=== PATIENT | female | born 1955 | race African-American/Black ===

== ENCOUNTER 2018-04-17 00:20 | Emergency (ER) | payer OTHER ==
--- NOTE | 2018-04-17 03:09 | ER ---
Nurse's Notes [facility] Name: Monique Franz Age: 62 yrs Sex: Female : 1955 Arrival Date: 04/17/2018 Time: 00:23 Bed 16 Private MD: Bahman Gil H Diagnosis: Acute pharyngitis Presentation: 04/17 00:47 Presenting complaint: Patient states: "feels something in the back of my throat" no ak1 resp distress noted. pt stated she also can "feel something" on the roof of her mouth. Transition of care: patient was not received from another setting of care. Onset of symptoms is unknown. Risk Assessment: Do you want to hurt yourself or someone else? Patient reports no desire to harm self or others. Initial Sepsis Screen: Does the patient meet any 2 criteria? No. Patient's initial sepsis screen is negative. Does the patient have a suspected source of infection? No. Patient's initial sepsis screen is negative. Care prior to arrival: doxycycline antibiotics left over for 2 days [employer]. 00:47 Method Of Arrival: Ambulatory ak1 00:47 Acuity: VIC 4 ak1 Triage Assessment: 00:53 General: Appears in no apparent distress. Behavior is calm, cooperative. Pain: Denies ak1 pain. EENT: Oral mucosa is moist. Throat with gag reflex present. Neuro: No deficits noted. Cardiovascular: No deficits noted. Respiratory: No deficits noted. GI: No signs and/or symptoms were reported involving the gastrointestinal system. : No signs and/or symptoms were reported regarding the genitourinary system. Derm: No signs and/or symptoms reported regarding the dermatologic system. Musculoskeletal: No signs and/or symptoms reported regarding the musculoskeletal system. Historical: - Allergies: 00:53 Zithromax; ak1 00:53 Azithromycin; ak1 - Home Meds: 00:53 Victoza 2-Jj subcutaneous subcutaneous [Active]; simvastatin 20 mg Oral tab 1 tab once ak1 daily [Active]; amiodarone 100 mg Oral tab 1 tab once daily [Active]; aspirin 81 mg Oral chew 1 tab once daily [Active]; glimepiride 2 mg Oral tab 1 tab 2 times daily [Active]; Xarelto 20 mg oral tab 1 tab once daily [Active]; losartan 100 mg oral tab 1 tab once daily [Active]; hydrochlorothiazide 12.5 mg Oral cap 1 cap once daily [Active]; carvedilol 25 mg oral tab 1 tab 2 times per day [Active]; Lialda 1.2 gram oral TbEC 2 tabs once daily [Active]; tramadol 50 mg Oral tab 1 tab every 6 hours [Active]; [place] 10-325 mg Oral tab 1 tab every 6 hours [Active]; 00:57 Nexium Oral [Active]; ak1 - PMHx: 00:53 Hypertension; Hyperlipidemia; Diabetes - NIDDM; ak1 - PSHx: 00:53 Hysterectomy; ; shoulder surg; ak1 - Immunization history:: Adult Immunizations unknown. - Social history:: Smoking status: Patient/guardian denies using tobacco. - Ebola Screening: : No symptoms or risks identified at this time. Screenin:55 Abuse screen: Denies threats or abuse. Denies injuries from another. Nutritional ak1 screening: On. Tuberculosis screening: No symptoms or risk factors identified. Fall Risk None identified. Assessment: 03:17 Reassessment: Pt verbalized understanding of discharge instructions, need for follow up tl2 and medication usage. Vital Signs: 00:46 BP 149 / 75; Pulse 72; Resp 18; Temp 98.6(O); Pulse Ox 97% on R/A; Weight 119.29 kg ak1 (R); Height 5 ft. 3 in. (160.02 cm) (R); Pain 0/10; 03:17 BP 139 / 66; Pulse 63; Resp 18; Pulse Ox 100% on R/A; tl2 00:46 Body Mass Index 46.59 (119.29 kg, 160.02 cm) ak1 ED Course: 00:23 Patient arrived in ED. es 00:23 Bhaman Gil DO is Private Physician. es 00:46 Ana Ratliff, YEISON is Primary Nurse. ak1 00:49 Triage completed. ak1 00:53 Arm band placed on Patient placed in an exam room, on a stretcher, on pulse oximetry, ak1 Patient notified of wait time. 00:55 Patient has correct armband on for positive identification. Bed in low position. Call ak1 light in reach. Side rails up X 1. Pulse ox on. NIBP on. 01:17 Aly Pina MD is Attending Physician. kdr 03:08 Bahman Gil DO is Referral Physician. kdr 03:17 No provider procedures requiring assistance completed. Patient did not have IV access tl2 during this emergency room visit. Administered Medications: No medications were administered Outcome: 03:09 Discharge ordered by . kdr 03:17 Discharged to home ambulatory. tl2 03:17 Condition: stable 03:17 Discharge instructions given to patient, Instructed on discharge instructions, follow up and referral plans. Demonstrated understanding of instructions, follow-up care. 03:19 Patient left the ED. tl2 Signatures: Aly Pina MD MD kdr Lucinda Nunez Amber RN RN ak1 Pia Hayes RN RN tl2
--- NOTE | 2018-04-17 03:09 | EDPHYS ---
Physician Documentation [facility] Name: Monique Franz Age: 62 yrs Sex: Female : 1955 Arrival Date: 04/17/2018 Time: 00:23 Bed 16 Private MD: Bahman Gil H ED Physician Aly Pina HPI: 04/17 03:54 This 62 yrs old Black Female presents to ER via Ambulatory with complaints of Problem kdr with throat. 03:54 The patient presents with sore throat, Posterior pharynx congestion. The patient kdr describes throat pain as constant, dry. Onset: The symptoms/episode began/occurred gradually, 3 day(s) ago. Severity of symptoms: At their worst the symptoms were mild, in the emergency department the symptoms are unchanged. Modifying factors: The symptoms are alleviated by nothing, the symptoms are aggravated by swallowing, Patient's oral intake status: good unaware of sick contact. Associated signs and symptoms: The patient has no apparent associated signs or symptoms. The patient has not experienced similar symptoms in the past. The patient has not recently seen a physician. She had taken as few doses of unknown abx without relief. Historical: - Allergies: 00:53 Zithromax; ak1 00:53 Azithromycin; ak1 - Home Meds: 00:53 Victoza 2-Jj subcutaneous subcutaneous [Active]; simvastatin 20 mg Oral tab 1 tab once ak1 daily [Active]; amiodarone 100 mg Oral tab 1 tab once daily [Active]; aspirin 81 mg Oral chew 1 tab once daily [Active]; glimepiride 2 mg Oral tab 1 tab 2 times daily [Active]; Xarelto 20 mg oral tab 1 tab once daily [Active]; losartan 100 mg oral tab 1 tab once daily [Active]; hydrochlorothiazide 12.5 mg Oral cap 1 cap once daily [Active]; carvedilol 25 mg oral tab 1 tab 2 times per day [Active]; Lialda 1.2 gram oral TbEC 2 tabs once daily [Active]; tramadol 50 mg Oral tab 1 tab every 6 hours [Active]; [place] 10-325 mg Oral tab 1 tab every 6 hours [Active]; 00:57 Nexium Oral [Active]; ak1 - PMHx: 00:53 Hypertension; Hyperlipidemia; Diabetes - NIDDM; ak1 - PSHx: 00:53 Hysterectomy; ; shoulder surg; ak1 - Immunization history:: Adult Immunizations unknown. - Social history:: Smoking status: Patient/guardian denies using tobacco. - Ebola Screening: : No symptoms or risks identified at this time. ROS: 03:54 Constitutional: Negative for fever, chills, and weight loss, Eyes: Negative for injury, kdr pain, redness, and discharge, Neck: Negative for injury, pain, and swelling, Cardiovascular: Negative for chest pain, palpitations, and edema, Respiratory: Negative for shortness of breath, cough, wheezing, and pleuritic chest pain, Abdomen/GI: Negative for abdominal pain, nausea, vomiting, diarrhea, and constipation, Back: Negative for injury and pain, : Negative for injury, bleeding, discharge, and swelling, MS/Extremity: Negative for injury and deformity, Skin: Negative for injury, rash, and discoloration, Neuro: Negative for headache, weakness, numbness, tingling, and seizure activity. 03:54 ENT: Positive for difficulty swallowing, sore throat, Negative for drainage from ear(s), foreign body sensation, Gum pain hearing loss, pulling at ears, Teeth pain tinnitus, nasal discharge, rhinorrhea, sinus congestion, sinus pain, dental pain, difficulty handling secretions, hoarseness, acute changes. Exam: 03:54 Constitutional: This is a well developed, well nourished patient who is awake, alert, kdr and in no acute distress. Head/Face: Normocephalic, atraumatic. Eyes: Pupils equal round and reactive to light, extra-ocular motions intact. Lids and lashes normal. Conjunctiva and sclera are non-icteric and not injected. Cornea within normal limits. Periorbital areas with no swelling, redness, or edema. Neck: Trachea midline, no thyromegaly or masses palpated, and no cervical lymphadenopathy. Supple, full range of motion without nuchal rigidity, or vertebral point tenderness. No Meningismus. Chest/axilla: Normal chest wall appearance and motion. Nontender with no deformity. No lesions are appreciated. Cardiovascular: Regular rate and rhythm with a normal S1 and S2. No gallops, murmurs, or rubs. Normal PMI, no JVD. No pulse deficits. Respiratory: Lungs have equal breath sounds bilaterally, clear to auscultation and percussion. No rales, rhonchi or wheezes noted. No increased work of breathing, no retractions or nasal flaring. Abdomen/GI: Soft, non-tender, with normal bowel sounds. No distension or tympany. No guarding or rebound. No evidence of tenderness throughout. Back: No spinal tenderness. No costovertebral tenderness. Full range of motion. 03:54 ENT: Posterior pharynx: Airway: normal, Tonsils: with erythema, Uvula: midline, non-edematous. Vital Signs: 00:46 BP 149 / 75; Pulse 72; Resp 18; Temp 98.6(O); Pulse Ox 97% on R/A; Weight 119.29 kg ak1 (R); Height 5 ft. 3 in. (160.02 cm) (R); Pain 0/10; 03:17 BP 139 / 66; Pulse 63; Resp 18; Pulse Ox 100% on R/A; tl2 00:46 Body Mass Index 46.59 (119.29 kg, 160.02 cm) ak1 MDM: 03:09 Patient medically screened. kdr 03:54 Data reviewed: vital signs, nurses notes, lab test result(s). Counseling: I had a kdr detailed discussion with the patient and/or guardian regarding: the historical points, exam findings, and any diagnostic results supporting the discharge/admit diagnosis, lab results, the need for outpatient follow up. 04/17 02:27 Order name: Strep; Complete Time: 03:07 ak1 04/17 03:01 Order name: Throat Culture EDMS Administered Medications: No medications were administered Disposition: 04/17/18 03:09 Discharged to Home. Impression: Acute pharyngitis. - Condition is Stable. - Discharge Instructions: Pharyngitis, Viral Respiratory Infection. - Medication Reconciliation Form, Thank You Letter form. - Follow up: Bahman Gil DO; When: 2 - 3 days; Reason: If symptoms return, Further diagnostic work-up, Recheck today's complaints, Continuance of care, Re-evaluation by your physician. - Problem is new. - Symptoms are unchanged. Signatures: Dispatcher [employer] EDMS Aly Pina MD MD kdr Krenek, Amber, RN RN ak1 Hayes, Pia, RN RN tl2 Corrections: (The following items were deleted from the chart) 03:19 03:09 04/17/2018 03:09 Discharged to Home. Impression: Acute pharyngitis. Condition is tl2 Stable. Forms are Medication Reconciliation Form, Thank You Letter, Antibiotic Education, Prescription Opioid Use. Follow up: Bahman Gil; When: 2 - 3 days; Reason: If symptoms return, Further diagnostic work-up, Recheck today's complaints, Continuance of care, Re-evaluation by your physician. Problem is new. Symptoms are unchanged. kdr
[2018-04-17 03:32] VITALS: TEMP 98.6
[2018-04-17 03:34] VITALS: BP 139/66; O2SAT 100
== END 2018-04-17 03:19 | disposition home or self-care (01) ==
LOC: ER 00:20
DX: J02.9 Acute pharyngitis, unspecified (principal); I10 Essential (primary) hypertension; E78.5 Hyperlipidemia, unspecified; E11.9 Type 2 diabetes mellitus without complications; Z79.4 Long term (current) use of insulin; Z79.01 Long term (current) use of anticoagulants; Z79.82 Long term (current) use of aspirin; Z88.1 Allergy status to other antibiotic agents; Z88.3 Allergy status to other anti-infective agents
CPT/HCPCS: 87070; 87081; 99283

== ENCOUNTER 2018-10-22 18:42 | Emergency (ER) | payer OTHER ==
[2018-10-22] MEDS ORDERED: METHYLPREDNISOLONE 125 MG INJ ONE (22:35)
[2018-10-22] MEDS ORDERED: NA CHLORIDE 0.9% 1,000 ML ONE (22:35)
[2018-10-22] MEDS ORDERED: ALBUTEROL 2.5 MG/3 ML NEB SOL ONE (22:35)
[2018-10-22 23:07] LABS: Absolute Lymphocytes (CBC) 2.4 K/uL (0.7-4.9); Absolute Monocytes 0.8 K/uL (0.1-1.3); Absolute Neutrophil 2.1 K/uL (1.8-8.0); Basophils % 0.5 % (0-1.3); Hematocrit 38.5 % (36.0-45.0); Lymphocytes % 44.5 % (15.3-44.8); MPV 10.8 fL (7.6-11.3); Monocytes % 14.4 % (3.3-12.3); RBC Red Blood Cell Count 5.46 M/uL (3.86-4.86)
--- NOTE | 2018-10-23 00:06 | ER ---
Nurse's Notes [facility] Name: Monique Franz Age: 63 yrs Sex: Female : 1955 Arrival Date: 10/22/2018 Time: 18:45 Bed 27 Private MD: Diagnosis: Influenza due to identified novel influenza A virus Presentation: 10/22 19:35 Presenting complaint: Patient states: "I don't know what I have, but my hole body is jd3 hurting really bad. I also haven't had an apatite.". Transition of care: patient was not received from another setting of care. Onset of symptoms was October 20, 2018. Risk Assessment: Do you want to hurt yourself or someone else? Patient reports no desire to harm self or others. Initial Sepsis Screen: Does the patient meet any 2 criteria? No. Patient's initial sepsis screen is negative. Does the patient have a suspected source of infection? No. Patient's initial sepsis screen is negative. Care prior to arrival: None. 19:35 Method Of Arrival: Ambulatory jd3 19:35 Acuity: VIC 4 jd3 Historical: - Allergies: 19:41 Azithromycin; jd3 19:41 Zithromax; jd3 - PMHx: 19:41 Hyperlipidemia; Hypertension; Diabetes - NIDDM; Diverticulitis; jd3 - PSHx: 19:41 ; Hysterectomy; shoulder surg; jd3 - Immunization history:: Adult Immunizations. - Social history:: Smoking status: Patient/guardian denies using tobacco. - Ebola Screening: : Patient negative for fever greater than or equal to 101.5 degrees Fahrenheit, and additional compatible Ebola Virus Disease symptoms. Screenin:00 Abuse screen: Denies threats or abuse. Denies injuries from another. Nutritional rv screening: No deficits noted. Tuberculosis screening: No symptoms or risk factors identified. Fall Risk None identified. Assessment: 21:59 General: Appears in no apparent distress. comfortable, Behavior is calm, cooperative. rv Pain: Complains of pain in GENERALIZED. Neuro: Level of Consciousness is awake, alert, obeys commands, Oriented to person, place, time, situation. Cardiovascular: Capillary refill < 3 seconds. Respiratory: Airway is patent. GI: No signs and/or symptoms were reported involving the gastrointestinal system. : No signs and/or symptoms were reported regarding the genitourinary system. EENT: No signs and/or symptoms were reported regarding the EENT system. Derm: Skin is intact. Musculoskeletal: No signs and/or symptoms reported regarding the musculoskeletal system. 23:20 Reassessment: Patient appears in no apparent distress at this time. Patient and/or rv family updated on plan of care and expected duration. Pain level reassessed. Patient is alert, oriented x 3, equal unlabored respirations, skin warm/dry/pink. Vital Signs: 19:41 BP 109 / 61; Pulse 59; Resp 17 S; Temp 98.9(O); Pulse Ox 96% on R/A; Weight 120.66 kg jd3 (R); Height 5 ft. 3 in. (160.02 cm) (R); Pain 7/10; 22:00 BP 141 / 88 LA; Pulse 71; Resp 17 S; Pulse Ox 99% on R/A; rv 23:22 BP 130 / 64 LA; Pulse 55; Resp 19 S; Pulse Ox 96% on R/A; rv 19:41 Body Mass Index 47.12 (120.66 kg, 160.02 cm) jd3 ED Course: 18:45 Patient arrived in ED. rg4 19:37 Triage completed. jd3 19:42 Arm band placed on. jd3 19:42 Patient notified of wait time. jd3 21:18 Jhonatan Anders PA is PHCP. jr8 21:18 Francisco Rush MD is Attending Physician. jr8 22:00 Patient has correct armband on for positive identification. Bed in low position. Call rv light in reach. Side rails up X 1. Pulse ox on. NIBP on. 22:37 X-ray completed. Portable x-ray completed in exam room. Patient tolerated procedure kp1 well. 22:39 XRAY Chest (1 view) In Process Unspecified. EDMS 10/23 00:17 No provider procedures requiring assistance completed. IV discontinued, bleeding rv controlled, No redness/swelling at site. Pressure dressing applied. Administered Medications: 10/22 22:25 Drug: Albuterol 2.5 mg Route: Inhalation; rv 10/23 00:16 Follow up: Response: Marked relief of symptoms rv 10/22 22:30 Drug: SOLU-Medrol 125 mg Route: IVP; Site: right antecubital; rv 10/23 00:15 Follow up: Response: Marked relief of symptoms rv 10/22 22:30 Drug: NS 0.9% 1000 ml Route: IV; Rate: 1000 ml; Site: right antecubital; rv 23:50 Follow up: IV Status: Completed infusion rv 10/23 00:15 Drug: Tamiflu 75 mg Route: PO; rv 00:16 Follow up: Response: Medication administered at discharge. rv Outcome: 00:06 Discharge ordered by MD. yen 00:17 Discharged to home ambulatory. rv 00:17 Condition: good 00:17 Discharge instructions given to patient, Instructed on discharge instructions, follow up and referral plans. medication usage, Demonstrated understanding of instructions, follow-up care, medications, Prescriptions given X 5 00:18 Patient left the ED. rv Signatures: Dispatcher [employer] EDMS Jhonatan Anders PA PA jrAmerica Abdi rg4 Naima Pierce kp1 Murray Obregon RN RN jCarlos Eduardo Peters RN RN rv
--- NOTE | 2018-10-23 00:07 | EDPHYS ---
Physician Documentation [facility] Name: Monique Franz Age: 63 yrs Sex: Female : 1955 Arrival Date: 10/22/2018 Time: 18:45 Bed 27 Private MD: ED Physician Francisco Rush HPI: 10/22 22:32 This 63 yrs old Black Female presents to ER via Ambulatory with complaints of Fever, jr8 Body Aches. 22:32 The patient reports fever, not measured (subjective). Onset: The symptoms/episode jr8 began/occurred acutely, today. Modifying factors: there are no obvious modifying factors. Associated signs and symptoms: Pertinent positives: chills, cough. Severity of symptoms: At their worst the symptoms were moderate in the emergency department the symptoms are unchanged. The patient has not experienced similar symptoms in the past. The patient has not recently seen a physician. Historical: - Allergies: 19:41 Azithromycin; jd3 19:41 Zithromax; jd3 - PMHx: 19:41 Hyperlipidemia; Hypertension; Diabetes - NIDDM; Diverticulitis; jd3 - PSHx: 19:41 ; Hysterectomy; shoulder surg; jd3 - Immunization history:: Adult Immunizations. - Social history:: Smoking status: Patient/guardian denies using tobacco. - Ebola Screening: : Patient negative for fever greater than or equal to 101.5 degrees Fahrenheit, and additional compatible Ebola Virus Disease symptoms. ROS: 22:32 Eyes: Negative for injury, pain, redness, and discharge, ENT: Negative for injury, jr8 pain, and discharge, Neck: Negative for injury, pain, and swelling, Cardiovascular: Negative for chest pain, palpitations, and edema, Abdomen/GI: Negative for abdominal pain, nausea, vomiting, diarrhea, and constipation, Back: Negative for injury and pain, MS/Extremity: Negative for injury and deformity, Skin: Negative for injury, rash, and discoloration, Neuro: Negative for headache, weakness, numbness, tingling, and seizure. 22:32 Constitutional: Positive for body aches, chills, fever. 22:32 Respiratory: Positive for cough, wheezing, Negative for shortness of breath, sputum production. Exam: 22:32 Eyes: Pupils equal round and reactive to light, extra-ocular motions intact. Lids and jr8 lashes normal. Conjunctiva and sclera are non-icteric and not injected. Cornea within normal limits. Periorbital areas with no swelling, redness, or edema. ENT: Nares patent. No nasal discharge, no septal abnormalities noted. Tympanic membranes are normal and external auditory canals are clear. Oropharynx with no redness, swelling, or masses, exudates, or evidence of obstruction, uvula midline. Mucous membranes moist. Neck: Trachea midline, no thyromegaly or masses palpated, and no cervical lymphadenopathy. Supple, full range of motion without nuchal rigidity, or vertebral point tenderness. No Meningismus. Cardiovascular: Regular rate and rhythm with a normal S1 and S2. No gallops, murmurs, or rubs. Normal PMI, no JVD. No pulse deficits. Abdomen/GI: Soft, non-tender, with normal bowel sounds. No distension or tympany. No guarding or rebound. No evidence of tenderness throughout. Back: No spinal tenderness. No costovertebral tenderness. Full range of motion. Skin: Warm, dry with normal turgor. Normal color with no rashes, no lesions, and no evidence of cellulitis. MS/ Extremity: Pulses equal, no cyanosis. Neurovascular intact. Full, normal range of motion. Neuro: Awake and alert, GCS 15, oriented to person, place, time, and situation. Cranial nerves II-XII grossly intact. Motor strength 5/5 in all extremities. Sensory grossly intact. Cerebellar exam normal. Normal gait. 22:32 Respiratory: the patient does not display signs of respiratory distress, Respirations: normal, symetrical, no use of accessory muscles, no grunting, no evidence of nasal flaring, no prolonged exhalations, no pursed lip breathing, no retractions, no shallow respirations, no splinting, no tachypnea, Breath sounds: wheezing: expiratory that is mild, is heard diffusely. Vital Signs: 19:41 BP 109 / 61; Pulse 59; Resp 17 S; Temp 98.9(O); Pulse Ox 96% on R/A; Weight 120.66 kg jd3 (R); Height 5 ft. 3 in. (160.02 cm) (R); Pain 7/10; 22:00 BP 141 / 88 LA; Pulse 71; Resp 17 S; Pulse Ox 99% on R/A; rv 23:22 BP 130 / 64 LA; Pulse 55; Resp 19 S; Pulse Ox 96% on R/A; rv 19:41 Body Mass Index 47.12 (120.66 kg, 160.02 cm) jd3 MDM: 21:58 Patient medically screened. [facility] 10/23 00:01 Data reviewed: vital signs, nurses notes, lab test result(s), Flu: positive radiologic [facility] studies, plain films, and as a result, I will discharge patient. Data interpreted: Pulse oximetry: on room air is 96 %. Interpretation: normal. Counseling: I had a detailed discussion with the patient and/or guardian regarding: the historical points, exam findings, and any diagnostic results supporting the discharge/admit diagnosis, lab results, radiology results, the need for outpatient follow up, a family practitioner. 10/22 22:12 Order name: Influenza Screen (a \T\ B); Complete Time: 23:54 [facility] 10/22 22:12 Order name: CBC with Diff [facility] 10/22 22:12 Order name: XRAY Chest (1 view) [facility] 10/22 23:35 Order name: CBC Smear Scan [facility] 10/22 23:53 Order name: Urine Dipstick--Ancillary (enter results) nv5 10/22 22:12 Order name: IV; Complete Time: 23:19 8 10/22 22:12 Order name: Urine Dipstick-Ancillary (obtain specimen); Complete Time: 23:51 [facility] Administered Medications: 10/22 22:25 Drug: Albuterol 2.5 mg Route: Inhalation; rv 10/23 00:16 Follow up: Response: Marked relief of symptoms rv 10/22 22:30 Drug: SOLU-Medrol 125 mg Route: IVP; Site: right antecubital; rv 10/23 00:15 Follow up: Response: Marked relief of symptoms rv 10/22 22:30 Drug: NS 0.9% 1000 ml Route: IV; Rate: 1000 ml; Site: right antecubital; rv 23:50 Follow up: IV Status: Completed infusion rv 10/23 00:15 Drug: Tamiflu 75 mg Route: PO; rv 00:16 Follow up: Response: Medication administered at discharge. rv Disposition: 03:17 Co-signature as Attending Physician, Francisco Rush MD. rn Disposition: 10/23/18 00:06 Discharged to Home. Impression: Influenza due to identified novel influenza A virus. - Condition is Stable. - Discharge Instructions: Influenza, Adult. - Prescriptions for Prednisone 20 mg Oral Tablet - take 1 tablet by ORAL route once daily for 5 days; 5 tablet. Tamiflu 75 mg Oral Capsule - take 1 capsule by ORAL route every 12 hours for 5 days; 10 capsule. Zofran 4 mg Oral Tablet - take 1 tablet by ORAL route every 12 hours As needed; 20 tablet. Albuterol Sulfate 90 mcg/actuation - inhale 1-2 puff by INHALATION route every 4-6 hours; 1 Inhaler. Guaifenesin AC 10- 100 mg/5 mL Oral Liquid - take 10 milliliter by ORAL route every 4 hours As needed; 240 milliliter. - Medication Reconciliation Form, Thank You Letter, Antibiotic Education, Prescription Opioid Use form. - Follow up: Private Physician; When: 2 - 3 days; Reason: Recheck today's complaints, Continuance of care, Re-evaluation by your physician. - Problem is new. - Symptoms have improved. Signatures: Dispatcher [employer] EDMS Francisco Rush MD MD rn Roszak, Josh, PA PA jr8 Murray Obregon RN RN Carlos Eduardo Belcher RN RN rv Corrections: (The following items were deleted from the chart) 00:18 00:06 10/23/2018 00:06 Discharged to Home. Impression: Influenza due to identified rv novel influenza A virus. Condition is Stable. Forms are Medication Reconciliation Form, Thank You Letter, Antibiotic Education, Prescription Opioid Use. Follow up: Private Physician; When: 2 - 3 days; Reason: Recheck today's complaints, Continuance of care, Re-evaluation by your physician. Problem is new. Symptoms have improved. jr8
[2018-10-23] MEDS ORDERED: OSELTAMIVIR 75 MG CAP ONE (00:22)
[2018-10-23 00:35] VITALS: TEMP 98.9
[2018-10-23 00:37] VITALS: BP 130/64; O2SAT 96
[2018-10-23 00:56] LABS: Blood Morphology Comment NOTED (NOT SEEN); Hypochromasia 1+; Platelet Estimate ADEQ
[2018-10-23 01:00] LABS: Urine White Blood Cell Casts OK
[2018-10-23 03:46] LABS: Urine Blood TRACE (NEG); Urine Glucose NEGATIVE (NEG); Urine Protein TRACE (NEG); Urine pH 5.5 (5.0-7.0)
--- NOTE | 2018-10-23 07:29 | RAD REPORT ---
EXAM DESCRIPTION: RAD - Chest Single View - 10/22/2018 10:39 pm CLINICAL HISTORY: Cough, dyspnea COMPARISON: July 2013 TECHNIQUE: AP portable chest image was obtained 2236 hours . FINDINGS: Lungs are clear. Heart and vasculature are normal. No measurable pleural effusion and no p neumothorax. No acute bony abnormality seen. No acute aortic findings suspected. IMPRESSION: No acute cardiopulmonary process. No significant interval change.
== END 2018-10-23 00:18 | disposition home or self-care (01) ==
LOC: ER 18:42
DX: J10.1 Influenza due to other identified influenza virus with other respiratory manifestations (principal); E78.5 Hyperlipidemia, unspecified; I10 Essential (primary) hypertension; E11.9 Type 2 diabetes mellitus without complications; Z88.1 Allergy status to other antibiotic agents
CPT/HCPCS: 96361; 85025; 36415; 81003; 87804 ×2; 71045; 96374; 99284; J7030; J2930

== ENCOUNTER 2023-01-04 22:34 | Emergency (ER) | payer OTHER ==
--- OUTSIDE RECORDS SUMMARY | 2023-01-04 22:42 | XMS REPORT | Continuity of Care Document ---
:1955 Author Organization [facility] t Address [address] [place] [address] Care Team Providers Name Role Phone Pam GilPaulaMateo Primary Care Physician Nelson Beltran Attending Clinician Unavailable Doctor Unassigned, [place] Attending Clinician Unavailable JAIR GUARDADO Attending Clinician Unavailable Jair Guardado MD Attending Clinician Pob, [facility] Attending Clinician Unavailable CHAIM BREAUX Attending Clinician Unavailable Chaim Wang Attending Clinician ASHLEY ALDRICH Attending Clinician Unavailable KRYSTINA VICTORIA Attending Clinician Unavailable Provider, [facility] Attending Clinician Unavailable Krystina Wallis Attending Clinician Keila Goode Attending Clinician KEILA EVANS Attending Clinician Unavailable Gloria Gottlieb Attending Clinician Tosha Egan Attending Clinician Unknown, Attending Attending Clinician Unavailable UNKNOWN, ATTENDING Attending Clinician Unavailable Arabella Cobb Attending Clinician KNOW, DOES_NOT Admitting Clinician Unavailable JAIR GUARDADO Admitting Clinician Unavailable Jair Guardado MD Admitting Clinician Payers Payer Name Policy Type Policy Number Effective Date Expiration Date [facility] [id number] 2019 DUAL COMPLETE HMO 00:00:00 [place]ICAID OF [place] [id number] 2013 00:00:00 Problems Condition Condition Condition Status Onset Resolution Last Treating Co mments Source Name Details Category Date Date Treatment Clinician Date No known No known Disease Unive rs active active ity of problems problems [facility] Allergies, Adverse Reactions, Alerts Allergy Allergy Status Severity Reaction(s) Onset Inactive Treating Comm ents Source Name Type Date Date Clinician azithrom DA Active [place] [facility] 1-15 [place] 00:00: d 00 [facility] PCN DA Active [place] ITCHING [facility] 1-15 [place] 00:00: d 00 [facility] azithrom DA Active [place] SWELLING IN [facility] ycin THE LIPS 1-15 [place] 00:00: d 00 [facility] Penicill Propensi Active Swelling Univ ers ins ty to 8-11 ity of adverse 00:00: [place] reaction [facility] PENICILL Drug Active Swelling 0 Univer s INS Class 8-11 ity of 00:00: [place] [facility] Penicill Propensi Active Swelling 0 Univ ers ins ty to 8-11 ity of adverse 00:00: [place] reaction [facility] Azithrom Propensi Active Unknown - Uni vers ycin ty to See comments 7-17 ity of adverse 00:00: [place] reaction [facility] AZITHROM DRUG Active Unknown-Cmnt Un blake YCIN INGREDI 7-17 ity of 00:00: [place] [facility] Social History Social Habit Start Date Stop Date Quantity Comments Source Alcohol intake 2022-08-08 2022-08-08 Current University of 00:00:00 00:00:00 non-drinker of [facility] alcohol (finding) Branch Exposure to 2022-07-22 2022-08-01 Not sure University SARS-CoV-2 00:00:00 13:36:00 [facility] (event) Branch Tobacco use and 2022-07-24 2022-07-24 Smokeless tobacco Un iversity of exposure 00:00:00 00:00:00 non-user [facility] Sex Ass[birth year] At [birth year] Universit y of 00:00:00 00:00:00 [facility] Smoking Status Start Date Stop Date Source Never smoked tobacco [facility] Medications Ordered Filled Start Stop Current Ordering Indication Dosage Frequency Signature Comments Components Source Medication Medication Date Date Medication? Clinician (SIG) Name Name carvedilol Yes [id number] Take by Univers (COREG) 25 1-04 mouth 2 ity of mg tablet 16:29: (two) [place] [address] times Medical daily with [facility] meals. esomeprazol Yes [id number] 40mg Take 40 mg Univers e 40 mg 1-04 by mouth ity of capsule 16:29: daily with [facility] s 08 breakfast. Medical Branch simvastatin Yes [id number] 20mg Take 20 mg Univers (ZOCOR) 20 1-04 by mouth ity o f mg tablet 16:29: at [place] 08 bedtime. Medical Branch losartan Yes [id number] 100mg Take 100 Univers (COZAAR) 1-04 mg by ity of 100 mg 16:29: mouth [place] tablet 08 daily. Medical Branch aspirin 81 Yes [id number] 81mg Take 81 mg Univers mg chewable 1-04 by mouth ity of tablet 16:29: daily. [place] 08 Medical Branch mesalamine Yes [id number] 1200mg Take 1,200 Univers 1.2 gram EC 1-04 mg by ity of tablet 16:29: mouth in [place] 08 the Medical morning Branch and 1,200 mg in the evening. metFORMIN Yes [id number] 1000mg Take 1,000 Univers (FORTAMET) 1-04 mg by ity of 1,000 mg 24 16:29: mouth [place] hr tablet 08 daily with [facility] breakfast. Branch liraglutide 0 Yes 1.8mg inject 1.8 Univers 0.6 mg/0.1 1-04 mg under ity o f mL (18 mg/3 16:29: the skin [place] mL) 08 in the Medical injection morning. Branch ERGOCALCIFE 0 Yes Take by Uni vers ROL, 1-04 mouth. ity of VITAMIN D2, 16:29: [place] (VITAMIN D 08 Medical ORAL) Branch carvedilol 0 Yes [id number] Take by Univers (COREG) 25 1-04 mouth 2 ity of mg tablet 16:29: (two) [place] 08 times Medical daily with [facility] meals. esomeprazol 2022-0 Yes [id number] 40mg Take 40 mg Univers e 40 mg 1-04 by mouth ity of capsule 16:29: [place] 08 breakfast. [place] simvastatin 2022-0 Yes [id number] 20mg Take 20 mg Univers (ZOCOR) 20 1-04 by mouth ity o f mg tablet 16:29: at [place] 08 bedtime. Medical Branch losartan 2022-0 Yes [id number] 100mg Take 100 Univers (COZAAR) 1-04 mg by ity of 100 mg 16:29: mouth [place] tablet 08 daily. Medical Branch aspirin 81 2022-0 Yes [id number] 81mg Take 81 mg Univers mg chewable 1-04 by mouth ity of tablet 16:29: daily. [place] 08 Medical Branch mesalamine 2022-0 Yes [id number] 1200mg Take 1,200 Univers 1.2 gram EC 1-04 mg by ity of tablet 16:29: mouth in [place] 08 the Medical morning Branch and 1,200 mg in the evening. metFORMIN 2022-0 Yes [id number] 1000mg Take 1,000 Univers (FORTAMET) 1-04 mg by ity of 1,000 mg 24 16:29: mouth [place] hr tablet 08 daily with Medi yossi breakfast. Branch liraglutide 0 Yes 1.8mg inject 1.8 Univers 0.6 mg/0.1 1-04 mg under ity o f mL (18 mg/3 16:29: the skin [place] mL) 08 in the Medical injection morning. Branch ERGOCALCIFE 0 Yes Take by Uni vers ROL, 1-04 mouth. ity of VITAMIN D2, 16:29: [place] (VITAMIN D 08 Medical ORAL) Branch carvedilol Yes [id number] Take by Univers (COREG) 25 1-04 mouth 2 ity of mg tablet 16:29: (two) [place] 08 times Medical daily with Branch meals. esomeprazol Yes [id number] 40mg Take 40 mg Univers e 40 mg 1-04 by mouth ity of capsule 16:29: daily [place] 08 breakfast. [place] Branch simvastatin Yes [id number] 20mg Take 20 mg Univers (ZOCOR) 20 1-04 by mouth ity o f mg tablet 16:29: at [place] 08 bedtime. Medical Branch losartan Yes [id number] 100mg Take 100 Univers (COZAAR) 1-04 mg by ity of 100 mg 16:29: mouth [place] tablet 08 daily. Medical Branch aspirin 81 Yes [id number] 81mg Take 81 mg Univers mg chewable 1-04 by mouth ity of tablet 16:29: daily. [place] [address] Medical Branch mesalamine Yes [id number] 1200mg Take 1,200 Univers 1.2 gram EC 1-04 mg by ity of tablet 16:29: mouth in [place] 08 the Medical morning Branch and 1,200 mg in the evening. metFORMIN Yes [id number] 1000mg Take 1,000 Univers (FORTAMET) 1-04 mg by ity of 1,000 mg 24 16:29: mouth [place] hr tablet 08 daily with [facility] breakfast. Branch liraglutide Yes 1.8mg inject 1.8 Univers 0.6 mg/0.1 1-04 mg under ity o f mL (18 mg/3 16:29: the skin [place] mL) 08 in the Medical injection morning. Branch ERGOCALCIFE Yes Take by Uni vers ROL, 1-04 mouth. ity of VITAMIN D2, 16:29: [place] (VITAMIN D 08 Medical ORAL) Branch neomycin-po 2022- No PRN, Unive rs lymyxin-dex 1-04 08-07 Starting ity of amethasone 15:42: 15:53 on Fri [place] (MAXITROL) 00 :12 08/07/22 at Medi yossi 3.5 0942, Branch mg/g-10,000 Until Fri unit/g-0.1 08/07/22 at % 0953, ophthalmic Routine, ointment Intra-op dexamethaso 2022- No PRN, Unive rs ne 08-07 Starting ity of (DECADRON 15:40: 15:53 on Fri [place] PHOSPHATE) 00 :12 08/07/22 at Medi yossi injection 0940, Branch Until 08/07/22 at 0953, Routine, Intra-op carbachoL 2022- No PRN, Univers (MIOSTAT) 08-07 Starting ity o f 0.01 % 15:36: 15:53 on Fri [place] intraocular 00 :12 08/07/22 at Med ical injection 0936, Branch Until Fri08/07/22 at 0953, Routine, Intra-op chondroitin 2022- No PRN, Unive rs sulf-sod 08-07 Starting ity of hyaluronate 15:29: 15:53 on Fri [place] (DUOVISC 00 :12 08/07/22 at Medica l VISCO 0929, Branch ELASTIC) Until Fri intraocular 08/07/22 at injection 0953, Routine, Intra-op water for 2022- No PRN, Univers irrigation 08-07 Starting ity of irrigation 15:21: 15:53 on Fri [place] solution 00 :12 08/07/22 at Medica l 0921, Branch Until 08/07/22 at 0953, Routine, Intra-op eye block 2022- No PRN, Univers syringe 11 08-07 Starting ity of mL 15:18: 15:53 on Wed [place] 00 :12 08/07/22 at Medical 0918, Branch Until 08/07/22 at 0953, Intra-op Hyaluronida 2022- No PRN, Unive rs se, Human 08-07 Starting ity o f Recomb. 15:17: 15:53 on Fri [place] (HYLENEX) 00 :12 08/07/22 at Medic al injection 0917, Branch Until 08/07/22 at 0953, Routine, Intra-op EPINEPHrine 2022- No PRN, Unive rs 1:1,000 (1 08-07 Starting ity of mg/mL) 15:16: 15:53 on Fri [place] (ADRENALIN) 00 :12 08/07/22 at Med ical injection 16, Branch Until Fri08/07/22 at 0953, Routine, Intra-op balanced 2022- No PRN, Univers salt irrig 08-07 Starting ity of soln comb1 15:16: 15:53 on Fri [place] (BSS PLUS) 00 :12 08/07/22 at [facility] ophthalmic 0916, Branch solution Until Fri 500 mL bag 08/07/22 at 0953, Routine, Intra-op cyclopent 2022- No .5mL 0.5 mL, Univ ers 1%-tropic 08-07 Right Eye, ity of 1%-phenyl 14:00: 14:01 ONCE, 1 [place] 2.5%-ketor 00 :00 dose, On Medic al 0.5% Fri08/07/22 Branch (MYDRIATIC at 0800, #5) Routine, ophthalmic DSU Pre-op solution syringe 0.5 mL lactated 2022- No 1000mL at 42 Unive rs ringers IV 08-07 01-04 mL/hr, ity of infusion 14:00: 14:02 1,000 mL, [place] 1,000 mL 00 :00 IV Medical Infusion, Branch ONCE, 1 dose, On Fri08/07/22 at 0800, Routine, DSU Pre-op cyclopent 2022- No .5mL 0.5 mL, Univ ers 1%-tropic 08-07 Right Eye, ity of 1%-phenyl 14:00: 14:01 ONCE, 1 [place] 2.5%-ketor 00 :00 dose, On Medic al 0.5% Fri08/07/22 Branch (MYDRIATIC at 0800, #5) Routine, ophthalmic DSU Pre-op solution syringe 0.5 mL lactated 2022- No 1000mL at 42 Unive rs ringers IV 08-07 01-04 mL/hr, ity of infusion 14:00: 14:02 1,000 mL, [place] 1,000 mL 00 :00 IV Medical Infusion, Branch ONCE, 1 dose, On Fri08/07/22 at 0800, Routine, DSU Pre-op neomycin-po 2021-08- No PRN, Unive rs lymyxin-dex 09-24 Starting ity of amethasone 17:24: 17:46 on Fri [place] (MAXITROL) 00 :32 07/24/22 Medic al 3.5 at 1124, Branch mg/g-10,000 Until Fri unit/g-0.1 07/24/22 % at 1146, ophthalmic Routine, ointment Intra-op carbachoL 2021-08- No PRN, Univers (MIOSTAT) 09-24 Starting ity o f 0.01 % 17:23: 17:46 on Fri [place] intraocular 00 :32 07/24/22 Medi yossi injection at 1123, Branch Until Fri07/24/22 at 1146, Routine, Intra-op chondroitin 2021-08- No PRN, Unive rs sulf-sod 09-24 Starting ity of hyaluronate 17:14: 17:46 on Fri [place] (DUOVISC 00 :32 07/24/22 Medical VISCO at 1114, Branch ELASTIC) Until Fri intraocular 07/24/22 injection at 1146, Routine, Intra-op EPINEPHrine 2021-08- No PRN, Unive rs 1:1,000 (1 09-24 Starting ity of mg/mL) 17:13: 17:46 on Fri [place] (ADRENALIN) 00 :32 07/24/22 Medi yossi injection at 1113, Branch Until Fri07/24/22 at 1146, Routine, Intra-op balanced 2021-08- No PRN, Univers salt irrig 09-24 Starting ity of soln comb1 17:13: 17:46 on Fri [place] (BSS PLUS) 00 :32 07/24/22 Medic al ophthalmic at 1113, Branc h solution Until Fri 500 mL bag 07/24/22 at 1146, Routine, Intra-op dexamethaso 2021-08- No PRN, Unive rs ne 09-24 Starting ity of (DECADRON 17:12: 17:46 on Fri [place] PHOSPHATE) 00 :32 07/24/22 Medic al injection at 1112, Branch Until Fri07/24/22 at 1146, Routine, Intra-op water for 2021-08- No PRN, Univers irrigation 09-24 Starting ity of irrigation 17:07: 17:46 on Fri [place] solution 00 :32 07/24/22 Medical at 1107, Branch Until Fri07/24/22 at 1146, Routine, Intra-op Hyaluronida 2021-08- No PRN, Unive rs se, Human 09-24 Starting ity o f Recomb. 17:02: 17:46 on Fri [place] (HYLENEX) 00 :32 07/24/22 Medica l injection at 1102, Branch Until Fri07/24/22 at 1146, Routine, Intra-op eye block 2021-08- No PRN, Univers syringe 11 09-24 Starting ity of mL 17:02: 17:46 on Fri [place] 00 :32 07/24/22 Medical at 1102, Branch Until Fri07/24/22 at 1146, Intra-op cyclopent 2021-08- No .5mL 0.5 mL, Univ ers 1%-tropic 09-24 Left Eye, ity of 1%-phenyl 15:45: 15:43 ONCE, 1 [place] 2.5%-ketor 00 :00 dose, On Medic al 0.5% [facility] Branch (MYDRIATIC 07/24/22 #5) at 0945, ophthalmic Routine, solution DSU Pre-op syringe 0.5 mL lactated 2021-08- No 1000mL at 42 Unive rs ringers IV 09-24 mL/hr, ity of infusion 15:45: 15:46 1,000 mL, [place] 1,000 mL 00 :00 IV Medical Infusion, Branch ONCE, 1 dose, On Fri07/24/22 at 0945, Routine, DSU Pre-op cyclopent 2021-08- No .5mL 0.5 mL, Univ ers 1%-tropic 09-24 Left Eye, ity of 1%-phenyl 15:45: 15:43 ONCE, 1 [place] 2.5%-ketor 00 :00 dose, On Medic al 0.5% [facility] Branch (MYDRIATIC 07/24/22 #5) at 0945, ophthalmic Routine, solution DSU Pre-op syringe 0.5 mL lactated 2021-08 1000mL at 42 Unive rs ringers IV 2-21 12-21 mL/hr, ity of infusion 15:45: 15:46 1,000 mL, [place] 1,000 mL 00 :00 IV Medical Infusion, Branch ONCE, 1 dose, On Fri07/24/22 at 0945, Routine, DSU Pre-op carvedilol 2021-08 Yes [id number] Take by Univers (COREG) 25 2-21 mouth 2 ity of mg tablet 12:08: (two) [place] [address] times Medical daily with [facility] meals. esomeprazol 2021-08 Yes [id number] 40mg Take 40 mg Univers e 40 mg 2-21 by mouth ity of capsule 12:08: daily with [facility] 28 breakfast. Medical Branch simvastatin 2021-08 Yes [id number] 20mg Take 20 mg Univers (ZOCOR) 20 2-21 by mouth ity o f mg tablet 12:08: at [place] [address] bedtime. Medical Branch losartan 2021-08 Yes [id number] 100mg Take 100 Univers (COZAAR) 2-21 mg by ity of 100 mg 12:08: mouth [place] tablet 28 daily. Medical Branch aspirin 81 2021-08 Yes [id number] 81mg Take 81 mg Univers mg chewable 2-21 by mouth ity of tablet 12:08: daily. [place] [address] Medical Branch mesalamine 2021-08 Yes [id number] 1200mg Take 1,200 Univers 1.2 gram EC 2-21 mg by ity of tablet 12:08: mouth in [place] [address] the Medical morning Branch and 1,200 mg in the evening. metFORMIN 2021-08 Yes [id number] 1000mg Take 1,000 Univers (FORTAMET) 2-21 mg by ity of 1,000 mg 24 12:08: mouth [facility] tablet 28 daily with Medi yossi breakfast. Branch liraglutide 2021-08 Yes 1.8mg inject 1.8 Univers 0.6 mg/0.1 2-21 mg under ity o f mL (18 mg/3 12:08: the skin [place] mL) 28 in the Medical injection morning. Branch ERGOCALCIFE 2021-08 Yes Take by Uni vers ROL, 2-21 mouth. ity of VITAMIN D2, 12:08: [place] (VITAMIN D 28 Medical ORAL) Branch carvedilol 2021-08 Yes [id number] Take by Univers (COREG) 25 2-21 mouth 2 ity of mg tablet 12:08: (two) [place] 28 times Medical daily with Branch meals. esomeprazol 2021-08 Yes [id number] 40mg Take 40 mg Univers e 40 mg 2-21 by mouth ity of capsule 12:08: daily [place] 28 breakfast. Medical Branch simvastatin 2021-08 Yes [id number] 20mg Take 20 mg Univers (ZOCOR) 20 2-21 by mouth ity o f mg tablet 12:08: at [place] [address] bedtime. Medical Branch losartan 2021-08 Yes [id number] 100mg Take 100 Univers (COZAAR) 2-21 mg by ity of 100 mg 12:08: mouth [place] tablet 28 daily. Medical Branch aspirin 81 2021-08 Yes [id number] 81mg Take 81 mg Univers mg chewable 2-21 by mouth ity of tablet 12:08: daily. [place] [address] Medical Branch mesalamine 2021-08 Yes [id number] 1200mg Take 1,200 Univers 1.2 gram EC 2-21 mg by ity of tablet 12:08: mouth in [place] 28 the Medical morning Branch and 1,200 mg in the evening. metFORMIN 2021-08 Yes [id number] 1000mg Take 1,000 Univers (FORTAMET) 2-21 mg by ity of 1,000 mg 24 12:08: mouth [place] hr tablet 28 daily with Medi yossi breakfast. Branch liraglutide 2021-08 Yes 1.8mg inject 1.8 Univers 0.6 mg/0.1 2-21 mg under ity o f mL (18 mg/3 12:08: the skin [place] mL) 28 in the Medical injection morning. Branch ERGOCALCIFE 2021-08 Yes Take by Uni vers ROL, 2-21 mouth. ity of VITAMIN D2, 12:08: [place] (VITAMIN D 28 Medical ORAL) Branch carvedilol 2021-08 Yes [id number] Take by Univers (COREG) 25 2-21 mouth 2 ity of mg tablet 12:08: (two) [place] 28 times Medical daily with Branch meals. esomeprazol 2021-08 Yes [id number] 40mg Take 40 mg Univers e 40 mg 2-21 by mouth ity of capsule 12:08: daily [place] 28 breakfast. Medical Branch simvastatin 2021-08 Yes [id number] 20mg Take 20 mg Univers (ZOCOR) 20 2-21 by mouth ity o f mg tablet 12:08: at [place] [address] bedtime. Medical Branch losartan 2021-08 Yes [id number] 100mg Take 100 Univers (COZAAR) 2-21 mg by ity of 100 mg 12:08: mouth [place] tablet 28 daily. Medical Branch aspirin 81 2021-08 Yes [id number] 81mg Take 81 mg Univers mg chewable 2-21 by mouth ity of tablet 12:08: daily. [place] [address] Medical Branch mesalamine 2021-08 Yes [id number] 1200mg Take 1,200 Univers 1.2 gram EC 2-21 mg by ity of tablet 12:08: mouth in [place] 28 the Medical morning Branch and 1,200 mg in the evening. metFORMIN 2021-08 Yes [id number] 1000mg Take 1,000 Univers (FORTAMET) 2-21 mg by ity of 1,000 mg 24 12:08: mouth [place] hr tablet 28 daily with Medi yossi breakfast. Branch liraglutide 2021-08 Yes 1.8mg inject 1.8 Univers 0.6 mg/0.1 2-21 mg under ity o f mL (18 mg/3 12:08: the skin [place] mL) 28 in the Medical injection morning. Branch ERGOCALCIFE 2021-08 Yes Take by Uni vers ROL, 2-21 mouth. ity of VITAMIN D2, 12:08: [place] (VITAMIN D 28 Medical ORAL) Branch dexamethaso 2020-08- No 10mg 10 mg, Uni vers ne -08 11-08 Oral, ity of (DECADRON 18:00: 17:08 ONCE, 1 [place] PHOSPHATE) 00 :00 dose, On Medic al injection Mon Branch 10 mg 06/11/21 at 1200, STAT carvedilol Yes [id number] Take by Univers (COREG) 25 3-18 mouth 2 ity of mg tablet 19:13: (two) [place] 33 times Medical daily with Branch meals. esomeprazol Yes [id number] 40mg Take 40 mg Univers e (NEXIUM) 3-18 by mouth ity o f 40 mg 19:13: daily with [place] capsule 33 breakfast. Medica l Branch simvastatin Yes [id number] 20mg Take 20 mg Univers (ZOCOR) 20 3-18 by mouth ity o f mg tablet 19:13: at [place] [address] bedtime. Medical Branch losartan Yes [id number] 100mg Take 100 Univers (COZAAR) 3-18 mg by ity of 100 mg 19:13: mouth [place] tablet 33 daily. Medical Branch aspirin 81 Yes [id number] 81mg Take 81 mg Univers mg chewable 3-18 by mouth ity of tablet 19:13: daily. [place] [address] Medical Branch mesalamine Yes [id number] 1200mg Take 1,200 Univers (LIALDA) 3-18 mg by ity of 1.2 g EC 19:13: mouth [place] tablet 33 daily with Medical breakfast. Branch Liraglutide Yes inject Univ ers (VICTOZA 3-18 under the ity of 3-TASHA) 0.6 19:13: skin. [place] mg/0.1 mL 33 Medical (18 mg/3 Branch mL) injection ERGOCALCIFE Yes Take by Uni vers ROL, 3-18 mouth. ity of VITAMIN D2, 19:13: [place] (VITAMIN D 33 Medical ORAL) Branch carvedilol Yes [id number] Take by Univers (COREG) 25 3-18 mouth 2 ity of mg tablet 14:13: (two) [place] [address] times Medical daily with Branch meals. esomeprazol Yes [id number] 40mg Take 40 mg Univers e (NEXIUM) 3-18 by mouth ity o f 40 mg 14:13: daily with [place] capsule 33 breakfast. Medica l Branch simvastatin Yes [id number] 20mg Take 20 mg Univers (ZOCOR) 20 3-18 by mouth ity o f mg tablet 14:13: at [place] [address] bedtime. Medical Branch losartan Yes [id number] 100mg Take 100 Univers (COZAAR) 3-18 mg by ity of 100 mg 14:13: mouth [place] tablet 33 daily. Medical Branch aspirin 81 Yes [id number] 81mg Take 81 mg Univers mg chewable 3-18 by mouth ity of tablet 14:13: daily. [place] [address] Medical Branch mesalamine Yes [id number] 1200mg Take 1,200 Univers (LIALDA) 3-18 mg by ity of 1.2 g EC 14:13: mouth [place] tablet 33 daily with Medical breakfast. Branch Liraglutide Yes inject Univ ers (VICTOZA 3-18 under the ity of 3-TASHA) 0.6 14:13: skin. [place] mg/0.1 mL 33 Medical (18 mg/3 Branch mL) injection ERGOCALCIFE Yes Take by Uni vers ROL, 3-18 mouth. ity of VITAMIN D2, 14:13: [place] (VITAMIN D 33 Medical ORAL) Branch carvedilol Yes [id number] Take by Univers (COREG) 25 3-18 mouth 2 ity of mg tablet 14:13: (two) [place] 33 times Medical daily with Branch meals. esomeprazol Yes [id number] 40mg Take 40 mg Univers e (NEXIUM) 3-18 by mouth ity o f 40 mg 14:13: daily with [place] capsule 33 breakfast. Medica l Branch simvastatin Yes [id number] 20mg Take 20 mg Univers (ZOCOR) 20 3-18 by mouth ity o f mg tablet 14:13: at [place] [address] bedtime. Medical Branch losartan Yes [id number] 100mg Take 100 Univers (COZAAR) 3-18 mg by ity of 100 mg 14:13: mouth [place] tablet 33 daily. Medical Branch aspirin 81 Yes [id number] 81mg Take 81 mg Univers mg chewable 3-18 by mouth ity of tablet 14:13: daily. [place] [address] Medical Branch mesalamine Yes [id number] 1200mg Take 1,200 Univers (LIALDA) 3-18 mg by ity of 1.2 g EC 14:13: mouth [place] tablet 33 daily with Medical breakfast. Branch Liraglutide Yes inject Univ ers (VICTOZA 3-18 under the ity of 3-TASHA) 0.6 14:13: skin. [place] mg/0.1 mL 33 Medical (18 mg/3 Branch mL) injection ERGOCALCIFE Yes Take by Uni vers ROL, 3-18 mouth. ity of VITAMIN D2, 14:13: [place] (VITAMIN D 33 Medical ORAL) Branch carvedilol Yes [id number] Take by Univers (COREG) 25 3-18 mouth 2 ity of mg tablet 14:13: (two) [place] 33 times Medical daily with Branch meals. esomeprazol Yes [id number] 40mg Take 40 mg Univers e (NEXIUM) 3-18 by mouth ity o f 40 mg 14:13: daily with [place] capsule 33 breakfast. Medica l Branch simvastatin Yes [id number] 20mg Take 20 mg Univers (ZOCOR) 20 3-18 by mouth ity o f mg tablet 14:13: at [place] [address] bedtime. Medical Branch losartan Yes [id number] 100mg Take 100 Univers (COZAAR) 3-18 mg by ity of 100 mg 14:13: mouth [place] tablet 33 daily. Medical Branch aspirin 81 Yes [id number] 81mg Take 81 mg Univers mg chewable 3-18 by mouth ity of tablet 14:13: daily. [place] [address] Medical Branch mesalamine Yes [id number] 1200mg Take 1,200 Univers (LIALDA) 3-18 mg by ity of 1.2 g EC 14:13: mouth [place] tablet 33 daily with Medical breakfast. Branch Liraglutide Yes inject Univ ers (VICTOZA 3-18 under the ity of 3-TASHA) 0.6 14:13: skin. [place] mg/0.1 mL 33 Medical (18 mg/3 Branch mL) injection ERGOCALCIFE Yes Take by Uni vers ROL, 3-18 mouth. ity of VITAMIN D2, 14:13: [place] (VITAMIN D 33 Medical ORAL) Branch carvedilol Yes [id number] Take by Univers (COREG) 25 3-18 mouth 2 ity of mg tablet 14:13: (two) [place] 33 times Medical daily with Branch meals. esomeprazol Yes [id number] 40mg Take 40 mg Univers e (NEXIUM) 3-18 by mouth ity o f 40 mg 14:13: daily with [place] capsule 33 breakfast. Medica l Branch simvastatin Yes [id number] 20mg Take 20 mg Univers (ZOCOR) 20 3-18 by mouth ity o f mg tablet 14:13: at [place] [address] bedtime. Medical Branch losartan Yes [id number] 100mg Take 100 Univers (COZAAR) 3-18 mg by ity of 100 mg 14:13: mouth [place] tablet 33 daily. Medical Branch aspirin 81 Yes [id number] 81mg Take 81 mg Univers mg chewable 3-18 by mouth ity of tablet 14:13: daily. [place] 33 Medical Branch mesalamine Yes [id number] 1200mg Take 1,200 Univers (LIALDA) 3-18 mg by ity of 1.2 g EC 14:13: mouth [place] tablet 33 daily with Medical breakfast. Branch Liraglutide Yes inject Univ ers (VICTOZA 3-18 under the ity of 3-TASHA) 0.6 14:13: skin. [place] mg/0.1 mL 33 Medical (18 mg/3 Branch mL) injection ERGOCALCIFE Yes Take by Uni vers ROL, 3-18 mouth. ity of VITAMIN D2, 14:13: [place] (VITAMIN D 33 Medical ORAL) Branch clotrimazol 2020- No [id number] 1{appli Insert 1 Univers e 10-06 cator} Applicator ity of (CLOTRIMAZO 00:00: 05:59 into [place] LE 3) 2 % 00 :00 vagina at Medic al vaginal bedtime Branch cream for 7 days. clotrimazol 2020- No [id number] 1{appli Insert 1 Univers e 10-06 cator} Applicator ity of (CLOTRIMAZO 00:00: 05:59 into [place] LE 3) 2 % 00 :00 vagina at Medic al vaginal bedtime Branch cream for 7 days. esomeprazol Yes [id number] 40mg Take 40 mg Univers e (NEXIUM) 8-12 by mouth ity o f 40 mg 03:28: daily with [place] capsule 51 breakfast. Medica l Branch mesalamine Yes [id number] 1200mg Take 1,200 [facility] (LIALDA) 8-12 mg by ity of 1.2 g EC 03:28: mouth [place] tablet 51 daily with Medical breakfast. Branch esomeprazol Yes [id number] 40mg Take 40 mg [facility] e (NEXIUM) 8-12 by mouth ity o f 40 mg 03:28: daily with [place] capsule 51 breakfast. Medica l Branch mesalamine 2020-0 Yes [id number] 1200mg Take 1,200 [facility] (LIALDA) 8-12 mg by ity of 1.2 g EC 03:28: mouth [place] tablet 51 daily with Medical breakfast. Branch esomeprazol 2020-0 Yes [id number] 40mg Take 40 mg [facility] e (NEXIUM) 8-12 by mouth ity o f 40 mg 03:28: daily with [place] capsule 51 breakfast. Medica l Branch mesalamine 2020-0 Yes [id number] 1200mg Take 1,200 [facility] (LIALDA) 8-12 mg by ity of 1.2 g EC 03:28: mouth [place] tablet 51 daily with Medical breakfast. Branch esomeprazol 2020-0 Yes [id number] 40mg Take 40 mg [facility] e (NEXIUM) 8-12 by mouth ity o f 40 mg 03:28: daily with [place] capsule 51 breakfast. Medica l Branch mesalamine 2020-0 Yes [id number] 1200mg Take 1,200 [facility] (LIALDA) 8-12 mg by ity of 1.2 g EC 03:28: mouth [place] tablet 51 daily with Medical breakfast. Branch carvedilol 2020-0 Yes [id number] Take by [facility] (COREG) 25 8-12 mouth 2 ity of mg tablet 03:28: (two) [place] 14 times Medical daily with Branch meals. simvastatin 2020-0 Yes [id number] 20mg Take 20 mg [facility] (ZOCOR) 20 8-12 by mouth ity o f mg tablet 03:28: at [place] 14 bedtime. Medical Branch losartan 2020-0 Yes [id number] 100mg Take 100 [facility] (COZAAR) 8-12 mg by ity of 100 mg 03:28: mouth [place] tablet 14 daily. Medical Branch aspirin 81 2020-0 Yes [id number] 81mg Take 81 mg [facility] mg chewable 8-12 by mouth ity of tablet 03:28: daily. [place] 14 Medical Branch Liraglutide 2020-0 Yes inject [facility] ers (VICTOZA 8-12 under the ity of 3-TASHA) 0.6 03:28: skin. [place] mg/0.1 mL 14 Medical (18 mg/3 Branch mL) injection carvedilol 2020-0 Yes [id number] Take by [facility] (COREG) 25 8-12 mouth 2 ity of mg tablet 03:28: (two) [place] 14 times Medical daily with Branch meals. simvastatin 2020-0 Yes [id number] 20mg Take 20 mg [facility] (ZOCOR) 20 8-12 by mouth ity o f mg tablet 03:28: at [place] 14 bedtime. Medical Branch losartan 2020-0 Yes [id number] 100mg Take 100 [facility] (COZAAR) 8-12 mg by ity of 100 mg 03:28: mouth [place] tablet 14 daily. Medical Branch aspirin 81 2020-0 Yes [id number] 81mg Take 81 mg [facility] mg chewable 8-12 by mouth ity of tablet 03:28: daily. [place] [address] Medical Branch Liraglutide 2020-0 Yes inject [facility] ers (VICTOZA 8-12 under the ity of 3-TASHA) 0.6 03:28: skin. [place] mg/0.1 mL 14 Medical (18 mg/3 Branch mL) injection carvedilol 2020-0 Yes [id number] Take by [facility] (COREG) 25 8-12 mouth 2 ity of mg tablet 03:28: (two) [place] 14 times Medical daily with Branch meals. simvastatin 2020-0 Yes [id number] 20mg Take 20 mg [facility] (ZOCOR) 20 8-12 by mouth ity o f mg tablet 03:28: at [place] 14 bedtime. Medical Branch losartan 2020-0 Yes [id number] 100mg Take 100 [facility] (COZAAR) 8-12 mg by ity of 100 mg 03:28: mouth [place] tablet 14 daily. Medical Branch aspirin 81 2020-0 Yes [id number] 81mg Take 81 mg [facility] mg chewable 8-12 by mouth ity of tablet 03:28: daily. [place] [address] Medical Branch Liraglutide 2020-0 Yes inject [facility] ers (VICTOZA 8-12 under the ity of 3-TASHA) 0.6 03:28: skin. [place] mg/0.1 mL 14 Medical (18 mg/3 Branch mL) injection carvedilol 2020-0 Yes [id number] Take by [facility] (COREG) 25 8-12 mouth 2 ity of mg tablet 03:28: (two) [place] 14 times Medical daily with Branch meals. simvastatin 2020-0 Yes [id number] 20mg Take 20 mg [facility] (ZOCOR) 20 8-12 by mouth ity o f mg tablet 03:28: at [place] 14 bedtime. Medical Branch losartan 2020-0 Yes [id number] 100mg Take 100 [facility] (COZAAR) 8-12 mg by ity of 100 mg 03:28: mouth [place] tablet 14 daily. Medical Branch aspirin 81 2020-0 Yes [id number] 81mg Take 81 mg [facility] mg chewable 8-12 by mouth ity of tablet 03:28: daily. [place] 14 Medical Branch Liraglutide 2020-0 Yes inject [facility] ers (VICTOZA 8-12 under the ity of 3-TASHA) 0.6 03:28: skin. [place] mg/0.1 mL 14 Medical (18 mg/3 Branch mL) injection metFORMIN 2020-0 Yes [id number] 1000mg Take 1,000 [facility] (FORTAMET) 3-19 mg by ity of 1,000 mg 24 23:01: mouth [place] hr tablet 48 daily with Medi yossi breakfast. Branch metFORMIN 2020-0 Yes [id number] 1000mg Take 1,000 [facility] (FORTAMET) 3-19 mg by ity of 1,000 mg 24 23:01: mouth [place] hr tablet 48 daily with Medi yossi breakfast. Branch metFORMIN 2020-0 Yes [id number] 1000mg Take 1,000 [facility] (FORTAMET) 3-19 mg by ity of 1,000 mg 24 23:01: mouth [place] hr tablet 48 daily with Medi yossi breakfast. Branch metFORMIN 2020-0 Yes [id number] 1000mg Take 1,000 [facility] (FORTAMET) 3-19 mg by ity of 1,000 mg 24 23:01: mouth [place] hr tablet 48 daily with Medi yossi breakfast. Branch metFORMIN 2020-0 Yes [id number] 1000mg Take 1,000 [facility] (FORTAMET) 3-19 mg by ity of 1,000 mg 24 23:01: mouth [place] hr tablet 48 daily with Medi yossi breakfast. Branch metFORMIN 2020-0 Yes [id number] 1000mg Take 1,000 [facility] (FORTAMET) 3-19 mg by ity of 1,000 mg 24 23:01: mouth [place] hr tablet 48 daily with Medi yossi breakfast. Branch metFORMIN 2020-0 Yes [id number] 1000mg Take 1,000 [facility] (FORTAMET) 3-19 mg by ity of 1,000 mg 24 23:01: mouth [place] hr tablet 48 daily with Medi yossi breakfast. Branch metFORMIN 2020-0 Yes [id number] 1000mg Take 1,000 [facility] (FORTAMET) 3-19 mg by ity of 1,000 mg 24 18:01: mouth [place] hr tablet 48 daily with Medi yossi breakfast. Branch metFORMIN 2020-0 Yes [id number] 1000mg Take 1,000 [facility] (FORTAMET) 3-19 mg by ity of 1,000 mg 24 18:01: mouth [place] hr tablet 48 daily with Medi yossi breakfast. Branch metFORMIN 2020-0 Yes [id number] 1000mg Take 1,000 [facility] (FORTAMET) 3-19 mg by ity of 1,000 mg 24 18:01: mouth [place] hr tablet 48 daily with Medi yossi breakfast. Branch metFORMIN 2019-0 Yes [id number] 1000mg Take 1,000 [facility] (FORTAMET) 3-19 mg by ity of 1,000 mg 24 18:01: mouth [place] hr tablet 48 daily with Medi yossi breakfast. Branch bromphenira 2019-0 2020- No [id number] 10mL Take 10 mL [facility] mine-pseudo 10-20 by mouth 4 i ty of ephedrine-D 00:00: 04:59 (four) [place] as M (BROMFED 00 :00 times Medical DM) 2-30-10 daily as Bran ch mg/5 mL needed for syrup Congestion /Allergies for up to 10 days. bromphenira 0 2020- No [id number] 10mL Take 10 mL [facility] mine-pseudo 10-2030 by mouth 4 i ty of ephedrine-D 00:00: 04:59 (four) [place] [facility] (BROMFED 00 :00 times Medical DM) 2-30-10 daily as Bran ch mg/5 mL needed for syrup Congestion /Allergies for up to 10 days. Liraglutide 2019-0 Yes inject [facility] ers (VICTOZA 09-03 under the ity of 3-TASHA) 0.6 01:09: skin. [place] mg/0.1 mL 59 Medical (18 mg/3 Branch mL) injection carvedilol 2019-0 Yes [id number] Take by [facility] (COREG) 25 - mouth 2 ity of mg tablet 01:09: (two) [place] 59 times Medical daily with Branch meals. esomeprazol 2019-0 Yes [id number] 40mg Take 40 mg [facility] e (NEXIUM) - by mouth ity o f 40 mg 01:09: daily with [place] capsule 59 breakfast. Medica l Branch simvastatin 2019-0 Yes [id number] 20mg Take 20 mg [facility] (ZOCOR) 20 1-31 by mouth ity o f mg tablet 01:09: at [place] 59 bedtime. Medical Branch losartan 2020-0 Yes [id number] 100mg Take 100 [facility] (COZAAR) 1-31 mg by ity of 100 mg 01:09: mouth [place] tablet 59 daily. Medical Branch aspirin 81 2020-0 Yes [id number] 81mg Take 81 mg [facility] mg chewable 1-31 by mouth ity of tablet 01:09: daily. [place] 59 Medical Branch mesalamine 2020-0 Yes [id number] 1200mg Take 1,200 [facility] (LIALDA) 1-31 mg by ity of 1.2 g EC 01:09: mouth [place] tablet 59 daily with Medical breakfast. Branch Liraglutide 2019-0 Yes inject [facility] ers (VICTOZA 1-31 under the ity of 3-TASHA) 0.6 01:09: skin. [place] mg/0.1 mL 59 Medical (18 mg/3 Branch mL) injection carvedilol 2020-0 Yes [id number] Take by [facility] (COREG) 25 1-31 mouth 2 ity of mg tablet 01:09: (two) [place] 59 times Medical daily with Branch meals. esomeprazol 2020-0 Yes [id number] 40mg Take 40 mg [facility] e (NEXIUM) 1-31 by mouth ity o f 40 mg 01:09: daily with [place] capsule 59 breakfast. Medica l Branch simvastatin 2019-0 Yes [id number] 20mg Take 20 mg [facility] (ZOCOR) 20 1-31 by mouth ity o f mg tablet 01:09: at [place] 59 bedtime. Medical Branch losartan 2020-0 Yes [id number] 100mg Take 100 [facility] (COZAAR) 1-31 mg by ity of 100 mg 01:09: mouth [place] tablet 59 daily. Medical Branch aspirin 81 2020-0 Yes [id number] 81mg Take 81 mg [facility] mg chewable 1-31 by mouth ity of tablet 01:09: daily. [place] 59 Medical Branch mesalamine 2020-0 Yes [id number] 1200mg Take 1,200 [facility] (LIALDA) 1-31 mg by ity of 1.2 g EC 01:09: mouth [place] tablet 59 daily with Medical breakfast. Branch Liraglutide 2019-0 Yes inject [facility] ers (VICTOZA 1-31 under the ity of 3-TASHA) 0.6 01:09: skin. [place] mg/0.1 mL 59 Medical (18 mg/3 Branch mL) injection carvedilol 2020-0 Yes [id number] Take by [facility] (COREG) 25 1-31 mouth 2 ity of mg tablet 01:09: (two) [place] 59 times Medical daily with Branch meals. esomeprazol 2020-0 Yes [id number] 40mg Take 40 mg [facility] e (NEXIUM) 1-31 by mouth ity o f 40 mg 01:09: daily with [place] capsule 59 breakfast. Medica l Branch simvastatin 2020-0 Yes [id number] 20mg Take 20 mg [facility] (ZOCOR) 20 1-31 by mouth ity o f mg tablet 01:09: at [place] 59 bedtime. Medical Branch losartan 2020-0 Yes [id number] 100mg Take 100 [facility] (COZAAR) 1-31 mg by ity of 100 mg 01:09: mouth [place] tablet 59 daily. Medical Branch aspirin 81 2020-0 Yes [id number] 81mg Take 81 mg [facility] mg chewable -31 by mouth ity of tablet 01:09: daily. [place] 59 Medical Branch mesalamine 2020-0 Yes [id number] 1200mg Take 1,200 [facility] (LIALDA) 1-31 mg by ity of 1.2 g EC 01:09: mouth [place] tablet 59 daily with Medical breakfast. Branch Liraglutide 2020-0 Yes inject [facility] ers (VICTOZA 1-31 under the ity of 3-TASHA) 0.6 01:09: skin. [place] mg/0.1 mL 59 Medical (18 mg/3 Branch mL) injection carvedilol 2020-0 Yes [id number] Take by [facility] (COREG) 25 1- mouth 2 ity of mg tablet 01:09: (two) [place] 59 times Medical daily with Branch meals. esomeprazol 2020-0 Yes [id number] 40mg Take 40 mg [facility] e (NEXIUM) 1-31 by mouth ity o f 40 mg 01:09: daily with [place] capsule 59 breakfast. Medica l Branch simvastatin 2020-0 Yes [id number] 20mg Take 20 mg [facility] (ZOCOR) 20 1-31 by mouth ity o f mg tablet 01:09: at [place] 59 bedtime. Medical Branch losartan 2020-0 Yes [id number] 100mg Take 100 [facility] (COZAAR) 1-31 mg by ity of 100 mg 01:09: mouth [place] tablet 59 daily. Medical Branch aspirin 81 2020-0 Yes [id number] 81mg Take 81 mg [facility] mg chewable 1-31 by mouth ity of tablet 01:09: daily. [place] [address] Medical Branch mesalamine 2020-0 Yes [id number] 1200mg Take 1,200 [facility] (LIALDA) 1-31 mg by ity of 1.2 g EC 01:09: mouth [place] tablet 59 daily with Medical breakfast. Branch Liraglutide 2020-0 Yes inject [facility] ers (VICTOZA 1-31 under the ity of 3-TASHA) 0.6 01:09: skin. [place] mg/0.1 mL 59 Medical (18 mg/3 Branch mL) injection carvedilol 2020-0 Yes [id number] Take by [facility] (COREG) 25 1-31 mouth 2 ity of mg tablet 01:09: (two) [place] 59 times Medical daily with Branch meals. esomeprazol 2020-0 Yes [id number] 40mg Take 40 mg [facility] e (NEXIUM) 1-31 by mouth ity o f 40 mg 01:09: daily with [place] capsule 59 breakfast. Medica l Branch simvastatin 2020-0 Yes [id number] 20mg Take 20 mg [facility] (ZOCOR) 20 1-31 by mouth ity o f mg tablet 01:09: at [place] 59 bedtime. Medical Branch losartan 2020-0 Yes [id number] 100mg Take 100 [facility] (COZAAR) 1-31 mg by ity of 100 mg 01:09: mouth [place] tablet 59 daily. Medical Branch aspirin 81 2020-0 Yes [id number] 81mg Take 81 mg [facility] mg chewable 1-31 by mouth ity of tablet 01:09: daily. [place] [address] Medical Branch mesalamine 2020-0 Yes [id number] 1200mg Take 1,200 [facility] (LIALDA) 1-31 mg by ity of 1.2 g EC 01:09: mouth [place] tablet 59 daily with Medical breakfast. Branch Liraglutide 2020-0 Yes inject [facility] ers (VICTOZA 1-31 under the ity of 3-TASHA) 0.6 01:09: skin. [place] mg/0.1 mL 59 Medical (18 mg/3 Branch mL) injection carvedilol 2020-0 Yes [id number] Take by [facility] (COREG) 25 1-31 mouth 2 ity of mg tablet 01:09: (two) [place] 59 times Medical daily with Branch meals. esomeprazol 2019-0 Yes [id number] 40mg Take 40 mg [facility] e (NEXIUM) 09-03 by mouth ity o f 40 mg 01:09: daily with [place] capsule 59 breakfast. Medica l Branch simvastatin 2019-0 Yes [id number] 20mg Take 20 mg [facility] (ZOCOR) 20 09-03 by mouth ity o f mg tablet 01:09: at [place] 59 bedtime. Medical Branch losartan 2019-0 Yes [id number] 100mg Take 100 [facility] (COZAAR) 1-31 mg by ity of 100 mg 01:09: mouth [place] tablet 59 daily. Medical Branch aspirin 81 2019-0 Yes [id number] 81mg Take 81 mg [facility] mg chewable - by mouth ity of tablet 01:09: daily. [place] 59 Medical Branch mesalamine 2019-0 Yes [id number] 1200mg Take 1,200 [facility] (LIALDA) 1-31 mg by ity of 1.2 g EC 01:09: mouth [place] tablet 59 daily with Medical breakfast. Branch FLAGYL ORAL 0 2020- No None Unive rs 09-03 Entered ity of 01:09: 00:00 [place] 59 :00 Medical Branch FLAGYL ORAL 2019-0 2020- No None Unive rs 09-03 Entered ity of 01:09: 00:00 [place] 59 :00 Medical Branch fluconazole 2019-0 2020- No [id number] 150mg Take 150 [facility] (DIFLUCAN) 09-0330 mg by ity of 150 mg 01:08: 00:00 mouth [place] tablet 11 :00 now. Medical Branch tiZANidine 2020- No [id number] 2mg Take 2 mg [facility] (ZANAFLEX) 09-03 by mouth 3 it y of 2 mg 01:08: 00:00 (three) [place] capsule 11 :00 times Medical daily. Branch fluconazole 2019-0 2020- No [id number] 150mg Take 150 [facility] (DIFLUCAN) 09-0330 mg by ity of 150 mg 01:08: 00:00 mouth [place] tablet 11 :00 now. Medical Branch tiZANidine 2020- No [id number] 2mg Take 2 mg [facility] (ZANAFLEX) 09-03 by mouth 3 it y of 2 mg 01:08: 00:00 (three) [place] capsule 11 :00 times Medical daily. Branch fluconazole 2020-0 Yes TAKE 1 [facility] ers 150 mg 1-30 TABLET BY ity of tablet 00:00: MOUTH ONCE [place] 00 NOW FOR 1 Medical DOSE. Branch fluconazole 2020-0 Yes TAKE 1 [facility] ers 150 mg 1-30 TABLET BY ity of tablet 00:00: MOUTH ONCE [place] 00 NOW FOR 1 Medical DOSE. Branch fluconazole 2020-0 Yes TAKE 1 [facility] ers 150 mg 1-30 TABLET BY ity of tablet 00:00: MOUTH ONCE [place] 00 NOW FOR 1 Medical DOSE. Branch fluconazole 2020-0 Yes TAKE 1 [facility] ers 150 mg 1-30 TABLET BY ity of tablet 00:00: MOUTH ONCE 00 NOW FOR 1 Medical DOSE. Branch fluconazole 2020-0 Yes TAKE 1 [facility] ers 150 mg 1-30 TABLET BY ity of tablet 00:00: MOUTH ONCE [place] 00 NOW FOR 1 Medical DOSE. Branch fluconazole 2020-0 Yes TAKE 1 [facility] ers 150 mg 1-30 TABLET BY ity of tablet 00:00: MOUTH ONCE 00 NOW FOR 1 Medical DOSE. Branch fluconazole 2020-0 Yes TAKE 1 [facility] ers 150 mg 1-30 TABLET BY ity of tablet 00:00: MOUTH ONCE 00 NOW FOR 1 Medical DOSE. Branch fluconazole 2020-0 Yes TAKE 1 [facility] ers 150 mg 1-30 TABLET BY ity of tablet 00:00: MOUTH ONCE 00 NOW FOR 1 Medical DOSE. Branch fluconazole 2020-0 Yes TAKE 1 [facility] 150 mg 1-30 TABLET BY ity of tablet 00:00: MOUTH ONCE 00 NOW FOR 1 Medical DOSE. Branch fluconazole 2020-0 Yes TAKE 1 [facility] ers 150 mg 1-30 TABLET BY ity of tablet 00:00: MOUTH ONCE 00 NOW FOR 1 Medical DOSE. Branch fluconazole 2020-0 Yes TAKE 1 [facility] ers 150 mg 1-30 TABLET BY ity of tablet 00:00: MOUTH ONCE [place] 00 NOW FOR 1 Medical DOSE. Branch fluconazole 2020-0 Yes TAKE 1 [facility] ers 150 mg 1-30 TABLET BY ity of tablet 00:00: MOUTH ONCE [place] 00 NOW FOR 1 Medical DOSE. Branch fluconazole 2020-0 Yes TAKE 1 [facility] ers 150 mg 1-30 TABLET BY ity of tablet 00:00: MOUTH ONCE [place] 00 NOW FOR 1 Medical DOSE. Branch fluconazole 2020-0 Yes TAKE 1 [facility] ers 150 mg 1-30 TABLET BY ity of tablet 00:00: MOUTH ONCE [place] 00 NOW FOR 1 Medical DOSE. Branch fluconazole 2020-0 Yes TAKE 1 [facility] ers 150 mg 1-30 TABLET BY ity of tablet 00:00: MOUTH ONCE [place] 00 NOW FOR 1 Medical DOSE. Branch fluconazole 2020-0 Yes TAKE 1 [facility] ers 150 mg 1-30 TABLET BY ity of tablet 00:00: MOUTH ONCE [place] 00 NOW FOR 1 Medical DOSE. Branch fluconazole 2020-0 Yes TAKE 1 [facility] ers 150 mg 1-30 TABLET BY ity of tablet 00:00: MOUTH ONCE 00 NOW FOR 1 Medical DOSE. Branch fluconazole 2020-0 2020- No [id number] 150mg Take 1 [facility] 150 mg 1-30 - tablet by ity of tablet 00:00: 05:59 mouth once [place] 00 :00 now for 1 Medical dose. Branch fluconazole 2020-0 2020- No [id number] 150mg Take 1 [facility] 150 mg 1-30 - tablet by ity of tablet 00:00: 05:59 mouth once [place] 00 :00 now for 1 Medical dose. Branch XARELTO 20 2020-0 Yes [facility] mg tablet 1-16 ity of 00:00: [place] 00 Medical Branch XARELTO 20 2020-0 Yes [facility] mg tablet 1-16 ity of 00:00: [place] 00 Medical Branch XARELTO 20 2020-0 Yes [facility] mg tablet 1-16 ity of 00:00: [place] 00 Medical Branch XARELTO 20 2020-0 Yes [facility] mg tablet 1-16 ity of 00:00: [place] 00 Medical Branch XARELTO 20 2020-0 Yes [facility] mg tablet 1-16 ity of 00:00: [place] 00 Medical Branch XARELTO 20 2020-0 Yes [facility] mg tablet 1-16 ity of 00:00: [place] 00 Medical Branch XARELTO 20 2020-0 Yes [facility] mg tablet 1-16 ity of 00:00: [place] 00 Medical Branch XARELTO 20 2020-0 Yes [facility] mg tablet 1-16 ity of 00:00: [place] 00 Medical Branch XARELTO 20 2020-0 Yes [facility] mg tablet 1-16 ity of 00:00: [place] 00 Medical Branch XARELTO 20 2020-0 Yes [facility] mg tablet 1-16 ity of 00:00: [place] 00 Medical Branch XARELTO 20 2020-0 Yes [facility] mg tablet 1-16 ity of 00:00: [place] 00 Medical Branch XARELTO 20 2020-0 Yes [facility] mg tablet 1-16 ity of 00:00: [place] 00 Medical Branch XARELTO 20 2020-0 Yes [facility] mg tablet 1-16 ity of 00:00: [place] 00 Medical Branch XARELTO 20 2020-0 Yes [facility] mg tablet 1-16 ity of 00:00: [place] 00 Medical Branch XARELTO 20 2020-0 Yes 20mg Take 20 mg [facility] mg tablet 1-16 by mouth ity of 00:00: in the [place] 00 morning. Medical Branch XARELTO 20 2020-0 Yes 20mg Take 20 mg [facility] n[facility] mg tablet 1-16 by mouth ity of 00:00: in the [place] 00 morning. Medical Branch XARELTO 20 2020-0 Yes 20mg Take 20 mg [facility] n[facility] mg tablet 1-16 by mouth ity of 00:00: in the [place] 00 morning. Medical Branch XARELTO 20 2020-0 Yes 20mg Take 20 mg [facility] n[facility] mg tablet 1-16 by mouth ity of 00:00: in the [place] 00 morning. Medical Branch XARELTO 20 2020-0 Yes 20mg Take 20 mg U nivers mg tablet 1-16 by mouth ity of 00:00: in the [place] 00 morning. Medical Branch XARELTO 20 2020-0 Yes 20mg Take 20 mg U n[facility] mg tablet 1-16 by mouth ity of 00:00: in the [place] 00 morning. Medical Branch XARELTO 20 2020-0 Yes [facility] mg tablet 1-16 ity of 00:00: [place] 00 Medical Branch montelukast 2020-0 Yes Univer s 10 mg 1-06 ity of tablet 00:00: [place] 00 Medical Branch montelukast 2020-0 Yes Univer s 10 mg 1-06 ity of tablet 00:00: [place] 00 Medical Branch montelukast 2020-0 Yes Univer s 10 mg 1-06 ity of tablet 00:00: [place] 00 Medical Branch montelukast 2020-0 Yes Univer s 10 mg 1-06 ity of tablet 00:00: [place] 00 Medical Branch montelukast 2020-0 Yes Univer s 10 mg 1-06 ity of tablet 00:00: [place] 00 Medical Branch montelukast 2020-0 Yes Univer s 10 mg 1-06 ity of tablet 00:00: [place] 00 Medical Branch montelukast 2020-0 Yes Univer s 10 mg 1-06 ity of tablet 00:00: [place] 00 Medical Branch montelukast 2020-0 Yes Univer s 10 mg 1-06 ity of tablet 00:00: [place] 00 Medical Branch montelukast 2020-0 Yes Univer s 10 mg 1-06 ity of tablet 00:00: [place] [address] Medical Branch montelukast 2020-0 Yes Univer s 10 mg 1-06 ity of tablet 00:00: [place] [address] Medical Branch montelukast 2020-0 Yes Univer s 10 mg 1-06 ity of tablet 00:00: [place] [address] Medical Branch montelukast 2020-0 Yes Univer s 10 mg 1-06 ity of tablet 00:00: [place] [address] Medical Branch montelukast 2020-0 Yes Univer s 10 mg 1-06 ity of tablet 00:00: [place] [address] Medical Branch montelukast 2020-0 Yes Univer s 10 mg 1-06 ity of tablet 00:00: [address] montelukast 2020-0 Yes Univer s 10 mg 1-06 ity of tablet 00:00: [place] [address] Medical Branch montelukast 2020-0 Yes Univer s 10 mg 1-06 ity of tablet 00:00: [place] [address] Medical Branch montelukast 2020-0 Yes Univer s 10 mg 1-06 ity of tablet 00:00: [place] [address] Medical Branch montelukast 2020-0 Yes Univer s 10 mg 1-06 ity of tablet 00:00: [address] Branch montelukast 2020-0 Yes Univer s 10 mg 1-06 ity of tablet 00:00: [place] [address] Medical Branch montelukast 2020-0 Yes Univer s 10 mg 1-06 ity of tablet 00:00: [place] [address] Medical Branch montelukast 2020-0 Yes Univer s 10 mg 1-06 ity of tablet 00:00: [place] [address] Medical Branch HYDROcodone 2019- Yes TAKE ONE [facility] [place] -acetaminop 2-31 (1) ity of hen 10-325 00:00: TABLET(S) [place] mg tablet 00 BY MOUTH Medica l EVERY SIX Branch HOURS NEEDED. HYDROcodone 2019 Yes TAKE ONE [facility] [place] -acetaminop 2-31 (1) ity of hen 10-325 00:00: TABLET(S) [place] mg tablet 00 BY MOUTH Medica l EVERY SIX Branch HOURS NEEDED. HYDROcodone 2018-08 Yes TAKE ONE [facility] [place] -acetaminop 2-31 (1) ity of hen 10-325 00:00: TABLET(S) [place] mg tablet 00 BY MOUTH Medica l EVERY SIX Branch HOURS NEEDED. HYDROcodone 2018-08 Yes TAKE ONE [facility] [place] -acetaminop 2-31 (1) ity of hen 10-325 00:00: TABLET(S) [place] mg tablet 00 BY MOUTH Medica l EVERY SIX Branch HOURS NEEDED. HYDROcodone 2018-08 Yes TAKE ONE [facility] [place] -acetaminop 2-31 (1) ity of hen 10-325 00:00: TABLET(S) [place] mg tablet 00 BY MOUTH Medica l EVERY SIX Branch HOURS NEEDED. HYDROcodone 2018-08 Yes TAKE ONE [facility] [place] -acetaminop 2-31 (1) ity of hen 10-325 00:00: TABLET(S) [place] mg tablet 00 BY MOUTH Medica l EVERY SIX Branch HOURS NEEDED. HYDROcodone 2018-08 Yes TAKE ONE [facility] [place] -acetaminop 2-31 (1) ity of hen 10-325 00:00: TABLET(S) [place] mg tablet 00 BY MOUTH Medica l EVERY SIX Branch HOURS NEEDED. HYDROcodone 2018-08 Yes TAKE ONE [facility] [place] -acetaminop 2-31 (1) ity of hen 10-325 00:00: TABLET(S) [place] mg tablet 00 BY MOUTH Medica l EVERY SIX Branch HOURS NEEDED. HYDROcodone 2018-08 Yes TAKE ONE [facility] [place] -acetaminop 2-31 (1) ity of hen 10-325 00:00: TABLET(S) [place] mg tablet 00 BY MOUTH Medica l EVERY SIX Branch HOURS NEEDED. HYDROcodone 2018-08 Yes TAKE ONE [facility] [place] -acetaminop 2-31 (1) ity of hen 10-325 00:00: TABLET(S) [place] mg tablet 00 BY MOUTH Medica l EVERY SIX Branch HOURS NEEDED. HYDROcodone 2018-08 Yes TAKE ONE [facility] [place] -acetaminop 2-31 (1) ity of hen 10-325 00:00: TABLET(S) [place] mg tablet 00 BY MOUTH Medica l EVERY SIX Branch HOURS NEEDED. HYDROcodone 2018-08 Yes TAKE ONE [facility] [place] -acetaminop 2-31 (1) ity of hen 10-325 00:00: TABLET(S) [place] mg tablet 00 BY MOUTH Medica l EVERY SIX Branch HOURS NEEDED. HYDROcodone 2018-08 Yes TAKE ONE [facility] [place] -acetaminop 2-31 (1) ity of hen 10-325 00:00: TABLET(S) [place] mg tablet 00 BY MOUTH Medica l EVERY SIX Branch HOURS NEEDED. HYDROcodone 2018-08 Yes TAKE ONE [facility] [place] -acetaminop 2-31 (1) ity of hen 10-325 00:00: TABLET(S) [place] mg tablet 00 BY MOUTH Medica l EVERY SIX Branch HOURS NEEDED. HYDROcodone 2018-08 Yes TAKE ONE [facility] [place] -acetaminop 2-31 (1) ity of hen 10-325 00:00: TABLET(S) [place] mg tablet 00 BY MOUTH Medica l EVERY SIX Branch HOURS NEEDED. HYDROcodone 2018-08 Yes TAKE ONE [facility] [place] -acetaminop 2-31 (1) ity of hen 10-325 00:00: TABLET(S) [place] mg tablet 00 BY MOUTH Medica l EVERY SIX Branch HOURS NEEDED. HYDROcodone 2018-08 Yes TAKE ONE [facility] [place] -acetaminop 2-31 (1) ity of hen 10-325 00:00: TABLET(S) [place] mg tablet 00 BY MOUTH Medica l EVERY SIX Branch HOURS NEEDED. HYDROcodone 2018-08 Yes TAKE ONE [facility] [place] -acetaminop 2-31 (1) ity of hen 10-325 00:00: TABLET(S) [place] mg tablet 00 BY MOUTH Medica l EVERY SIX Branch HOURS NEEDED. HYDROcodone 2018-08 Yes TAKE ONE [facility] [place] -acetaminop 2-31 (1) ity of hen 10-325 00:00: TABLET(S) [place] mg tablet 00 BY MOUTH Medica l EVERY SIX Branch HOURS NEEDED. HYDROcodone 2018-08 Yes TAKE ONE [facility] [place] -acetaminop 2-31 (1) ity of hen 10-325 00:00: TABLET(S) [place] mg tablet 00 BY MOUTH Medica l EVERY SIX Branch HOURS NEEDED. HYDROcodone 2018-08 Yes TAKE ONE [facility] [place] -acetaminop 2-31 (1) ity of hen 10-325 00:00: TABLET(S) [place] mg tablet 00 BY MOUTH Medica l EVERY SIX Branch HOURS NEEDED. pregabalin 2018-08 Yes TAKE ONE [facility] 100 mg 2-30 (1) ity of capsule 00:00: [place](S) [place] 00 BY MOUTH Medical THREE Branch TIMES A DAY NEEDED. pregabalin 2018-08 Yes TAKE ONE [facility] 100 mg 2-30 (1) ity of capsule 00:00: CAPSULE(S) [place] 00 BY MOUTH Medical THREE Branch TIMES A DAY NEEDED. pregabalin 2018-08 Yes TAKE ONE [facility] 100 mg 2-30 (1) ity of capsule 00:00: CAPSULE(S) [place] 00 BY MOUTH Medical THREE Branch TIMES A DAY NEEDED. pregabalin 2018-08 Yes TAKE ONE [facility] vers 100 mg 2-30 (1) ity of capsule 00:00: CAPSULE(S) [place] 00 BY MOUTH Medical THREE Branch TIMES A DAY NEEDED. pregabalin 2018-08 Yes TAKE ONE [facility] 100 mg 2-30 (1) it[facility] [place] capsule 00:00[place] BY MOUTH [facility] THREE Branch TIMES A DAY NEEDED. pregabalin 2018-08 Yes TAKE ONE [facility] vers 100 mg 2-30 (1) ity of capsule 00:00: CAPSULE(S[place] 00 BY MOUTH [facility] THREE Branch TIMES A DAY NEEDED. pregabalin 2018-08 Yes TAKE ONE [facility] vers 100 mg 2-30 (1) ity of capsule 00:00: CAPSULE(S) [place] 00 BY MOUTH Medical THREE Branch TIMES A DAY NEEDED. pregabalin 2018-08 Yes TAKE ONE [facility] vers 100 mg 2-30 (1) ity of capsule 00:00: CAPSULE(S) [place] 00 BY MOUTH [facility] THREE Branch TIMES A DAY NEEDED. pregabalin 2018-08 Yes TAKE ONE [facility] 100 mg 2-30 (1) ity of capsule 00:00: CAPSULE(S) [place] 00 BY MOUTH Medical THREE Branch TIMES A DAY NEEDED. pregabalin 2018-08 Yes TAKE ONE [facility] vers 100 mg 2-30 (1) ity of capsule 00:00: CAPSULE(S) [place] 00 BY MOUTH Medical THREE Branch TIMES A DAY NEEDED. pregabalin 2018-08 Yes TAKE ONE [facility] vers 100 mg 2-30 (1) ity of capsule 00:00: CAPSULE(S) [place] 00 BY MOUTH Medical THREE Branch TIMES A DAY NEEDED. pregabalin 2018-08 Yes TAKE ONE [facility] 100 mg 2-30 (1) ity of capsule 00:00: CAPSULE(S) [place] 00 BY MOUTH Medical THREE Branch TIMES A DAY NEEDED. pregabalin 2018-08 Yes TAKE ONE [facility] 100 mg 2-30 (1) ity of capsule 00:00: CAPSULE(S) [place] 00 BY MOUTH Medical THREE Branch TIMES A DAY NEEDED. pregabalin 2018-08 Yes TAKE ONE [facility] vers 100 mg 2-30 (1) ity of capsule 00:00: CAPSULE(S) [place] 00 BY MOUTH Medical THREE Branch TIMES A DAY NEEDED. pregabalin 2018-08 Yes TAKE ONE [facility] vers 100 mg 2-30 (1) ity of capsule 00:00: CAPSULE(S) [place] 00 BY MOUTH Medical THREE Branch TIMES A DAY NEEDED. pregabalin 2018-08 Yes TAKE ONE [facility] 100 mg 2-30 (1) ity of capsule 00:00: CAPSULE(S) [place] 00 BY MOUTH Medical THREE Branch TIMES A DAY NEEDED. pregabalin 2018-08 Yes TAKE ONE [facility] 100 mg 2-30 (1) ity of capsule 00:00: CAPSULE(S) [place] 00 BY MOUTH Medical THREE Branch TIMES A DAY NEEDED. pregabalin 2018-08 Yes TAKE ONE [facility] 100 mg 2-30 (1) ity of capsule 00:00: CAPSULE(S) [place] 00 BY MOUTH Medical THREE Branch TIMES A DAY NEEDED. pregabalin 2018-08 Yes TAKE ONE [facility] 100 mg 2-30 (1) ity of capsule 00:00: CAPSULE(S) [place] 00 BY MOUTH Medical THREE Branch TIMES A DAY NEEDED. pregabalin 2018-08 Yes TAKE ONE [facility] 100 mg 2-30 (1) ity of capsule 00:00: CAPSULE(S) [place] 00 BY MOUTH Medical THREE Branch TIMES A DAY NEEDED. pregabalin 2018-08 Yes TAKE ONE [facility] 100 mg 2-30 (1) ity of capsule 00:00: CAPSULE(S) [place] 00 BY MOUTH Medical THREE Branch TIMES A DAY NEEDED. glimepiride 2018-08 Yes TAKE ONE [facility] 2 mg tablet 2-19 (1) ity of 00:00: TABLET(S) [place] 00 BY MOUTH Medical TWICE A Branch DAY. glimepiride 2018-08 Yes TAKE ONE [facility] 2 mg tablet 2-19 (1) ity of 00:00: TABLET(S) [place] 00 BY MOUTH Medical TWICE A Branch DAY. glimepiride 2018-08 Yes TAKE ONE [facility] 2 mg tablet 2-19 (1) ity of 00:00: TABLET(S) [place] 00 BY MOUTH Medical TWICE A Branch DAY. glimepiride 2018-08 Yes TAKE ONE [facility] 2 mg tablet 2-19 (1) ity of 00:00: TABLET(S) [place] 00 BY MOUTH Medical TWICE A Branch DAY. glimepiride 2018-08 Yes TAKE ONE [facility] 2 mg tablet 2-19 (1) ity of 00:00: TABLET(S) [place] 00 BY MOUTH Medical TWICE A Branch DAY. glimepiride 2018-08 Yes TAKE ONE [facility] 2 mg tablet 2-19 (1) ity of 00:00: TABLET(S) [place] 00 BY MOUTH Medical TWICE A Branch DAY. glimepiride 2018-08 Yes TAKE ONE [facility] 2 mg tablet 2-19 (1) ity of 00:00: TABLET(S) [place] 00 BY MOUTH Medical TWICE A Branch DAY. glimepiride 2018-08 Yes TAKE ONE [facility] 2 mg tablet 2-19 (1) ity of 00:00: TABLET(S) [place] 00 BY MOUTH Medical TWICE A Branch DAY. glimepiride 2018-08 Yes TAKE ONE [facility] 2 mg tablet 2-19 (1) ity of 00:00: TABLET(S) [place] 00 BY MOUTH Medical TWICE A Branch DAY. glimepiride 2018-08 Yes TAKE ONE [facility] 2 mg tablet 2-19 (1) ity of 00:00: TABLET(S) [place] 00 BY MOUTH Medical TWICE A Branch DAY. glimepiride 2018-08 Yes TAKE ONE [facility] 2 mg tablet 2-19 (1) ity of 00:00: TABLET(S) [place] 00 BY MOUTH Medical TWICE A Branch DAY. glimepiride 2019-1 Yes TAKE ONE [facility] 2 mg tablet 2-19 (1) ity of 00:00: TABLET(S) [place] 00 BY MOUTH Medical TWICE A Branch DAY. glimepiride 2018-08 Yes TAKE ONE [facility] 2 mg tablet 2-19 (1) ity of 00:00: TABLET(S) [place] 00 BY MOUTH Medical TWICE A Branch DAY. glimepiride 2018-08 Yes TAKE ONE [facility] 2 mg tablet 2-19 (1) ity of 00:00: TABLET(S) [place] 00 BY MOUTH Medical TWICE A Branch DAY. glimepiride 2018-08 Yes TAKE ONE [facility] 2 mg tablet 2-19 (1) ity of 00:00: TABLET(S) [place] 00 BY MOUTH Medical TWICE A Branch DAY. glimepiride 2018-08 Yes TAKE ONE [facility] 2 mg tablet 2-19 (1) ity of 00:00: TABLET(S) [place] 00 BY MOUTH Medical TWICE A Branch DAY. glimepiride 2018-08 Yes TAKE ONE [facility] 2 mg tablet 2-19 (1) ity of 00:00: TABLET(S) [place] 00 BY MOUTH Medical TWICE A Branch DAY. glimepiride 2018-08 Yes TAKE ONE [facility] 2 mg tablet 2-19 (1) ity of 00:00: TABLET(S) [place] 00 BY MOUTH Medical TWICE A Branch DAY. glimepiride 2018-08 Yes TAKE ONE [facility] 2 mg tablet 2-19 (1) ity of 00:00: TABLET(S) [place] 00 BY MOUTH Medical TWICE A Branch DAY. glimepiride 2018-08 Yes TAKE ONE [facility] 2 mg tablet 2-19 (1) ity of 00:00: TABLET(S) [place] 00 BY MOUTH Medical TWICE A Branch DAY. glimepiride 2018-08 Yes TAKE ONE [facility] 2 mg tablet 2-19 (1) ity of 00:00: TABLET(S) [place] 00 BY MOUTH Medical TWICE A Branch DAY. hydroCHLORO 2018-08 Yes TAKE ONE [facility] [place] thiazide 2-03 (1) ity of 12.5 mg 00:00: TABLET(S) [place] tablet 00 BY MOUTH Medical ONCE A Branch DAY. hydroCHLORO 2018-08 Yes TAKE ONE [facility] thiazide 2-03 (1) ity of 12.5 mg 00:00: TABLET(S) [place] tablet 00 BY MOUTH Medical ONCE A Branch DAY. hydroCHLORO 2018-08 Yes TAKE ONE [facility] thiazide 2-03 (1) ity of 12.5 mg 00:00: TABLET(S) [place] tablet 00 BY MOUTH Medical ONCE A Branch DAY. hydroCHLORO 2018-08 Yes TAKE ONE [facility] thiazide 2-03 (1) ity of 12.5 mg 00:00: TABLET(S) [place] tablet 00 BY MOUTH Medical ONCE A Branch DAY. hydroCHLORO 2018-08 Yes TAKE ONE [facility] thiazide 2-03 (1) ity of 12.5 mg 00:00: TABLET(S) [place] tablet 00 BY MOUTH Medical ONCE A Branch DAY. hydroCHLORO 2018-08 Yes TAKE ONE [facility] thiazide 2-03 (1) ity of 12.5 mg 00:00: TABLET(S) [place] tablet 00 BY MOUTH Medical ONCE A Branch DAY. hydroCHLORO 2018-08 Yes TAKE ONE [facility] thiazide 2-03 (1) ity of 12.5 mg 00:00: TABLET(S) [place] tablet 00 BY MOUTH Medical ONCE A Branch DAY. hydroCHLORO 2018-08 Yes TAKE ONE [facility] thiazide 2-03 (1) ity of 12.5 mg 00:00: TABLET(S) [place] tablet 00 BY MOUTH Medical ONCE A Branch DAY. hydroCHLORO 2018-08 Yes TAKE ONE [facility] thiazide 2-03 (1) ity of 12.5 mg 00:00: TABLET(S) [place] tablet 00 BY MOUTH Medical ONCE A Branch DAY. hydroCHLORO 2018-08 Yes TAKE ONE [facility] [place] thiazide 2-03 (1) ity of 12.5 mg 00:00: TABLET(S) [place] tablet 00 BY MOUTH Medical ONCE A Branch DAY. hydroCHLORO 2018-08 Yes TAKE ONE [facility] [place] thiazide 2-03 (1) ity of 12.5 mg 00:00: TABLET(S) [place] tablet 00 BY MOUTH Medical ONCE A Branch DAY. hydroCHLORO 2018-08 Yes TAKE ONE [facility] [place] thiazide 2-03 (1) ity of 12.5 mg 00:00: TABLET(S) [place] tablet 00 BY MOUTH Medical ONCE A Branch DAY. hydroCHLORO 2018-08 Yes TAKE ONE [facility] thiazide 2-03 (1) ity of 12.5 mg 00:00: TABLET(S) [place] tablet 00 BY MOUTH Medical ONCE A Branch DAY. hydroCHLORO 2018-08 Yes TAKE ONE [facility] [place] thiazide 2-03 (1) ity of 12.5 mg 00:00: TABLET(S) [place] tablet 00 BY MOUTH Medical ONCE A Branch DAY. hydroCHLORO 2018-08 Yes 25mg Take 25 mg [facility] thiazide 25 2-03 by mouth ity of mg tablet 00:00: in the [place] morning. Medical Branch hydroCHLORO 2018-08 Yes 25mg Take 25 mg [facility] thiazide 25 2-03 by mouth ity of mg tablet 00:00: in the [place] morning. Medical Branch hydroCHLORO 2018-08 Yes 25mg Take 25 mg [facility] thiazide 25 2-03 by mouth ity of mg tablet 00:00: in the [place] morning. Medical Branch hydroCHLORO 2018-08 Yes 25mg Take 25 mg [facility] thiazide 25 2-03 by mouth ity of mg tablet 00:00: in the [place] morning. Medical Branch hydroCHLORO 2018-08 Yes 25mg Take 25 mg [facility] thiazide 25 2-03 by mouth ity of mg tablet 00:00: in the [place] morning. Medical Branch hydroCHLORO 2018-08 Yes TAKE ONE [facility] [place] thiazide 2-03 (1) ity of 12.5 mg 00:00: TABLET(S) [place] tablet 00 BY MOUTH Medical ONCE A Branch DAY. hydroCHLORO 2018-08 Yes 25mg Take 25 mg [facility] thiazide 25 2-03 by mouth ity of mg tablet 00:00: in the [place] morning. Medical Branch amiodarone 2018-08 Yes TAKE [facility] 200 mg 1-22 ONE-HALF ity of tablet 00:00: (08/05) 00 TABLET(S) Medical BY MOUTH Branch ONCE A DAY. amiodarone 2018-08 Yes TAKE [facility] 200 mg 1-22 ONE-HALF ity of tablet 00:00: (08/05) 00 TABLET(S) Medical BY MOUTH Branch ONCE A DAY. amiodarone 2018-08 Yes TAKE [facility] 200 mg 1-22 ONE-HALF ity of tablet 00:00: (08/05) 00 TABLET(S) Medical BY MOUTH Branch ONCE A DAY. amiodarone 2018-08 Yes TAKE [facility] 200 mg 1-22 ONE-HALF ity of tablet 00:00: (08/05) 00 TABLET(S) Medical BY MOUTH Branch ONCE A DAY. amiodarone 2018-08 Yes TAKE [facility] 200 mg 1-22 ONE-HALF ity of tablet 00:00: (2) [place] 00 TABLET(S) Medical BY MOUTH Branch ONCE A DAY. amiodarone 2018-08 Yes TAKE [facility] 200 mg 1-22 ONE-HALF ity of tablet 00:00: (2) [place] 00 TABLET(S) Medical BY MOUTH Branch ONCE A DAY. amiodarone 2018-08 Yes TAKE [facility] 200 mg 1-22 ONE-HALF ity of tablet 00:00: (2) [place] 00 TABLET(S) Medical BY MOUTH Branch ONCE A DAY. amiodarone 2018-08 Yes TAKE [facility] 200 mg 1-22 ONE-HALF ity of tablet 00:00: (08/05) [place] 00 TABLET(S) Medical BY MOUTH Branch ONCE A DAY. amiodarone 2018-08 Yes TAKE [facility] 200 mg 1-22 ONE-HALF ity of tablet 00:00: (08/05) [place] 00 TABLET(S) Medical BY MOUTH Branch ONCE A DAY. amiodarone 2018-08 Yes TAKE [facility] 200 mg 1-22 ONE-HALF ity of tablet 00:00: (2) [place] 00 TABLET(S) Medical BY MOUTH Branch ONCE A DAY. amiodarone 2018-08 Yes TAKE [facility] 200 mg 1-22 ONE-HALF ity of tablet 00:00: (2) [place] 00 TABLET(S) Medical BY MOUTH Branch ONCE A DAY. amiodarone 2018-08 Yes TAKE [facility] 200 mg 1-22 ONE-HALF ity of tablet 00:00: (2) [place] 00 TABLET(S) Medical BY MOUTH Branch ONCE A DAY. amiodarone 2018-08 Yes TAKE [facility] 200 mg 1-22 ONE-HALF ity of tablet 00:00: (2) [place] 00 TABLET(S) Medical BY MOUTH Branch ONCE A DAY. amiodarone 2018-08 Yes TAKE [facility] 200 mg 1-22 ONE-HALF ity of tablet 00:00: (2) [place] 00 TABLET(S) Medical BY MOUTH Branch ONCE A DAY. amiodarone 2018-08 Yes TAKE [facility] 200 mg 1-22 ONE-HALF ity of tablet 00:00: (2) [place] 00 TABLET(S) Medical BY MOUTH Branch ONCE A DAY. amiodarone 2018-08 Yes TAKE [facility] 200 mg 1-22 ONE-HALF ity of tablet 00:00: (08/05) [place] 00 TABLET(S) Medical BY MOUTH Branch ONCE A DAY. amiodarone 2018-08 Yes TAKE [facility] 200 mg 1-22 ONE-HALF ity of tablet 00:00: (08/05) [place] 00 TABLET(S) Medical BY MOUTH Branch ONCE A DAY. amiodarone 2018-08 Yes TAKE [facility] 200 mg 1-22 ONE-HALF ity of tablet 00:00: (2) [place] 00 TABLET(S) Medical BY MOUTH Branch ONCE A DAY. amiodarone 2018-08 Yes TAKE [facility] 200 mg 1-22 ONE-HALF ity of tablet 00:00: (08/05) [place] 00 TABLET(S) Medical BY MOUTH Branch ONCE A DAY. amiodarone 2018-08 Yes TAKE [facility] 200 mg 1-22 ONE-HALF ity of tablet 00:00: (08/05) [place] 00 TABLET(S) Medical BY MOUTH Branch ONCE A DAY. amiodarone 2018-08 Yes TAKE [facility] 200 mg 1-22 ONE-HALF ity of tablet 00:00: (08/05) [place] 00 TABLET(S) Medical BY MOUTH Branch ONCE A DAY. ERGOCALCIFE Yes Take by Uni vers ROL, 9-26 mouth. ity of VITAMIN D2, 20:40: [place] (VITAMIN D 37 Medical ORAL) [place] ERGOCALCIFE Yes Take by Uni vers ROL, 9-26 mouth. ity of VITAMIN D2, 20:40: [place] (VITAMIN D 37 Medical ORAL) [place] ERGOCALCIFE Yes Take by [facility] vers ROL, 9-26 mouth. ity of VITAMIN D2, 20:40: [place] (VITAMIN D 37 Medical ORAL) [place] ERGOCALCIFE Yes Take by [facility] vers ROL, 9-26 mouth. ity of VITAMIN D2, 20:40: [place] (VITAMIN D 37 Medical ORAL) [place] ERGOCALCIFE Yes Take by Uni vers ROL, 9-26 mouth. ity of VITAMIN D2, 20:40: [place] (VITAMIN D 37 Medical ORAL) [place] ERGOCALCIFE Yes Take by Uni vers ROL, 9-26 mouth. ity of VITAMIN D2, 20:40: [place] (VITAMIN D 37 Medical ORAL) [place] ERGOCALCIFE Yes Take by Uni vers ROL, 04-29 mouth. ity of VITAMIN D2, 20:40: [place] (VITAMIN D 37 Medical ORAL) Branch ERGOCALCIFE Yes Take by Uni vers ROL, 04-29 mouth. ity of VITAMIN D2, 20:40: [place] (VITAMIN D 37 Medical ORAL) Branch ERGOCALCIFE Yes Take by Uni vers ROL, 04-29 mouth. ity of VITAMIN D2, 20:40: [place] (VITAMIN D 37 Medical ORAL) Branch ERGOCALCIFE Yes Take by Uni vers ROL, 04-29 mouth. ity of VITAMIN D2, 20:40: [place] (VITAMIN D 37 Medical ORAL) Branch gabapentin 2020- No [id number] 300mg Take 1 Cap [facility] (NEURONTIN) 10-07 by mouth 3 i ty of 300 mg 00:00: 00:00 (three) [place] capsule 00 :00 times Medical daily. Branch gabapentin 2020- No [id number] 300mg Take 1 Cap [facility] (NEURONTIN) 10-07 by mouth 3 i ty of 300 mg 00:00: 00:00 (three) [place] capsule 00 :00 times Medical daily. Branch hydralAZINE 0 Yes [id number] [facility] (APRESOLINE 2-08 ity of ) 25 mg 00:00: [place] tablet 00 Medical Branch hydralAZINE 0 Yes [id number] [facility] (APRESOLINE 2-08 ity of ) 25 mg 00:00: [place] tablet 00 Medical Branch hydralAZINE 2014-0 Yes [id number] [facility] (APRESOLINE 2-08 ity of ) 25 mg 00:00: [place] tablet 00 Medical Branch hydralAZINE 2014-0 Yes [id number] [facility] (APRESOLINE 2-08 ity of ) 25 mg 00:00: [place] tablet 00 Medical Branch hydralAZINE 2014-0 Yes [id number] [facility] (APRESOLINE 2-08 ity of ) 25 mg 00:00: [place] tablet 00 Medical Branch hydralAZINE 2014-0 Yes [id number] [facility] (APRESOLINE 2-08 ity of ) 25 mg 00:00: [place] tablet 00 Medical Branch hydralAZINE 2014-0 Yes [id number] [facility] (APRESOLINE 2-08 ity of ) 25 mg 00:00: [place] tablet 00 Medical Branch hydralAZINE 2015-0 Yes [id number] [facility] (APRESOLINE 2-08 ity of ) 25 mg 00:00: [place] tablet 00 Medical Branch hydralAZINE 2015-0 Yes [id number] [facility] (APRESOLINE 2-08 ity of ) 25 mg 00:00: [place] tablet 00 Medical Branch hydralAZINE 2015-0 Yes [id number] [facility] (APRESOLINE 2-08 ity of ) 25 mg 00:00: [place] tablet 00 Medical Branch hydralAZINE 2015-0 Yes [id number] [facility] (APRESOLINE 2-08 ity of ) 25 mg 00:00: [place] tablet 00 Medical Branch hydralAZINE 2015-0 Yes [id number] [facility] (APRESOLINE 2-08 ity of ) 25 mg 00:00: [place] tablet 00 Medical Branch hydralAZINE 2015-0 Yes [id number] [facility] (APRESOLINE 2-08 ity of ) 25 mg 00:00: [place] tablet 00 Medical Branch hydralAZINE 2015-0 Yes [id number] [facility] (APRESOLINE 2-08 ity of ) 25 mg 00:00: [place] tablet 00 Medical Branch hydralAZINE 2015-0 Yes [id number] [facility] (APRESOLINE 2-08 ity of ) 25 mg 00:00: [place] tablet 00 Medical Branch hydralAZINE 2015-0 Yes [id number] [facility] (APRESOLINE 2-08 ity of ) 25 mg 00:00: [place] tablet 00 Medical Branch hydralAZINE 2015-0 Yes [id number] [facility] (APRESOLINE 2-08 ity of ) 25 mg 00:00: [place] tablet 00 Medical Branch hydralAZINE 2015-0 Yes [id number] [facility] (APRESOLINE 2-08 ity of ) 25 mg 00:00: [place] tablet 00 Medical Branch hydralAZINE 2015-0 Yes [id number] [facility] (APRESOLINE 2-08 ity of ) 25 mg 00:00: [place] tablet 00 Medical Branch hydralAZINE 2015-0 Yes [id number] [facility] (APRESOLINE 2-08 ity of ) 25 mg 00:00: [place] tablet 00 Medical Branch hydralAZINE 2015-0 Yes [id number] [facility] (APRESOLINE 2-08 ity of ) 25 mg 00:00: [place] tablet 00 Medical Branch amitriptyli 0 Yes 25mg Take 1 Tab [facility] ne (ELAVIL) 5-16 by mouth ity of 25 mg 00:00: at [place] tablet 00 bedtime. Medical Branch amitriptyli Yes 25mg Take 1 Tab [facility] ne (ELAVIL) 5-16 by mouth ity of 25 mg 00:00: at [place] tablet 00 bedtime. Medical Branch amitriptyli Yes 25mg Take 1 Tab [facility] ne (ELAVIL) 5-16 by mouth ity of 25 mg 00:00: at [place] tablet 00 bedtime. Medical Branch amitriptyli Yes 25mg Take 1 Tab [facility] ne (ELAVIL) 5-16 by mouth ity of 25 mg 00:00: at [place] tablet 00 bedtime. Medical Branch amitriptyli Yes 25mg Take 1 Tab [facility] ne (ELAVIL) 5-16 by mouth ity of 25 mg 00:00: at [place] tablet 00 bedtime. Medical Branch amitriptyli Yes 25mg Take 1 Tab [facility] ne (ELAVIL) 5-16 by mouth ity of 25 mg 00:00: at [place] tablet 00 bedtime. Medical Branch amitriptyli Yes 25mg Take 1 Tab [facility] ne (ELAVIL) 5-16 by mouth ity of 25 mg 00:00: at [place] tablet 00 bedtime. Medical Branch amitriptyli Yes 25mg Take 1 Tab [facility] ne (ELAVIL) 5-16 by mouth ity of 25 mg 00:00: at [place] tablet 00 bedtime. Medical Branch amitriptyli Yes 25mg Take 1 Tab [facility] ne (ELAVIL) 5-16 by mouth ity of 25 mg 00:00: at [place] tablet 00 bedtime. Medical Branch amitriptyli 0 Yes 25mg Take 1 Tab [facility] ne (ELAVIL) 5-16 by mouth ity of 25 mg 00:00: at [place] tablet 00 bedtime. Medical Branch amitriptyli Yes 25mg Take 1 Tab Univers ne (ELAVIL) 5-16 by mouth ity of 25 mg 00:00: at [place] tablet 00 bedtime. Medical Branch amitriptyli Yes 25mg Take 1 Tab Univers ne (ELAVIL) 5-16 by mouth ity of 25 mg 00:00: at [place] tablet 00 bedtime. Medical Branch amitriptyli Yes 25mg Take 1 Tab [facility] ne (ELAVIL) 5-16 by mouth ity of 25 mg 00:00: at [place] tablet 00 bedtime. Medical Branch amitriptyli Yes 25mg Take 1 Tab Univers ne (ELAVIL) 5-16 by mouth ity of 25 mg 00:00: at [place] tablet 00 bedtime. Medical Branch amitriptyli Yes 25mg Take 1 Tab Univers ne (ELAVIL) 5-16 by mouth ity of 25 mg 00:00: at [place] tablet 00 bedtime. Medical Branch amitriptyli Yes 25mg Take 1 Tab [facility] ne (ELAVIL) 5-16 by mouth ity of 25 mg 00:00: at [place] tablet 00 bedtime. Medical Branch amitriptyli Yes 25mg Take 1 Tab [facility] ne (ELAVIL) 5-16 by mouth ity of 25 mg 00:00: at [place] tablet 00 bedtime. Medical Branch amitriptyli Yes 25mg Take 1 Tab [facility] ne (ELAVIL) 5-16 by mouth ity of 25 mg 00:00: at [place] tablet 00 bedtime. Medical Branch amitriptyli Yes 25mg Take 1 Tab [facility] ne (ELAVIL) 5-16 by mouth ity of 25 mg 00:00: at [place] tablet 00 bedtime. Medical Branch amitriptyli Yes 25mg Take 1 Tab Univers ne (ELAVIL) 5-16 by mouth ity of 25 mg 00:00: at [place] tablet 00 bedtime. Medical Branch amitriptyli Yes 25mg Take 1 Tab [facility] ne (ELAVIL) 5-16 by mouth ity of 25 mg 00:00: at [place] tablet 00 bedtime. Medical Branch metFORMIN Yes [id number] 1000mg Take 1,000 [facility] (FORTAMET) 1-21 mg by ity of 1,000 mg 24 19:55: mouth [place] hr tablet 05 daily with Medi yossi breakfast. Branch metFORMIN Yes [id number] 1000mg Take 1,000 [facility] (FORTAMET) 1-21 mg by ity of 1,000 mg 24 19:55: mouth [place] hr tablet 05 daily with Medi yossi breakfast. Branch metFORMIN Yes [id number] 1000mg Take 1,000 [facility] (FORTAMET) 1-21 mg by ity of 1,000 mg 24 19:55: mouth [place] hr tablet 05 daily with Medi yossi breakfast. Branch metFORMIN Yes [id number] 1000mg Take 1,000 [facility] (FORTAMET) 1-21 mg by ity of 1,000 mg 24 19:55: mouth [place] hr tablet 05 daily with Medi yossi breakfast. Branch Vital Signs Vital Name Observation Time Observation Value Comments Source Systolic blood 2022-08-07 16:05:00 109 mm[Hg] [facility] Diastolic blood 2022-08-07 16:05:00 81 [facility]Hg[facility] Heart rate 2022-08-07 16:05:00 66 /min [facility] Respiratory rate 2022-08-07 16:05:00 21 /min [facility] saturation in 2022-08-07 16:05:00 99 /min [facility] of Arterial blood by [facility] Pulse oximetry Branch Body temperature 2022-08-07 15:46:00 36.39 Manda [facility] Body weight 2022-08-01 19:00:00 108.41 kg [facility] BMI 2022-08-01 19:00:00 41.67 kg/m2 [facility] Systolic blood 2022-08-07 14:05:00 114 mm[Hg] Univer [facility]ity [facility] Diastolic blood 2022-08-07 14:05:00 54 [facility]-07 14:05:00 72 /min [facility] Body temperature 2022-08-07 14:05:00 36.39 Manda [facility] Res[facility] 2022-08-07 14:05:00 16 /min [facility] Oxygen saturation in 2022-08-07 14:05:00 100 /min [facility] of Arterial blood by [facility] Pulse oximetry Branch Body weight 2022-08-01 19:00:00 108.41 kg [facility] [place] [facility] BMI 2022-08-01 19:00:00 41.67 kg/m2 [facility] [place] [facility] Systolic blood 2022-07-24 17:45:00 122 mm[Hg] Univer sity of [facility] [place] [facility] Diastolic blood 2022-07-24 17:45:00 61 mm[Hg] Unive rsity of [facility] [place] [facility] Heart rate 2022-07-24 17:45:00 55 /min [facility] [place] [facility] Respiratory rate 2022-07-24 17:45:00 10 /min [facility] [place] [facility] Oxygen saturation in 2022-07-24 17:45:00 99 /min [facility] of Arterial blood by [place] [facility] Pulse oximetry Branch Body temperature 2022-07-24 17:28:00 36.11 Manda [facility] [place] [facility] Body height 2022-07-17 19:00:00 161.3 cm [facility] [place] [facility] Body weight 2022-07-17 19:00:00 108.41 kg [facility] [place] [facility] BMI 2022-07-17 19:00:00 41.67 kg/m2 [facility] [place] [facility] Systolic blood 2022-07-24 15:41:00 131 mm[Hg] [facility]iver [facility]ity of [facility] [place] [facility] Diastolic blood 2022-07-24 15:41:00 55 mm[Hg] Unive rsity of [facility] [place] [facility] Heart rate 2022-07-24 15:41:00 62 /min [facility] [place] [facility] Body temperature 2022-07-24 15:41:00 36.67 Manda [facility] [place] [facility] Respiratory rate 2022-07-24 15:41:00 16 /min [facility] [place] [facility] Oxygen saturation in 2022-07-24 15:41:00 100 /min [facility] of Arterial blood by [place] [facility] Pulse oximetry Branch Body height 2022-07-17 19:00:00 161.3 cm [facility] [place] [facility] Body weight 2022-07-17 19:00:00 108.41 kg [facility] [place] [facility] BMI 2022-07-17 19:00:00 41.67 kg/m2 [facility] [place] [facility] Systolic blood 2021-06-11 17:12:41 118 mm[Hg] [facility]iver [facility] of [facility] [place] [facility] Diastolic blood 2021-06-11 17:12:41 57 mm[Hg] Unive rsity of [facility] [place] [facility] Heart rate 2021-06-11 17:12:41 70 /min [facility] [place] [facility] Body temperature 2021-06-11 17:12:41 37.11 Manda [facility] [place] [facility] Respiratory rate 2021-06-11 17:12:41 17 /min [facility] [place] [facility] Oxygen saturation in 2021-06-11 17:00:00 99 /min [facility] of Arterial blood by [employer] Pulse oximetry Branch Body height 2021-06-11 16:22:00 160 cm [facility] [place] [facility] Body weight 2021-06-11 16:22:00 120.203 kg [facility] [place] [facility] BMI 2021-06-11 16:22:00 46.94 kg/m2 [facility] [place] [facility] Systolic blood 2020-10-19 19:18:00 163 mm[Hg] Univer [facility] of [facility] [place] [facility] Diastolic blood 2020-10-19 19:18:00 88 mm[Hg] Unive rsity of [facility] [place] [facility] Heart rate 2020-10-19 19:09:00 70 /min [facility] [place] [facility] Body temperature 2020-10-19 19:09:00 37.11 Manda [facility] [place] [facility] Respiratory rate 2020-10-19 19:09:00 20 /min [facility] [place] [facility] Body height 2020-10-19 19:09:00 160 cm [facility] [place] [facility] Body weight 2020-10-19 19:09:00 120.657 kg [facility] [place] [facility] BMI 2020-10-19 19:09:00 47.12 kg/m2 [facility] [place] [facility] Oxygen saturation in 2020-10-19 19:09:00 96 /min [facility] of Arterial blood by [employer] Pulse oximetry Branch Systolic blood 2020-10-06 16:00:00 149 mm[Hg] Univer [facility]ity of [facility] [place] [facility] Diastolic blood 2020-10-06 16:00:00 82 mm[Hg] Unive rsity of [facility] [place] [facility] Heart rate 2020-10-06 15:55:00 74 /min [facility] [place] [facility] Body temperature 2020-10-06 15:55:00 36.72 Manda [facility] [place] [facility] Respiratory rate 2020-10-06 15:55:00 14 /min [facility] [place] [facility] Body height 2020-10-06 15:55:00 160 cm [facility] [place] [facility] Body weight 2020-10-06 15:55:00 76.114 kg [facility] [place] [facility] BMI 2020-10-06 15:55:00 29.72 kg/m2 [facility] [place] [facility] Oxygen saturation in 2020-10-06 15:55:00 97 /min [facility] Arterial blood by [facility]ossi Pulse oximetry Branch Systolic blood 2020-03-15 03:24:00 172 mm[Hg] Univer sity of pressure [place] [facility] Diastolic blood 2020-03-15 03:24:00 80 mm[Hg] Unive rsity of [facility] Heart rate 2020-03-15 03:24:00 71 /min [facility] Body temperature 2020-03-15 03:24:00 37.17 Manda [facility] Respiratory rate 2020-03-15 03:24:00 18 /min [facility] Body height 2020-03-15 03:24:00 160 cm [facility] Body weight 2020-03-15 03:24:00 122.471 kg [facility] BMI 2020-03-15 03:24:00 47.83 kg/m2 [facility] Oxygen saturation in 2020-03-15 03:24:00 96 /min University of Arterial blood by [facility] yossi Pulse oximetry Branch Systolic blood 2020-03-15 03:24:00 172 mm[Hg] Univer sity of pressure [facility] Diastolic blood 2020-03-15 03:24:00 80 mm[Hg] Unive rsity of pressure [facility] Heart rate 2020-03-15 03:24:00 71 /min [facility] Body temperature 2020-03-15 03:24:00 37.17 Manda [facility] Respiratory rate 2020-03-15 03:24:00 18 /min [facility] Body height 2020-03-15 03:24:00 160 cm [facility] Body weight 2020-03-15 03:24:00 122.471 kg [facility] BMI 2020-03-15 03:24:00 47.83 kg/m2 [facility] Oxygen saturation in 2020-03-15 03:24:00 96 /min University of Arterial blood by [facility] yossi Pulse oximetry Branch Systolic blood 2019-10-21 23:05:00 154 mm[Hg] Univer sity of pressure [facility] Diastolic blood 2019-10-21 23:05:00 75 mm[Hg] Unive rsity of pressure [facility] Heart rate 2019-10-21 22:59:00 71 /min [facility] Body temperature 2019-10-21 22:59:00 37.94 Manda [facility] Respiratory rate 2019-10-21 22:59:00 18 /min Univ [facility] Body height 2019-10-21 22:59:00 160 cm [facility] Body weight 2019-10-21 22:59:00 121.745 kg [facility] BMI 2019-10-21 22:59:00 47.54 kg/m2 [facility] Oxygen saturation in 2019-10-21 22:59:00 97 /min University of Arterial blood by [facility] Pulse oximetry Branch Systolic blood 2019-10-21 23:05:00 154 mm[Hg] Univer sity of pressure [facility] Diastolic blood 2019-10-21 23:05:00 75 mm[Hg] Unive rsity of pressure [facility] Heart rate 2019-10-21 22:59:00 71 /min [facility] Body temperature 2019-10-21 22:59:00 37.94 Manda [facility] Respiratory rate 2019-10-21 22:59:00 18 /min Univ [facility] Body height 2019-10-21 22:59:00 160 cm [facility] Body weight 2019-10-21 22:59:00 121.745 kg [facility] BMI 2019-10-21 22:59:00 47.54 kg/m2 [facility] Oxygen saturation in 2019-10-21 22:59:00 97 /min University of Arterial blood by [facility] Pulse oximetry Branch Systolic blood 2019-09-03 01:10:00 139 mm[Hg] Univer sity of pressure [facility] Diastolic blood 2019-09-03 01:10:00 71 mm[Hg] Unive rsity of pressure [facility] Heart rate 2019-09-03 01:10:00 76 /min Universi [facility] Body temperature 2019-09-03 01:10:00 37.11 Manda [facility] Respiratory rate 2019-09-03 01:10:00 18 /min [facility] Body height 2019-09-03 01:10:00 160 cm [facility] Body weight 2019-09-03 01:10:00 121.655 kg [facility] BMI 2019-09-03 01:10:00 47.51 kg/m2 [facility] Oxygen saturation in 2019-09-03 01:10:00 96 /min [place] of Arterial blood by [facility] Pulse oximetry Branch Procedures Procedure Date / Time Performing Source Performed Clinician AUTHORIZATION FOR RELEASE OF 2022-08-30 Doctor Unassigned, [facility] PHI 06:01:00 [place] [facility] PHACOEMULSIFICATION OF 2022-08-07 Jair Guardado [facility] CATARACT WITH INTRAOCULAR 15:06:00 [facility] LENS IMPLANT POCT GLUCOSE (AUTOMATED) 2022-08-07 Jair Guardado [facility] 14:19:00 [facility] POCT GLUCOSE (AUTOMATED) 2022-08-07 Jair Guardado [facility] 14:19:00 [facility] PATIENT QUESTIONNAIRE 2022-08-07 Doctor Unassigned, [facility] 06:01:00 [place] [facility] DAY SURGERY - ADC 2022-08-07 Doctor Unassigned, [facility] 06:01:00 [place] [facility] CONSENT/REFUSAL FOR DIAGNOSIS 2022-08-06 Doctor Unassigned, [facility] AND TREATMENT 14:48:47 [place] [facility] CONSENT/REFUSAL FOR DIAGNOSIS 2022-08-06 Doctor Unassigned, [facility] AND TREATMENT 14:48:47 [place] [facility] ASSIGNMENT OF BENEFITS 2022-08-06 Doctor Unassigned [facility] 14:48:30 [place] [facility] ASSIGNMENT OF BENEFITS 2022-08-06 Doctor Unassigned [facility] 14:48:30 [place] [facility] PHACOEMULSIFICATION OF 2022-07-24 Jair Guardado [facility] CATARACT WITH INTRAOCULAR 16:51:00 Medica l Branch LENS IMPLANT POCT GLUCOSE (AUTOMATED) 2022-07-24 Jair Guardado [facility] 15:46:00 Medical Branch POCT GLUCOSE (AUTOMATED) 2022-07-24 Jair Guardado [facility] 15:46:00 Medical Branch PATIENT QUESTIONNAIRE 2022-07-24 Doctor Unassigned, [facility] 06:01:00 [place] [facility] CONSENT/REFUSAL FOR DIAGNOSIS 2022-07-15 Doctor Unassigned, [facility] AND TREATMENT 18:07:08 [place] [facility] NOTICE OF PRIVACY PRACTICES 2021-06-11 Doctor Unassigned, [facility] 16:17:14 [place] POCT URINALYSIS 2020-10-06 [facility] 16:08:00 Medical Branch CONSENT/REFUSAL FOR DIAGNOSIS 2020-03-15 Doctor Unassigned, [facility] AND TREATMENT 03:09:37 [place] [facility] POCT GRP A STREP (MOLECULAR) 2019-10-22 Tosha Estrada [facility] 00:49:00 [facility] MISCELLANEOUS SEND OUT TEST 2019-09-03 NinaArabella hagen [facility] 01:44:00 Medical Branch POCT URINALYSIS 2019-09-03 Arabella Wood [facility] 01:09:00 Medical Branch NOTICE OF BILLING PRACTICES 2019-09-03 Doctor Unassigned, [facility] FOR MEDICARE PATIENTS 01:02:56 [place] [facility] PATIENT FINANCIAL POLICY 2019-09-03 Doctor Unassigned, [facility] 01:02:17 [place] [facility] NO SHOW OR MISSED APPOINTMENT 2019-09-03 Doctor Unassigned, [facility] POLICY ACKNOWLEDGEMENT 01:01:54 [place] [facility] NOTICE OF PRIVACY PRACTICES 2019-09-03 Doctor Unassigned, [facility] 01:01:36 [place] [facility] CONSENT/REFUSAL FOR DIAGNOSIS 2019-09-03 Doctor Unassigned, [facility] AND TREATMENT 01:01:22 [place] [facility] ASSIGNMENT OF BENEFITS 2019-09-03 Doctor Unassigned, [facility] 01:01:06 [place] [facility] Encounters Start End Encounter Admission Attending Care Care Encounter Source Date/Time Date/Time Type Type Clinicians Facility Department ID 2021-06-01 Emergency [facility] [id number] Univers 11:57:10 ity of [facility] 2020-08-18 Inpatient Nelson Serrano [facility]I [id number] [facility] 13:00:00 79 [facility] 2022-08-30 2022-08-30 Orders Doctor WALTERS 1.2.840.114 [id number] Univers 00:00:00 00:00:00 Only Unassigned, JOHNNY 350.1.13.10 ity of [place] [facility] 4.2.7.2.686 Anthony as [phone] [place] [address] Branch 2022-08-07 2022-08-07 Outpatient [facility] [id number] Univers 07:56:00 10:20:00 [facility] 2022-08-07 2022-08-07 [facility] [id number] Univers 07:56:00 10:20:00 Encounter Jair SAINZ 350.1.13.10 [place] [id number] [facility] 071 Branch 2022-08-07 2022-08-07 [facility] 1.2.840.114 [id number] Univers 08:59:00 09:33:00 Jair SAINZ 350.1.13.10 ity of [place] [facility] [place] [id number] [facility] 020 Branch 2022-07-24 2022-07-24 Outpatient R [facility] [id number] Univers 09:26:00 12:08:00 [facility] 2022-07-24 2022-07-24 [facility] [id number] Univers 09:26:00 12:08:00 Encounter Jair Molly ALISTAIR 350.1.13.10 it[place] [id number] [facility] 071 Branch 2022-07-24 2022-07-24 [facility] 1.2.840.114 [id number] Univers 10:42:00 11:16:00 Jair Molly [place] 350.1.13.10 ity of [place] [facility] [place] [id number] [facility] 020 Branch 2022-07-24 2022-07-24 Orders Doctor SELENA 1.2.840.114 [id number] Univers 00:00:00 00:00:00 Only Unassigned, JOHNNY 350.1.13.10 [place] [facility] 4.2.7.2.686 Anthony as [phone] [address] 2022-07-15 2022-07-15 Consumer Credit Counselor Chelly, Jacqueline Lab Main [facility] 1.2.8 40.114 [id number] Univers 11:45:00 12:00:00 Visit Jair Guardado 350.1.13.1 0 ity of [place] [facility] [place] PROF[place] [id number] Il dical [facility] 2022-07-15 2022-07-15 [facility] [id number] Univers 11:45:00 11:45:00 JAIR zee [facility] 2022-07-15 2022-07-15 Orders Doctor SELENA 1.2.840.114 [id number] Univers 00:00:00 00:00:00 Only Unassigned, JOHNNY 350.1.13.10 [place] [facility] 4.2.7.2.686 Anthony as [id number] [address] 2021-06-11 2021-06-11 Emergency [facility] [id number] Univers 10:24:00 11:15:00 CHAIM itkobe [facility] 2021-06-11 2021-06-11 Emergency [facility] [id number] Univers 10:24:00 11:15:00 Chaim S [place] 350.1.13.10 i ty [place] [id number] [facility] 084 Branch 2021-06-11 2021-06-11 Orders Doctor SELENA 1.2.840.114 [id number] Univers 00:00:00 00:00:00 Only Unassigned, JOHNNY 350.1.13.10 [place] of [place] [facility] 4.2.7.2.686 Anthony as [id number] [facility] 009 Branch 2021-02-06 2021-02-06 Outpatient R VALDEMAR, [facility] [id number] Univers 08:30:00 08:30:00 ASHLEY kobe [facility] 2020-10-19 2020-10-19 Outpatient R ESME [facility] [id number] Univers 14:40:00 14:40:00 KRYSTINA zee [facility] 2020-10-19 2020-10-19 Urgent Provider, [facility] 1.2.840.114 [id number] Univers 13:58:42 14:18:42 Care Krystina [facility] 350.1.13.10 ity of [place] 4.2.7.2.686 Anthony as Professio [phone] [address] Office [facility] 2020-10-10 2020-10-10 Telephone Provider, [facility] 1.2.840.114 [id number] Univers 00:00:00 00:00:00 [facility] 350.1.13.10 ity of Care [place] 4.2.7.2.686 Anthony as Professio [phone] [address] Office Building One 2020-10-06 2020-10-06 Urgent Provider, [facility] 1.2.840.114 [id number] Univers 09:45:56 10:53:09 Care Keila [facility] 350.1.13.10 ity of [place] 4.2.7.2.686 Anthony as Professio [phone] [address] Office Building One 2020-10-06 2020-10-06 Outpatient R NATHAN, [facility] [id number] Univers 10:20:00 10:20:00 KEILA zee of [facility] 2020-10-06 2020-10-06 Letter Doctor SELENA 1.2.840.114 [id number] Univers 00:00:00 00:00:00 (Out) Unassigned, JOHNNY 350.1.13.10 [facility] [facility] [place] [facility] 4.2.7.2.686 Anthony as [id number] [facility] 044 [place] 2020-03-14 2020-03-14 Emergency [facility] [id number] Univers 22:29:00 23:42:00 Gloria Sainz 350.1.13.10 i ty of [place] 4.2.7.2.686 [facility] [id number] [facility] 084 [place] 2020-03-14 2020-03-14 Emergency [facility] [id number] 22:29:00 23:42:00 Gloria Sainz 350.1.13.10 [place] 4.2.7.2.686 [place] [id number] [facility] 2019-10-21 2019-10-21 Urgent Tosha Estrada [facility] 1.2.840.114 [id number] Univers 17:52:31 18:49:49 Care Unknown, Attending Health 350.1.13.10 ity of Surgical 4.2.7.2.686 Anthony as Specialti [phone] Il dical 370 [facility] 2019-10-21 2019-10-21 Urgent Sean [facility] 1.2.840.114 [id number] 17:52:31 18:49:49 Care [facility] 350.1.13.10 Surgical 4.2.7.2.686 Specialti [id number] es [address] [place] [address] 2019-10-21 2019-10-21 Outpatient R UNKNOWN, [facility] [id number] Univers 18:00:00 18:00:00 ATTENDING ity of [facility] 2019-09-06 2019-09-06 Karlo Wood [facility] 1.2.840.114 [id number] Univers 00:00:00 00:00:00 [facility] 350.1.13.10 i ty of Surgical 4.2.7.2.686 Anthony as Specialti [phone] Me dical es [address] [place] 2019-09-02 2019-09-03 Urgent Nina, Arabella [facility] 1.2.840. 114 [id number] Univers 19:02:06 13:29:25 Care Unknown, Attending [facility] 350.1.13.10 ity of Surgical 4.2.7.2.686 [place] as Specialti [phone] Il dical es 370 [facility] 2019-09-02 2019-09-02 Orders Doctor SELENA 1.2.840.114 [id number] Univers 00:00:00 00:00:00 Only Unassigned, JOHNNY 350.1.13.10 [facility] [facility] 4.2.7.2.686 Anthony as [id number] [address] Results Test Description Test Time Test Comments Results Result Comments Source POCT GLUCOSE (AUTOMATED) 2022-08-07 14:26:49 Test Item Value Reference Range Interpretation Comme nts POCT GLU (test code = 3387361313) 172 mg/dL 70-110 H Lab Interpretation (test code = 20064-0) Abnormal [facility] GLUCOSE (AUTOMATED)2022-08-07 14:26:49 Test Item Value Reference Range Interpretation Comments POCT GLU (test code = 3218019418) 172 mg/dL 70-110 H Lab Interpretation (test code = Abnormal 06727-9) [facility] GLUCOSE (AUTOMATED)2022-07-24 15:50:30 Test Item Value Reference Range Interpretation Comments POCT GLU (test code = 2371066170) 229 mg/dL 70-110 H Lab Interpretation (test code = Abnormal 87265-9) [facility] GLUCOSE (AUTOMATED)2022-07-24 15:50:30 Test Item Value Reference Range Interpretation Comments POCT GLU (test code = 0005720766) 229 mg/dL 70-110 H Lab Interpretation (test code = Abnormal 47437-3) [facility] URINALYSIS W SPECIFIC [id number] 16:09:00 Test Item Value Reference Range Interpretation Comments POCT U SP GRAV (test 1.010 mg/dl 1.005-1.025 code = 3255) POCT PH U (test code = 7 mg/dl 5-8 3254) POCT U LEUK EST (test trace Negative - code = 3263) Negative POCT U NIT (test code negative Negative - = 3262) Negative POCT U PROT (test code negative Negative - = 3259) Negative POCT U GLU (test code negative Negative - = 3256) Negative POCT U KETONE (test negative Negative - code = 3258) Negative POCT U UROBILI (test normal 0.2-1 code = 3260) POCT U BILI (test code negative Negative - = 3261) Negative POCT U BLD (test code trace Negative - = 3257) Negative POCT U COLOR (test yellow code = 3266) POCT U APPEAR (test clear code = 3267) AUDIE (test code = AUDIE) accurate development and interpretation of all internal controls Lab Interpretation Normal (test code = 58246-5) [facility] [id number] 06:35:00 Test Item Value Reference Range Interpretation Comments GLUCOSE BEDSIDE TESTING (test code 186 mg/dL 70-110 H = GLUBED) COVID 19 INHOUSE [id number] 13:48:00 Test Item Value Reference Range Interpretation Comments COVID 19 INHOUSE AG NEGATIVE Negative Per rosalie facturer, (test code = negative result s should [id number]) be treated aspr esumptive and, if inconsi stent with clinical signs andsymptoms or necessary for patient man agement, should betested with an alternative mol ecular assay. Negative resultsdo not preclude SA RS-CoV-2 infection and s hould not be usedas the s ole basis for patient man agement decisions. Nega tive results should be considered in t he context of apatient's r ecent exposures, hist ory, presence of cli nicalsigns and symptoms co nsistent with COVID-19. - XR CHEST 1 [id number] 13:38:00 [facility] 1955 Sex: F Name: ARMAND RUIZ [place] : 1955 Age/S: 65 / F [address] [address] [facility] Unit #: [id number] Loc: [place] [address] Phys: Nelson Beltran MD Acct: [id number] Dis Date: Status: PRE [facility] PHONE #: [phone] Exam Date: 08/18/20203 FAX #: Reason: SURGERY EXAMS: CPT: [id number] XR CHEST 1 V 96582 Fluoro Time: DAP (Gy m2): Air Kerma (mGy): EXAMINATION: - XR CHEST 1 V HISTORY: Preop COMPARISON: None. LOCATION CODE: C3 FINDINGS: Single frontal view of the chest is submitted for evaluation. The lungs areclear. The cardiac silhouette, mediastinum and pulmonary vasculature are unremarkable. The regional osseous structures are intact IMPRESSION: No acute radiographic abnormality at 1338 Reported and signed by: Megan Evans M.D. CC: Bahman Gil DO; Nelson Beltran MD PAGE 1 Signed Report Name: ARMAND RUIZ [place] : 1955 Age/S: 65 / F [address] [place] [address] Unit #: [id number] Loc: [place] [address] Phys: Nelson Beltran MD Acct: [id number] Dis Date: Status: PRE VTC PHONE #: [phone] Exam Date: 08/18/2020 1323 FAX #: Reason: SURGERY EXAMS: CPT: [id number] XR CHEST 1 V 01159 Fluoro Time: DAP (Gy m2): Air Kerma (mGy): (Continued) Technologist: Alondra Bertrand, RT(R) Trnscb Date/Time: 08/18/2020 (4036) [email or web address] Orig Print D/T: S: 08/18/2020 (1393) PAGE 2 Signed ReportCBC W/AUTO [id number] 13:33:00 Test Item Value Reference Range Interpretation Comments WHITE BLOOD CELL (test code = 6.4 K/mm3 3.5-11.0 N WBC) RED BLOOD CELL (test code = 5.47 M/mm3 4.70-6.10 N RBC) HEMOGLOBIN (test code = HGB) 11.9 G/DL 10.4-14.9 N HEMATOCRIT (test code = HCT) 39.1 % 31.5-44.1 N MEAN CELL VOLUME (test code = 71.5 Fl 84.5-98.6 L MCV) MEAN CELL HGB (test code = MCH) 21.8 pg 27.0-34.2 L MEAN CELL HGB CONCETRATION 30.4 G/DL 31.5-34.0 L (test code = MCHC) RED CELL DISTRIBUTION WIDTH 17.3 SD 11.5-14.5 H (test code = RDW) PLATELET COUNT (test code = 162 K/mm3 150-450 N PLT) NEUTROPHIL % (test code = NT%) 52.9 % 40-76 N IMMATURE GRANULOCYTE % (test 0.2 % 0.0-5.0 N code = IG%) LYMPHOCYTE % (test code = LY%) 36.4 % 20.5-51.1 N MONOCYTE % (test code = MO%) 8.3 % 1.7-9.3 N EOSINOPHIL % (test code = EO%) 1.3 % 0.0-6.0 N BASOPHIL % (test code = BA%) 0.9 % 0.0-2.0 N NUCLEATED RBC % (test code = 0.0 /100WBC% 0.0-1.0 N NRBC%) NEUTROPHIL # (test code = NT#) 3.4 K/mm3 1.8-7.6 N IMMATURE GRANULOCYTE # (test 0.01 x10 3/uL 0.00-0.03 N code = IG#) LYMPHOCYTE # (test code = LY#) 2.3 K/mm3 0.6-3.2 N MONOCYTE # (test code = MO#) 0.5 K/mm3 0.3-1.1 N EOSINOPHIL # (test code = EO#) 0.1 K/mm3 0.0-0.4 N BASOPHIL # (test code = BA#) 0.1 K/mm3 0.0-0.1 N NUCLEATED RBC # (test code = 0.0 K/mm3 0.0-0.1 N NRBC#) MANUAL DIFF REQUIRED (test code NO DIFF/SCN CRITERIA = MDIFF) BASIC METABOLIC [id number] 13:33:00 Test Item Value Reference Range Interpretation Comments SODIUM (test code = NA) 141 mmol/L 134-147 N POTASSIUM (test code = K) 3.6 mmol/L 3.4-5.0 N CHLORIDE (test code = CL) 103 mmol/L 100-108 N CARBON DIOXIDE (test code = CO2) 37 mmol/L 21-32 H ANION GAP (test code = GAP) 1.0 GAP calc 4.0-15.0 L GLUCOSE (test code = GLU) 172 MG/DL 70-110 H BLOOD UREA NITROGEN (test code = 15 MG/DL 7-18 N BUN) GLOMERULAR FILTRATION RATE (test 58 estGFR >60 L code = GFR) CREATININE (test code = CREAT) 1.2 MG/DL 0.6-1.0 H CALCIUM (test code = CA) 9.2 MG/DL 8.5-10.1 N PROTHROMBIN [id number] 13:32:00 Test Item Value Reference Range Interpretation Comments PT PATIENT (test code = PTP) 12.4 SECONDS 9.3-12.9 N INTERNATIONAL NORMAL RATIO 1.10 INR Unit 0.8-1.2 N (test code = INR) THROMBOPLASTIN TIME [id number] 13:32:00 Test Item Value Reference Range Interpretation Comments THROMBOPLASTIN TIME PARTIAL 29.9 SECONDS 26-35 N (test code = PTT) POCT GRP A STREP (MOLECULAR)2019-10-22 00:59:00 Test Item Value Reference Range Interpretation Comments POCT GP A STREP (test neg Negative - code = 77281-5) Negative AUDIE (test code = AUDIE) accurate development and interpretation of all internal controls Lab Interpretation Normal (test code = 19657-1) [facility] GRP A STREP (MOLECULAR)2019-10-22 00:59:00 Test Item Value Reference Range Interpretation Comments POCT GP A STREP (test neg Negative - code = 49590-9) Negative AUDIE (test code = AUDIE) accurate development and interpretation of all internal controls Lab Interpretation Normal (test code = 72633-4) [facility] Sendout- Vaginal Pathogen Panel by DNA Probe [id number] 19:58:00 Test Item Value Reference Range Interpretation Comments Miscellaneous Test (test See scanned report code = 3076425616) Performing Lab (test code ARUP = 2171449683) [facility] URINALYSIS W SPECIFIC [id number] 01:19:00 Test Item Value Reference Range Interpretation Comments POCT U SP GRAV (test 1.020 mg/dl 1.005-1.025 code = 3255) POCT PH U (test code = 5 mg/dl 5-8 3254) POCT U LEUK EST (test Negative Negative - code = 3263) Negative POCT U NIT (test code Negative Negative - = 3262) Negative POCT U PROT (test code Negative Negative - = 3259) Negative POCT U GLU (test code Negative Negative - = 3256) Negative POCT U KETONE (test Negative Negative - code = 3258) Negative POCT U UROBILI (test Normal 0.2-1 code = 3260) POCT U BILI (test code Negative Negative - = 3261) Negative POCT U BLD (test code Negative Negative - = 3257) Negative POCT U COLOR (test Yellow code = 3266) POCT U APPEAR (test Clear code = 3267) AUDIE (test code = AUDIE) accurate development and interpretation of all internal controls Lab Interpretation Normal (test code = 34264-4) [facility] URINALYSIS W SPECIFIC [id number] 01:19:00 Test Item Value Reference Range Interpretation Comments POCT U SP GRAV (test 1.020 mg/dl 1.005-1.025 code = 3255) POCT PH U (test code = 5 mg/dl 5-8 3254) POCT U LEUK EST (test Negative Negative - code = 3263) Negative POCT U NIT (test code Negative Negative - = 3262) Negative POCT U PROT (test code Negative Negative - = 3259) Negative POCT U GLU (test code Negative Negative - = 3256) Negative POCT U KETONE (test Negative Negative - code = 3258) Negative POCT U UROBILI (test Normal 0.2-1 code = 3260) POCT U BILI (test code Negative Negative - = 3261) Negative POCT U BLD (test code Negative Negative - = 3257) Negative POCT U COLOR (test Yellow code = 3266) POCT U APPEAR (test Clear code = 3267) AUDIE (test code = AUDIE) accurate development and interpretation of all internal controls Lab Interpretation Normal (test code = 24753-4) [facility] Notes Date/Time Note Provider Source 2020-08-21 09:29:00-00:00 [id number] [address] PATIENT NAME: ARMAND RUIZ ADMIT DATE: 08/21/20 ACCOUNT NO: [id number] ROOM NO: AGE: 65 REPORT TYPE: OPERATIVE REPORT SEX: F ADMITTING PHYSICIAN: ATTENDING PHYSICIAN: Nelson Beltran MD OPERATION DATE: 08/21/2020 PREOPERATIVE DIAGNOSES: 1. Left shoulder rotator cuff tendon tear. 2. Left shoulder acromioclavicular joint arthros is. 3. Left shoulder impingement syndrome. POSTOPERATIVE DIAGNOSES: 1. Left shoulder rotator cuff tendon tear. 2. Left shoulder acromioclavicular joint arthros is. 3. Left shoulder impingement syndrome. OPERATIONS PERFORMED: 1. Left shoulder arthroscopic rotator cuff repai r. 2. Left shoulder arthroscopic distal clavicle ex cision. 3. Left shoulder arthroscopic subacromial decomp ression including acromioplasty. SURGEON: Nelson Beltran MD COTTON GINNER: Dr. Roman. ANESTHESIA: General. COMPLICATIONS: None. ESTIMATED BLOOD LOSS: Minimal. DETAILS OF THE OPERATIONS: This is a 65-year-old female, who has a history of left rotator cuff repair by Dr. Moody more th an 10 years ago. The patient presented to my clinic with progressively worsening left shoulder pain. She was clinically and radiographically diagnosed with t he above-mentioned diagnosis. After a thorough discussion of her opera tive as well as nonoperative treatment options and the risks and possible complications of each and after failing extensive nonoperative treat ment for her condition, the patient provided written and verbal consent for the above-mentioned proce dure. On the day of surgery, the patient was identified in the [facility] area and the correct site of surgery was marked. The anesthesiologist was arturo ble to do a preoperative block because the patient reported at base line that she has some left upper extremity weakness in terms of her hand and neurological function a nd therefore the anesthesiologist's decision was to not do a block for the patient's safety. The patient was then taken to e operating room and placed supine on the operating PATIENT NAME: ARMAND RUIZ 9 table. She was placed under general anesthesia b y the anesthesiology team. Preoperative antibiotics were given. Time-out wa s performed. The patient was then placed in a right later al decubitus position and all bony prominences were padded appropriately. The left upper extremity w as prepped and draped in a standard sterile fashion and the arm was held us ing arm suspension device. A posterior arthroscopic portal was establ ished and a diagnostic arthroscopy was performed. The subscapularis tendon was intact. The base of the biceps tendon had scarring and was thickened through anterior arthroscopic portal. I performed a biceps tenotomy and debrided the cecilio mp of the biceps tendon. The anterior, posterior labrum was frayed an d so I gently debrided using a shaver. There was a high-grade near full-thickne ss articular-sided tear of the rotator cuff tendon that was seen. This was tagged using a PDS suture. There was a small fraying of the cartilage at the ba re spot of the glenoid. Otherwise, the cartilage was well maintained. Attention was the n taken to the subacromial space where through a lateral arthroscopic brad l, a thorough bursectomy was performed from anterior to posterior position. N ext, using a bur from the posterior portal, I performed acromioplasty from posterior to anterior in a cutting cone fashion so as t o create a flat Bigliani type 1 configuration of the acromion. There were old sutures that were remov ed from the previous surgery. The distal clavicle excision was commenc ed from the posterior portal, removing the inferior aspect of the distal clavicle. The remaining distal clavicle excision was performed from the anterior portal from anterior superior to anterior inferior and posterior superior to post erior inferior position. Circumferential removal of bone was verified and approximately 7 mm space between the distal clavicle and the lateral acro mion was achieved. Next, attention was taken to the r otator cuff tendon tear that was tagged using a PDS suture. This was completed and the footprint was prepared for repair. I removed as much of the soft tissue as possible f rom the footprint. Next, a ConMed 4.5 mm triple-loaded suture anchor was in serted into the footprint. Next, I passed 2 of these sutures in a horizonta l mattress fashion from posterior to anterior overlapping each other, in between these 2, I placed a third stitch in a simple fashion more medially w ithin the cuff. Next, using a sliding locking knot tying technique, I tied bot h the horizontal mattress sutures first and then cutti ng the excessive suture. Finally, the simple suture was tied on top of the previ ously tied horizontal mattress suture and excessive suture limbs were cut. Excellent rip-stop config uration repair of the rotator cuff tendon was achieved. Next, as much fluid as possible was removed from the subacromial space and then we injected 20 mL of 0.25% Marcaine into this area for postoperative pain control. After th is, the portal sites were closed using nylon stitches and dressed u sing Xeroform, 4 x 4s, ABD, and tape. The patient's arm was placed in an abduction pillow sling. Dictated By: Nelson Beltran MD WT: OP:[id number]/MUSA/EDWIGE Conf#: [id number]/DID#: [id number] Authenticated by Nelson Beltran MD On 10/02/2020 07:31:27 AM PATIENT NAME: RUIZARMAND Sierra 9 Electronically Signed by Nelson Beltran MD on 08/24 at 0731 PATIENT NAME: RUIZARMAND Sierra 9
--- NOTE | 2023-01-05 00:02 | EDPHYS ---
Physician Documentation [facility] Name: Monique Franz Age: 67 yrs Sex: Female : 1955 Arrival Date: 01/04/2023 Time: 22:34 Bed 12 Private MD: ED Physician Aly Pina HPI: 01/04 23:40 This 67 yrs old Black Female presents to ER via Ambulatory with complaints of Hand jmm Swelling. 23:40 The patient or guardian reports pain. Onset: The symptoms/episode began/occurred jmm gradually, 3 day(s) ago. Modifying factors: The symptoms are alleviated by nothing, the symptoms are aggravated by nothing. This is a 67-year-old female with history of diabetes mellitus, diverticulitis, hyperlipidemia, hypertension the presents emerged department with complaints of right hand swelling, particular to the third fourth and fifth finger. Patient was diagnosed with arthritis. And prescribed Celexcob, patient states she has had mild improvement but still has pain. Patient denies fever. Denies any trauma to the hand. States she does have a history of rheumatoid arthritis.. Historical: - Allergies: 22:55 Azithromycin; ha1 22:55 Zithromax; ha1 22:55 PENICILLINS; ha1 - Home Meds: 22:55 amiodarone 100 mg Oral tab 1 tab once daily [Active]; aspirin 81 mg Oral chew 1 tab ha1 once daily [Active]; carvedilol 25 mg Oral tab 1 tab 2 times per day [Active]; tramadol 50 mg Oral tab 1 tab every 6 hours [Active]; - PMHx: 22:55 Diabetes - NIDDM; Diverticulitis; Hyperlipidemia; Hypertension; ha1 - PSHx: 22:55 None; ha1 - Immunization history:: Adult Immunizations up to date. - Social history:: Smoking status: Patient denies any tobacco usage or history of. ROS: 23:40 Constitutional: Negative for fever, chills, and weight loss, Cardiovascular: Negative jmm for chest pain, palpitations, and edema, Respiratory: Negative for shortness of breath, cough, wheezing, and pleuritic chest pain. 23:40 MS/extremity: Positive for pain. 23:40 All other systems are negative. Exam: 23:40 Constitutional: This is a well developed, well nourished patient who is awake, alert, jmm and in no acute distress. Head/Face: atraumatic. Eyes: EOMI, no conjunctival erythema appreciated ENT: Moist Mucus Membranes Neck: Trachea midline, Supple Chest/axilla: Normal chest wall appearance and motion. Cardiovascular: Regular rate and rhythm. No edema appreciated Respiratory: Normal respirations, no respiratory distress appreciated Abdomen/GI: Non distended Back: Normal ROM Skin: General appearance color normal 23:40 Musculoskeletal/extremity: Mild edema noted to the right hand, third fourth and fifth metacarpal tender to palpation, full nuclear criticality safety engineer strength appreciated, less than 2-second distal cap refill, neurovascular intact. 23:40 Skin: Appearance: Color: normal in color. 23:40 Neuro: Orientation: is normal, Mentation: is normal, Memory: is normal. 23:40 Psych: Behavior/mood is pleasant, cooperative. Vital Signs: 22:51 BP 151 / 64; Pulse 65; Resp 18 S; Temp 97.9; Pulse Ox 99% on R/A; Weight 107.05 kg; ha1 Height 5 ft. 3 in. ; Pain 6/10; 01/05 00:00 BP 145 / 67; Pulse 62; Resp 15 S; Pulse Ox 98% on R/A; ha1 01/04 22:51 Body Mass Index 41.81 (107.05 kg, 160.02 cm) 1 01/04 22:51 Pain Scale: Adult ha MDM: 01/04 23:40 Patient medically screened. [facility] 01/05 00:06 Differential diagnosis: Arthritis, hemarthrosis. Data reviewed: vital signs, nurses [facility] notes. Counseling: I had a detailed discussion with the patient and/or guardian regarding: the historical points, exam findings, and any diagnostic results supporting the discharge/admit diagnosis, the need for outpatient follow up, to return to the emergency department if symptoms worsen or persist or if there are any questions or concerns that arise at home. ED course: No trauma, patient is afebrile, I do not suspect fracture or infection. I did discuss risk benefits of steroid. Patient will closely watch her BGL discontinue if elevated. Patient otherwise advised to return to the ED if she develops fever, worsening symptoms. Patient understood agrees plan of care.. Administered Medications: 00:01 Drug: HYDROcodone-acetaminophen PO 5 mg-325 mg 2 tabs Route: PO; ha1 00:19 Follow up: Response: No adverse reaction; Pain is decreased; RASS: Alert and Calm (0) ha1 Disposition: 04:45 Co-signature as Attending Physician, Aly Pina MD I agree with the assessment and kdr plan of care. Disposition Summary: 01/05/23 00:01 Discharge Ordered Location: Home [facility] Condition: Stable jmm Diagnosis - Edema of the Right Hand [facility] Followup: [facility] - With: Maykel Ramon MD - When: 2 - 3 days - Reason: Recheck today's complaints, Continuance of care, Re-evaluation by your physician Discharge Instructions: - Discharge Summary Sheet [facility] - Arthritis [facility] Forms: - Medication Reconciliation Form [facility] - Thank You Letter [facility] - Antibiotic Education [facility] - Prescription Opioid Use [facility] Prescriptions: - Pepcid 20 mg Oral Tablet - take 1 tablet by ORAL route every 12 hours for 10 days; 20 tablet; Refills: 0, jmm Product Selection Permitted - Ultracet 37.5-325 mg Oral Tablet - take 1 tablet by ORAL route every 6 hours - for up to 5 days; do not exceed 8 jmm tablets per day.; 12 tablet; Refills: 0, Product Selection Permitted - Medrol (Jj) 4 mg Oral Tablets, Dose Pack - take 1 tablet by ORAL route as directed - follow package instructions; 1 jmm packet; Refills: 0, Product Selection Permitted Signatures: Aly Pina MD MD kdr Mickail, Joel, PA PA [facility] Nataly Medrano, RN RN ha1
--- NOTE | 2023-01-05 00:02 | ER ---
Nurse's Notes [facility] Name: Monique Franz Age: 67 yrs Sex: Female : 1955 Arrival Date: 01/04/2023 Time: 22:34 Bed 12 Private MD: Diagnosis: Edema of the Right Hand Presentation: 01/04 22:51 Chief complaint: Patient states: My right hand has been swollen for the past three ha1 days. I went to see my primary care and prescribed some medication that are not helping much. Coronavirus screen: Vaccine status: Patient reports receiving the 2nd dose of the covid vaccine. Ebola Screen: No symptoms or risks identified at this time. Initial Sepsis Screen: Does the patient meet any 2 criteria? No. Patient's initial sepsis screen is negative. Does the patient have a suspected source of infection? No. Patient's initial sepsis screen is negative. Risk Assessment: Do you want to hurt yourself or someone else? Patient reports no desire to harm self or others. Onset of symptoms was January 02, 2023. 22:51 Method Of Arrival: Ambulatory ha1 22:51 Acuity: VIC 4 ha1 Triage Assessment: 22:55 General: Appears uncomfortable, Behavior is calm, cooperative. Pain: Complains of pain ha1 in right hand Pain does not radiate. Pain currently is 6 out of 10 on a pain scale. Neuro: Level of Consciousness is awake, alert, obeys commands, Oriented to person, place, time, situation. Cardiovascular: Patient's skin is warm and dry. Respiratory: Airway is patent Respiratory effort is even, unlabored, Respiratory pattern is regular, symmetrical. GI: Abdomen is round non-distended. Musculoskeletal: Circulation, motion, and sensation intact. Range of motion: intact in all extremities, Reports pain in right hand. Historical: - Allergies: 22:55 Azithromycin; ha1 22:55 Zithromax; ha1 22:55 PENICILLINS; ha1 - Home Meds: 22:55 amiodarone 100 mg Oral tab 1 tab once daily [Active]; aspirin 81 mg Oral chew 1 tab ha1 once daily [Active]; carvedilol 25 mg Oral tab 1 tab 2 times per day [Active]; tramadol 50 mg Oral tab 1 tab every 6 hours [Active]; - PMHx: 22:55 Diabetes - NIDDM; Diverticulitis; Hyperlipidemia; Hypertension; ha1 - PSHx: 22:55 None; ha1 - Immunization history:: Adult Immunizations up to date. - Social history:: Smoking status: Patient denies any tobacco usage or history of. Screenin/04 00:19 Abuse screen: Denies threats or abuse. Denies injuries from another. Nutritional ha1 screening: No deficits noted. Tuberculosis screening: No symptoms or risk factors identified. 00:19 [facility] ED Fall Risk Assessment (Adult) History of falling in the last 3 months, ha1 including since admission No falls in past 3 months (0 pts) Confusion or Disorientation No (0 pts) Intoxicated or Sedated No (0 pts) Impaired Gait No (0 pts) Mobility Assist Device Used No (0 pt) Altered Elimination No (0 pt) Score/Fall Risk Level 0 - 2 = Low Risk Oriented to surroundings, Maintained a safe environment, Educated pt \T\ family on fall prevention, incl call for assistance when getting out of bed. Assessment: 01/04 23:00 Reassessment: see triage assessment. ha1 01/05 00:19 Reassessment: Patient and/or family updated on plan of care and expected duration. Pain ha1 level reassessed. Patient is alert, oriented x 3, equal unlabored respirations, skin warm/dry/pink. Patient states feeling better. Patient states symptoms have improved. Vital Signs: 01/04 22:51 BP 151 / 64; Pulse 65; Resp 18 S; Temp 97.9; Pulse Ox 99% on R/A; Weight 107.05 kg; ha1 Height 5 ft. 3 in. ; Pain 6/10; 01/05 00:00 BP 145 / 67; Pulse 62; Resp 15 S; Pulse Ox 98% on R/A; ha1 01/04 22:51 Body Mass Index 41.81 (107.05 kg, 160.02 cm) ha1 01/04 22:51 Pain Scale: Adult [facility] ED Course: 01/04 22:37 Patient arrived in ED. ja2 22:51 Arm band placed on right wrist. ha1 22:55 Triage completed. ha1 23:00 Patient has correct armband on for positive identification. Bed in low position. Call 1 light in reach. Side rails up X 1. 23:37 Mau Neumann PA is PHCP. [facility] 23:38 Aly Pina MD is Attending Physician. [facility] 01/05 00:01 Maykel Ramon MD is Referral Physician. [facility] 00:19 No provider procedures requiring assistance completed. 1 00:19 Patient did not have IV access during this emergency room visit. ha1 Administered Medications: 00:01 Drug: HYDROcodone-acetaminophen PO 5 mg-325 mg 2 tabs Route: PO; 1 00:19 Follow up: Response: No adverse reaction; Pain is decreased; RASS: Alert and Calm (0) ha1 Medication: 00:19 VIS not applicable for this client. ha1 Outcome: 00:01 Discharge ordered by MD. [facility] 00: Patient left the ED. [facility] 00: Discharged to home ambulatory. [facility] : Condition: stable 00:19 Discharge instructions given to patient, Instructed on discharge instructions, follow up and referral plans. medication usage, Demonstrated understanding of instructions, follow-up care, medications, Prescriptions given X 3. Signatures: Mau Neumann PA PA [facility] Christelle Anne Heidy, RN RN ha1 Corrections: (The following items were deleted from the chart) 07:18 00:00 Reassessment: Patient and/or family updated on plan of care and expected ha1 duration. Pain level reassessed. Patient is alert, oriented x 3, equal unlabored respirations, skin warm/dry/pink. Patient states feeling better. Patient states symptoms have improved. ha1
[2023-01-05] MEDS ORDERED: HYDROCODONE/APAP 5/325 MG TAB ONE (00:04)
[2023-01-05 01:46] VITALS: BP 151/64; TEMP 97.9; O2SAT 99
== END 2023-01-05 00:19 | disposition home or self-care (01) ==
LOC: ER 22:34
DX: R60.9 Edema, unspecified (principal); M79.641 Pain in right hand; E11.9 Type 2 diabetes mellitus without complications; I10 Essential (primary) hypertension; Z79.82 Long term (current) use of aspirin; Z88.0 Allergy status to penicillin; Z88.1 Allergy status to other antibiotic agents
CPT/HCPCS: 99283

== ENCOUNTER → 2023-10-26 | Emergency (ER) | payer OTHER ==
[~2023-10-26] MED LIST: LIDOCAINE 2% W/EPI 1:200,000 MPF 20 ML VIAL IM ONE
--- OUTSIDE RECORDS SUMMARY | 2023-10-26 12:50 | XMS REPORT | Continuity of Care Document ---
Author Name Unknown Address [address] [facility] [address] [place] [address] [facility] thconnect Address [address] [facility] [address] [place] [address] Care Team Providers Care Freelance Court Reporter Name Role Phone Bahman Gil Primary Care Physician [phone] Nelson Beltran Attending Clinician Unavailable [email or web address] Attending Clinician Unavaila hunter Doctor Unassigned, [place] Attending Clinician U JAIR Colmenares Attending Clinician UnavailJair Mcnair MD Attending Clinician [phone] Pob, [facility] Main Attending Clinician UnavailCHAIM Ruano Attending Clinician Unavailable Chaim Wang Attending Clinician [phone] ASHLEY ALDRICH Attending Clinician Unavailable KRYSTINA VICTORIA Attending Clinician Unavailable Provider, [facility] Attending Clinician Un available Krystina Wallis Attending Clinician [phone] Nathan MANAGER STORE, Keila Attending Clinician [phone] KEILA EVANS Attending Clinician Unavailable Gloria Gottlieb Attending Clinician [phone] Sean MANAGER STORE, Tosha Attending Clinician [phone] Unknown, Attending Attending Clinician Unavailab whitney GARCIA, ATTENDING Attending Clinician Unavailab whitney Wood MANAGER STORE, Arabella Attending Clinician [phone] KNOW, DOES_NOT Admitting Clinician Unavailable [email or web address] Admitting Clinician UnavailJAIR Vitale Admitting Clinician UnavailJair Mcnair MD Admitting Clinician [phone] Payers Payer Name Policy Type Policy Number Effective Date Expirati on Date Source [facility] COMPLETE O [id number] 2019 00:00:00 [place] [id number] 2013 00:00:00 Problems Condition Name Condition Details Condition Category Status Onset Date Resolution Date Last Treatment Date Treating Clinician Comments Source No known active problems No known active problems Disease [facility] Allergies, Adverse Reactions, Alerts Allergy Name Allergy Type Status Severity Reaction(s) Onset Date Inactive Date Treating Clinician Comments Source azithrom ycin DA Active [place] 08-18 00:00: 00 [facility] PCN DA Active LA ITCHING 08-18 00:00: 00 [facility] azithrom ycin DA Active LA SWELLING IN THE LIPS 08-18 00:00: 00 [facility] Penicill ins Propensi ty to adverse reaction s Active Swelling 03-14 00:00: 00 [facility] PENICILL INS Drug Class Active Swelling 03-14 00:00: 00 [facility] Penicill ins Propensi ty to adverse reaction s Active Swelling 03-14 00:00: 00 [facility] Azithrom ycin Propensi ty to adverse reaction s Active Unknown - See comments 02-17 00:00: 00 [facility] AZITHROM YCIN DRUG INGREDI Active Unknown-Cmnt 02-17 00:00: 00 [facility] Social History Social Habit Start Date Stop Date Quantity Comments Source Alcohol intake 2022-08-08 00:00:00 2022-08-08 00:00:00 Current non-drinker of alcohol (finding) [facility] Exposure to SARS-CoV-2 (event) 2022-07-22 00:00:00 2022-08-01 13:36:00 Not sure [facility] Tobacco use and exposure 2022-07-24 00:00:00 2022-07-24 00:00:00 Smokeless tobacco non-user [facility] Sex Assigned At 1955 00:00:00 1955 00:00:00 [facility] Smoking Status Start Date Stop Date Source Never smoked tobacco [facility] Medications Ordered Medication Name Filled Medication Name Start Date Stop Date Current Medication? Ordering Clinician Indication Dosage Frequency Signature (SIG) Comments Components Source carvedilol (COREG) 25 mg tablet 08-07 16:29: 08 Yes [id number] Take by mouth 2 (two) times daily with meals. [facility] esomeprazol e 40 mg capsule 08-07 16:29: 08 Yes [id number] 40mg Take 40 mg by mouth daily with breakfast. [facility] simvastatin (ZOCOR) 20 mg tablet 08-07 16:29: 08 Yes [id number] 20mg Take 20 mg by mouth at bedtime. [facility] losartan (COZAAR) 100 mg tablet 08-07 16:29: 08 Yes [id number] 100mg Take 100 mg by mouth daily. [facility] aspirin 81 mg chewable tablet 08-07 16:29: 08 Yes [id number] 81mg Take 81 mg by mouth daily. [facility] mesalamine 1.2 gram EC tablet 08-07 16:29: 08 Yes [id number] 1200mg Take 1,200 mg by mouth in the morning and 1,200 mg in the evening. [facility] metFORMIN (FORTAMET) 1,000 mg 24 hr tablet 08-07 16:29: 08 Yes [id number] 1000mg Take 1,000 mg by mouth daily with breakfast. [facility] liraglutide 0.6 mg/0.1 mL (18 mg/3 mL) injection 08-07 16:29: 08 Yes 1.8mg inject 1.8 mg under the skin in the morning. [facility] ERGOCALCIFE ROL, VITAMIN D2, (VITAMIN D ORAL) 08-07 16:29: 08 Yes Take by mouth. [facility] carvedilol (COREG) 25 mg tablet 08-07 16:29: 08 Yes [id number] Take by mouth 2 (two) times daily with meals. [facility] esomeprazol e 40 mg capsule 08-07 16:29: 08 Yes [id number] 40mg Take 40 mg by mouth daily with breakfast. [facility] simvastatin (ZOCOR) 20 mg tablet 08-07 16:29: 08 Yes [id number] 20mg Take 20 mg by mouth at bedtime. [facility] losartan (COZAAR) 100 mg tablet 08-07 16:29: 08 Yes [id number] 100mg Take 100 mg by mouth daily. [facility] aspirin 81 mg chewable tablet 08-07 16:29: 08 Yes [id number] 81mg Take 81 mg by mouth daily. [facility] mesalamine 1.2 gram EC tablet 08-07 16:29: 08 Yes [id number] 1200mg Take 1,200 mg by mouth in the morning and 1,200 mg in the evening. [facility] metFORMIN (FORTAMET) 1,000 mg 24 hr tablet 08-07 16:29: 08 Yes [id number] 1000mg Take 1,000 mg by mouth daily with breakfast. [facility] liraglutide 0.6 mg/0.1 mL (18 mg/3 mL) injection 08-07 16:29: 08 Yes 1.8mg inject 1.8 mg under the skin in the morning. [facility] ERGOCALCIFE ROL, VITAMIN D2, (VITAMIN D ORAL) 08-07 16:29: 08 Yes Take by mouth. [facility] carvedilol (COREG) 25 mg tablet 08-07 16:29: 08 Yes [id number] Take by mouth 2 (two) times daily with meals. [facility] esomeprazol e 40 mg capsule 08-07 16:29: 08 Yes [id number] 40mg Take 40 mg by mouth daily with breakfast. [facility] simvastatin (ZOCOR) 20 mg tablet 08-07 16:29: 08 Yes [id number] 20mg Take 20 mg by mouth at bedtime. [facility] losartan (COZAAR) 100 mg tablet 08-07 16:29: 08 Yes [id number] 100mg Take 100 mg by mouth daily. [facility] aspirin 81 mg chewable tablet 08-07 16:29: 08 Yes [id number] 81mg Take 81 mg by mouth daily. [facility] mesalamine 1.2 gram EC tablet 08-07 16:29: 08 Yes [id number] 1200mg Take 1,200 mg by mouth in the morning and 1,200 mg in the evening. [facility] metFORMIN (FORTAMET) 1,000 mg 24 hr tablet 08-07 16:29: 08 Yes [id number] 1000mg Take 1,000 mg by mouth daily with breakfast. [facility] liraglutide 0.6 mg/0.1 mL (18 mg/3 mL) injection 08-07 16:29: 08 Yes 1.8mg inject 1.8 mg under the skin in the morning. [facility] ERGOCALCIFE ROL, VITAMIN D2, (VITAMIN D ORAL) 08-07 16:29: 08 Yes Take by mouth. [facility] neomycin-po lymyxin-dex amethasone (MAXITROL) 3.5 mg/g-10,000 unit/g-0.1 % ophthalmic ointment 08-07 15:42: 00 08-07 15:53 :12 No PRN, Starting on Fri08/07/22 at 0942, Until Fri08/07/22 at 09, Routine, Intra-op [facility] dexamethaso ne (DECADRON PHOSPHATE) injection 08-07 15:40: 00 08-07 15:53 :12 No PRN, Starting on Fri08/07/22 at 0940, Until Fri08/07/22 at 0953, Routine, Intra-op [facility] carbachoL (MIOSTAT) 0.01 % intraocular injection 08-07 15:36: 00 08-07 15:53 :12 No PRN, Starting on Fri08/07/22 at 0936, Until Fri08/07/22 at 09, Routine, Intra-op [facility] chondroitin sulf-sod hyaluronate (DUOVISC VISCO ELASTIC) intraocular injection 08-07 15:29: 00 08-07 15:53 :12 No PRN, Starting on Fri08/07/22 at 0929, Until Fri08/07/22 at 09, Routine, Intra-op [facility] water for irrigation irrigation solution 08-07 15:21: 00 08-07 15:53 :12 No PRN, Starting on Fri08/07/22 at 0921, Until Fri08/07/22 at 09, Routine, Intra-op [facility] eye block syringe 11 mL 08-07 15:18: 00 08-07 15:53 :12 No PRN, Starting on Fri08/07/22 at 0918, Until Fri08/07/22 at 09, Intra-op [facility] Hyaluronida se, Human Recomb. (HYLENEX) injection 08-07 15:17: 00 08-07 15:53 :12 No PRN, Starting on Fri08/07/22 at 0917, Until Fri08/07/22 at 0953, Routine, [facility] EPINEPHrine 1:1,000 (1 mg/mL) (ADRENALIN) injection 08-07 15:16: 00 08-07 15:53 :12 No PRN, Starting on Fri08/07/22 at 0916, Until Fri08/07/22 at 0953, Routine, Intra-op [facility] balanced salt irrig soln comb1 (BSS PLUS) ophthalmic solution 500 mL bag 08-07 15:16: 00 08-07 15:53 :12 No PRN, Starting on Fri08/07/22 at 0916, Until Fri08/07/22 at 09, Routine, Intra-op [facility] cyclopent 1%-tropic 1%-phenyl 2.5%-ketor 0.5% (MYDRIATIC #5) ophthalmic solution syringe 0.5 mL 08-07 14:00: 00 08-07 14:01 :00 No .5mL 0.5 mL, Right Eye, ONCE, 1 dose, On Fri08/07/22 at 0800, Routine, [facility] lactated ringers [facility] infusion 1,000 mL 08-07 14:00: 00 08-07 14:02 :00 No 1000mL at 42 mL/hr, 1,000 mL, IV Infusion, ONCE, 1 dose, On Fri08/07/22 at 0800, Routine, DSU Pre[facility]op [facility] cyclopent 1%-tropic 1%-phenyl 2.5%-ketor 0.5% (MYDRIATIC #5) ophthalmic solution syringe 0.5 mL 08-07 14:00: 00 08-07 14:01 :00 No .5mL 0.5 mL, Right Eye, ONCE, 1 dose, On Fri08/07/22 at 0800, Routine, [facility] lactated ringers [facility] infusion 1,000 mL 08-07 14:00: 00 08-07 14:02 :00 No 1000mL at 42 mL/hr, 1,000 mL, IV Infusion, ONCE, 1 dose, On Fri08/07/22 at 0800, Routine, [facility] neomycin-po lymyxin-dex amethasone (MAXITROL) 3.5 mg/g-10,000 unit/g-0.1 % ophthalmic ointment 2021-08 17:24: 00 07-24 17:46 :32 No PRN, Starting on Fri07/24/22 at 1124, Until Fri07/24/22 at 1146, Routine, [facility] carbachoL (MIOSTAT) 0.01 % intraocular injection 2021-08 17:23: 00 07-24 17:46 :32 No PRN, Starting on Fri07/24/22 at 1123, Until Fri07/24/22 at 1146, Routine, Intra[facility]op [facility] chondroitin sulf-sod hyaluronate (DUOVISC VISCO ELASTIC) intraocular injection 2021-08 17:14: 00 07-24 17:46 :32 No PRN, Starting on Fri07/24/22 at 1114, Until Fri07/24/22 at 1146, Routine, Intra-op [facility] EPINEPHrine 1:1,000 (1 mg/mL) (ADRENALIN) injection 2021-08 17:13: 00 07-24 17:46 :32 No PRN, Starting on Fri07/24/22 at 1113, Until Fri07/24/22 at 1146, Routine, [facility] balanced salt irrig soln comb1 (BSS PLUS) ophthalmic solution 500 mL bag 2021-08 17:13: 00 07-24 17:46 :32 No PRN, Starting on Fri07/24/22 at 1113, Until Fri07/24/22 at 1146, Routine, [facility] dexamethaso ne (DECADRON PHOSPHATE) injection 2021-08 17:12: 00 07-24 17:46 :32 No PRN, Starting on Fri07/24/22 at 1112, Until Fri07/24/22 at 1146, Routine, Intra-op [facility] water for irrigation irrigation solution 2021-08 17:07: 00 07-24 17:46 :32 No PRN, Starting on Fri07/24/22 at 1107, Until Fri07/24/22 at 1146, Routine, Intra-op [facility] Hyaluronida se, Human Recomb. (HYLENEX) injection 2021-08 17:02: 00 07-24 17:46 :32 No PRN, Starting on Fri07/24/22 at 1102, Until Fri07/24/22 at 1146, Routine, Intra-op [facility] eye block syringe 11 mL 2021-08 17:02: 00 07-24 17:46 :32 No PRN, Starting on Fri07/24/22 at 1102, Until Fri07/24/22 at 1146, Intra-op [facility] cyclopent 1%-tropic 1%-phenyl 2.5%-ketor 0.5% (MYDRIATIC #5) ophthalmic solution syringe 0.5 mL 2021-08 15:45: 00 07-24 15:43 :00 No .5mL 0.5 mL, Left Eye, ONCE, 1 dose, On Fri07/24/22 at 0945, Routine, DSU Pre-op [facility] lactated ringers IV infusion 1,000 mL 2021-08 15:45: 00 07-24 15:46 :00 No 1000mL at 42 mL/hr, 1,000 mL, IV Infusion, ONCE, 1 dose, On Fri07/24/22 at 0945, Routine, DSU Pre-op [facility] cyclopent 1%-tropic 1%-phenyl 2.5%-ketor 0.5% (MYDRIATIC #5) ophthalmic solution syringe 0.5 mL 2021-08 15:45: 00 07-24 15:43 :00 No .5mL 0.5 mL, Left Eye, ONCE, 1 dose, On Fri07/24/22 at 0945, Routine, DSU Pre-op [facility] lactated ringers IV infusion 1,000 mL 2021-08 15:45: 00 07-24 15:46 :00 No 1000mL at 42 mL/hr, 1,000 mL, IV Infusion, ONCE, 1 dose, On Fri07/24/22 at 0945, Routine, DSU Pre-op [facility] carvedilol (COREG) 25 mg tablet 2021-08 12:08: 28 Yes [id number] Take by mouth 2 (two) times daily with meals. [facility] esomeprazol e 40 mg capsule 2021-08 12:08: 28 Yes [id number] 40mg Take 40 mg by mouth daily with breakfast. [facility] simvastatin (ZOCOR) 20 mg tablet 2021-08 12:08: 28 Yes [id number] 20mg Take 20 mg by mouth at bedtime. [facility] losartan (COZAAR) 100 mg tablet 2021-08 12:08: 28 Yes [id number] 100mg Take 100 mg by mouth daily. [facility] aspirin 81 mg chewable tablet 2021-08 12:08: 28 Yes [id number] 81mg Take 81 mg by mouth daily. [facility] mesalamine 1.2 gram EC tablet 2021-08 12:08: 28 Yes [id number] 1200mg Take 1,200 mg by mouth in the morning and 1,200 mg in the evening. [facility] metFORMIN (FORTAMET) 1,000 mg 24 hr tablet 2021-08 12:08: 28 Yes [id number] 1000mg Take 1,000 mg by mouth daily with breakfast. [facility] liraglutide 0.6 mg/0.1 mL (18 mg/3 mL) injection 2021-08 12:08: 28 Yes 1.8mg inject 1.8 mg under the skin in the morning. [facility] ERGOCALCIFE ROL, VITAMIN D2, (VITAMIN D ORAL) 2021-08 12:08: 28 Yes Take by mouth. [facility] carvedilol (COREG) 25 mg tablet 2021-08 12:08: 28 Yes [id number] Take by mouth 2 (two) times daily with meals. [facility] esomeprazol e 40 mg capsule 2021-08 12:08: 28 Yes [id number] 40mg Take 40 mg by mouth daily with breakfast. [facility] simvastatin (ZOCOR) 20 mg tablet 2021-08 12:08: 28 Yes [id number] 20mg Take 20 mg by mouth at bedtime. [facility] losartan (COZAAR) 100 mg tablet 2021-08 12:08: 28 Yes [id number] 100mg Take 100 mg by mouth daily. [facility] aspirin 81 mg chewable tablet 2021-08 12:08: 28 Yes [id number] 81mg Take 81 mg by mouth daily. [facility] mesalamine 1.2 gram EC tablet 2021-08 12:08: 28 Yes [id number] 1200mg Take 1,200 mg by mouth in the morning and 1,200 mg in the evening. [facility] metFORMIN (FORTAMET) 1,000 mg 24 hr tablet 2021-08 12:08: 28 Yes [id number] 1000mg Take 1,000 mg by mouth daily with breakfast. [facility] liraglutide 0.6 mg/0.1 mL (18 mg/3 mL) injection 2021-08 12:08: 28 Yes 1.8mg inject 1.8 mg under the skin in the morning. [facility] ERGOCALCIFE ROL, VITAMIN D2, (VITAMIN D ORAL) 2021-08 12:08: 28 Yes Take by mouth. [facility] carvedilol (COREG) 25 mg tablet 2021-08 12:08: 28 Yes [id number] Take by mouth 2 (two) times daily with meals. [facility] esomeprazol e 40 mg capsule 2021-08 12:08: 28 Yes [id number] 40mg Take 40 mg by mouth daily with breakfast. [facility] simvastatin (ZOCOR) 20 mg tablet 2021-08 12:08: 28 Yes [id number] 20mg Take 20 mg by mouth at bedtime. [facility] losartan (COZAAR) 100 mg tablet 2021-08 12:08: 28 Yes [id number] 100mg Take 100 mg by mouth daily. [facility] aspirin 81 mg chewable tablet 2021-08 12:08: 28 Yes [id number] 81mg Take 81 mg by mouth daily. [facility] mesalamine 1.2 gram EC tablet 2021-08 12:08: 28 Yes [id number] 1200mg Take 1,200 mg by mouth in the morning and 1,200 mg in the evening. [facility] metFORMIN (FORTAMET) 1,000 mg 24 hr tablet 2021-08 12:08: 28 Yes [id number] 1000mg Take 1,000 mg by mouth daily with breakfast. [facility] liraglutide 0.6 mg/0.1 mL (18 mg/3 mL) injection 2021-08 12:08: 28 Yes 1.8mg inject 1.8 mg under the skin in the morning. [facility] ERGOCALCIFE ROL, VITAMIN D2, (VITAMIN D ORAL) 2021-08 12:08: 28 Yes Take by mouth. [facility] dexamethaso ne (DECADRON PHOSPHATE) injection 10 mg 2020-08 18:00: 00 06-11 17:08 :00 No 10mg 10 mg, Oral, ONCE, 1 dose, On Fri06/11/21 at 1200, STAT [facility] carvedilol (COREG) 25 mg tablet 10-19 19:13: 33 Yes [id number] Take by mouth 2 (two) times daily with meals. [facility] esomeprazol e (NEXIUM) 40 mg capsule 10-19 19:13: 33 Yes [id number] 40mg Take 40 mg by mouth daily with breakfast. [facility] simvastatin (ZOCOR) 20 mg tablet 10-19 19:13: 33 Yes [id number] 20mg Take 20 mg by mouth at bedtime. [facility] losartan (COZAAR) 100 mg tablet 10-19 19:13: 33 Yes [id number] 100mg Take 100 mg by mouth daily. [facility] aspirin 81 mg chewable tablet 10-19 19:13: 33 Yes [id number] 81mg Take 81 mg by mouth daily. [facility] mesalamine (LIALDA) 1.2 g EC tablet 10-19 19:13: 33 Yes [id number] 1200mg Take 1,200 mg by mouth daily with breakfast. [facility] Liraglutide (VICTOZA 3-TASHA) 0.6 mg/0.1 mL (18 mg/3 mL) injection 10-19 19:13: 33 Yes inject under the skin. [facility] ERGOCALCIFE ROL, VITAMIN D2, (VITAMIN D ORAL) 10-19 19:13: 33 Yes Take by mouth. [facility] carvedilol (COREG) 25 mg tablet 10-19 14:13: 33 Yes [id number] Take by mouth 2 (two) times daily with meals. [facility] esomeprazol e (NEXIUM) 40 mg capsule 10-19 14:13: 33 Yes [id number] 40mg Take 40 mg by mouth daily with breakfast. [facility] simvastatin (ZOCOR) 20 mg tablet 10-19 14:13: 33 Yes [id number] 20mg Take 20 mg by mouth at bedtime. [facility] losartan (COZAAR) 100 mg tablet 10-19 14:13: 33 Yes [id number] 100mg Take 100 mg by mouth daily. [facility] aspirin 81 mg chewable tablet 10-19 14:13: 33 Yes [id number] 81mg Take 81 mg by mouth daily. [facility] mesalamine (LIALDA) 1.2 g EC tablet 10-19 14:13: 33 Yes [id number] 1200mg Take 1,200 mg by mouth daily with breakfast. [facility] Liraglutide (VICTOZA 3-TASHA) 0.6 mg/0.1 mL (18 mg/3 mL) injection 10-19 14:13: 33 Yes inject under the skin. [facility] ERGOCALCIFE ROL, VITAMIN D2, (VITAMIN D ORAL) 10-19 14:13: 33 Yes Take by mouth. [facility] carvedilol (COREG) 25 mg tablet 10-19 14:13: 33 Yes [id number] Take by mouth 2 (two) times daily with meals. [facility] esomeprazol e (NEXIUM) 40 mg capsule 10-19 14:13: 33 Yes [id number] 40mg Take 40 mg by mouth daily with breakfast. [facility] simvastatin (ZOCOR) 20 mg tablet 10-19 14:13: 33 Yes [id number] 20mg Take 20 mg by mouth at bedtime. [facility] losartan (COZAAR) 100 mg tablet 10-19 14:13: 33 Yes [id number] 100mg Take 100 mg by mouth daily. [facility] aspirin 81 mg chewable tablet 10-19 14:13: 33 Yes [id number] 81mg Take 81 mg by mouth daily. [facility] mesalamine (LIALDA) 1.2 g EC tablet 10-19 14:13: 33 Yes [id number] 1200mg Take 1,200 mg by mouth daily with breakfast. [facility] Liraglutide (VICTOZA 3-TASHA) 0.6 mg/0.1 mL (18 mg/3 mL) injection 10-19 14:13: 33 Yes inject under the skin. [facility] ERGOCALCIFE ROL, VITAMIN D2, (VITAMIN D ORAL) 10-19 14:13: 33 Yes Take by mouth. [facility] carvedilol (COREG) 25 mg tablet 10-19 14:13: 33 Yes [id number] Take by mouth 2 (two) times daily with meals. [facility] esomeprazol e (NEXIUM) 40 mg capsule 10-19 14:13: 33 Yes [id number] 40mg Take 40 mg by mouth daily with breakfast. [facility] simvastatin (ZOCOR) 20 mg tablet 10-19 14:13: 33 Yes [id number] 20mg Take 20 mg by mouth at bedtime. [facility] losartan (COZAAR) 100 mg tablet 10-19 14:13: 33 Yes [id number] 100mg Take 100 mg by mouth daily. [facility] aspirin 81 mg chewable tablet 10-19 14:13: 33 Yes [id number] 81mg Take 81 mg by mouth daily. [facility] mesalamine (LIALDA) 1.2 g EC tablet 10-19 14:13: 33 Yes [id number] 1200mg Take 1,200 mg by mouth daily with breakfast. [facility] Liraglutide (VICTOZA 3-TASHA) 0.6 mg/0.1 mL (18 mg/3 mL) injection 10-19 14:13: 33 Yes inject under the skin. [facility] ERGOCALCIFE ROL, VITAMIN D2, (VITAMIN D ORAL) 10-19 14:13: 33 Yes Take by mouth. [facility] carvedilol (COREG) 25 mg tablet 10-19 14:13: 33 Yes [id number] Take by mouth 2 (two) times daily with meals. [facility] esomeprazol e (NEXIUM) 40 mg capsule 10-19 14:13: 33 Yes [id number] 40mg Take 40 mg by mouth daily with breakfast. [facility] simvastatin (ZOCOR) 20 mg tablet 10-19 14:13: 33 Yes [id number] 20mg Take 20 mg by mouth at bedtime. [facility] losartan (COZAAR) 100 mg tablet 10-19 14:13: 33 Yes [id number] 100mg Take 100 mg by mouth daily. [facility] aspirin 81 mg chewable tablet 10-19 14:13: 33 Yes [id number] 81mg Take 81 mg by mouth daily. [facility] mesalamine (LIALDA) 1.2 g EC tablet 10-19 14:13: 33 Yes [id number] 1200mg Take 1,200 mg by mouth daily with breakfast. [facility] Liraglutide (VICTOZA 3-TASHA) 0.6 mg/0.1 mL (18 mg/3 mL) injection 10-19 14:13: 33 Yes inject under the skin. [facility] ERGOCALCIFE ROL, VITAMIN D2, (VITAMIN D ORAL) 10-19 14:13: 33 Yes Take by mouth. [facility] clotrimazol e (CLOTRIMAZO LE 3) 2 % vaginal cream 10-06 00:00: 00 10-14 05:59 :00 No [id number] 1{appli cator} Insert 1 Applicator into vagina at bedtime for 7 days. [facility] clotrimazol e (CLOTRIMAZO LE 3) 2 % vaginal cream 10-06 00:00: 00 10-14 05:59 :00 No [id number] 1{appli cator} Insert 1 Applicator into vagina at bedtime for 7 days. [facility] esomeprazol e (NEXIUM) 40 mg capsule 03-15 03:28: 51 Yes [id number] 40mg Take 40 mg by mouth daily with breakfast. [facility] mesalamine (LIALDA) 1.2 g EC tablet 03-15 03:28: 51 Yes [id number] 1200mg Take 1,200 mg by mouth daily with breakfast. [facility] esomeprazol e (NEXIUM) 40 mg capsule 03-15 03:28: 51 Yes [id number] 40mg Take 40 mg by mouth daily with breakfast. [facility] mesalamine (LIALDA) 1.2 g EC tablet 03-15 03:28: 51 Yes [id number] 1200mg Take 1,200 mg by mouth daily with breakfast. [facility] esomeprazol e (NEXIUM) 40 mg capsule 03-15 03:28: 51 Yes [id number] 40mg Take 40 mg by mouth daily with breakfast. [facility] mesalamine (LIALDA) 1.2 g EC tablet 03-15 03:28: 51 Yes [id number] 1200mg Take 1,200 mg by mouth daily with breakfast. [facility] esomeprazol e (NEXIUM) 40 mg capsule 03-15 03:28: 51 Yes [id number] 40mg Take 40 mg by mouth daily with breakfast. [facility] mesalamine (LIALDA) 1.2 g EC tablet 03-15 03:28: 51 Yes [id number] 1200mg Take 1,200 mg by mouth daily with breakfast. [facility] carvedilol (COREG) 25 mg tablet 03-15 03:28: 14 Yes [id number] Take by mouth 2 (two) times daily with meals. [facility] simvastatin (ZOCOR) 20 mg tablet 03-15 03:28: 14 Yes [id number] 20mg Take 20 mg by mouth at bedtime. [facility] losartan (COZAAR) 100 mg tablet 03-15 03:28: 14 Yes [id number] 100mg Take 100 mg by mouth daily. [facility] aspirin 81 mg chewable tablet 03-15 03:28: 14 Yes [id number] 81mg Take 81 mg by mouth daily. [facility] Liraglutide (VICTOZA 3-TASHA) 0.6 mg/0.1 mL (18 mg/3 mL) injection 03-15 03:28: 14 Yes inject under the skin. [facility] carvedilol (COREG) 25 mg tablet 03-15 03:28: 14 Yes [id number] Take by mouth 2 (two) times daily with meals. [facility] simvastatin (ZOCOR) 20 mg tablet 03-15 03:28: 14 Yes [id number] 20mg Take 20 mg by mouth at bedtime. [facility] losartan (COZAAR) 100 mg tablet 03-15 03:28: 14 Yes [id number] 100mg Take 100 mg by mouth daily. [facility] aspirin 81 mg chewable tablet 03-15 03:28: 14 Yes [id number] 81mg Take 81 mg by mouth daily. [facility] Liraglutide (VICTOZA 3-TASHA) 0.6 mg/0.1 mL (18 mg/3 mL) injection 03-15 03:28: 14 Yes inject under the skin. [facility] carvedilol (COREG) 25 mg tablet 03-15 03:28: 14 Yes [id number] Take by mouth 2 (two) times daily with meals. [facility] simvastatin (ZOCOR) 20 mg tablet 03-15 03:28: 14 Yes [id number] 20mg Take 20 mg by mouth at bedtime. [facility] losartan (COZAAR) 100 mg tablet 03-15 03:28: 14 Yes [id number] 100mg Take 100 mg by mouth daily. [facility] aspirin 81 mg chewable tablet 03-15 03:28: 14 Yes [id number] 81mg Take 81 mg by mouth daily. [facility] Liraglutide (VICTOZA 3-TASHA) 0.6 mg/0.1 mL (18 mg/3 mL) injection 03-15 03:28: 14 Yes inject under the skin. [facility] carvedilol (COREG) 25 mg tablet 03-15 03:28: 14 Yes [id number] Take by mouth 2 (two) times daily with meals. [facility] simvastatin (ZOCOR) 20 mg tablet 03-15 03:28: 14 Yes [id number] 20mg Take 20 mg by mouth at bedtime. [facility] losartan (COZAAR) 100 mg tablet 03-15 03:28: 14 Yes [id number] 100mg Take 100 mg by mouth daily. [facility] aspirin 81 mg chewable tablet 03-15 03:28: 14 Yes [id number] 81mg Take 81 mg by mouth daily. [facility] Liraglutide (VICTOZA 3-TASHA) 0.6 mg/0.1 mL (18 mg/3 mL) injection 03-15 03:28: 14 Yes inject under the skin. [facility] metFORMIN (FORTAMET) 1,000 mg 24 hr tablet 2020-0 319 23:01: 48 Yes [id number] 1000mg Take 1,000 mg by mouth daily with breakfast. [facility] metFORMIN (FORTAMET) 1,000 mg 24 hr tablet 2020-0 319 23:01: 48 Yes [id number] 1000mg Take 1,000 mg by mouth daily with breakfast. [facility] metFORMIN (FORTAMET) 1,000 mg 24 hr tablet 2020-0 19 23:01: 48 Yes [id number] 1000mg Take 1,000 mg by mouth daily with breakfast. [facility] metFORMIN (FORTAMET) 1,000 mg 24 hr tablet 2020-0 19 23:01: 48 Yes [id number] 1000mg Take 1,000 mg by mouth daily with breakfast. [facility] metFORMIN (FORTAMET) 1,000 mg 24 hr tablet 20200 10-20 23:01: 48 Yes [id number] 1000mg Take 1,000 mg by mouth daily with breakfast. [facility] metFORMIN (FORTAMET) 1,000 mg 24 hr tablet 20200 10-20 23:01: 48 Yes [id number] 1000mg Take 1,000 mg by mouth daily with breakfast. [facility] metFORMIN (FORTAMET) 1,000 mg 24 hr tablet 20200 10-20 23:01: 48 Yes [id number] 1000mg Take 1,000 mg by mouth daily with breakfast. [facility] metFORMIN (FORTAMET) 1,000 mg 24 hr tablet 2020-0 19 18:01: 48 Yes [id number] 1000mg Take 1,000 mg by mouth daily with breakfast. [facility] metFORMIN (FORTAMET) 1,000 mg 24 hr tablet 2020-0 19 18:01: 48 Yes [id number] 1000mg Take 1,000 mg by mouth daily with breakfast. [facility] metFORMIN (FORTAMET) 1,000 mg 24 hr tablet 2020-0 3-19 18:01: 48 Yes [id number] 1000mg Take 1,000 mg by mouth daily with breakfast. [facility] metFORMIN (FORTAMET) 1,000 mg 24 hr tablet 2020-0 3-19 18:01: 48 Yes [id number] 1000mg Take 1,000 mg by mouth daily with breakfast. [facility] bromphenira mine-pseudo ephedrine-D M (BROMFED DM) 2-30-10 mg/5 mL syrup 319 00:00: 00 10-31 04:59 :00 No [id number] 10mL Take 10 mL by mouth 4 (four) times daily as needed for Congestion /Allergies for up to 10 days. [facility] bromphenira mine-pseudo ephedrine-D M (BROMFED DM) 2-30-10 mg/5 mL syrup 10-20 00:00: 00 10-31 04:59 :00 No [id number] 10mL Take 10 mL by mouth 4 (four) times daily as needed for Congestion /Allergies for up to 10 days. [facility] Liraglutide (VICTOZA 3-TASHA) 0.6 mg/0.1 mL (18 mg/3 mL) injection 09-03 01:09: 59 Yes inject under the skin. [facility] carvedilol (COREG) 25 mg tablet 09-03 01:09: 59 Yes [id number] Take by mouth 2 (two) times daily with meals. [facility] esomeprazol e (NEXIUM) 40 mg capsule 09-03 01:09: 59 Yes [id number] 40mg Take 40 mg by mouth daily with breakfast. [facility] simvastatin (ZOCOR) 20 mg tablet 09-03 01:09: 59 Yes [id number] 20mg Take 20 mg by mouth at bedtime. [facility] losartan (COZAAR) 100 mg tablet 09-03 01:09: 59 Yes [id number] 100mg Take 100 mg by mouth daily. [facility] aspirin 81 mg chewable tablet 09-03 01:09: 59 Yes [id number] 81mg Take 81 mg by mouth daily. [facility] mesalamine (LIALDA) 1.2 g EC tablet 09-03 01:09: 59 Yes [id number] 1200mg Take 1,200 mg by mouth daily with breakfast. [facility] Liraglutide (VICTOZA 3-TASHA) 0.6 mg/0.1 mL (18 mg/3 mL) injection 09-03 01:09: 59 Yes inject under the skin. [facility] carvedilol (COREG) 25 mg tablet 09-03 01:09: 59 Yes [id number] Take by mouth 2 (two) times daily with meals. [facility] esomeprazol e (NEXIUM) 40 mg capsule 09-03 01:09: 59 Yes [id number] 40mg Take 40 mg by mouth daily with breakfast. [facility] simvastatin (ZOCOR) 20 mg tablet 09-03 01:09: 59 Yes [id number] 20mg Take 20 mg by mouth at bedtime. [facility] losartan (COZAAR) 100 mg tablet 09-03 01:09: 59 Yes [id number] 100mg Take 100 mg by mouth daily. [facility] aspirin 81 mg chewable tablet 09-03 01:09: 59 Yes [id number] 81mg Take 81 mg by mouth daily. [facility] mesalamine (LIALDA) 1.2 g EC tablet 09-03 01:09: 59 Yes [id number] 1200mg Take 1,200 mg by mouth daily with breakfast. [facility] Liraglutide (VICTOZA 3-TASHA) 0.6 mg/0.1 mL (18 mg/3 mL) injection 09-03 01:09: 59 Yes inject under the skin. [facility] carvedilol (COREG) 25 mg tablet 09-03 01:09: 59 Yes [id number] Take by mouth 2 (two) times daily with meals. [facility] esomeprazol e (NEXIUM) 40 mg capsule 09-03 01:09: 59 Yes [id number] 40mg Take 40 mg by mouth daily with breakfast. [facility] simvastatin (ZOCOR) 20 mg tablet 09-03 01:09: 59 Yes [id number] 20mg Take 20 mg by mouth at bedtime. [facility] losartan (COZAAR) 100 mg tablet 09-03 01:09: 59 Yes [id number] 100mg Take 100 mg by mouth daily. [facility] aspirin 81 mg chewable tablet 09-03 01:09: 59 Yes [id number] 81mg Take 81 mg by mouth daily. [facility] mesalamine (LIALDA) 1.2 g EC tablet 09-03 01:09: 59 Yes [id number] 1200mg Take 1,200 mg by mouth daily with breakfast. [facility] Liraglutide (VICTOZA 3-TASHA) 0.6 mg/0.1 mL (18 mg/3 mL) injection 09-03 01:09: 59 Yes inject under the skin. [facility] carvedilol (COREG) 25 mg tablet 09-03 01:09: 59 Yes [id number] Take by mouth 2 (two) times daily with meals. [facility] esomeprazol e (NEXIUM) 40 mg capsule 09-03 01:09: 59 Yes [id number] 40mg Take 40 mg by mouth daily with breakfast. [facility] simvastatin (ZOCOR) 20 mg tablet 09-03 01:09: 59 Yes [id number] 20mg Take 20 mg by mouth at bedtime. [facility] losartan (COZAAR) 100 mg tablet 09-03 01:09: 59 Yes [id number] 100mg Take 100 mg by mouth daily. [facility] aspirin 81 mg chewable tablet 09-03 01:09: 59 Yes [id number] 81mg Take 81 mg by mouth daily. [facility] mesalamine (LIALDA) 1.2 g EC tablet 09-03 01:09: 59 Yes [id number] 1200mg Take 1,200 mg by mouth daily with breakfast. [facility] Liraglutide (VICTOZA 3-TASHA) 0.6 mg/0.1 mL (18 mg/3 mL) injection 09-03 01:09: 59 Yes inject under the skin. [facility] carvedilol (COREG) 25 mg tablet 09-03 01:09: 59 Yes [id number] Take by mouth 2 (two) times daily with meals. [facility] esomeprazol e (NEXIUM) 40 mg capsule 09-03 01:09: 59 Yes [id number] 40mg Take 40 mg by mouth daily with breakfast. [facility] simvastatin (ZOCOR) 20 mg tablet 09-03 01:09: 59 Yes [id number] 20mg Take 20 mg by mouth at bedtime. [facility] losartan (COZAAR) 100 mg tablet 09-03 01:09: 59 Yes [id number] 100mg Take 100 mg by mouth daily. [facility] aspirin 81 mg chewable tablet 09-03 01:09: 59 Yes [id number] 81mg Take 81 mg by mouth daily. [facility] mesalamine (LIALDA) 1.2 g EC tablet 09-03 01:09: 59 Yes [id number] 1200mg Take 1,200 mg by mouth daily with breakfast. [facility] Liraglutide (VICTOZA 3-TASHA) 0.6 mg/0.1 mL (18 mg/3 mL) injection 09-03 01:09: 59 Yes inject under the skin. [facility] carvedilol (COREG) 25 mg tablet 09-03 01:09: 59 Yes [id number] Take by mouth 2 (two) times daily with meals. [facility] esomeprazol e (NEXIUM) 40 mg capsule 09-03 01:09: 59 Yes [id number] 40mg Take 40 mg by mouth daily with breakfast. [facility] simvastatin (ZOCOR) 20 mg tablet 09-03 01:09: 59 Yes [id number] 20mg Take 20 mg by mouth at bedtime. [facility] losartan (COZAAR) 100 mg tablet 09-03 01:09: 59 Yes [id number] 100mg Take 100 mg by mouth daily. [facility] aspirin 81 mg chewable tablet 09-03 01:09: 59 Yes [id number] 81mg Take 81 mg by mouth daily. [facility] mesalamine (LIALDA) 1.2 g EC tablet 09-03 01:09: 59 Yes [id number] 1200mg Take 1,200 mg by mouth daily with breakfast. [facility] FLAGYL ORAL 09-03 01:09: 59 09-02 00:00 :00 No None Entered [facility] FLAGYL ORAL 09-03 01:09: 59 09-02 00:00 :00 No None Entered [facility] fluconazole (DIFLUCAN) 150 mg tablet 09-03 01:08: 09-02 00:00 :00 No [id number] 150mg Take 150 mg by mouth once now. [facility] tiZANidine (ZANAFLEX) 2 mg capsule 09-03 01:08: 09-02 00:00 :00 No [id number] 2mg Take 2 mg by mouth 3 (three) times daily. [facility] fluconazole (DIFLUCAN) 150 mg tablet 09-03 01:08: 09-02 00:00 :00 No [id number] 150mg Take 150 mg by mouth once now. [facility] tiZANidine (ZANAFLEX) 2 mg capsule 09-03 01:08: 09-02 00:00 :00 No [id number] 2mg Take 2 mg by mouth 3 (three) times daily. [facility] fluconazole 150 mg tablet 09-02 00:00: 00 Yes TAKE 1 TABLET BY MOUTH ONCE NOW FOR 1 DOSE. [facility] fluconazole 150 mg tablet 09-02 00:00: 00 Yes TAKE 1 TABLET BY MOUTH ONCE NOW FOR 1 DOSE. [facility] fluconazole 150 mg tablet 09-02 00:00: 00 Yes TAKE 1 TABLET BY MOUTH ONCE NOW FOR 1 DOSE. [facility] fluconazole 150 mg tablet 09-02 00:00: 00 Yes TAKE 1 TABLET BY MOUTH ONCE NOW FOR 1 DOSE. [facility] fluconazole 150 mg tablet 09-02 00:00: 00 Yes TAKE 1 TABLET BY MOUTH ONCE NOW FOR 1 DOSE. [facility] fluconazole 150 mg tablet 2020-0 130 00:00: 00 Yes TAKE 1 TABLET BY MOUTH ONCE NOW FOR 1 DOSE. [facility] 2020-0 130 00:00: 00 Yes TAKE 1 TABLET BY MOUTH ONCE NOW FOR 1 DOSE. [facility] fluconazole 150 mg tablet 2020-0 1-30 00:00: 00 Yes TAKE 1 TABLET BY MOUTH ONCE NOW FOR 1 DOSE. [facility] fluconazole 150 mg tablet 2020-0 30 00:00: 00 Yes TAKE 1 TABLET BY MOUTH ONCE NOW FOR 1 DOSE. [facility] fluconazole 150 mg tablet 2020-0 30 00:00: 00 Yes TAKE 1 TABLET BY MOUTH ONCE NOW FOR 1 DOSE. [facility] fluconazole 150 mg tablet 2019-0 30 00:00: 00 Yes TAKE 1 TABLET BY MOUTH ONCE NOW FOR 1 DOSE. [facility] fluconazole 150 mg tablet 2020-0 30 00:00: 00 Yes TAKE 1 TABLET BY MOUTH ONCE NOW FOR 1 DOSE. [facility] fluconazole 150 mg tablet 2019-0 30 00:00: 00 Yes TAKE 1 TABLET BY MOUTH ONCE NOW FOR 1 DOSE. [facility] fluconazole 150 mg tablet 2019-0 30 00:00: 00 Yes TAKE 1 TABLET BY MOUTH ONCE NOW FOR 1 DOSE. [facility] fluconazole 150 mg tablet 2019-0 30 00:00: 00 Yes TAKE 1 TABLET BY MOUTH ONCE NOW FOR 1 DOSE. [facility] fluconazole 150 mg tablet 2019-0 30 00:00: 00 Yes TAKE 1 TABLET BY MOUTH ONCE NOW FOR 1 DOSE. [facility] fluconazole 150 mg tablet 2019-0 30 00:00: 00 Yes TAKE 1 TABLET BY MOUTH ONCE NOW FOR 1 DOSE. [facility] fluconazole 150 mg tablet 2019-0 30 00:00: 00 09-03 05:59 :00 No [id number] 150mg Take 1 tablet by mouth once now for 1 dose. [facility] fluconazole 150 mg tablet 2020-0 130 00:00: 00 09-03 05:59 :00 No [id number] 150mg Take 1 tablet by mouth once now for 1 dose. [facility] XARELTO 20 mg tablet 2020-0 1-16 00:00: 00 Yes [facility] XARELTO 20 mg tablet 2020-0 1-16 00:00: 00 Yes [facility] XARELTO 20 mg tablet 2020-0 1-16 00:00: 00 Yes [facility] XARELTO 20 mg tablet 2020-0 1-16 00:00: 00 Yes [facility] XARELTO 20 mg tablet 2020-0 1-16 00:00: 00 Yes [facility] XARELTO 20 mg tablet 2020-0 1-16 00:00: 00 Yes [facility] XARELTO 20 mg tablet 2020-0 -16 00:00: 00 Yes [facility] XARELTO 20 mg tablet 2020-0 1-16 00:00: 00 Yes [facility] XARELTO 20 mg tablet 2020-0 1-16 00:00: 00 Yes [facility] XARELTO 20 mg tablet 2020-0 1-16 00:00: 00 Yes [facility] XARELTO 20 mg tablet 2020-0 1-16 00:00: 00 Yes [facility] XARELTO 20 mg tablet 2020-0 -16 00:00: 00 Yes [facility] XARELTO 20 mg tablet 2020-0 1-16 00:00: 00 Yes [facility] XARELTO 20 mg tablet 2020-0 1-16 00:00: 00 Yes [facility] XARELTO 20 mg tablet 2020-0 -16 00:00: 00 Yes 20mg Take 20 mg by mouth in the morning. [facility] XARELTO 20 mg tablet 2020-0 1-16 00:00: 00 Yes 20mg Take 20 mg by mouth in the morning. [facility] XARELTO 20 mg tablet 2020-0 1-16 00:00: 00 Yes 20mg Take 20 mg by mouth in the morning. [facility] XARELTO 20 mg tablet 2020-0 1-16 00:00: 00 Yes 20mg Take 20 mg by mouth in the morning. [facility] XARELTO 20 mg tablet 2020-0 -16 00:00: 00 Yes 20mg Take 20 mg by mouth in the morning. [facility] XARELTO 20 mg tablet 2020-0 -16 00:00: 00 Yes 20mg Take 20 mg by mouth in the morning. [facility] XARELTO 20 mg tablet 2020-0 -16 00:00: 00 Yes [facility] montelukast 10 mg tablet 2020-0 -06 00:00: 00 Yes [facility] montelukast 10 mg tablet 2020-0 -06 00:00: 00 Yes [facility] montelukast 10 mg tablet 2020-0 -06 00:00: 00 Yes [facility] montelukast 10 mg tablet 2020-0 -06 00:00: 00 Yes [facility] montelukast 10 mg tablet 2020-0 -06 00:00: 00 Yes [facility] montelukast 10 mg tablet 2020-0 -06 00:00: 00 Yes [facility] montelukast 10 mg tablet 2020-0 -06 00:00: 00 Yes [facility] montelukast 10 mg tablet 2020-0 -06 00:00: 00 Yes [facility] montelukast 10 mg tablet 2020-0 -06 00:00: 00 Yes [facility] montelukast 10 mg tablet 2020-0 -06 00:00: 00 Yes [facility] montelukast 10 mg tablet 2020-0 -06 00:00: 00 Yes [facility] montelukast 10 mg tablet 2020-0 -06 00:00: 00 Yes [facility] montelukast 10 mg tablet 2020-0 -06 00:00: 00 Yes [facility] montelukast 10 mg tablet 2020-0 -06 00:00: 00 Yes [facility] montelukast 10 mg tablet 2020-0 -06 00:00: 00 Yes [facility] montelukast 10 mg tablet 2020-0 08-09 00:00: 00 Yes [facility] montelukast 10 mg tablet 2020-0 08-09 00:00: 00 Yes [facility] montelukast 10 mg tablet 2020-0 08-09 00:00: 00 Yes [facility] montelukast 10 mg tablet 2019-0 08-09 00:00: 00 Yes [facility] montelukast 10 mg tablet 2019-0 08-09 00:00: 00 Yes [facility] montelukast 10 mg tablet 2020-0 08-09 00:00: 00 Yes [facility] HYDROcodone -acetaminop hen 10-325 mg tablet 2018-08 00:00: 00 Yes TAKE ONE (1) TABLET(S) BY MOUTH EVERY SIX HOURS NEEDED. [facility] HYDRO[facility] -acetaminop hen 10-325 mg tablet 2018-08 00:00: 00 Yes TAKE ONE (1) TABLET(S) BY MOUTH EVERY SIX HOURS NEEDED. [facility] HYDROcodone -acetaminop hen 10-325 mg tablet 2018-08 00:00: 00 Yes TAKE ONE (1) TABLET(S) BY MOUTH EVERY SIX HOURS NEEDED. [facility] HYDROcodone -acetaminop hen 10-325 mg tablet 2018-08 00:00: 00 Yes TAKE ONE (1) TABLET(S) BY MOUTH EVERY SIX HOURS NEEDED. [facility] HYDROcodone -acetaminop hen 10-325 mg tablet 2018-08 00:00: 00 Yes TAKE ONE (1) TABLET(S) BY MOUTH EVERY SIX HOURS NEEDED. [facility] HYDROcodone -acetaminop hen 10-325 mg tablet 2018-08 00:00: 00 Yes TAKE ONE (1) TABLET(S) BY MOUTH EVERY SIX HOURS NEEDED. [facility] HYDROcodone -acetaminop hen 10-325 mg tablet 2018-08 00:00: 00 Yes TAKE ONE (1) TABLET(S) BY MOUTH EVERY SIX HOURS NEEDED. [facility] HYDROcodone -acetaminop hen 10-325 mg tablet 2018-08 00:00: 00 Yes TAKE ONE (1) TABLET(S) BY MOUTH EVERY SIX HOURS NEEDED. [facility] HYDROcodone -acetaminop hen 10-325 mg tablet 2018-08 00:00: 00 Yes TAKE ONE (1) TABLET(S) BY MOUTH EVERY SIX HOURS NEEDED. [facility] HYDROcodone -acetaminop hen 10-325 mg tablet 2018-08 00:00: 00 Yes TAKE ONE (1) TABLET(S) BY MOUTH EVERY SIX HOURS NEEDED. [facility] HYDROcodone -acetaminop hen 10-325 mg tablet 2018-08 00:00: 00 Yes TAKE ONE (1) TABLET(S) BY MOUTH EVERY SIX HOURS NEEDED. [facility] HYDROcodone -acetaminop hen 10-325 mg tablet 2018-08 00:00: 00 Yes TAKE ONE (1) TABLET(S) BY MOUTH EVERY SIX HOURS NEEDED. [facility] HYDROcodone -acetaminop hen 10-325 mg tablet 2018-08 00:00: 00 Yes TAKE ONE (1) TABLET(S) BY MOUTH EVERY SIX HOURS NEEDED. [facility] HYDROcodone -acetaminop hen 10-325 mg tablet 2018-08 00:00: 00 Yes TAKE ONE (1) TABLET(S) BY MOUTH EVERY SIX HOURS NEEDED. [facility] HYDROcodone -acetaminop hen 10-325 mg tablet 2018-08 00:00: 00 Yes TAKE ONE (1) TABLET(S) BY MOUTH EVERY SIX HOURS NEEDED. [facility] HYDROcodone -acetaminop hen 10-325 mg tablet 2018-08 00:00: 00 Yes TAKE ONE (1) TABLET(S) BY MOUTH EVERY SIX HOURS NEEDED. [facility] HYDROcodone -acetaminop hen 10-325 mg tablet 2018-08 00:00: 00 Yes TAKE ONE (1) TABLET(S) BY MOUTH EVERY SIX HOURS NEEDED. [facility] HYDROcodone -acetaminop hen 10-325 mg tablet 2018-08 00:00: 00 Yes TAKE ONE (1) TABLET(S) BY MOUTH EVERY SIX HOURS NEEDED. [facility] HYDROcodone -acetaminop hen 10-325 mg tablet 2018-08 00:00: 00 Yes TAKE ONE (1) TABLET(S) BY MOUTH EVERY SIX HOURS NEEDED. [facility] HYDROcodone -acetaminop hen 10-325 mg tablet 2018-08 00:00: 00 Yes TAKE ONE (1) TABLET(S) BY MOUTH EVERY SIX HOURS NEEDED. [facility] HYDROcodone -acetaminop hen 10-325 mg tablet 2018-08 00:00: 00 Yes TAKE ONE (1) TABLET(S) BY MOUTH EVERY SIX HOURS NEEDED. [facility] pregabalin 100 mg capsule 2018-08 00:00: 00 Yes TAKE ONE (1) CAPSULE(S) BY MOUTH THREE TIMES A DAY NEEDED. [facility] pregabalin 100 mg capsule 2018-08 00:00: 00 Yes TAKE ONE (1) CAPSULE(S) BY MOUTH THREE TIMES A DAY NEEDED. [facility] pregabalin 100 mg capsule 2018-08 00:00: 00 Yes TAKE ONE (1) CAPSULE(S) BY MOUTH THREE TIMES A DAY NEEDED. [facility] pregabalin 100 mg capsule 2018-08 00:00: 00 Yes TAKE ONE (1) CAPSULE(S) BY MOUTH THREE TIMES A DAY NEEDED. [facility] pregabalin 100 mg capsule 2018-08 00:00: 00 Yes TAKE ONE (1) CAPSULE(S) BY MOUTH THREE TIMES A DAY NEEDED. [facility] pregabalin 100 mg capsule 2018-08 00:00: 00 Yes TAKE ONE (1) CAPSULE(S) BY MOUTH THREE TIMES A DAY NEEDED. [facility] pregabalin 100 mg capsule 2018-08 00:00: 00 Yes TAKE ONE (1) CAPSULE(S) BY MOUTH THREE TIMES A DAY NEEDED. [facility] pregabalin 100 mg capsule 2018-08 00:00: 00 Yes TAKE ONE (1) CAPSULE(S) BY MOUTH THREE TIMES A DAY NEEDED. [facility] pregabalin 100 mg capsule 2018-08 00:00: 00 Yes TAKE ONE (1) CAPSULE(S) BY MOUTH THREE TIMES A DAY NEEDED. [facility] pregabalin 100 mg capsule 2018-08 00:00: 00 Yes TAKE ONE (1) CAPSULE(S) BY MOUTH THREE TIMES A DAY NEEDED. [facility] pregabalin 100 mg capsule 2018-08 00:00: 00 Yes TAKE ONE (1) CAPSULE(S) BY MOUTH THREE TIMES A DAY NEEDED. [facility] pregabalin 100 mg capsule 2018-08 00:00: 00 Yes TAKE ONE (1) CAPSULE(S) BY MOUTH THREE TIMES A DAY NEEDED. [facility] pregabalin 100 mg capsule 2018-08 00:00: 00 Yes TAKE ONE (1) CAPSULE(S) BY MOUTH THREE TIMES A DAY NEEDED. [facility] pregabalin 100 mg capsule 2018-08 00:00: 00 Yes TAKE ONE (1) CAPSULE(S) BY MOUTH THREE TIMES A DAY NEEDED. [facility] pregabalin 100 mg capsule 2018-08 00:00: 00 Yes TAKE ONE (1) CAPSULE(S) BY MOUTH THREE TIMES A DAY NEEDED. [facility] pregabalin 100 mg capsule 2018-08 00:00: 00 Yes TAKE ONE (1) CAPSULE(S) BY MOUTH THREE TIMES A DAY NEEDED. [facility] pregabalin 100 mg capsule 2018-08 00:00: 00 Yes TAKE ONE (1) CAPSULE(S) BY MOUTH THREE TIMES A DAY NEEDED. [facility] pregabalin 100 mg capsule 2018-08 00:00: 00 Yes TAKE ONE (1) CAPSULE(S) BY MOUTH THREE TIMES A DAY NEEDED. [facility] pregabalin 100 mg capsule 2018-08 00:00: 00 Yes TAKE ONE (1) CAPSULE(S) BY MOUTH THREE TIMES A DAY NEEDED. [facility] pregabalin 100 mg capsule 2018-08 00:00: 00 Yes TAKE ONE (1) CAPSULE(S) BY MOUTH THREE TIMES A DAY NEEDED. [facility] pregabalin 100 mg capsule 2018-08 00:00: 00 Yes TAKE ONE (1) CAPSULE(S) BY MOUTH THREE TIMES A DAY NEEDED. [facility] glimepiride 2 mg tablet 2018-08 00:00: 00 Yes TAKE ONE (1) TABLET(S) BY MOUTH TWICE A DAY. [facility] glimepiride 2 mg tablet 2018-08 00:00: 00 Yes TAKE ONE (1) TABLET(S) BY MOUTH TWICE A DAY. [facility] glimepiride 2 mg tablet 2018-08 00:00: 00 Yes TAKE ONE (1) TABLET(S) BY MOUTH TWICE A DAY. [facility] glimepiride 2 mg tablet 2018-08 00:00: 00 Yes TAKE ONE (1) TABLET(S) BY MOUTH TWICE A DAY. [facility] glimepiride 2 mg tablet 2018-08 00:00: 00 Yes TAKE ONE (1) TABLET(S) BY MOUTH TWICE A DAY. [facility] glimepiride 2 mg tablet 2018-08 00:00: 00 Yes TAKE ONE (1) TABLET(S) BY MOUTH TWICE A DAY. [facility] glimepiride 2 mg tablet 2018-08 00:00: 00 Yes TAKE ONE (1) TABLET(S) BY MOUTH TWICE A DAY. [facility] glimepiride 2 mg tablet 2018-08 00:00: 00 Yes TAKE ONE (1) TABLET(S) BY MOUTH TWICE A DAY. [facility] glimepiride 2 mg tablet 2018-08 00:00: 00 Yes TAKE ONE (1) TABLET(S) BY MOUTH TWICE A DAY. [facility] glimepiride 2 mg tablet 2018-08 00:00: 00 Yes TAKE ONE (1) TABLET(S) BY MOUTH TWICE A DAY. [facility] glimepiride 2 mg tablet 2018-08 00:00: 00 Yes TAKE ONE (1) TABLET(S) BY MOUTH TWICE A DAY. [facility] glimepiride 2 mg tablet 2018-08 00:00: 00 Yes TAKE ONE (1) TABLET(S) BY MOUTH TWICE A DAY. [facility] glimepiride 2 mg tablet 2018-08 00:00: 00 Yes TAKE ONE (1) TABLET(S) BY MOUTH TWICE A DAY. [facility] glimepiride 2 mg tablet 2018-08 00:00: 00 Yes TAKE ONE (1) TABLET(S) BY MOUTH TWICE A DAY. [facility] glimepiride 2 mg tablet 2018-08 00:00: 00 Yes TAKE ONE (1) TABLET(S) BY MOUTH TWICE A DAY. [facility] glimepiride 2 mg tablet 2018-08 00:00: 00 Yes TAKE ONE (1) TABLET(S) BY MOUTH TWICE A DAY. [facility] glimepiride 2 mg tablet 2018-08 00:00: 00 Yes TAKE ONE (1) TABLET(S) BY MOUTH TWICE A DAY. [facility] glimepiride 2 mg tablet 2018-08 00:00: 00 Yes TAKE ONE (1) TABLET(S) BY MOUTH TWICE A DAY. [facility] glimepiride 2 mg tablet 2018-08 00:00: 00 Yes TAKE ONE (1) TABLET(S) BY MOUTH TWICE A DAY. [facility] glimepiride 2 mg tablet 2018-08 00:00: 00 Yes TAKE ONE (1) TABLET(S) BY MOUTH TWICE A DAY. [facility] glimepiride 2 mg tablet 2018-08 00:00: 00 Yes TAKE ONE (1) TABLET(S) BY MOUTH TWICE A DAY. [facility] hydroCHLORO thiazide 12.5 mg tablet 2018-08 00:00: 00 Yes TAKE ONE (1) TABLET(S) BY MOUTH ONCE A DAY. [facility] hydroCHLORO thiazide 12.5 mg tablet 2018-08 00:00: 00 Yes TAKE ONE (1) TABLET(S) BY MOUTH ONCE A DAY. [facility] hydroCHLORO thiazide 12.5 mg tablet 2018-08 00:00: 00 Yes TAKE ONE (1) TABLET(S) BY MOUTH ONCE A DAY. [facility] hydroCHLORO thiazide 12.5 mg tablet 2018-08 00:00: 00 Yes TAKE ONE (1) TABLET(S) BY MOUTH ONCE A DAY. [facility] hydroCHLORO thiazide 12.5 mg tablet 2018-08 00:00: 00 Yes TAKE ONE (1) TABLET(S) BY MOUTH ONCE A DAY. [facility] hydroCHLORO thiazide 12.5 mg tablet 2018-08 00:00: 00 Yes TAKE ONE (1) TABLET(S) BY MOUTH ONCE A DAY. [facility] hydroCHLORO thiazide 12.5 mg tablet 2018-08 00:00: 00 Yes TAKE ONE (1) TABLET(S) BY MOUTH ONCE A DAY. [facility] hydroCHLORO thiazide 12.5 mg tablet 2018-08 00:00: 00 Yes TAKE ONE (1) TABLET(S) BY MOUTH ONCE A DAY. [facility] hydroCHLORO thiazide 12.5 mg tablet 2018-08 00:00: 00 Yes TAKE ONE (1) TABLET(S) BY MOUTH ONCE A DAY. [facility] hydroCHLORO thiazide 12.5 mg tablet 2018-08 00:00: 00 Yes TAKE ONE (1) TABLET(S) BY MOUTH ONCE A DAY. [facility] hydroCHLORO thiazide 12.5 mg tablet 2018-08 00:00: 00 Yes TAKE ONE (1) TABLET(S) BY MOUTH ONCE A DAY. [facility] hydroCHLORO thiazide 12.5 mg tablet 2018-08 00:00: 00 Yes TAKE ONE (1) TABLET(S) BY MOUTH ONCE A DAY. [facility] hydroCHLORO thiazide 12.5 mg tablet 2018-08 00:00: 00 Yes TAKE ONE (1) TABLET(S) BY MOUTH ONCE A DAY. [facility] hydroCHLORO thiazide 12.5 mg tablet 2018-08 00:00: 00 Yes TAKE ONE (1) TABLET(S) BY MOUTH ONCE A DAY. [facility] hydroCHLORO thiazide 25 mg tablet 2018-08 00:00: 00 Yes 25mg Take 25 mg by mouth in the morning. [facility] hydroCHLORO thiazide 25 mg tablet 2018-08 00:00: 00 Yes 25mg Take 25 mg by mouth in the morning. [facility] hydroCHLORO thiazide 25 mg tablet 2018-08 00:00: 00 Yes 25mg Take 25 mg by mouth in the morning. [facility] hydroCHLORO thiazide 25 mg tablet 2018-08 00:00: 00 Yes 25mg Take 25 mg by mouth in the morning. [facility] hydroCHLORO thiazide 25 mg tablet 2018-08 00:00: 00 Yes 25mg Take 25 mg by mouth in the morning. [facility] hydroCHLORO thiazide 12.5 mg tablet 2018-08 00:00: 00 Yes TAKE ONE (1) TABLET(S) BY MOUTH ONCE A DAY. [facility] hydroCHLORO thiazide 25 mg tablet 2018-08 00:00: 00 Yes 25mg Take 25 mg by mouth in the morning. [facility] amiodarone 200 mg tablet 2018-08 00:00: 00 Yes TAKE ONE-HALF (1/2) TABLET(S) BY MOUTH ONCE A DAY. [facility] amiodarone 200 mg tablet 2018-08 00:00: 00 Yes TAKE ONE-HALF (1/2) TABLET(S) BY MOUTH ONCE A DAY. [facility] amiodarone 200 mg tablet 2018-08 00:00: 00 Yes TAKE ONE-HALF (1/2) TABLET(S) BY MOUTH ONCE A DAY. [facility] amiodarone 200 mg tablet 2018-08 00:00: 00 Yes TAKE ONE-HALF (1/2) TABLET(S) BY MOUTH ONCE A DAY. [facility] amiodarone 200 mg tablet 2018-08 00:00: 00 Yes TAKE ONE-HALF (1/2) TABLET(S) BY MOUTH ONCE A DAY. [facility] amiodarone 200 mg tablet 2018-08 00:00: 00 Yes TAKE ONE-HALF (1/2) TABLET(S) BY MOUTH ONCE A DAY. [facility] 2018-08 00:00: 00 Yes TAKE ONE-HALF (1/2) TABLET(S) BY MOUTH ONCE A DAY. [facility] mg tablet 2018-08 00:00: 00 Yes TAKE ONE-HALF (1/2) TABLET(S) BY MOUTH ONCE A DAY. [facility] amiodarone 200 mg tablet 2018-08 00:00: 00 Yes TAKE ONE-HALF (1/2) TABLET(S) BY MOUTH ONCE A DAY. [facility] amiodarone 200 mg tablet 2018-08 00:00: 00 Yes TAKE ONE-HALF (1/2) TABLET(S) BY MOUTH ONCE A DAY. [facility] amiodarone 200 mg tablet 2018-08 00:00: 00 Yes TAKE ONE-HALF (1/2) TABLET(S) BY MOUTH ONCE A DAY. [facility] amiodarone 200 mg tablet 2018-08 00:00: 00 Yes TAKE ONE-HALF (1/2) TABLET(S) BY MOUTH ONCE A DAY. [facility] amiodarone 200 mg tablet 2018-08 00:00: 00 Yes TAKE ONE-HALF (1/2) TABLET(S) BY MOUTH ONCE A DAY. [facility] amiodarone 200 mg tablet 2018-08 00:00: 00 Yes TAKE ONE-HALF (1/2) TABLET(S) BY MOUTH ONCE A DAY. [facility] amiodarone 200 mg tablet 2018-08 00:00: 00 Yes TAKE ONE-HALF (1/2) TABLET(S) BY MOUTH ONCE A DAY. [facility] amiodarone 200 mg tablet 2018-08 00:00: 00 Yes TAKE ONE-HALF (1/2) TABLET(S) BY MOUTH ONCE A DAY. [facility] amiodarone 200 mg tablet 2018-08 00:00: 00 Yes TAKE ONE-HALF (1/2) TABLET(S) BY MOUTH ONCE A DAY. [facility] amiodarone 200 mg tablet 2018-08 00:00: 00 Yes TAKE ONE-HALF (1/2) TABLET(S) BY MOUTH ONCE A DAY. [facility] amiodarone 200 mg tablet 2018-08 00:00: 00 Yes TAKE ONE-HALF (1/2) TABLET(S) BY MOUTH ONCE A DAY. [facility] amiodarone 200 mg tablet 2018-08 00:00: 00 Yes TAKE ONE-HALF (1/2) TABLET(S) BY MOUTH ONCE A DAY. [facility] amiodarone 200 mg tablet 2018-08 00:00: 00 Yes TAKE ONE-HALF (1/2) TABLET(S) BY MOUTH ONCE A DAY. [facility] ERGOCALCIFE ROL, VITAMIN D2, (VITAMIN D ORAL) 04-29 20:40: 37 Yes Take by mouth. [facility] ERGOCALCIFE ROL, VITAMIN D2, (VITAMIN D ORAL) 04-29 20:40: 37 Yes Take by mouth. [facility] ERGOCALCIFE ROL, VITAMIN D2, (VITAMIN D ORAL) 04-29 20:40: 37 Yes Take by mouth. [facility] ERGOCALCIFE ROL, VITAMIN D2, (VITAMIN D ORAL) 04-29 20:40: 37 Yes Take by mouth. [facility] ERGOCALCIFE ROL, VITAMIN D2, (VITAMIN D ORAL) 04-29 20:40: 37 Yes Take by mouth. [facility] ERGOCALCIFE ROL, VITAMIN D2, (VITAMIN D ORAL) 04-29 20:40: 37 Yes Take by mouth. [facility] ERGOCALCIFE ROL, VITAMIN D2, (VITAMIN D ORAL) 04-29 20:40: 37 Yes Take by mouth. [facility] ERGOCALCIFE ROL, VITAMIN D2, (VITAMIN D ORAL) 04-29 20:40: 37 Yes Take by mouth. [facility] ERGOCALCIFE ROL, VITAMIN D2, (VITAMIN D ORAL) 04-29 20:40: 37 Yes Take by mouth. [facility] ERGOCALCIFE ROL, VITAMIN D2, (VITAMIN D ORAL) 04-29 20:40: 37 Yes Take by mouth. [facility] gabapentin (NEURONTIN) 300 mg capsule 10-07 00:00: 00 09-02 00:00 :00 No [id number] 300mg Take 1 Cap by mouth 3 (three) times daily. [facility] gabapentin (NEURONTIN) 300 mg capsule 10-07 00:00: 00 09-02 00:00 :00 No [id number] 300mg Take 1 Cap by mouth 3 (three) times daily. [facility] hydralAZINE (APRESOLINE ) 25 mg tablet 09-11 00:00: 00 Yes [id number] [facility] hydralAZINE (APRESOLINE ) 25 mg tablet 09-11 00:00: 00 Yes [id number] [facility] hydralAZINE (APRESOLINE ) 25 mg tablet 09-11 00:00: 00 Yes [id number] [facility] hydralAZINE (APRESOLINE ) 25 mg tablet 09-11 00:00: 00 Yes [id number] [facility] hydralAZINE (APRESOLINE ) 25 mg tablet 09-11 00:00: 00 Yes [id number] [facility] hydralAZINE (APRESOLINE ) 25 mg tablet 09-11 00:00: 00 Yes [id number] [facility] hydralAZINE (APRESOLINE ) 25 mg tablet 09-11 00:00: 00 Yes [id number] [facility] hydralAZINE (APRESOLINE ) 25 mg tablet 09-11 00:00: 00 Yes [id number] [facility] hydralAZINE (APRESOLINE ) 25 mg tablet 09-11 00:00: 00 Yes [id number] [facility] hydralAZINE (APRESOLINE ) 25 mg tablet 09-11 00:00: 00 Yes [id number] [facility] hydralAZINE (APRESOLINE ) 25 mg tablet 09-11 00:00: 00 Yes [id number] [facility] hydralAZINE (APRESOLINE ) 25 mg tablet 09-11 00:00: 00 Yes [id number] [facility] hydralAZINE (APRESOLINE ) 25 mg tablet 09-11 00:00: 00 Yes [id number] [facility] hydralAZINE (APRESOLINE ) 25 mg tablet 09-11 00:00: 00 Yes [id number] [facility] hydralAZINE (APRESOLINE ) 25 mg tablet 09-11 00:00: 00 Yes [id number] [facility] hydralAZINE (APRESOLINE ) 25 mg tablet 09-11 00:00: 00 Yes [id number] [facility] hydralAZINE (APRESOLINE ) 25 mg tablet 09-11 00:00: 00 Yes [id number] [facility] hydralAZINE (APRESOLINE ) 25 mg tablet 09-11 00:00: 00 Yes [id number] [facility] hydralAZINE (APRESOLINE ) 25 mg tablet 09-11 00:00: 00 Yes [id number] [facility] hydralAZINE (APRESOLINE ) 25 mg tablet 09-11 00:00: 00 Yes [id number] [facility] hydralAZINE (APRESOLINE ) 25 mg tablet 09-11 00:00: 00 Yes [id number] [facility] amitriptyli ne (ELAVIL) 25 mg tablet 16 00:00: 00 Yes 25mg Take 1 Tab by mouth at bedtime. [facility] amitriptyli ne (ELAVIL) 25 mg tablet 12-17 00:00: 00 Yes 25mg Take 1 Tab by mouth at bedtime. [facility] amitriptyli ne (ELAVIL) 25 mg tablet 12-17 00:00: 00 Yes 25mg Take 1 Tab by mouth at bedtime. [facility] amitriptyli ne (ELAVIL) 25 mg tablet 12-17 00:00: 00 Yes 25mg Take 1 Tab by mouth at bedtime. [facility] amitriptyli ne (ELAVIL) 25 mg tablet 12-17 00:00: 00 Yes 25mg Take 1 Tab by mouth at bedtime. [facility] amitriptyli ne (ELAVIL) 25 mg tablet 12-17 00:00: 00 Yes 25mg Take 1 Tab by mouth at bedtime. [facility] amitriptyli ne (ELAVIL) 25 mg tablet 12-17 00:00: 00 Yes 25mg Take 1 Tab by mouth at bedtime. [facility] amitriptyli ne (ELAVIL) 25 mg tablet 12-17 00:00: 00 Yes 25mg Take 1 Tab by mouth at bedtime. [facility] amitriptyli ne (ELAVIL) 25 mg tablet 12-17 00:00: 00 Yes 25mg Take 1 Tab by mouth at bedtime. [facility] amitriptyli ne (ELAVIL) 25 mg tablet 12-17 00:00: 00 Yes 25mg Take 1 Tab by mouth at bedtime. [facility] amitriptyli ne (ELAVIL) 25 mg tablet 12-17 00:00: 00 Yes 25mg Take 1 Tab by mouth at bedtime. [facility] amitriptyli ne (ELAVIL) 25 mg tablet 12-17 00:00: 00 Yes 25mg Take 1 Tab by mouth at bedtime. [facility] amitriptyli ne (ELAVIL) 25 mg tablet 12-17 00:00: 00 Yes 25mg Take 1 Tab by mouth at bedtime. [facility] amitriptyli ne (ELAVIL) 25 mg tablet 12-17 00:00: 00 Yes 25mg Take 1 Tab by mouth at bedtime. [facility] amitriptyli ne (ELAVIL) 25 mg tablet 12-17 00:00: 00 Yes 25mg Take 1 Tab by mouth at bedtime. [facility] amitriptyli ne (ELAVIL) 25 mg tablet 12-17 00:00: 00 Yes 25mg Take 1 Tab by mouth at bedtime. [facility] amitriptyli ne (ELAVIL) 25 mg tablet 12-17 00:00: 00 Yes 25mg Take 1 Tab by mouth at bedtime. [facility] amitriptyli ne (ELAVIL) 25 mg tablet 12-17 00:00: 00 Yes 25mg Take 1 Tab by mouth at bedtime. [facility] amitriptyli ne (ELAVIL) 25 mg tablet 12-17 00:00: 00 Yes 25mg Take 1 Tab by mouth at bedtime. [facility] amitriptyli ne (ELAVIL) 25 mg tablet 12-17 00:00: 00 Yes 25mg Take 1 Tab by mouth at bedtime. [facility] amitriptyli ne (ELAVIL) 25 mg tablet 12-17 00:00: 00 Yes 25mg Take 1 Tab by mouth at bedtime. [facility] metFORMIN (FORTAMET) 1,000 mg 24 hr tablet 08-24 19:55: 05 Yes [id number] 1000mg Take 1,000 mg by mouth daily with breakfast. [facility] metFORMIN (FORTAMET) 1,000 mg 24 hr tablet 08-24 19:55: 05 Yes [id number] 1000mg Take 1,000 mg by mouth daily with breakfast. [facility] metFORMIN (FORTAMET) 1,000 mg 24 hr tablet 08-24 19:55: 05 Yes [id number] 1000mg Take 1,000 mg by mouth daily with breakfast. [facility] metFORMIN (FORTAMET) 1,000 mg 24 hr tablet 08-24 19:55: 05 Yes [id number] 1000mg Take 1,000 mg by mouth daily with breakfast. [facility] Vital Signs Vital Name Observation Time Observation Value Comments S shea Systolic blood pressure 2022-08-07 16:05:00 109 mm[Hg] [facility] Diastolic blood pressure 2022-08-07 16:05:00 81 mm[Hg] [facility] Heart rate 2022-08-07 16:05:00 66 /[facility] 2022-08-07 16:05:00 21 /min [facility] Oxygen saturation in Arterial blood by Pulse oximetry 2022-08-07 16:05:00 99 /min [facility] acute hospital Body temperature 2022-08-07 15:46:00 36.39 Manda [facility] Body weight 2022-08-01 19:00:00 108.41 kg [facility] BMI 2022-08-01 19:00:00 41.67 kg/m2 [facility] Systolic blood pressure 2022-08-07 14:05:00 114 mm[Hg] [facility] Diastolic blood pressure 2022-08-07 14:05:00 54 mm[Hg] [facility] Heart rate 2022-08-07 14:05:00 72 /min [facility] Body temperature 2022-08-07 14:05:00 36.39 Manda [facility] Respiratory rate 2022-08-07 14:05:00 16 /min [facility] Oxygen saturation in Arterial blood by Pulse oximetry 2022-08-07 14:05:00 100 /min [facility] Body weight 2022-08-01 19:00:00 108.41 kg [facility] BMI 2022-08-01 19:00:00 41.67 kg/m2 [facility] Systolic blood pressure 2022-07-24 17:45:00 122 mm[Hg] [facility] Diastolic blood pressure 2022-07-24 17:45:00 61 mm[Hg] [facility] Heart rate 2022-07-24 17:45:00 55 /min [facility] Respiratory rate 2022-07-24 17:45:00 10 /min [facility] Oxygen saturation in Arterial blood by Pulse oximetry 2022-07-24 17:45:00 99 /min [facility] Body temperature 2022-07-24 17:28:00 36.11 Manda [facility] Body height 2022-07-17 19:00:00 161.3 cm Univ [facility] Body weight 2022-07-17 19:00:00 108.41 kg [facility] BMI 2022-07-17 19:00:00 41.67 kg/m2 [facility] Systolic blood pressure 2022-07-24 15:41:00 131 mm[Hg] [facility] Diastolic blood pressure 2022-07-24 15:41:00 55 mm[Hg] [facility] Heart rate 2022-07-24 15:41:00 62 /min [facility] Body temperature 2022-07-24 15:41:00 36.67 Manda [facility] Respiratory rate 2022-07-24 15:41:00 16 /min [facility] Oxygen saturation in Arterial blood by Pulse oximetry 2022-07-24 15:41:00 100 /min [facility] Body height 2022-07-17 19:00:00 161.3 cm [facility] Body weight 2022-07-17 19:00:00 108.41 kg [facility] BMI 2022-07-17 19:00:00 41.67 kg/m2 [facility] Systolic blood pressure 2021-06-11 17:12:41 118 mm[Hg] [facility] Diastolic blood pressure 2021-06-11 17:12:41 57 mm[Hg] [facility] acute [facility] Heart rate 2021-06-11 17:12:41 70 /min [facility] Body temperature 2021-06-11 17:12:41 37.11 Manda [facility] Respiratory rate 2021-06-11 17:12:41 17 /min [facility] Oxygen saturation in Arterial blood by Pulse oximetry 2021-06-11 17:00:00 99 /min [facility] Body height 2021-06-11 16:22:00 160 cm [facility] Body weight 2021-06-11 16:22:00 120.203 kg [facility] BMI 2021-06-11 16:22:00 46.94 kg/m2 [facility] Systolic blood pressure 2020-10-19 19:18:00 163 mm[Hg] [facility] Diastolic blood pressure 2020-10-19 19:18:00 88 mm[Hg] [facility] Heart rate 2020-10-19 19:09:00 70 /min [facility] Body temperature 2020-10-19 19:09:00 37.11 Manda [facility] Respiratory rate 2020-10-19 19:09:00 20 /min [facility] Body height 2020-10-19 19:09:00 160 cm [facility] Body weight 2020-10-19 19:09:00 120.657 kg [facility] BMI 2020-10-19 19:09:00 47.12 kg/m2 [facility] Oxygen saturation in Arterial blood by Pulse oximetry 2020-10-19 19:09:00 96 /min [facility] Systolic blood pressure 2020-10-06 16:00:00 149 mm[Hg] [facility] Diastolic blood pressure 2020-10-06 16:00:00 82 mm[Hg] [facility] Heart rate 2020-10-06 15:55:00 74 [facility] Body temperature 2020-10-06 15:55:00 36.72 Manda [facility] Respiratory rate 2020-10-06 15:55:00 14 /min [facility] Body height 2020-10-06 15:55:00 160 cm [facility] Body weight 2020-10-06 15:55:00 76.114 kg [facility] BMI 2020-10-06 15:55:00 29.72 kg/m2 [facility] Oxygen saturation in Arterial blood by Pulse oximetry 2020-10-06 15:55:00 97 /min [facility] Systolic blood pressure 2020-03-15 03:24:00 172 mm[Hg] [facility] Diastolic blood pressure 2020-03-15 03:24:00 80 mm[Hg] [facility] Heart rate 2020-03-15 03:24:00 71 /min [facility] Body temperature 2020-03-15 03:24:00 37.17 Manda [facility] Respiratory rate 2020-03-15 03:24:00 18 /min [facility] Body height 2020-03-15 03:24:00 160 cm [facility] Body weight 2020-03-15 03:24:00 122.471 kg [facility] BMI 2020-03-15 03:24:00 47.83 kg/m2 [facility] Oxygen saturation in Arterial blood by Pulse oximetry 2020-03-15 03:24:00 96 /min [facility] Systolic blood pressure 2020-03-15 03:24:00 172 mm[Hg] [facility] acute hospital Diastolic blood pressure 2020-03-15 03:24:00 80 mm[Hg] [facility] acute hospital Heart rate 2020-03-15 03:24:00 71 /[facility] Body temperature 2020-03-15 03:24:00 37.17 Manda [facility] Respiratory rate 2020-03-15 03:24:00 18 /min [facility] Body height 2020-03-15 03:24:00 160 cm [facility] Body weight 2020-03-15 03:24:00 122.471 kg [facility] BMI 2020-03-15 03:24:00 47.83 kg/m2 [facility] Oxygen saturation in Arterial blood by Pulse oximetry 2020-03-15 03:24:00 96 /min General acute hospital Systolic blood pressure 2019-10-21 23:05:00 154 mm[Hg] General acute hospital Diastolic blood pressure 2019-10-21 23:05:00 75 mm[Hg] General acute hospital Heart rate 2019-10-21 22:59:00 71 /min [facility] Body temperature 2019-10-21 22:59:00 37.94 Manda [facility] Respiratory rate 2019-10-21 22:59:00 18 /min [facility] Body height 2019-10-21 22:59:00 160 cm Univ [facility] Body weight 2019-10-21 22:59:00 121.745 kg Univ [facility] BMI 2019-10-21 22:59:00 47.54 kg/m2 Univ [facility] Oxygen saturation in Arterial blood by Pulse oximetry 2019-10-21 22:59:00 97 /min General acute hospital Systolic blood pressure 2019-10-21 23:05:00 154 mm[Hg] General acute hospital Diastolic blood pressure 2019-10-21 23:05:00 75 mm[Hg] General acute hospital Heart rate 2019-10-21 22:59:00 71 /min Unive [facility] Body temperature 2019-10-21 22:59:00 37.94 Manda [facility] Respiratory rate 2019-10-21 22:59:00 18 /min [facility] Body height 2019-10-21 22:59:00 160 cm [facility] Body weight 2019-10-21 22:59:00 121.745 kg [facility] BMI 2019-10-21 22:59:00 47.54 kg/m2 Univ [facility] Oxygen saturation in Arterial blood by Pulse oximetry 2019-10-21 22:59:00 97 /min General acute hospital Systolic blood pressure 2019-09-03 01:10:00 139 mm[Hg] General acute hospital Diastolic blood pressure 2019-09-03 01:10:00 71 mm[Hg] General acute hospital Heart rate 2019-09-03 01:10:00 76 /min Unive [facility] Body temperature 2019-09-03 01:10:00 37.11 Manda [facility] Respiratory rate 2019-09-03 01:10:00 18 /min [facility] Body height 2019-09-03 01:10:00 160 cm [facility] Body weight 2019-09-03 01:10:00 121.655 kg [facility] BMI 2019-09-03 01:10:00 47.51 kg/m2 [facility] Oxygen saturation in Arterial blood by Pulse oximetry 2019-09-03 01:10:00 96 /min [place] [facility] Procedures Procedure Date / Time Performed Performing Clinician Source AUTHORIZATION FOR RELEASE OF PHI 2022-08-30 06:01:00 Doctor Unassigned, [place] [facility] PHACOEMULSIFICATION OF CATARACT WITH INTRAOCULAR LENS IMPLANT 2022-08-07 15:06:00 Jair Guardado [facility] POCT GLUCOSE (AUTOMATED) 2022-08-07 14:19:00 Jair Guardado [facility] POCT GLUCOSE (AUTOMATED) 2022-08-07 14:19:00 Jair Guardado [facility] PATIENT QUESTIONNAIRE 2022-08-07 06:01:00 Doctor Unassigned, [place] [facility] DAY SURGERY - ADC 2022-08-07 06:01:00 Doctor Unassigned, [place] [facility] CONSENT/REFUSAL FOR DIAGNOSI S AND TREATMENT 2022-08-06 14:48:47 Doctor Unassigned, [place] [facility] CONSENT/REFUSAL FOR DIAGNOSI S AND TREATMENT 2022-08-06 14:48:47 Doctor Unassigned, [place] [facility] ASSIGNMENT OF BENEFITS 2022-08-06 14:48:30 Doctor Unassigned, [place] [facility] ASSIGNMENT OF BENEFITS 2022-08-06 14:48:30 Doctor Unassigned, [place] [facility] PHACOEMULSIFICATION OF CATARACT WITH INTRAOCULAR LENS IMPLANT 2022-07-24 16:51:00 Jair Guardado [facility] POCT GLUCOSE (AUTOMATED) 2022-07-24 15:46:00 Jair Guardado [facility] POCT GLUCOSE (AUTOMATED) 2022-07-24 15:46:00 Jair Guardado [facility] PATIENT QUESTIONNAIRE 2022-07-24 06:01:00 Doctor Unassigned, [place] [facility] CONSENT/REFUSAL FOR DIAGNOSI S AND TREATMENT 2022-07-15 18:07:08 Doctor Unassigned, [place] [facility] NOTICE OF PRIVACY PRACTICES 2021-06-11 16:17:14 Doctor Unassigned, [place] [facility] POCT URINALYSIS 2020-10-06 16:08:00 Keila Evans [facility] CONSENT/REFUSAL FOR DIAGNOSI S AND TREATMENT 2020-03-15 03:09:37 Doctor Unassigned, [place] [facility] POCT GRP A STREP (MOLECULAR) 2019-10-22 00:49:00 Tosha Estrada [facility] MISCELLANEOUS SEND OUT TEST 2019-09-03 01:44:00 Arabella Wood [facility] POCT URINALYSIS 2019-09-03 01:09:00 Massiel Woodtany [facility] NOTICE OF BILLING PRACTICES FOR MEDICARE PATIENTS 2019-09-03 01:02:56 Doctor Unassigned, [place] [facility] PATIENT FINANCIAL POLICY 2019-09-03 01:02:17 Doctor Unassigned, [place] [facility] NO SHOW OR MISSED APPOINTMEN T POLICY ACKNOWLEDGEMENT 2019-09-03 01:01:54 Doctor Unassigned, [place] [facility] NOTICE OF PRIVACY PRACTICES 2019-09-03 01:01:36 Doctor Unassigned, [place] [facility] CONSENT/REFUSAL FOR DIAGNOSI S AND TREATMENT 2019-09-03 01:01:22 Doctor Unassigned, [place] [facility] ASSIGNMENT OF BENEFITS 2019-09-03 01:01:06 Doctor Unassigned, [place] [facility] Encounters Start Date/Time End Date/Time Encounter Type Admission Type Attending [facility] Care Facility Care Department Encounter ID Source 2021-06-01 11:57:10 Emergency [facility] [id number] [facility] 2020-08-18 13:00:00 Inpatient YARY KellyeFabNelson [facility] SRINI [id number] [facility] 2023-06-04 00:00:00 2023-06-04 00:00:00 Outpatient [id number] diyala_S [facility] [id number] [facility] 2022-08-30 00:00:00 2022-08-30 00:00:00 Orders Only Doctor Unassigned, [place] [facility] 1.2.840.114 350.1.13.10 4.2.7.2.686 [id number] [facility] 2022-08-07 07:56:00 2022-08-07 10:20:00 Outpatient R JAIR GUARDADO [facility] OPH [id number] [facility] 2022-08-07 07:56:00 2022-08-07 10:20:00 Hospital Encounter GeoJair [facility] 1.2.840.114 350.1.13.10 4.2.7.2.686 [id number] [facility] 2022-08-07 08:59:00 2022-08-07 09:33:00 Surgery Geo Jair [facility] 1.2.840.114 350.1.13.10 4.2.7.2.686 [id number] [facility] 2022-07-24 09:26:00 2022-07-24 12:08:00 Outpatient R JAIR GUARDADO [facility] OPH [id number] [facility] 2022-07-24 09:26:00 2022-07-24 12:08:00 Hospital Encounter Geo Jair Hester [facility] 1.2.840.114 350.1.13.10 4.2.7.2.686 [id number] [facility] 2022-07-24 10:42:00 2022-07-24 11:16:00 Surgery GeoJair [facility] 1.2.840.114 350.1.13.10 4.2.7.2.686 [id number] [facility] 2022-07-24 00:00:00 2022-07-24 00:00:00 Orders Only Doctor Unassigned, [place] [facility] 1..114 350.1.13.10 4.2.7.2.686 [id number] [facility] 2022-07-15 11:45:00 2022-07-15 12:00:00 Manager Film Visit Pob, Adc Lab Jair Bright [facility] 1..114 350.1.13.10 4.2.7.2.686 [id number] [facility] 2022-07-15 11:45:00 2022-07-15 11:45:00 Outpatient JAIR ELLIOTT [facility] [id number] [facility] 2022-07-15 00:00:00 2022-07-15 00:00:00 Orders Only Doctor Unassigned, [place] [facility] 1.84.114 350.1.13.10 4.2.7.2.686 [id number] [facility] 2021-06-11 10:24:00 2021-06-11 11:15:00 Emergency X CHAIM BREAUX [facility] ERT [id number] [facility] 2021-06-11 10:24:00 2021-06-11 11:15:00 Emergency Chaim Breaux [facility] 1.84.114 350.1.13.10 4.2.7.2.686 [id number] [facility] 2021-06-11 00:00:00 2021-06-11 00:00:00 Orders Only Doctor Unassigned, [place] [facility] 1..114 350.1.13.10 4.2.7.2.686 [id number] [facility] 2021-02-06 08:30:00 2021-02-06 08:30:00 Outpatient ASHLEY PERERA [facility] [id number] [facility] 2020-10-19 14:40:00 2020-10-19 14:40:00 Outpatient R ESME KRYSTINA [facility] [id number] [facility] 2020-10-19 13:58:42 2020-10-19 14:18:42 Urgent Care Provider, [facility] Krystina Victoria [facility] [address] 1.0.114 350.1.13.10 4.2.7.2.686 [id number] [facility] 2020-10-10 00:00:00 2020-10-10 00:00:00 Telephone Provider, [facility] 1..114 350.1.13.10 4.2.7.2.686 [id number] [facility] 2020-10-06 09:45:56 2020-10-06 10:53:09 Urgent Care Provider, [facility] Keila Diaz [facility] 1..114 350.1.13.10 4.2.7.2.686 [id number] [facility] 2020-10-06 10:20:00 2020-10-06 10:20:00 Outpatient R NATHAN KEILA [facility] [id number] [facility] 2020-10-06 00:00:00 2020-10-06 00:00:00 Letter (Out) Doctor Unassigned, [place] [facility] 1..114 350.1.13.10 4.2.7.2.686 [id number] [facility] 2020-03-14 22:29:00 2020-03-14 23:42:00 Emergency Gloria Wilkins [facility] 1.840.114 350.1.13.10 4.2.7.2.686 [id number] [facility] 2020-03-14 22:29:00 2020-03-14 23:42:00 Emergency Gloria Wilkins R [facility] 1.2.840.114 350.1.13.10 4.2.7.2.686 [id number] 2019-10-21 17:52:31 2019-10-21 18:49:49 Urgent Care RodrigoTosha hester Unknown, Attending [facility] 1.2.840.114 350.1.13.10 4.2.7.2.686 [id number] [facility] 2019-10-21 17:52:31 2019-10-21 18:49:49 Urgent Care Tosha Estrada [facility] 1.2.840.114 350.1.13.10 4.2.7.2.686 [id number] 2019-10-21 18:00:00 2019-10-21 18:00:00 Outpatient R UNKNOWN, ATTENDING [facility] [id number] [facility] 2019-09-06 00:00:00 2019-09-06 00:00:00 Telephone Arabella Wood [facility] 1.2.840.114 350.1.13.10 4.2.7.2.686 [id number] [facility] 2019-09-02 19:02:06 2019-09-03 13:29:25 Urgent Care Arabella Wood, Attending [facility] 1.2.840.114 350.1.13.10 4.2.7.2.686 [id number] [facility] 2019-09-02 00:00:00 2019-09-02 00:00:00 Orders Only Doctor Unassigned, [place] [facility] 1.2.840.114 350.1.13.10 4.2.7.2.686 [id number] [facility] Results Test Description Test Time Test Comments Results Result Co mments Source General acute hospital GLUCOSE (AUTOMATED)2022-08-07 14:26:49* Test Item Value Reference Range Interpretation Comme nts POCT GLU (test code = 5382733764) 172 mg/dL 70-110 H Lab Interpretation (test cod e = 84960-1) Abnormal General acute hospital GLUCOSE (AUTOMATED)2022-07-24 15:50:30* Test Item Value Reference Range Interpretation Comme nts POCT GLU (test code = 4573095155) 229 mg/dL 70-110 H Lab Interpretation (test cod e = 82792-7) Abnormal General acute hospital GLUCOSE (AUTOMATED)2022-07-24 15:50:30* Test Item Value Reference Range Interpretation Comme nts POCT GLU (test code = 0952450440) 229 mg/dL 70-110 H Lab Interpretation (test cod e = 42650-8) Abnormal General acute hospital URINALYSIS W SPECIFIC [id number] 16:09:00* Test Item Value Reference Range Interpretation Comme nts POCT U SP GRAV (test code = 3255) 1.010 mg/dl 1.005-1.025 POCT PH U (test code = 3254) 7 mg/dl 5-8 POCT U LEUK EST (test code = 3263) trace Negative - Negative POCT U NIT (test code = 3262) negative Negative - Negative POCT U PROT (test code = 3259) negative Negative - Negative POCT U GLU (test code = 3256) negative Negative - Negative POCT U KETONE (test code = 3258) negative Negative - Negative POCT U UROBILI (test code = 3260) normal 0.2-1 POCT U BILI (test code = 3261) negative Negative - Negative POCT U BLD (test code = 3257) trace Negative - Negative POCT U COLOR (test code = 3266) yellow POCT U APPEAR (test code = 3267) clear AUDIE (test code = AUDIE) accurate developme nt and interpretation of all internal controls Lab Interpretation (test code = 26867-5) Normal [facility] [id number] 06:35:00* Test Item Value Reference Range Interpretation Comme nts GLUCOSE BEDSIDE TESTING (nilay t code = GLUBED) 186 mg/dL 70-110 H COVID 19 INHOUSE [id number] 13:48:00* Test Item Value Reference Range Interpretation Comme nts COVID 19 INHOUSE AG (test code = [id number]) NEGATIVE Negative Per business administration teacher , negative results should be treated aspresumptive and, if inconsistent with clinical signs andsymptoms or necessary for patient management, should betested with an alternative molecular assay. Negative resultsdo not preclude SARS-CoV-2 infection and should not be usedas the sole basis for patient management decisions. Negative results should be considered in the context of apatient's recent exposures, history, presence of clinicalsigns and symptoms consistent with COVID-19. - XR CHEST 1 [id number] 13:38:00 [facility] : 1955 Sex: F Name: ARMAND RUIZ [facility] : 1955 Age/S: 65 / F [id number] Unit #: [id number] Loc: [place] [address] Phys: Nelson Beltran MD Acct: [id number] Dis Date: Status: PRE [facility] PHONE #: [phone] Exam Date: 08/18/2020 1323 FAX #: Reason: SURGERY EXAMS: CPT: [id number] XR CHEST 1 V [id number] Time: DAP (Gy m2): Air Kerma (mGy): EXAMINATION: - XR CHEST 1 V HISTORY: Preop COMPARISON: No ne. LOCATION CODE: C3 FINDINGS: Single frontal view of the chest is submitted for evaluation. The lungs are clear. The cardiac silhouette, mediastinum and pulmonary vasculature are unremarkable. The regional osseous structures are intact IMPRESSION: No acute radiographic abnormality at 1331 Reported and signed by: Megan Evans M.D. CC: Bahman Gil DO; Nelson Beltran MD PAGE 1 Signed Report Name: ARMAND RUIZ [place] : 1955 Age/S: 65 / F [address] Unit #: [id number] Loc: [place] [address] Phys: Nelson Beltran MD Acct: [id number] Dis Date: Status: PRE SDC PHONE #: [phone] Exam Date: 08/18/2020 1323 FAX #: Reason: SURGERY EXAMS: CPT: [id number] XR CHEST 1 V [id number] Fluoro Time: DAP (Gy m2): Air Kerma (mGy): (Continued) Technologist: Alondra Bertrand, RT(R) Trnscb Date/Time: 08/18/2020 (7486) [id number].[email or web address] Orig Print D/T: S: 08/18/2020 (5797) PAGE 2 Signed ReportCBC W/AUTO [id number] 13:33:00* Test Item Value Reference Range Interpretation Comme nts WHITE BLOOD CELL (test code = WBC) 6.4 K/mm3 3.5-11.0 N RED BLOOD CELL (test code = RBC) 5.47 M/mm3 4.70-6.10 N HEMOGLOBIN (test code = HGB) 11.9 G/DL 10.4-14.9 N HEMATOCRIT (test code = HCT) 39.1 % 31.5-44.1 N MEAN CELL VOLUME (test code = MCV) 71.5 Fl 84.5-98.6 L MEAN CELL HGB (test code = MCH) 21.8 pg 27.0-34.2 L MEAN CELL HGB CONCETRATION (test code = MCHC) 30.4 G/DL 31.5-34.0 L RED CELL DISTRIBUTION WIDTH (test code = RDW) 17.3 SD 11.5-14.5 H PLATELET COUNT (test code = PLT) 162 K/mm3 150-450 N NEUTROPHIL % (test code = NT%) 52.9 % 40-76 N IMMATURE GRANULOCYTE % (test code = IG%) 0.2 % 0.0-5.0 N LYMPHOCYTE % (test code = LY%) 36.4 % 20.5-51.1 N MONOCYTE % (test code = MO%) 8.3 % 1.7-9.3 N EOSINOPHIL % (test code = EO%) 1.3 % 0.0-6.0 N BASOPHIL % (test code = BA%) 0.9 % 0.0-2.0 N NUCLEATED RBC % (test code = NRBC%) 0.0 /100WBC% 0.0-1.0 N NEUTROPHIL # (test code = NT#) 3.4 K/mm3 1.8-7.6 N IMMATURE GRANULOCYTE # (test code = IG#) 0.01 x10 3/uL 0.00-0.03 N LYMPHOCYTE # (test code = LY#) 2.3 K/mm3 0.6-3.2 N MONOCYTE # (test code = MO#) 0.5 K/mm3 0.3-1.1 N EOSINOPHIL # (test code = EO#) 0.1 K/mm3 0.0-0.4 N BASOPHIL # (test code = BA#) 0.1 K/mm3 0.0-0.1 N NUCLEATED RBC # (test code = NRBC#) 0.0 K/mm3 0.0-0.1 N MANUAL DIFF REQUIRED (test c ode = MDIFF) NO DIFF/SCN CRITERIA BASIC METABOLIC [id number] 13:33:00* Test Item Value Reference Range Interpretation Comme nts SODIUM (test code = NA) 141 mmol/L 134-147 N POTASSIUM (test code = K) 3.6 mmol/L 3.4-5.0 N CHLORIDE (test code = CL) 103 mmol/L 100-108 N CARBON DIOXIDE (test code = CO2) 37 mmol/L 21-32 H ANION GAP (test code = GAP) 1.0 GAP calc 4.0-15.0 L GLUCOSE (test code = GLU) 172 MG/DL 70-110 H BLOOD UREA NITROGEN (test co de = BUN) 15 MG/DL 7-18 N GLOMERULAR FILTRATION RATE ( test code = GFR) 58 estGFR >60 L CREATININE (test code = CREAT) 1.2 MG/DL 0.6-1.0 H CALCIUM (test code = CA) 9.2 MG/DL 8.5-10.1 N PROTHROMBIN [id number] 13:32:00* Test Item Value Reference Range Interpretation Comme nts PT PATIENT (test code = PTP) 12.4 SECONDS 9.3-12.9 N INTERNATIONAL NORMAL RATIO (test code = INR) 1.10 INR Unit 0.8-1.2 N THROMBOPLASTIN TIME [id number] 13:32:00* Test Item Value Reference Range Interpretation Comme nts THROMBOPLASTIN TIME PARTIAL (test code = PTT) 29.9 SECONDS 26-35 N POCT GRP A STREP (MOLECULAR)2019-10-22 00:59:00* Test Item Value Reference Range Interpretation Comme nts POCT GP A STREP (test code = 38576-1) neg Negative - Negative AUDIE (test code = AUDIE) accurate developme nt and interpretation of all internal controls Lab Interpretation (test code = 73193-6) Normal General acute hospital GRP A STREP (MOLECULAR)2019-10-22 00:59:00* Test Item Value Reference Range Interpretation Comme nts POCT GP A STREP (test code = 37924-5) neg Negative - Negative AUDIE (test code = AUDIE) accurate developme nt and interpretation of all internal controls Lab Interpretation (test code = 62872-5) Normal [facility]. Sendout- Vaginal Pathogen Panel by DNA Probe [id number] 19:58:00* Test Item Value Reference Range Interpretation Comme nts Miscellaneous Test (test code = 8656470741) See scanned report Performing Lab (test code = 8552580506) [facility] W SPECIFIC [id number] 01:19:00* Test Item Value Reference Range Interpretation Comme nts POCT U SP GRAV (test code = 3255) 1.020 mg/dl 1.005-1.025 POCT PH U (test code = 3254) 5 mg/dl 5-8 POCT U LEUK EST (test code = 3263) Negative Negative - Negative POCT U NIT (test code = 3262) Negative Negative - Negative POCT U PROT (test code = 3259) Negative Negative - Negative POCT U GLU (test code = 3256) Negative Negative - Negative POCT U KETONE (test code = 3258) Negative Negative - Negative POCT U UROBILI (test code = 3260) Normal 0.2-1 POCT U BILI (test code = 3261) Negative Negative - Negative POCT U BLD (test code = 3257) Negative Negative - Negative POCT U COLOR (test code = 3266) Yellow POCT U APPEAR (test code = 3267) Clear AUDIE (test code = AUDIE) accurate developme nt and interpretation of all internal controls Lab Interpretation (test code = 51161-8) Normal [facility] W SPECIFIC [id number] 01:19:00* Test Item Value Reference Range Interpretation Comme nts POCT U SP GRAV (test code = 3255) 1.020 mg/dl 1.005-1.025 POCT PH U (test code = 3254) 5 mg/dl 5-8 POCT U LEUK EST (test code = 3263) Negative Negative - Negative POCT U NIT (test code = 3262) Negative Negative - Negative POCT U PROT (test code = 3259) Negative Negative - Negative POCT U GLU (test code = 3256) Negative Negative - Negative POCT U KETONE (test code = 3258) Negative Negative - Negative POCT U UROBILI (test code = 3260) Normal 0.2-1 POCT U BILI (test code = 3261) Negative Negative - Negative POCT U BLD (test code = 3257) Negative Negative - Negative POCT U COLOR (test code = 3266) Yellow POCT U APPEAR (test code = 3267) Clear AUDIE (test code = AUDIE) accurate developme nt and interpretation of all internal controls Lab Interpretation (test code = 94823-9) Normal [facility] Notes Date/Time Note Provider Source 2020-08-21 09:29:00 [id number] [address] PATIENT NAME: ARMAND RUIZ ADMIT DATE: 08/21/20ACCOUNT NO: [id number] ROOM NO: AGE: 65 REPORT TYPE: OPERATIVE REPORT SEX: F ADMITTING PHYSICIAN: ATTENDING PHYSICIAN: Nelson Beltran MD OPERATION DATE: 08/21/2020 PREOPERATIVE DIAGNOSES:1. Left shoulder rotator cuff tendon tear.2. Left shoulder acromioclavicular joint arthrosis.3. Left shoulder impingement syndrome. POSTOPERATIVE DIAGNOSES:1. Left shoulder rotator cuff tendon tear.2. Left shoulder acromioclavicular joint arthrosis.3. Left shoulder impingement syndrome. OPERATIONS PERFORMED:1. Left shoulder arthroscopic rotator cuff repair.2. Left shoulder arthroscopic distal clavicle excision.3. Left shoulder arthroscopic subacromial decompression includingacromioplasty. SURGEON: Nelson Beltran MD CAMPAIGN ASSISTANT: Dr. Roman. ANESTHESIA: General. COMPLICATIONS: None. ESTIMATED BLOOD LOSS: Minimal. DETAILS OF THE OPERATIONS: This is a 65-year-old female, who has a history ofleft rotator cuff repair by Dr. Moody more than 10 years ago. The patientpresented to my clinic with progressively worsening left shoulder pain. She wasclinically and radiographically diagnosed with the above-mentioned diagnosis. After a thorough discussion of her operative as well as nonoperative treatmentoptions and the risks and possible complications of each and after failingextensive nonoperative treatment for her condition, the patient provided writtenand verbal consent for the above-mentioned procedure. On the day of surgery,the patient was identified in the holding area and the correct site of surgerywas marked. The anesthesiologist was unable to do a preoperative block becausethe patient reported at baseline that she has some left upper extremity weaknessin terms of her hand and neurological function and therefore theanesthesiologist's decision was to not do a block for the patient's safety. Thepatient was then taken to the operating room and placed supine on the operating PATIENT NAME: ARMAND RUIZ table. She was placed under general anesthesia by the anesthesiology team. Preoperative antibiotics were given. Time-out was performed. The patient wasthen placed in a right lateral decubitus position and all bony prominences werepadded appropriately. The left upper extremity was prepped and draped in astandard sterile fashion and the arm was held using arm suspension device. Aposterior arthroscopic portal was established and a diagnostic arthroscopy wasperformed. The subscapularis tendon was intact. The base of the biceps tendonhad scarring and was thickened through anterior arthroscopic portal. Iperformed a biceps tenotomy and debrided the stump of the biceps tendon. Theanterior, posterior labrum was frayed and so I gently debrided using a shaver. There was a high-grade near full-thickness articular-sided tear of the rotatorcuff tendon that was seen. This was tagged using a PDS suture. There was asmall fraying of the cartilage at the bare spot of the glenoid. Otherwise, thecartilage was well maintained. Attention was then taken to the subacromialspace where through a lateral arthroscopic portal, a thorough bursectomy wasperformed from anterior to posterior position. Next, using a bur from theposterior portal, I performed acromioplasty from posterior to anterior in acutting cone fashion so as to create a flat Bigliani type 1 configuration of theacromion. There were old sutures that were removed from the previous surgery. The distal clavicle excision was commenced from the posterior portal, removingthe inferior aspect of the distal clavicle. The remaining distal clavicleexcision was performed from the anterior portal from anterior superior toanterior inferior and posterior superior to posterior inferior position. Circumferential removal of bone was verified and approximately 7 mm spacebetween the distal clavicle and the lateral acromion was achieved. Next,attention was taken to the rotator cuff tendon tear that was tagged using a PDSsuture. This was completed and the footprint was prepared for repair. Iremoved as much of the soft tissue as possible from the footprint. Next, aConMed 4.5 mm triple-loaded suture anchor was inserted into the footprint. Next, I passed 2 of these sutures in a horizontal mattress fashion fromposterior to anterior overlapping each other, in between these 2, I placed athird stitch in a simple fashion more medially within the cuff. Next, using asliding locking knot tying technique, I tied both the horizontal mattresssutures first and then cutting the excessive suture. Finally, the simple suturewas tied on top of the previously tied horizontal mattress suture and excessivesuture limbs were cut. Excellent rip-stop configuration repair of the rotatorcuff tendon was achieved. Next, as much fluid as possible was removed from thesubacromial space and then we injected 20 mL of 0.25% Marcaine into this areafor postoperative pain control. After this, the portal sites were closed usingnylon stitches and dressed using Xeroform, 4 x 4s, ABD, and tape. The patient'sarm was placed in an abduction pillow sling. Dictated By: Nelson Beltran MD WT: OP:L.NARAYAN/MUSA/NTSDD: 08/21/2020 09:29:20DT: 08/21/2020 10:04:50Conf#: [id number]/DID#: [id number] Authenticated by Nelson Beltran MD On 10/02/2020 07:31:27 AM PATIENT NAME: YESSENIA RUIZE at 0731 PATIENT NAME: ABRIL RUIZSIE [id number] lable for patient [id number] [facility]
--- NOTE | 2023-10-26 14:18 | EDPHYS ---
Physician Documentation [facility] Name: Monique Franz Age: 68 yrs Sex: Female : 1955 Arrival Date: 10/26/2023 Time: 12:45 Bed 8 Private MD: COLBY Physician Jama Franco HPI: 10/25 14:05 This 68 yrs old Black Female presents to ER via Ambulatory with complaints of Toothache akin - mouth bleeding. 14:05 The patient presents with bleeding. The problem is located in the lower right first akin molar and lower right second molar. Onset: The symptoms/episode began/occurred just prior to arrival, this morning. Duration: The symptoms are continuous, but are markedly better than the original presentation. Modifying factors: The symptoms are alleviated by GAUZE, the symptoms are aggravated by chewing, food. Associated signs and symptoms: The patient has no apparent associated signs or symptoms. The patient has not experienced similar symptoms in the past. Historical: - Allergies: 12:54 Azithromycin; nj1 12:54 PENICILLINS; nj1 12:54 Zithromax; nj1 - PMHx: 12:54 Diabetes - NIDDM; Diverticulitis; Hyperlipidemia; Hypertension; nj1 - Immunization history:: Client reports receiving the 2nd dose of the Covid vaccine. - Social history:: Smoking status: Patient denies any tobacco usage or history of. - Family history:: not pertinent. ROS: 14:05 Constitutional: Negative for fever, chills, and weight loss, Eyes: Negative for injury, akin pain, redness, and discharge, Neck: Negative for injury, pain, and swelling, Cardiovascular: Negative for chest pain, palpitations, and edema, Respiratory: Negative for shortness of breath, cough, wheezing, and pleuritic chest pain, Abdomen/GI: Negative for abdominal pain, nausea, vomiting, diarrhea, and constipation, Back: Negative for injury and pain, : Negative for injury, bleeding, discharge, and swelling, MS/Extremity: Negative for injury and deformity, Skin: Negative for injury, rash, and discoloration, Neuro: Negative for headache, weakness, numbness, tingling, and seizure, Psych: Negative for depression, anxiety, suicide ideation, homicidal ideation, and hallucinations, Allergy/Immunology: Negative for hives, rash, and allergies, Endocrine: Negative for neck swelling, polydipsia, polyuria, polyphagia, and marked weight changes, Hematologic/Lymphatic: Negative for swollen nodes, abnormal bleeding, and unusual bruising, 14:05 ENT: Positive for Teeth pain GINGIVAL BLEEDING, Exam: 14:05 Constitutional: This is a well developed, well nourished patient who is awake, alert, akin and in no acute distress. Head/Face: Normocephalic, atraumatic. Eyes: Pupils equal round and reactive to light, extra-ocular motions intact. Lids and lashes normal. Conjunctiva and sclera are non-icteric and not injected. Cornea within normal limits. Periorbital areas with no swelling, redness, or edema. Neck: Trachea midline, no thyromegaly or masses palpated, and no cervical lymphadenopathy. Supple, full range of motion without nuchal rigidity, or vertebral point tenderness. No Meningismus. Chest/axilla: Normal chest wall appearance and motion. Nontender with no deformity. No lesions are appreciated. Cardiovascular: Regular rate and rhythm with a normal S1 and S2. No gallops, murmurs, or rubs. Normal PMI, no JVD. No pulse deficits. Respiratory: Lungs have equal breath sounds bilaterally, clear to auscultation and percussion. No rales, rhonchi or wheezes noted. No increased work of breathing, no retractions or nasal flaring. Abdomen/GI: Soft, non-tender, with normal bowel sounds. No distension or tympany. No guarding or rebound. No evidence of tenderness throughout. Back: No spinal tenderness. No costovertebral tenderness. Full range of motion. Skin: Warm, dry with normal turgor. Normal color with no rashes, no lesions, and no evidence of cellulitis. MS/ Extremity: Pulses equal, no cyanosis. Neurovascular intact. Full, normal range of motion. Neuro: Awake and alert, GCS 15, oriented to person, place, time, and situation. Cranial nerves II-XII grossly intact. Motor strength 5/5 in all extremities. Sensory grossly intact. Cerebellar exam normal. Normal gait. Psych: Awake, alert, with orientation to person, place and time. Behavior, mood, and affect are within normal limits. 14:05 ENT: Mouth: Oral mucosa: moist, Gums: normal with healthy appearance, Tongue: is normal, abscess, is not appreciated, drooling, is not appreciated, Posterior pharynx: is normal, airway is patent, no erythema, no exudate, no peritonsilar mass, no pooling of secretions, no swelling, normal tonsil apperance, normal sized tonsils, normal uvula appearance, normal uvula size, no acute changes, Vital Signs: 12:52 BP 128 / 63; Pulse 76; Resp 18; Temp 97.5(TE); Pulse Ox 99% ; Weight 107.05 kg; Height nj1 5 ft. 3 in. ; 12:52 Body Mass Index 41.81 (107.05 kg, 160.02 cm) nj1 MDM: 13:04 Patient medically screened. akin 14:11 Differential diagnosis: dental caries. Data reviewed: vital signs, nurses notes. akin Consideration of Admission/Observation Escalation of care including admission/observation considered. I considered the following discharge prescriptions or medication management in the emergency department Medications were administered in the Emergency Department. See MAR. Test considered but Not performed: Labs: NO LABS. Care significantly affected by the following chronic conditions: Diabetes, Hypertension, Obesity, XARELTO. 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 akin Followup: akin - With: Private Physician - When: 2 - 3 days - Reason: Recheck today's complaints, Continuance of care, Re-evaluation by your physician Followup: akin - With: Mekhi Mcnally DDS - When: 1 - 2 days - Reason: Recheck today's complaints, Continuance of care, Re-evaluation by your physician Discharge Instructions: - Discharge Summary Sheet akin - Atrial Fibrillation akin - Diet and Dental Disease akin - Bleeding Precautions When on Anticoagulant Therapy, Adult akin Forms: - Medication Reconciliation Form akin - Thank You Letter akin - Antibiotic Education akin - Prescription Opioid Use akin - Patient Portal Instructions [facility] - Leadership Thank You Letter [facility] Prescriptions: - Clindamycin HCl 300 mg Oral capsule - take 1 capsule ORAL route every 6 hours for 7 days; 28 capsule; Refills: 0, akin Product Selection Permitted Signatures: Jama Franco MD MD cha Hall, Patricia RN RN Petrona Hood RN RN nj1
--- NOTE | 2023-10-26 14:18 | ER ---
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 Does take xarelto and aspirin. Coronavirus screen: Vaccine status: Patient reports receiving the 2nd dose of the covid vaccine. Ebola Screen: Patient denies travel to an Ebola-affected area in the 21 days before illness onset. Initial Sepsis Screen: Does the patient meet any 2 criteria? No. Patient's initial sepsis screen is negative. Does the patient have a suspected source of infection? No. Patient's initial sepsis screen is negative. Risk Assessment: Do you want to hurt yourself or someone else? Patient reports no desire to harm self or others. Onset of symptoms was October 26, 2023 at 12:30. 12:52 Method Of Arrival: Ambulatory banner 12:52 Acuity: VIC 4 nj1 Triage Assessment: 12:55 General: Appears in no apparent distress. comfortable, Behavior is calm, cooperative, nj1 appropriate for age. Pain: Denies pain. EENT: Reports Bleeding from right lower side of mouth, not sure if tooth or gum. Bleeding controlled.. Historical: - Allergies: 12:54 Azithromycin; nj1 12:54 PENICILLINS; nj1 12:54 Zithromax; nj1 - PMHx: 12:54 Diabetes - NIDDM; Diverticulitis; Hyperlipidemia; Hypertension; nj1 - Immunization history:: Client reports receiving the 2nd dose of the Covid vaccine. - Social history:: Smoking status: Patient denies any tobacco usage or history of. - Family history:: not pertinent. Screenin:24 [facility] ED Fall Risk Assessment (Adult) History of falling in the last 3 months, ph including since admission No falls in past 3 months (0 pts) Confusion or Disorientation No (0 pts) Intoxicated or Sedated No (0 pts) Impaired Gait No (0 pts) Mobility Assist Device Used No (0 pt) Altered Elimination No (0 pt) Score/Fall Risk Level 0 - 2 = Low Risk Oriented to surroundings, Maintained a safe environment, Hourly rounding (assess needs \T\ fall precautionary measures) done. Abuse screen: Denies threats or abuse. Denies injuries from another. Nutritional screening: No deficits noted. Tuberculosis screening: No symptoms or risk factors identified. Assessment: 13:23 General: Appears in no apparent distress. comfortable, Behavior is calm, cooperative, ph appropriate for age. Pain: Complains of pain in mouth. Neuro: Level of Consciousness is awake, alert, obeys commands, Oriented to person, place, time, situation. EENT: Reports bleeding from R lower gums. Derm: Skin is pink, warm \T\ dry. Vital Signs: 12:52 BP 128 / 63; Pulse 76; Resp 18; Temp 97.5(TE); Pulse Ox 99% ; Weight 107.05 kg; Height nj1 5 ft. 3 in. ; 12:52 Body Mass Index 41.81 (107.05 kg, 160.02 cm) banner ED Course: 12:48 Patient arrived in ED. ra3 12:54 Triage completed. nj1 12:55 Arm band placed on right wrist. nj 13:04 Jama Franco MD is Attending Physician. [facility] 13:23 Shaista Quinonez, RN is Primary Nurse. ph 13:25 Patient has correct armband on for positive identification. Bed in low position. Call ph light in reach. Side rails up X 1. Pulse ox on. NIBP on. Door closed. Noise minimized. Warm blanket given. 14:12 Mekhi Mcnally DDS is Referral Physician. [facility] Administered Medications: 13:46 Drug: Lidocaine-Epinephrine Infiltration -1%: (1:100,000) 1 vials 20 ml Infiltration ph once; to bedside {Note: administered topically to R lower gums to slow bleeding.} Volume: 20 ml; Route: Infiltration; Medication: 13:25 VIS not applicable for this client. ph Outcome: 14:17 Discharge ordered by . [facility] 14:30 Patient left the ED. ph Signatures: Jama Franco MD MD cha Hall, Patricia, RN RN Petrona Hood RN RN nj Dariana Zuniga ra3 Corrections: (The following items were deleted from the chart) 12:58 12:55 EENT: Reports Bleeding from right lower side of mouth, not sure if tooth or gum. nj1 nj1
[2023-10-26 14:47] VITALS: BP 128/63; TEMP 97.5; O2SAT 99
== END ==
LOC: ER 12:45
DX: K06.8 Other specified disorders of gingiva and edentulous alveolar ridge (principal); Z79.01 Long term (current) use of anticoagulants; Z88.0 Allergy status to penicillin; Z88.1 Allergy status to other antibiotic agents
CPT/HCPCS: 99283

== ENCOUNTER 2023-11-19 12:27 | Emergency (ER) | payer OTHER ==
--- OUTSIDE RECORDS SUMMARY | 2023-11-19 12:31 | XMS REPORT | Continuity of Care Document ---
Author Name Unknown Address [address] [place] [address] [facility] thconnect Address [address] [place] [address] Care Team Providers Care Guard Captain Name Role Phone Bahman Gil Primary Care Physician [phone] Nelson Beltran Attending Clinician Unavailable [email or web address]_S Attending Clinician Unavaila ble Doctor Unassigned, [place] Attending Clinician U JAIR Colmenares Attending Clinician UnavailJair Mcnair MD Attending Clinician [phone] Pob, [facility] Main Attending Clinician UnavailCHAIM Ruano Attending Clinician Unavailable Chaim Wang Attending Clinician [phone] ASHLEY ALDRICH Attending Clinician Unavailable KRYSTINA VICTORIA Attending Clinician Unavailable Provider, [facility] Attending Clinician Un available Krystina Wallis Attending Clinician [phone] Nathan [employer], Keila Attending Clinician [phone] KEILA EVANS Attending Clinician Unavailable Gloria Gottlieb Attending Clinician [phone] Sean [employer], Tosha Attending Clinician Unknown, Attending Attending Clinician Unavailab whitney GARCIA, ATTENDING Attending Clinician Unavailab whitney Wood [employer], Arabella Attending Clinician [phone] KNOW, DOES_NOT Admitting Clinician Unavailable [email or web address]_S Admitting Clinician UnavailJAIR Vitale Admitting Clinician UnavailJair Mcnair MD Admitting Clinician [phone] Payers Payer Name Policy Type Policy Number Effective Date Expirati on Date Source [facility] [id number] 2019 00:00:00 [place] [place] [id number] 2013 00:00:00 Problems Condition Name Condition Details Condition Category Status Onset Date Resolution Date Last Treatment Date Treating Clinician Comments Source No known active problems No known active problems Disease [facility] Allergies, Adverse Reactions, Alerts Allergy Name Allergy Type Status Severity Reaction(s) Onset Date Inactive Date Treating Clinician Comments Source azithrom ycin DA Active ME 08-18 00:00: 00 [facility] PCN DA Active ME ITCHING 08-18 00:00: 00 [facility] azithrom ycin DA Active ME SWELLING IN THE LIPS 08-18 00:00: 00 [facility] Penicill ins Propensi ty to adverse reaction s Active Swelling 03-14 00:00: 00 [facility] PENICILL INS Drug Class Active Swelling 03-14 00:00: 00 [facility] Penicill ins Propensi ty to adverse reaction s Active Swelling 03-14 00:00: 00 [facility] Azithrom ycin Propensi ty to adverse reaction s Active Unknown - See comments 02-17 00:00: 00 [facility] AZITHROM YCIN DRUG INGREDI Active Unknown-Cmnt 02-17 00:00: 00 [facility] Social History Social Habit Start Date Stop Date Quantity Comments Source Alcohol intake 2022-08-08 00:00:00 2022-08-08 00:00:00 Current non-drinker of alcohol (finding) [facility] Exposure to SARS-CoV-2 (event) 2022-07-22 00:00:00 2022-08-01 13:36:00 Not sure [facility] Tobacco use and exposure 2022-07-24 00:00:00 2022-07-24 00:00:00 Smokeless tobacco non-user [facility] Sex Assigned At 1955 00:00:00 1955 00:00:00 [facility] Smoking Status Start Date Stop Date Source Never smoked tobacco [facility] Medications Ordered Medication Name Filled Medication Name Start Date Stop Date Current Medication? Ordering Clinician Indication Dosage Frequency Signature (SIG) Comments Components Source carvedilol (COREG) 25 mg tablet 08-07 16:29: 08 Yes [id number] Take by mouth 2 (two) times daily with meals. [facility] esomeprazol e 40 mg capsule 08-07 16:29: 08 Yes [id number] 40mg Take 40 mg by mouth daily with breakfast. [facility] simvastatin (ZOCOR) 20 mg tablet 08-07 16:29: 08 Yes [id number] 20mg Take 20 mg by mouth at bedtime. [facility] losartan (COZAAR) 100 mg tablet 08-07 16:29: 08 Yes [id number] 100mg Take 100 mg by mouth daily. [facility] aspirin 81 mg chewable tablet 08-07 16:29: 08 Yes [id number] 81mg Take 81 mg by mouth daily. [facility] mesalamine 1.2 gram EC tablet 08-07 16:29: 08 Yes [id number] 1200mg Take 1,200 mg by mouth in the morning and 1,200 mg in the evening. [facility] metFORMIN (FORTAMET) 1,000 mg 24 hr tablet 08-07 16:29: 08 Yes [id number] 1000mg Take 1,000 mg by mouth daily with breakfast. [facility] liraglutide 0.6 mg/0.1 mL (18 mg/3 mL) injection 08-07 16:29: 08 Yes 1.8mg inject 1.8 mg under the skin in the morning. [facility] ERGOCALCIFE ROL, VITAMIN D2, (VITAMIN D ORAL) 08-07 16:29: 08 Yes Take by mouth. [facility] neomycin-po lymyxin-dex amethasone (MAXITROL) 3.5 mg/g-10,000 unit/g-0.1 % ophthalmic ointment 08-07 15:42: 00 08-07 15:53 :12 No PRN, Starting on Fri08/07/22 at 0942, Until Fri08/07/22 at 0953, Routine, Intra-op [facility] dexamethaso ne (DECADRON PHOSPHATE) injection 08-07 15:40: 00 08-07 15:53 :12 No PRN, Starting on Fri08/07/22 at 0940, Until Fri08/07/22 at 0953, Routine, Intra-op [facility] carbachoL (MIOSTAT) 0.01 % intraocular injection 08-07 15:36: 00 08-07 15:53 :12 No PRN, Starting on Fri08/07/22 at 0936, Until Fri08/07/22 at 0953, Routine, Intra-op [facility] chondroitin sulf-sod hyaluronate (DUOVISC VISCO ELASTIC) intraocular injection 08-07 15:29: 00 08-07 15:53 :12 No PRN, Starting on Fri08/07/22 at 0929, Until Fri08/07/22 at 0953, Routine, Intra-op [facility] water for irrigation irrigation solution 08-07 15:21: 00 08-07 15:53 :12 No PRN, Starting on Fri08/07/22 at 0921, Until Fri08/07/22 at 09, Routine, Intra-op [facility] eye block syringe 11 mL 08-07 15:18: 00 08-07 15:53 :12 No PRN, Starting on Fri08/07/22 at 0918, Until Fri08/07/22 at 09, Intra-op [facility] Hyaluronida se, Human Recomb. (HYLENEX) injection 08-07 15:17: 00 08-07 15:53 :12 No PRN, Starting on Fri08/07/22 at 0917, Until Fri08/07/22 at 09, Routine, Intra-op [facility] EPINEPHrine 1:1,000 (1 mg/mL) (ADRENALIN) injection 08-07 15:16: 00 08-07 15:53 :12 No PRN, Starting on Fri08/07/22 at 0916, Until Fri08/07/22 at 09, Routine, Intra-op [facility] balanced salt irrig soln comb1 (BSS PLUS) ophthalmic solution 500 mL bag 08-07 15:16: 00 08-07 15:53 :12 No PRN, Starting on Fri08/07/22 at 0916, Until Fri08/07/22 at 09, Routine, Intra-op [facility] cyclopent 1%-tropic 1%-phenyl 2.5%-ketor 0.5% (MYDRIATIC #5) ophthalmic solution syringe 0.5 mL 08-07 14:00: 00 08-07 14:01 :00 No .5mL 0.5 mL, Right Eye, ONCE, 1 dose, On Fri08/07/22 at 0800, Routine, DSU Pre-op [facility] lactated ringers IV infusion 1,000 mL 08-07 14:00: 00 08-07 14:02 :00 No 1000mL at 42 mL/hr, 1,000 mL, IV Infusion, ONCE, 1 dose, On Fri08/07/22 at 0800, Routine, DSU Pre-op [facility] neomycin-po lymyxin-dex amethasone (MAXITROL) 3.5 mg/g-10,000 unit/g-0.1 % ophthalmic ointment 2021-08 17:24: 00 07-24 17:46 :32 No PRN, Starting on Fri07/24/22 at 1124, Until Fri07/24/22 at 1146, Routine, Intra-op [facility] carbachoL (MIOSTAT) 0.01 % intraocular injection 2021-08 17:23: 00 07-24 17:46 :32 No PRN, Starting on Fri07/24/22 at 1123, Until Fri07/24/22 at 1146, Routine, Intra-op [facility] chondroitin sulf-sod hyaluronate (DUOVISC VISCO ELASTIC) intraocular injection 2021-08 17:14: 00 07-24 17:46 :32 No PRN, Starting on Fri07/24/22 at 1114, Until Fri07/24/22 at 1146, Routine, Intra-op [facility] EPINEPHrine 1:1,000 (1 mg/mL) (ADRENALIN) injection 2021-08 17:13: 00 07-24 17:46 :32 No PRN, Starting on Fri07/24/22 at 1113, Until Fri07/24/22 at 1146, Routine, Intra-op [facility] balanced salt irrig soln comb1 (BSS PLUS) ophthalmic solution 500 mL bag 2021-08 17:13: 00 07-24 17:46 :32 No PRN, Starting on Fri07/24/22 at 1113, Until Fri07/24/22 at 1146, Routine, Intra-op [facility] dexamethaso ne (DECADRON PHOSPHATE) injection 2021-08 17:12: 00 07-24 17:46 :32 No PRN, Starting on Fri07/24/22 at 1112, Until Fri07/24/22 at 1146, Routine, Intra-op [facility] water for irrigation irrigation solution 2021-08 17:07: 00 07-24 17:46 :32 No PRN, Starting on Fri07/24/22 at 1107, Until Fri07/24/22 at 1146, Routine, Intra-op [facility] Hyaluronida se, Human Recomb. (HYLENEX) injection 2021-08 17:02: 00 07-24 17:46 :32 No PRN, Starting on Fri07/24/22 at 1102, Until Fri07/24/22 at 1146, Routine, Intra-op [facility] eye block syringe 11 mL 2021-08 17:02: 00 07-24 17:46 :32 No PRN, Starting on Fri07/24/22 at 1102, Until Fri07/24/22 at 1146, Intra-op [facility] cyclopent 1%-tropic 1%-phenyl 2.5%-ketor 0.5% (MYDRIATIC #5) ophthalmic solution syringe 0.5 mL 2021-08 15:45: 00 07-24 15:43 :00 No .5mL 0.5 mL, Left Eye, ONCE, 1 dose, On Fri07/24/22 at 0945, Routine, DSU Pre-op [facility] lactated ringers IV infusion 1,000 mL 2021-08 15:45: 00 07-24 15:46 :00 No 1000mL at 42 mL/hr, 1,000 mL, IV Infusion, ONCE, 1 dose, On Fri07/24/22 at 0945, Routine, DSU Pre-op [facility] carvedilol (COREG) 25 mg tablet 2021-08 12:08: 28 Yes [id number] Take by mouth 2 (two) times daily with meals. [facility] esomeprazol e 40 mg capsule 2021-08 12:08: 28 Yes [id number] 40mg Take 40 mg by mouth daily with breakfast. [facility] simvastatin (ZOCOR) 20 mg tablet 2021-08 12:08: 28 Yes [id number] 20mg Take 20 mg by mouth at bedtime. [facility] losartan (COZAAR) 100 mg tablet 2021-08 12:08: 28 Yes [id number] 100mg Take 100 mg by mouth daily. [facility] aspirin 81 mg chewable tablet 2021-08 12:08: 28 Yes [id number] 81mg Take 81 mg by mouth daily. [facility] mesalamine 1.2 gram EC tablet 2021-08 12:08: 28 Yes [id number] 1200mg Take 1,200 mg by mouth in the morning and 1,200 mg in the evening. [facility] metFORMIN (FORTAMET) 1,000 mg 24 hr tablet 2021-08 12:08: 28 Yes [id number] 1000mg Take 1,000 mg by mouth daily with breakfast. [facility] liraglutide 0.6 mg/0.1 mL (18 mg/3 mL) injection 2021-08 12:08: 28 Yes 1.8mg inject 1.8 mg under the skin in the morning. [facility] ERGOCALCIFE ROL, VITAMIN D2, (VITAMIN D ORAL) 2021-08 12:08: 28 Yes Take by mouth. [facility] dexamethaso ne (DECADRON PHOSPHATE) injection 10 mg 2020-08 18:00: 00 06-11 17:08 :00 No 10mg 10 mg, Oral, ONCE, 1 dose, On Fri06/11/21 at 1200, STAT [facility] carvedilol (COREG) 25 mg tablet 10-19 19:13: 33 Yes [id number] Take by mouth 2 (two) times daily with meals. [facility] esomeprazol e (NEXIUM) 40 mg capsule 10-19 19:13: 33 Yes [id number] 40mg Take 40 mg by mouth daily with breakfast. [facility] simvastatin (ZOCOR) 20 mg tablet 10-19 19:13: 33 Yes [id number] 20mg Take 20 mg by mouth at bedtime. [facility] losartan (COZAAR) 100 mg tablet 10-19 19:13: 33 Yes [id number] 100mg Take 100 mg by mouth daily. [facility] aspirin 81 mg chewable tablet 10-19 19:13: 33 Yes [id number] 81mg Take 81 mg by mouth daily. [facility] mesalamine (LIALDA) 1.2 g EC tablet 10-19 19:13: 33 Yes [id number] 1200mg Take 1,200 mg by mouth daily with breakfast. [facility] Liraglutide (VICTOZA 3-TASHA) 0.6 mg/0.1 mL (18 mg/3 mL) injection 10-19 19:13: 33 Yes inject under the skin. [facility] ERGOCALCIFE ROL, VITAMIN D2, (VITAMIN D ORAL) 10-19 19:13: 33 Yes Take by mouth. [facility] carvedilol (COREG) 25 mg tablet 10-19 14:13: 33 Yes [id number] Take by mouth 2 (two) times daily with meals. [facility] esomeprazol e (NEXIUM) 40 mg capsule 10-19 14:13: 33 Yes [id number] 40mg Take 40 mg by mouth daily with breakfast. [facility] simvastatin (ZOCOR) 20 mg tablet 10-19 14:13: 33 Yes [id number] 20mg Take 20 mg by mouth at bedtime. [facility] losartan (COZAAR) 100 mg tablet 10-19 14:13: 33 Yes [id number] 100mg Take 100 mg by mouth daily. [facility] aspirin 81 mg chewable tablet 10-19 14:13: 33 Yes [id number] 81mg Take 81 mg by mouth daily. [facility] mesalamine (LIALDA) 1.2 g EC tablet 10-19 14:13: 33 Yes [id number] 1200mg Take 1,200 mg by mouth daily with breakfast. [facility] Liraglutide (VICTOZA 3-TASHA) 0.6 mg/0.1 mL (18 mg/3 mL) injection 10-19 14:13: 33 Yes inject under the skin. [facility] ERGOCALCIFE ROL, VITAMIN D2, (VITAMIN D ORAL) 10-19 14:13: 33 Yes Take by mouth. [facility] clotrimazol e (CLOTRIMAZO LE 3) 2 % vaginal cream 10-06 00:00: 00 10-14 05:59 :00 No [id number] 1{appli cator} Insert 1 Applicator into vagina at bedtime for 7 days. [facility] esomeprazol e (NEXIUM) 40 mg capsule 03-15 03:28: 51 Yes [id number] 40mg Take 40 mg by mouth daily with breakfast. [facility] mesalamine (LIALDA) 1.2 g EC tablet 03-15 03:28: 51 Yes [id number] 1200mg Take 1,200 mg by mouth daily with breakfast. [facility] carvedilol (COREG) 25 mg tablet 03-15 03:28: 14 Yes [id number] Take by mouth 2 (two) times daily with meals. [facility] simvastatin (ZOCOR) 20 mg tablet 03-15 03:28: 14 Yes [id number] 20mg Take 20 mg by mouth at bedtime. [facility] losartan (COZAAR) 100 mg tablet 03-15 03:28: 14 Yes [id number] 100mg Take 100 mg by mouth daily. [facility] aspirin 81 mg chewable tablet 03-15 03:28: 14 Yes [id number] 81mg Take 81 mg by mouth daily. [facility] Liraglutide (VICTOZA 3-TASHA) 0.6 mg/0.1 mL (18 mg/3 mL) injection 03-15 03:28: 14 Yes inject under the skin. [facility] metFORMIN (FORTAMET) 1,000 mg 24 hr tablet 10-20 23:01: 48 Yes [id number] 1000mg Take 1,000 mg by mouth daily with breakfast. [facility] metFORMIN (FORTAMET) 1,000 mg 24 hr tablet 10-20 18:01: 48 Yes [id number] 1000mg Take 1,000 mg by mouth daily with breakfast. [facility] bromphenira mine-pseudo ephedrine-D M (BROMFED DM) 2-30-10 mg/5 mL syrup 19 00:00: 00 10-31 04:59 :00 No [id number] 10mL Take 10 mL by mouth 4 (four) times daily as needed for Congestion /Allergies for up to 10 days. [facility] Liraglutide (VICTOZA 3-TASHA) 0.6 mg/0.1 mL (18 mg/3 mL) injection 09-03 01:09: 59 Yes inject under the skin. [facility] carvedilol (COREG) 25 mg tablet 09-03 01:09: 59 Yes [id number] Take by mouth 2 (two) times daily with meals. [facility] esomeprazol e (NEXIUM) 40 mg capsule 09-03 01:09: 59 Yes [id number] 40mg Take 40 mg by mouth daily with breakfast. [facility] simvastatin (ZOCOR) 20 mg tablet 09-03 01:09: 59 Yes [id number] 20mg Take 20 mg by mouth at bedtime. [facility] losartan (COZAAR) 100 mg tablet 09-03 01:09: 59 Yes [id number] 100mg Take 100 mg by mouth daily. [facility] aspirin 81 mg chewable tablet 09-03 01:09: 59 Yes [id number] 81mg Take 81 mg by mouth daily. [facility] mesalamine (LIALDA) 1.2 g EC tablet 09-03 01:09: 59 Yes [id number] 1200mg Take 1,200 mg by mouth daily with breakfast. [facility] FLAGYL ORAL 09-03 01:09: 59 09-02 00:00 :00 No None Entered [facility] fluconazole (DIFLUCAN) 150 mg tablet 09-03 01:08: 11 09-02 00:00 :00 No [id number] 150mg Take 150 mg by mouth once now. [facility] tiZANidine (ZANAFLEX) 2 mg capsule 09-03 01:08: 11 09-02 00:00 :00 No [id number] 2mg Take 2 mg by mouth 3 (three) times daily. [facility] fluconazole 150 mg tablet 09-02 00:00: 00 Yes TAKE 1 TABLET BY MOUTH ONCE NOW FOR 1 DOSE. [facility] XARELTO 20 mg tablet 08-19 00:00: 00 Yes 20mg Take 20 mg by mouth in the morning. [facility] montelukast 10 mg tablet 08-09 00:00: 00 Yes [facility] HYDROcodone -acetaminop hen 10-325 mg tablet 2018-08 00:00: 00 Yes TAKE ONE (1) TABLET(S) BY MOUTH EVERY SIX HOURS NEEDED. [facility] pregabalin 100 mg capsule 2018-08 00:00: 00 Yes TAKE ONE (1) CAPSULE(S) BY MOUTH THREE TIMES A DAY NEEDED. [facility] glimepiride 2 mg tablet 2018-08 00:00: 00 Yes TAKE ONE (1) TABLET(S) BY MOUTH TWICE A DAY. [facility] hydroCHLORO thiazide 12.5 mg tablet 2018-08 00:00: 00 Yes TAKE ONE (1) TABLET(S) BY MOUTH ONCE A DAY. [facility] hydroCHLORO thiazide 25 mg tablet 2018-08 00:00: 00 Yes 25mg Take 25 mg by mouth in the morning. [facility] amiodarone 200 mg tablet 2018-08 00:00: 00 Yes TAKE ONE-HALF (1/2) TABLET(S) BY MOUTH ONCE A DAY. [facility] ERGOCALCIFE ROL, VITAMIN D2, (VITAMIN D ORAL) 04-29 20:40: 37 Yes Take by mouth. [facility] gabapentin (NEURONTIN) 300 mg capsule 10-07 00:00: 09-02 00:00 :00 No [id number] 300mg Take 1 Cap by mouth 3 (three) times daily. [facility] hydralAZINE (APRESOLINE ) 25 mg tablet 09-11 00:00: 00 Yes [id number] [facility] amitriptyli ne (ELAVIL) 25 mg tablet 12-17 00:00: 00 Yes 25mg Take 1 Tab by mouth at bedtime. [facility] metFORMIN (FORTAMET) 1,000 mg 24 hr tablet 08-24 19:55: 05 Yes [id number] 1000mg Take 1,000 mg by mouth daily with breakfast. [facility] Vital Signs Vital Name Observation Time Observation Value Comments S ourcynthia Systolic blood pressure 2022-08-07 16:05:00 109 mm[Hg] [facility] Diastolic blood pressure 2022-08-07 16:05:00 81 mm[Hg] [facility] Heart rate 2022-08-07 16:05:00 66 /min [facility] Respiratory rate 2022-08-07 16:05:00 21 /min [facility] Oxygen saturation in Arterial blood by Pulse oximetry 2022-08-07 16:05:00 99 /min [facility] Body temperature 2022-08-07 15:46:00 36.39 [facility] Body weight 2022-08-01 19:00:00 108.41 kg [facility] BMI 2022-08-01 19:00:00 41.67 kg/m2 [facility] Systolic blood pressure 2022-08-07 14:05:00 114 mm[Hg] [facility] Diastolic blood pressure 2022-08-07 14:05:00 54 mm[Hg] [facility] Heart rate 2022-08-07 14:05:00 72 /min [facility] Body temperature 2022-08-07 14:05:00 36.39 [facility] Respiratory rate 2022-08-07 14:05:00 16 /min [facility] Oxygen saturation in Arterial blood by Pulse oximetry 2022-08-07 14:05:00 100 /min [facility] Body weight 2022-08-01 19:00:00 108.41 kg [facility] BMI 2022-08-01 19:00:00 41.67 kg/m2 [facility] Systolic blood pressure 2022-07-24 17:45:00 122 mm[Hg] [facility] Diastolic blood pressure 2022-07-24 17:45:00 61 mm[Hg] [facility] Heart rate 2022-07-24 17:45:00 55 /min [facility] Respiratory rate 2022-07-24 17:45:00 10 /min [facility] Oxygen saturation in Arterial blood by Pulse oximetry 2022-07-24 17:45:00 99 /min [facility] Body temperature 2022-07-24 17:28:00 36.11 Manda [facility] Body height 2022-07-17 19:00:00 161.3 cm [facility] Body weight 2022-07-17 19:00:00 108.41 kg [facility] BMI 2022-07-17 19:00:00 41.67 kg/m2 [facility] Systolic blood pressure 2022-07-24 15:41:00 131 mm[Hg] [facility] Diastolic blood pressure 2022-07-24 15:41:00 55 mm[Hg] [facility] Heart rate 2022-07-24 15:41:00 62 /min [facility] Body temperature 2022-07-24 15:41:00 36.67 Manda [facility] Respiratory rate 2022-07-24 15:41:00 16 /min [facility] Oxygen saturation in Arterial blood by Pulse oximetry 2022-07-24 15:41:00 100 /min [facility] Body height 2022-07-17 19:00:00 161.3 cm [facility] Body weight 2022-07-17 19:00:00 108.41 kg [facility] BMI 2022-07-17 19:00:00 41.67 kg/m2 [facility] Systolic blood pressure 2021-06-11 17:12:41 118 mm[Hg] [facility] Diastolic blood pressure 2021-06-11 17:12:41 57 mm[Hg] [facility] Heart rate 2021-06-11 17:12:41 70 /min [facility] Body temperature 2021-06-11 17:12:41 37.11 Manda [facility] Respiratory rate 2021-06-11 17:12:41 17 /min [facility] Oxygen saturation in Arterial blood by Pulse oximetry 2021-06-11 17:00:00 99 /min [facility] Body height 2021-06-11 16:22:00 160 cm [facility] Body weight 2021-06-11 16:22:00 120.203 kg [facility] BMI 2021-06-11 16:22:00 46.94 kg/m2 [facility] Systolic blood pressure 2020-10-19 19:18:00 163 mm[Hg] [facility] Diastolic blood pressure 2020-10-19 19:18:00 88 mm[Hg] [facility] Heart rate 2020-10-19 19:09:00 70 /min [facility] Body temperature 2020-10-19 19:09:00 37.11 Manda [facility] Respiratory rate 2020-10-19 19:09:00 20 /min [facility] Body height 2020-10-19 19:09:00 160 cm [facility] Body weight 2020-10-19 19:09:00 120.657 kg [facility] BMI 2020-10-19 19:09:00 47.12 kg/m2 [facility] Oxygen saturation in Arterial blood by Pulse oximetry 2020-10-19 19:09:00 96 /min [facility] Systolic blood pressure 2020-10-06 16:00:00 149 mm[Hg] [facility] Diastolic blood pressure 2020-10-06 16:00:00 82 mm[Hg] [facility] Heart rate 2020-10-06 15:55:00 74 /min [facility] Body temperature 2020-10-06 15:55:00 36.72 Manda [facility] Respiratory rate 2020-10-06 15:55:00 14 /min [facility] Body height 2020-10-06 15:55:00 160 cm [facility] Body weight 2020-10-06 15:55:00 76.114 kg [facility] BMI 2020-10-06 15:55:00 29.72 kg/m2 [facility] Oxygen saturation in Arterial blood by Pulse oximetry 2020-10-06 15:55:00 97 /min [facility] Systolic blood pressure 2020-03-15 03:24:00 172 mm[Hg] [facility] Diastolic blood pressure 2020-03-15 03:24:00 80 mm[Hg] [facility] Heart rate 2020-03-15 03:24:00 71 /min [facility] Body temperature 2020-03-15 03:24:00 37.17 [facility] Respiratory rate 2020-03-15 03:24:00 18 /min [facility] Body height 2020-03-15 03:24:00 160 cm [facility] Body weight 2020-03-15 03:24:00 122.471 kg [facility] BMI 2020-03-15 03:24:00 47.83 kg/m2 [facility] Oxygen saturation in Arterial blood by Pulse oximetry 2020-03-15 03:24:00 96 /min [facility] Systolic blood pressure 2020-03-15 03:24:00 172 mm[Hg] [facility] Diastolic blood pressure 2020-03-15 03:24:00 80 mm[Hg] [facility] Heart rate 2020-03-15 03:24:00 71 /min [facility] Body temperature 2020-03-15 03:24:00 37.17 [facility] Respiratory rate 2020-03-15 03:24:00 18 /min [facility] Body height 2020-03-15 03:24:00 160 cm [facility] Body weight 2020-03-15 03:24:00 122.471 kg [facility] BMI 2020-03-15 03:24:00 47.83 kg/m2 [facility] Oxygen saturation in Arterial blood by Pulse oximetry 2020-03-15 03:24:00 96 /min [facility] Systolic blood pressure 2019-10-21 23:05:00 154 mm[Hg] [facility] [facility] pressure 2019-10-21 23:05:00 75 mm[Hg] [facility] Heart rate 2019-10-21 22:59:00 71 /min [facility] Body temperature 2019-10-21 22:59:00 37.94 Manda [facility] Respiratory rate 2019-10-21 22:59:00 18 /min [facility] Body height 2019-10-21 22:59:00 160 cm [facility] Body weight 2019-10-21 22:59:00 121.745 kg [facility] BMI 2019-10-21 22:59:00 47.54 kg/m2 [facility] Oxygen saturation in Arterial blood by Pulse oximetry 2019-10-21 22:59:00 97 /min [facility] Systolic blood pressure 2019-10-21 23:05:00 154 mm[Hg] [facility] Diastolic blood pressure 2019-10-21 23:05:00 75 mm[Hg] [facility] Heart rate 2019-10-21 22:59:00 71 /min [facility] Body temperature 2019-10-21 22:59:00 37.94 Manda [facility] Respiratory rate 2019-10-21 22:59:00 18 /min [facility] Body height 2019-10-21 22:59:00 160 cm [facility] Body weight 2019-10-21 22:59:00 121.745 kg [facility] BMI 2019-10-21 22:59:00 47.54 kg/m2 [facility] Oxygen saturation in Arterial blood by Pulse oximetry 2019-10-21 22:59:00 97 /min [facility] Systolic blood pressure 2019-09-03 01:10:00 139 mm[Hg] [facility] Diastolic blood pressure 2019-09-03 01:10:00 71 mm[Hg] [facility] Heart rate 2019-09-03 01:10:00 76 /min [facility] Body temperature 2019-09-03 01:10:00 37.11 Manda [facility] Respiratory rate 2019-09-03 01:10:00 18 /min [facility] Body height 2019-09-03 01:10:00 160 cm [facility] Body weight 2019-09-03 01:10:00 121.655 kg [facility] BMI 2019-09-03 01:10:00 47.51 kg/m2 [facility] Oxygen saturation in Arterial blood by Pulse oximetry 2019-09-03 01:10:00 96 /min [facility] Procedures Procedure Date / Time Performed Performing Clinician Source AUTHORIZATION FOR RELEASE OF PHI 2022-08-30 06:01:00 Doctor Unassigned, [place] [facility] PHACOEMULSIFICATION OF CATARACT WITH INTRAOCULAR LENS IMPLANT 2022-08-07 15:06:00 Jair Guarddao [facility] POCT GLUCOSE (AUTOMATED) 2022-08-07 14:19:00 Jair Guardado [facility] POCT GLUCOSE (AUTOMATED) 2022-08-07 14:19:00 Jair Guardado [facility] PATIENT QUESTIONNAIRE 2022-08-07 06:01:00 Doctor Unassigned, [place] [facility] DAY SURGERY - ADC 2022-08-07 06:01:00 Doctor Unassigned, [place] [facility] CONSENT/REFUSAL FOR DIAGNOSI S AND TREATMENT 2022-08-06 14:48:47 Doctor Unassigned, [place] [facility] CONSENT/REFUSAL FOR DIAGNOSI S AND TREATMENT 2022-08-06 14:48:47 Doctor Unassigned, [place] [facility] ASSIGNMENT OF BENEFITS 2022-08-06 14:48:30 Doctor Unassigned, [place] [facility] ASSIGNMENT OF BENEFITS 2022-08-06 14:48:30 Doctor Unassigned, [place] [facility] PHACOEMULSIFICATION OF CATARACT WITH INTRAOCULAR LENS IMPLANT 2022-07-24 16:51:00 Jair Guardado [facility] POCT GLUCOSE (AUTOMATED) 2022-07-24 15:46:00 Jair Guardado [facility] POCT GLUCOSE (AUTOMATED) 2022-07-24 15:46:00 Jair Guardado [facility] PATIENT QUESTIONNAIRE 2022-07-24 06:01:00 Doctor Unassigned, [place] [facility] CONSENT/REFUSAL FOR DIAGNOSI S AND TREATMENT 2022-07-15 18:07:08 Doctor Unassigned, [place] [facility] NOTICE OF PRIVACY PRACTICES 2021-06-11 16:17:14 Doctor Unassigned, [place] [facility] POCT URINALYSIS 2020-10-06 16:08:00 Keila Evans [facility] CONSENT/REFUSAL FOR DIAGNOSI S AND TREATMENT 2020-03-15 03:09:37 Doctor Unassigned, [place] [facility] POCT GRP A STREP (MOLECULAR) 2019-10-22 00:49:00 Tosha Estrada [facility] MISCELLANEOUS SEND OUT TEST 2019-09-03 01:44:00 Arabella Wood [facility] POCT URINALYSIS 2019-09-03 01:09:00 Arabella Wood [facility] NOTICE OF BILLING PRACTICES FOR MEDICARE PATIENTS 2019-09-03 01:02:56 Doctor Unassigned, [place] [facility] PATIENT FINANCIAL POLICY 2019-09-03 01:02:17 Doctor Unassigned, [place] [facility] NO SHOW OR MISSED APPOINTMEN T POLICY ACKNOWLEDGEMENT 2019-09-03 01:01:54 Doctor Unassigned, [place] [facility] NOTICE OF PRIVACY PRACTICES 2019-09-03 01:01:36 Doctor Unassigned, [place] [facility] CONSENT/REFUSAL FOR DIAGNOSI S AND TREATMENT 2019-09-03 01:01:22 Doctor Unassigned, [place] [facility] ASSIGNMENT OF BENEFITS 2019-09-03 01:01:06 Doctor Unassigned, [place] [facility] Encounters Start Date/Time End Date/Time Encounter Type Admission Type Attending [facility] Care Department Encounter ID Source 2021-06-01 11:57:[address] [facility] [id number] [facility] 2020-08-18 13:00:00 Inpatient Nelson Serrano [facility] SRINI [id number] [facility] 2023-06-04 00:00:00 2023-06-04 00:00:00 Outpatient GC_GCBZW_Ka diyala_S PRIV [facility] [id number] [facility] 2022-08-30 00:00:00 2022-08-30 00:00:00 Orders Only Doctor Unassigned, [place] [facility] 1.2.840.114 350.1.13.10 4.2.7.2.686 [id number] [facility] 2022-08-07 07:56:00 2022-08-07 10:20:00 Outpatient R JAIR GUARDADO [facility] OPH [id number] [facility] 2022-08-07 07:56:00 2022-08-07 10:20:00 Hospital Encounter GeoJair [facility] 1.2.840.114 350.1.13.10 4.2.7.2.686 [id number] [facility] 2022-08-07 08:59:00 2022-08-07 09:33:00 Surgery GeoJair [facility] [place] 1.2.840.114 350.1.13.10 4.2.7.2.686 [id number] [facility] 2022-07-24 09:26:00 2022-07-24 12:08:00 Outpatient R JAIR GUARDADO [facility] OPH [id number] [facility] 2022-07-24 09:26:00 2022-07-24 12:08:00 Hospital Encounter Jair Guardado [facility] 1.2.840.114 350.1.13.10 4.2.7.2.686 [id number] [facility] 2022-07-24 10:42:00 2022-07-24 11:16:00 Surgery Jair Guardado [facility] 1.840.114 350.1.13.10 4.2.7.2.686 [id number] [facility] 2022-07-24 00:00:00 2022-07-24 00:00:00 Orders Only Doctor Unassigned, [place] [facility] 1.2840.114 350.1.13.10 4.2.7.2.686 [id number] [facility] 2022-07-15 11:45:00 2022-07-15 12:00:00 Baller Tender Visit Pob, Adc Lab [facility] 1..840.114 350.1.13.10 4.2.7.2.686 [id number] [facility] 2022-07-15 11:45:00 2022-07-15 11:45:00 Outpatient R JAIR GUARDADO [facility] [id number] [facility] 2022-07-15 00:00:00 2022-07-15 00:00:00 Orders Only Doctor Unassigned, [place] [facility] 1.2840.114 350.1.13.10 4.2.7.2.686 [id number] [facility] 2021-06-11 10:24:00 2021-06-11 11:15:00 Emergency X CHAIM BREAUX [facility] ERT [id number] [facility] 2021-06-11 10:24:00 2021-06-11 11:15:00 Emergency Chaim Breaux [facility] 1.840.114 350.1.13.10 4.2.7.2.686 [id number] [facility] 2021-06-11 00:00:00 2021-06-11 00:00:00 Orders Only Doctor Unassigned, [place] [facility] 1. 350.1.13.10 4.2.7.2.686 [id number] [facility] 2021-02-06 08:30:00 2021-02-06 08:30:00 Outpatient R VALDEMAR ASHLEY [facility] [id number] [facility] 2020-10-19 14:40:00 2020-10-19 14:40:00 Outpatient KRYSTINA RODRÍGUEZ [facility] [id number] [facility] 2020-10-19 13:58:42 2020-10-19 14:18:42 Urgent Care Provider, Krystina Schrader [facility] 1.114 350.1.13.10 4.2.7.2.686 [id number] [facility] 2020-10-10 00:00:00 2020-10-10 00:00:00 Telephone Provider, Rolf Urgent Guerline [facility] .114 350.1.13.10 4.2.7.2.686 [id number] [facility] 2020-10-06 09:45:56 2020-10-06 10:53:09 Urgent Care Provider, Rolf Urgent Keila Diaz [facility] .114 350.1.13.10 4.2.7.2.686 [id number] [facility] 2020-10-06 10:20:00 2020-10-06 10:20:00 Outpatient KEILA FLORES [facility] [id number] [facility] 2020-10-06 00:00:00 2020-10-06 00:00:00 Letter (Out) Doctor Unassigned, [place] [facility] 1.114 350.1.13.10 4.2.7.2.686 [id number] [facility] 2020-03-14 22:29:00 2020-03-14 23:42:00 Emergency Gloria Wilkins [facility] 1.2.840.114 350.1.13.10 4.2.7.2.686 [id number] [facility] 2020-03-14 22:29:00 2020-03-14 23:42:00 Emergency Gloria Wilkins [facility] 1.2.840.114 350.1.13.10 4.2.7.2.686 [id number] 2019-10-21 17:52:31 2019-10-21 18:49:49 Urgent Care Sean Tosha Unknown, Attending [facility] [place] 1.2.840.114 350.1.13.10 4.2.7.2.686 [id number] [facility] 2019-10-21 17:52:31 2019-10-21 18:49:49 Urgent Care Tosha Estrada [facility] [place] 1.2.840.114 350.1.13.10 4.2.7.2.686 [id number] 2019-10-21 18:00:00 2019-10-21 18:00:00 Outpatient R UNKNOWN, ATTENDING [facility] [id number] [facility] 2019-09-06 00:00:00 2019-09-06 00:00:00 Telephone Arabella Wood [facility] [place] 1.2.840.114 350.1.13.10 4.2.7.2.686 [id number] [facility] 2019-09-02 19:02:06 2019-09-03 13:29:25 Urgent Care Arabella Wood Unknown, Attending [facility] [place] 1.2.840.114 350.1.13.10 4.2.7.2.686 [id number] [facility] 2019-09-02 00:00:00 2019-09-02 00:00:00 Orders Only Doctor Unassigned, [place] [facility] 1.2.840.114 350.1.13.10 4.2.7.2.686 [id number] [facility] Results Test Description Test Time Test Comments Results Result Co mments Source [facility] GLUCOSE (AUTOMATED)2022-08-07 14:26:49* Test Item Value Reference Range Interpretation Comme nts POCT GLU (test code = 5532482442) 172 mg/dL 70-110 H Lab Interpretation (test cod e = 46082-4) Abnormal [facility] GLUCOSE (AUTOMATED)2022-07-24 15:50:30* Test Item Value Reference Range Interpretation Comme nts POCT GLU (test code = 8717075894) 229 mg/dL 70-110 H Lab Interpretation (test cod e = 53115-2) Abnormal [facility] GLUCOSE (AUTOMATED)2022-07-24 15:50:30* Test Item Value Reference Range Interpretation Comme nts POCT GLU (test code = 1516953732) 229 mg/dL 70-110 H Lab Interpretation (test cod e = 06453-9) Abnormal [facility] URINALYSIS W SPECIFIC [id number] 16:09:00* Test Item Value Reference Range Interpretation [...] internal controls Lab Interpretation (test code = 60573-9) [facility] [id number] 06:35:00* Test Item Value Reference Range Interpretation Comme nts GLUCOSE BEDSIDE TESTING (nilay t code = GLUBED) 186 mg/dL 70-110 H COVID 19 INHOUSE [id number] 13:48:00* Test Item Value Reference Range Interpretation Comme nts COVID 19 INHOUSE AG (test code = IIIAX65HZQC) NEGATIVE Negative 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 - XR CHEST 1 [id number] 13:38:00 [facility] 1955 Sex: F Name: ARMAND RUIZ [facility] ED : 1955 Age/S: 65 / F [address] Unit #: [id number] Loc: [place] [address] Phys: Nelson Beltran MD Acct: [id number] Dis Date: Status: PRE [facility] [place]ONE #: [phone] Exam Date: 08/18/2020 1323 FAX #: Reason: SURGERY EXAMS: CPT: [id number] XR CHEST 1 V 45717 Fluoro Time: DAP (Gy m2): Air Kerma [...] PAGE 1 Signed Report Name: ARMAND RUIZ : 1955 Age/S: 65 / F [address] Unit #: [id number] Loc: [place] [address] Phys: Nelson Beltran MD Acct: [id number] Dis Date: Status: PRE SD PHONE #: [phone] Exam Date: 08/18/2020 1323 FAX #: Reason: SURGERY EXAMS: CPT: [id number] XR CHEST 1 V 90576 Fluoro Time: DAP (Gy m2): Air Kerma (mGy): (Continued) Technologist: Alondra Bertrand, RT(R) Trnscb Date/Time: 08/18/2020 (3718) [email or web address] Orig Print D/T: S: 08/18/2020 (5132) PAGE 2 Signed ReportCBC W/AUTO [id number] 13:33:00* Test Item Value Reference Range Interpretation [...] = MDIFF) NO DIFF/SCN CRITERIA BASIC METABOLIC [id number] 13:33:00* Test Item Value Reference Range Interpretation [...] = CA) 9.2 MG/DL 8.5-10.1 N PROTHROMBIN [id number] 13:32:00* Test Item Value Reference Range Interpretation Comme nts PT PATIENT (test code = PTP) 12.4 SECONDS 9.3-12.9 N INTERNATIONAL NORMAL RATIO (test code = INR) 1.10 INR Unit 0.8-1.2 N THROMBOPLASTIN TIME [id number] 13:32:00* Test Item Value Reference Range Interpretation Comme nts THROMBOPLASTIN TIME PARTIAL (test code = PTT) 29.9 SECONDS 26-35 N POCT GRP A STREP (MOLECULAR)2019-10-22 00:59:00* Test Item Value Reference Range Interpretation Comme nts POCT GP A STREP (test code = 27667-0) neg Negative - Negative AUDIE (test code = AUDIE) accurate developme nt and interpretation of all internal controls Lab Interpretation (test code = 50347-4) Normal [facility] GRP A STREP (MOLECULAR)2019-10-22 00:59:00* Test Item Value Reference Range Interpretation Comme nts POCT GP A STREP (test code = 68855-2) neg Negative - Negative AUDIE (test code = AUDIE) accurate developme nt and interpretation of all internal controls Lab Interpretation (test code = 75252-4) Normal [facility]. Sendout- Vaginal Pathogen Panel by DNA Probe [id number] 19:58:00* Test Item Value Reference Range Interpretation Comme nts Miscellaneous Test (test code = 9842840122) See scanned report Performing Lab (test code = 2826011913) [facility] URINALYSIS W SPECIFIC [id number] 01:19:00* Test Item Value Reference Range Interpretation [...] internal controls Lab Interpretation (test code = 67817-1) [facility] W SPECIFIC [id number] 01:19:00* Test Item Value Reference Range Interpretation [...] internal controls Lab Interpretation (test code = 91257-6) Normal [facility] Notes Date/Time Note Provider Source 2020-08-21 09:29:00 [id number] [id number]:2 [id number] [facility] [address] [place] [id number] PATIENT NAME: ARMAND RUIZ ADMIT DATE: 08/21/20ACCOUNT NO: [id number] ROOM NO: AGE: 65 REPORT TYPE: OPERATIVE [...] subacromial decompression includingacromioplasty. SURGEON: Nelson Beltran MD POLE INSPECTOR: Dr. Roman. ANESTHESIA: General. COMPLICATIONS: None. ESTIMATED [...] MD WT: OP:L.NARAYAN/MUSA/NTSDD: 08/21/2020 09:29:20DT: 08/21/2020 10:04:50Conf#: [id number]/DID#: [id number] Authenticated by Nelson Beltran MD On 10/02/2020 07:31:27 AM PATIENT NAME: RUIZ,ARMAND at 0731 PATIENT NAME: ABRIL RUIZSIE [id number]:04:[id number] lable for patient [id number]:32:02 [facility]
[2023-11-19] MEDS ORDERED: MAGNESIUM CITRATE 300 ML BOT ONE (12:57)
--- NOTE | 2023-11-19 13:31 | RAD REPORT ---
EXAM DESCRIPTION: RAD - Abdomen Acute Series - 11/19/2023 1:24 pm CLINICAL HISTORY: CONSTIPATION COMPARISON: Chest Single View dated 10/22/2018; CHEST SINGLE VIEW dated 08/01/2013; CHEST SINGLE VIEW dated 01/10/2013; CHEST SINGLE VIEW dated 06/07/2012 FINDINGS: Lungs appear grossly clear. The heart is upper limit normal in size. There is no evidence of subdiaphragmatic free air. No bowel obstruction is seen. Moderate stool is seen retained in the colon on the right. IMPRESSION: Moderate right colonic constipation.
--- NOTE | 2023-11-19 14:29 | EDPHYS ---
Physician Documentation [facility] Name: Monique Franz Age: 68 yrs Sex: Female : 1955 Arrival Date: 11/19/2023 Time: 12:27 Bed 11 Private MD: ED Physician Ban Martin HPI: 11/18 13:12 This 68 yrs old Black Female presents to ER via Ambulatory with complaints of sp3 Constipation. 13:12 68-year-old female with history of diabetes, prior diverticulitis, hypertension now sp3 presents to the ED with chief complaint constipation. Patient states no significant bowel movement for the last 3 days and now she is "getting bits and pieces only". She is taking OTC MiraLAX and Colace with her meals as well as prune juice x 1 yesterday evening. She denies any other changes in her diet, vomiting, fever, back pain, chest pain, shortness of breath, or any other signs or symptoms on ROS at this time.. Historical: - Allergies: 12:39 Azithromycin; ko1 12:39 PENICILLINS; ko1 12:39 Zithromax; ko1 - Home Meds: 12:39 amiodarone 100 mg Oral tab 1 tab once daily [Active]; tramadol 50 mg Oral tab 1 tab ko1 every 6 hours [Active]; carvedilol 25 mg Oral tab 1 tab 2 times per day [Active]; aspirin 81 mg Oral chew 1 tab once daily [Active]; - PMHx: 12:39 Diabetes - NIDDM; Diverticulitis; Hyperlipidemia; Hypertension; ko1 - Immunization history:: Adult Immunizations up to date. - Infectious Disease History:: Denies. - Social history:: Smoking status: Patient denies any tobacco usage or history of. ROS: 13:13 Constitutional: Negative for fever, chills, and weight loss, Eyes: Negative for injury, sp3 pain, redness, and discharge, ENT: Negative for injury, pain, and discharge, Neck: Negative for injury, pain, and swelling, Cardiovascular: Negative for chest pain, palpitations, and edema, Respiratory: Negative for shortness of breath, cough, wheezing, and pleuritic chest pain, Back: Negative for injury and pain, MS/Extremity: Negative for injury and deformity, Skin: Negative for injury, rash, and discoloration, Neuro: Negative for headache, weakness, numbness, tingling, and seizure, Psych: Negative for depression, anxiety, suicide ideation, homicidal ideation, and hallucinations, Allergy/Immunology: Negative for hives, rash, and allergies, Endocrine: Negative for neck swelling, polydipsia, polyuria, polyphagia, and marked weight changes, Hematologic/Lymphatic: Negative for swollen nodes, abnormal bleeding, and unusual bruising, 13:13 All other systems are negative, Exam: 13:13 Constitutional: This is a well developed, well nourished patient who is awake, alert, sp3 and in no acute distress. Head/Face: Normocephalic, atraumatic. Eyes: Pupils equal round and reactive to light, extra-ocular motions intact. Lids and lashes normal. Conjunctiva and sclera are non-icteric and not injected. Cornea within normal limits. Periorbital areas with no swelling, redness, or edema. ENT: Nares patent. No nasal discharge, no septal abnormalities noted. External auditory canals are clear. Oropharynx with no redness, swelling, or masses, exudates, or evidence of obstruction, uvula midline. Mucous membranes moist. Neck: Trachea midline, no thyromegaly or masses palpated, and no cervical lymphadenopathy. Supple, full range of motion without nuchal rigidity, or vertebral point tenderness. No Meningismus. Chest/axilla: Normal chest wall appearance and motion. Nontender with no deformity. No lesions are appreciated. Cardiovascular: Regular rate and rhythm with a normal S1 and S2. No gallops, murmurs, or rubs. Normal PMI, no JVD. No pulse deficits. Respiratory: Lungs have equal breath sounds bilaterally, clear to auscultation and percussion. No rales, rhonchi or wheezes noted. No increased work of breathing, no retractions or nasal flaring. Back: No spinal tenderness. No costovertebral tenderness. Full range of motion. Skin: Warm, dry with normal turgor. Normal color with no rashes, no lesions, and no evidence of cellulitis. MS/ Extremity: Pulses equal, no cyanosis. Neurovascular intact. Full, normal range of motion. Neuro: Awake and alert, GCS 15, oriented to person, place, time, and situation. Cranial nerves II-XII grossly intact. Motor strength 5/5 in all extremities. Sensory grossly intact. Cerebellar exam normal. Normal gait. Psych: Awake, alert, with orientation to person, place and time. Behavior, mood, and affect are within normal limits. 13:13 Abdomen/GI: Soft nontender, nondistended with no peritoneal signs, rebound or guarding., Vital Signs: 12:34 BP 130 / 63; Pulse 79; Resp 16; Temp 97; Pulse Ox 100% ; ko1 14:09 BP 112 / 57; Pulse 61; Resp 15 S; Pulse Ox 97% on R/A; as6 MDM: 12:50 Patient medically screened. sp3 13:14 Data reviewed: vital signs, nurses notes, radiologic studies. ED course: 68-year-old sp3 female with constipation. I am not highly suspicious for bowel obstruction, ileus, or any other critical GI pathology. Will obtain obstruction series x-rays and I have administered magnesium citrate p.o. to assist with bowel clearance. Disposition likely discharge with PCP follow-up pending x-ray and effects of medication.. 14:28 ED course: X-ray demonstrates no infection. We will safely discharge her home and she sp3 may repeat the magnesium citrate as needed.. 11/18 12:51 Order name: Abdomen Acute Series XRAY; Complete Time: 13:34 sp3 Administered Medications: 13:03 Drug: Magnesium Citrate PO Liquid 300 ml PO once Route: PO; as6 14:39 Follow up: Response: No adverse reaction as6 Disposition Summary: 11/19/23 14:28 Discharge Ordered Notes: Location: Home sp3 Condition: Stable sp3 Diagnosis - Constipation sp3 Followup: sp3 - With: Private Physician - When: Upon discharge from the Emergency Department - Reason: Continuance of care Discharge Instructions: - Discharge Summary Sheet sp3 - Constipation, Adult sp3 Forms: - Medication Reconciliation Form sp3 - Thank You Letter sp3 - Antibiotic Education sp3 - Prescription Opioid Use sp3 - Patient Portal Instructions sp3 - Leadership Thank You Letter sp3 Signatures: Dispatcher [employer] EDBan Brambila MD MD sp3 Nolan Peña RN RN as6 Naima Sarmiento RN RN ko1
--- NOTE | 2023-11-19 14:29 | ER ---
Nurse's Notes [facility] Name: Monique Franz Age: 68 yrs Sex: Female : 1955 Arrival Date: 11/19/2023 Time: 12:27 Bed 11 Private MD: Diagnosis: Constipation Presentation: 11/18 12:34 Chief complaint: Patient states: started on ozempic for diabetes, has not had a bm in ko1 unknown amount of days. Feels bloated and indigestion. Coronavirus screen: At this time, the client does not indicate any symptoms associated with coronavirus-19. Ebola Screen: No symptoms or risks identified at this time. Initial Sepsis Screen: Does the patient meet any 2 criteria? No. Patient's initial sepsis screen is negative. Does the patient have a suspected source of infection? No. Patient's initial sepsis screen is negative. Risk Assessment: Do you want to hurt yourself or someone else? Patient reports no desire to harm self or others. Onset of symptoms is unknown. 12:34 Method Of Arrival: Ambulatory ko1 12:34 Acuity: VIC 4 ko1 Triage Assessment: 12:39 General: Appears in no apparent distress. uncomfortable, Behavior is calm, cooperative, ko1 appropriate for age. Pain: Complains of pain in abdomen. GI: Reports bloating, constipation, gaseousness, indigestion. Historical: - Allergies: 12:39 Azithromycin; ko1 12:39 PENICILLINS; ko1 12:39 Zithromax; ko1 - Home Meds: 12:39 amiodarone 100 mg Oral tab 1 tab once daily [Active]; tramadol 50 mg Oral tab 1 tab ko1 every 6 hours [Active]; carvedilol 25 mg Oral tab 1 tab 2 times per day [Active]; aspirin 81 mg Oral chew 1 tab once daily [Active]; - PMHx: 12:39 Diabetes - NIDDM; Diverticulitis; Hyperlipidemia; Hypertension; ko1 - Immunization history:: Adult Immunizations up to date. - Infectious Disease History:: Denies. - Social history:: Smoking status: Patient denies any tobacco usage or history of. Screenin:16 [facility] ED Fall Risk Assessment (Adult) History of falling in the last 3 months, as6 including since admission No falls in past 3 months (0 pts) Confusion or Disorientation No (0 pts) Intoxicated or Sedated No (0 pts) Impaired Gait No (0 pts) Mobility Assist Device Used No (0 pt) Altered Elimination No (0 pt) Score/Fall Risk Level 0 - 2 = Low Risk Oriented to surroundings, Maintained a safe environment, Educated pt \T\ family on fall prevention, incl call for assistance when getting out of bed, Assessed \T\ reinforced patient's understanding of fall precautions. Abuse screen: Denies threats or abuse. Denies injuries from another. Nutritional screening: No deficits noted. Tuberculosis screening: No symptoms or risk factors identified. Assessment: 13:00 General: Appears in no apparent distress. Behavior is calm, cooperative. Pain: as6 Complains of pain in abdomen Quality of pain is described as pressure. Neuro: Level of Consciousness is awake, alert, obeys commands, Oriented to person, place, time, situation. Cardiovascular: Capillary refill < 3 seconds Patient's skin is warm and dry. Respiratory: Respiratory effort is even, unlabored, Respiratory pattern is regular, symmetrical. GI: Abdomen is round Reports bloating, constipation, gaseousness. : No deficits noted. No signs and/or symptoms were reported regarding the genitourinary system. EENT: No deficits noted. No signs and/or symptoms were reported regarding the EENT system. Derm: Skin is intact, is healthy with good turgor. Musculoskeletal: Circulation, motion, and sensation intact. 14:10 Reassessment: Patient appears in no apparent distress at this time. Patient and/or as6 family updated on plan of care and expected duration. Pain level reassessed. Patient is alert, oriented x 3, equal unlabored respirations, skin warm/dry/pink. Vital Signs: 12:34 BP 130 / 63; Pulse 79; Resp 16; Temp 97; Pulse Ox 100% ; ko1 14:09 BP 112 / 57; Pulse 61; Resp 15 S; Pulse Ox 97% on R/A; as6 ED Course: 12:30 Patient arrived in ED. mg5 12:34 Juma Pablo MD is Attending Physician. ec2 12:39 Triage completed. ko1 12:39 Arm band placed on right wrist. Patient placed in an exam room, on a stretcher, on ko1 pulse oximetry, Patient notified of wait time. 12:43 Attending Physician role handed off by Juma Pablo MD sp3 12:43 Ban Martin MD is Attending Physician. sp3 12:43 Nolan Peña, RN is Primary Nurse. as6 13:17 Bed in low position. Call light in reach. as6 13:25 Abdomen Acute Series XRAY In Process Unspecified. EDMS 14:39 No provider procedures requiring assistance completed. Patient did not have IV access as6 during this emergency room visit. 14:40 Provided Education on: follow up . as6 Administered Medications: 13:03 Drug: Magnesium Citrate PO Liquid 300 ml PO once Route: PO; as6 14:39 Follow up: Response: No adverse reaction as6 Medication: 13:16 VIS not applicable for this client. as6 Outcome: 14:28 Discharge ordered by . sp3 14:39 Discharged to home ambulatory, as6 14:39 Condition: stable 14:39 Discharge instructions given to patient, Instructed on discharge instructions, follow up and referral plans. Demonstrated understanding of instructions, follow-up care, 14:40 Patient left the ED. as6 Signatures: Dispatcher [employer] EDPR Ban Martin MD MD sp3 Nolan Peña, RN RN as6 Naima Sarmiento RN RN ko1 Marielle Blanca mg5 Juma Pablo MD MD ec2
[2023-11-19 21:01] VITALS: TEMP 97
[2023-11-19 21:23] VITALS: BP 112/57; O2SAT 97
== END 2023-11-19 14:40 | disposition home or self-care (01) ==
LOC: ER 12:27
DX: K59.00 Constipation, unspecified (principal); Z88.1 Allergy status to other antibiotic agents; Z88.0 Allergy status to penicillin; Z79.82 Long term (current) use of aspirin
CPT/HCPCS: 74022

== ENCOUNTER 2023-12-08 20:30 | Emergency (ER) | payer OTHER ==
--- OUTSIDE RECORDS SUMMARY | 2023-12-08 20:35 | XMS REPORT | Continuity of Care Document ---
Author Name Unknown Address [address] [facility] [address] [place] [address] [facility] thconnect Address [address] [facility] [address] [place] [address] Care Team Providers Care Iron Pellet Tester Name Role Phone Bahman Gil Primary Care Physician [phone] Nelson Beltran Attending Clinician Unavailable [email or web address]_S Attending Clinician Unavaila ble Doctor Unassigned, [place] Attending Clinician U JAIR Colmenares Attending Clinician UnavailJair Mcnair MD Attending Clinician [phone] P[facility], [facility] Attending Clinician UnavailCHAIM Ruano Attending Clinician Unavailable Chaim Wang Attending Clinician [phone] ASHLEY ALDRICH Attending Clinician Unavailable KRYSTINA VICTORIA Attending Clinician Unavailable Provider, [facility] Attending Clinician Un available Krystina Wallis Attending Clinician [phone] Nathan APPLIQUE SEWER, Keila Attending Clinician [phone] KEILA EVANS Attending Clinician Unavailable Gloria Gottlieb Attending Clinician [phone] Sean APPLIQUE SEWER, Tosha Attending Clinician [phone] Unknown, Attending Attending Clinician Unavailab whitney GARCIA, ATTENDING Attending Clinician Unavailab whitney Wood APPLIQUE SEWER, Arabella Attending Clinician [phone] KNOW, DOES_NOT Admitting Clinician Unavailable [email or web address]_S Admitting Clinician UnavailJAIR Vitale Admitting Clinician UnavailJair Mcnair MD Admitting Clinician [phone] Payers Payer Name Policy Type Policy Number Effective Date Expirati on Date Source [facility] [id number] 2019 00:00:00 [place] [id number] 2013 00:00:00 Problems Condition Name Condition Details Condition Category Status Onset Date Resolution Date Last Treatment Date Treating Clinician Comments Source No known active problems No known active problems Disease [facility] Allergies, Adverse Reactions, Alerts Allergy Name Allergy Type Status Severity Reaction(s) Onset Date Inactive Date Treating Clinician Comments Source azithrom ycin DA Active PA 08-18 00:00: 00 [facility] PCN DA Active PA ITCHING 08-18 00:00: 00 [facility] azithrom ycin DA Active PA SWELLING IN THE LIPS 08-18 00:00: 00 [facility] Penicill ins Propensi ty to adverse reaction s Active Swelling 03-14 00:00: 00 [facility] PENICILL INS Drug Class Active Swelling 03-14 00:00: 00 [facility] Penicill ins Propensi ty to adverse reaction s Active Swelling 03-14 00:00: 00 [facility] Azithrom ycin Propensi ty to adverse reaction s Active Unknown - See comments 02-17 00:00: 00 [facility] AZITHROM YCIN DRUG INGREDI Active Unknown-Cmnt 02-17 00:00: 00 [facility] Social History Social Habit Start Date Stop Date Quantity Comments Source Alcohol intake 2022-08-08 00:00:00 2022-08-08 00:00:00 Current non-drinker of alcohol (finding) [facility] Exposure to SARS-CoV-2 (event) 2022-07-22 00:00:00 2022-08-01 13:36:00 Not sure [facility] Tobacco use and exposure 2022-07-24 00:00:00 2022-07-24 00:00:00 Smokeless tobacco non-user [facility] Sex Assigned At 1955 00:00:00 1955 00:00:00 [facility] Smoking Status Start Date Stop Date Source Never smoked tobacco [facility] Medications Ordered Medication Name Filled Medication Name Start Date Stop Date Current Medication? Ordering Clinician Indication Dosage Frequency Signature (SIG) Comments Components Source carvedilol (COREG) 25 mg tablet 08-07 16:29: 08 Yes [id number] Take by mouth 2 (two) times daily with meals. [facility] esomeprazol e 40 mg capsule 08-07 16:29: 08 Yes [id number] 40mg Take 40 mg by mouth daily with breakfast. [facility] simvastatin (ZOCOR) 20 mg tablet 08-07 16:29: 08 Yes [id number] 20mg Take 20 mg by mouth at bedtime. [facility] losartan (COZAAR) 100 mg tablet 08-07 16:29: 08 Yes [id number] 100mg Take 100 mg by mouth daily. [facility] aspirin 81 mg chewable tablet 08-07 16:29: 08 Yes [id number] 81mg Take 81 mg by mouth daily. [facility] mesalamine 1.2 gram EC tablet 08-07 16:29: 08 Yes [id number] 1200mg Take 1,200 mg by mouth in the morning and 1,200 mg in the evening. [facility] metFORMIN (FORTAMET) 1,000 mg 24 hr tablet 08-07 16:29: 08 Yes [id number] 1000mg Take 1,000 mg by mouth daily with breakfast. [facility] liraglutide 0.6 mg/0.1 mL (18 mg/3 mL) injection 08-07 16:29: 08 Yes 1.8mg inject 1.8 mg under the skin in the morning. [facility] ERGOCALCIFE ROL, VITAMIN D2, (VITAMIN D ORAL) 08-07 16:29: 08 Yes Take by mouth. [facility] neomycin-po lymyxin-dex amethasone (MAXITROL) 3.5 mg/g-10,000 unit/g-0.1 % ophthalmic ointment 08-07 15:42: 00 08-07 15:53 :12 No PRN, Starting on Fri08/07/22 at 0942, Until Fri08/07/22 at 0953, Routine, Intra-op [facility] dexamethaso ne (DECADRON PHOSPHATE) injection 08-07 15:40: 00 08-07 15:53 :12 No PRN, Starting on Fri08/07/22 at 0940, Until Fri08/07/22 at 0953, Routine, Intra-op [facility] carbachoL (MIOSTAT) 0.01 % intraocular injection 08-07 15:36: 00 08-07 15:53 :12 No PRN, Starting on Fri08/07/22 at 0936, Until Fri08/07/22 at 0953, Routine, Intra-op [facility] chondroitin sulf-sod hyaluronate (DUOVISC VISCO ELASTIC) intraocular injection 08-07 15:29: 00 08-07 15:53 :12 No PRN, Starting on Fri08/07/22 at 0929, Until Fri08/07/22 at 0953, Routine, Intra-op [facility] water for irrigation irrigation solution 08-07 15:21: 00 08-07 15:53 :12 No PRN, Starting on Fri08/07/22 at 0921, Until Fri08/07/22 at 09, Routine, Intra-op [facility] eye block syringe 11 mL 08-07 15:18: 00 08-07 15:53 :12 No PRN, Starting on Fri08/07/22 at 0918, Until Fri08/07/22 at 09, Intra-op [facility] Hyaluronida se, Human Recomb. (HYLENEX) injection 08-07 15:17: 00 08-07 15:53 :12 No PRN, Starting on Fri08/07/22 at 0917, Until Fri08/07/22 at 09, Routine, Intra-op [facility] EPINEPHrine 1:1,000 (1 mg/mL) (ADRENALIN) injection 08-07 15:16: 00 08-07 15:53 :12 No PRN, Starting on Fri08/07/22 at 0916, Until Fri08/07/22 at 09, Routine, Intra-op [facility] balanced salt irrig soln comb1 (BSS PLUS) ophthalmic solution 500 mL bag 08-07 15:16: 00 08-07 15:53 :12 No PRN, Starting on Fri08/07/22 at 0916, Until Fri08/07/22 at 09, Routine, Intra-op [facility] cyclopent 1%-tropic 1%-phenyl 2.5%-ketor 0.5% (MYDRIATIC #5) ophthalmic solution syringe 0.5 mL 08-07 14:00: 00 08-07 14:01 :00 No .5mL 0.5 mL, Right Eye, ONCE, 1 dose, On Fri08/07/22 at 0800, Routine, DSU Pre-op [facility] lactated ringers IV infusion 1,000 mL 08-07 14:00: 00 08-07 14:02 :00 No 1000mL at 42 mL/hr, 1,000 mL, IV Infusion, ONCE, 1 dose, On Fri08/07/22 at 0800, Routine, DSU Pre-op [facility] neomycin-po lymyxin-dex amethasone (MAXITROL) 3.5 mg/g-10,000 unit/g-0.1 % ophthalmic ointment 2021-08 17:24: 00 07-24 17:46 :32 No PRN, Starting on Fri07/24/22 at 1124, Until Fri07/24/22 at 1146, Routine, Intra-op [facility] carbachoL (MIOSTAT) 0.01 % intraocular injection 2021-08 17:23: 00 07-24 17:46 :32 No PRN, Starting on Fri07/24/22 at 1123, Until Fri07/24/22 at 1146, Routine, Intra-op [facility] chondroitin sulf-sod hyaluronate (DUOVISC VISCO ELASTIC) intraocular injection 2021-08 17:14: 00 07-24 17:46 :32 No PRN, Starting on Fri07/24/22 at 1114, Until Fri07/24/22 at 1146, Routine, Intra-op [facility] EPINEPHrine 1:1,000 (1 mg/mL) (ADRENALIN) injection 2021-08 17:13: 00 07-24 17:46 :32 No PRN, Starting on Fri07/24/22 at 1113, Until Fri07/24/22 at 1146, Routine, Intra-op [facility] balanced salt irrig soln comb1 (BSS PLUS) ophthalmic solution 500 mL bag 2021-08 17:13: 00 07-24 17:46 :32 No PRN, Starting on Fri07/24/22 at 1113, Until Fri07/24/22 at 1146, Routine, Intra-op [facility] dexamethaso ne (DECADRON PHOSPHATE) injection 2021-08 17:12: 00 07-24 17:46 :32 No PRN, Starting on Fri07/24/22 at 1112, Until Fri07/24/22 at 1146, Routine, Intra-op [facility] water for irrigation irrigation solution 2021-08 17:07: 00 07-24 17:46 :32 No PRN, Starting on Fri07/24/22 at 1107, Until Fri07/24/22 at 1146, Routine, Intra-op [facility] Hyaluronida se, Human Recomb. (HYLENEX) injection 2021-08 17:02: 00 07-24 17:46 :32 No PRN, Starting on Fri07/24/22 at 1102, Until Fri07/24/22 at 1146, Routine, Intra-op [facility] eye block syringe 11 mL 2021-08 17:02: 00 07-24 17:46 :32 No PRN, Starting on Fri07/24/22 at 1102, Until Fri07/24/22 at 1146, Intra-op [facility] cyclopent 1%-tropic 1%-phenyl 2.5%-ketor 0.5% (MYDRIATIC #5) ophthalmic solution syringe 0.5 mL 2021-08 15:45: 00 07-24 15:43 :00 No .5mL 0.5 mL, Left Eye, ONCE, 1 dose, On Fri07/24/22 at 0945, Routine, DSU Pre-op [facility] lactated ringers IV infusion 1,000 mL 2021-08 15:45: 00 07-24 15:46 :00 No 1000mL at 42 mL/hr, 1,000 mL, IV Infusion, ONCE, 1 dose, On Fri07/24/22 at 0945, Routine, DSU Pre-op [facility] carvedilol (COREG) 25 mg tablet 2021-08 12:08: 28 Yes [id number] Take by mouth 2 (two) times daily with meals. [facility] esomeprazol e 40 mg capsule 2021-08 12:08: 28 Yes [id number] 40mg Take 40 mg by mouth daily with breakfast. [facility] simvastatin (ZOCOR) 20 mg tablet 2021-08 12:08: 28 Yes [id number] 20mg Take 20 mg by mouth at bedtime. [facility] losartan (COZAAR) 100 mg tablet 2021-08 12:08: 28 Yes [id number] 100mg Take 100 mg by mouth daily. [facility] aspirin 81 mg chewable tablet 2021-08 12:08: 28 Yes [id number] 81mg Take 81 mg by mouth daily. [facility] mesalamine 1.2 gram EC tablet 2021-08 12:08: 28 Yes [id number] 1200mg Take 1,200 mg by mouth in the morning and 1,200 mg in the evening. [facility] metFORMIN (FORTAMET) 1,000 mg 24 hr tablet 2021-08 12:08: 28 Yes [id number] 1000mg Take 1,000 mg by mouth daily with breakfast. [facility] liraglutide 0.6 mg/0.1 mL (18 mg/3 mL) injection 2021-08 12:08: 28 Yes 1.8mg inject 1.8 mg under the skin in the morning. [facility] ERGOCALCIFE ROL, VITAMIN D2, (VITAMIN D ORAL) 2021-08 12:08: 28 Yes Take by mouth. [facility] dexamethaso ne (DECADRON PHOSPHATE) injection 10 mg 2020-08 18:00: 00 06-11 17:08 :00 No 10mg 10 mg, Oral, ONCE, 1 dose, On Fri06/11/21 at 1200, STAT [facility] carvedilol (COREG) 25 mg tablet 10-19 19:13: 33 Yes [id number] Take by mouth 2 (two) times daily with meals. [facility] esomeprazol e (NEXIUM) 40 mg capsule 10-19 19:13: 33 Yes [id number] 40mg Take 40 mg by mouth daily with breakfast. [facility] simvastatin (ZOCOR) 20 mg tablet 10-19 19:13: 33 Yes [id number] 20mg Take 20 mg by mouth at bedtime. [facility] losartan (COZAAR) 100 mg tablet 10-19 19:13: 33 Yes [id number] 100mg Take 100 mg by mouth daily. [facility] aspirin 81 mg chewable tablet 10-19 19:13: 33 Yes [id number] 81mg Take 81 mg by mouth daily. [facility] mesalamine (LIALDA) 1.2 g EC tablet 10-19 19:13: 33 Yes [id number] 1200mg Take 1,200 mg by mouth daily with breakfast. [facility] Liraglutide (VICTOZA 3-TASHA) 0.6 mg/0.1 mL (18 mg/3 mL) injection 10-19 19:13: 33 Yes inject under the skin. [facility] ERGOCALCIFE ROL, VITAMIN D2, (VITAMIN D ORAL) 10-19 19:13: 33 Yes Take by mouth. [facility] carvedilol (COREG) 25 mg tablet 10-19 14:13: 33 Yes [id number] Take by mouth 2 (two) times daily with meals. [facility] esomeprazol e (NEXIUM) 40 mg capsule 10-19 14:13: 33 Yes [id number] 40mg Take 40 mg by mouth daily with breakfast. [facility] simvastatin (ZOCOR) 20 mg tablet 10-19 14:13: 33 Yes [id number] 20mg Take 20 mg by mouth at bedtime. [facility] losartan (COZAAR) 100 mg tablet 10-19 14:13: 33 Yes [id number] 100mg Take 100 mg by mouth daily. [facility] aspirin 81 mg chewable tablet 10-19 14:13: 33 Yes [id number] 81mg Take 81 mg by mouth daily. [facility] mesalamine (LIALDA) 1.2 g EC tablet 10-19 14:13: 33 Yes [id number] 1200mg Take 1,200 mg by mouth daily with breakfast. [facility] Liraglutide (VICTOZA 3-TASHA) 0.6 mg/0.1 mL (18 mg/3 mL) injection 10-19 14:13: 33 Yes inject under the skin. [facility] ERGOCALCIFE ROL, VITAMIN D2, (VITAMIN D ORAL) 10-19 14:13: 33 Yes Take by mouth. [facility] clotrimazol e (CLOTRIMAZO LE 3) 2 % vaginal cream 10-06 00:00: 00 10-14 05:59 :00 No [id number] 1{appli cator} Insert 1 Applicator into vagina at bedtime for 7 days. [facility] esomeprazol e (NEXIUM) 40 mg capsule 03-15 03:28: 51 Yes [id number] 40mg Take 40 mg by mouth daily with breakfast. [facility] mesalamine (LIALDA) 1.2 g EC tablet 03-15 03:28: 51 Yes [id number] 1200mg Take 1,200 mg by mouth daily with breakfast. [facility] carvedilol (COREG) 25 mg tablet 03-15 03:28: 14 Yes [id number] Take by mouth 2 (two) times daily with meals. [facility] simvastatin (ZOCOR) 20 mg tablet 03-15 03:28: 14 Yes [id number] 20mg Take 20 mg by mouth at bedtime. [facility] losartan (COZAAR) 100 mg tablet 03-15 03:28: 14 Yes [id number] 100mg Take 100 mg by mouth daily. [facility] aspirin 81 mg chewable tablet 03-15 03:28: 14 Yes [id number] 81mg Take 81 mg by mouth daily. [facility] Liraglutide (VICTOZA 3-TASHA) 0.6 mg/0.1 mL (18 mg/3 mL) injection 03-15 03:28: 14 Yes inject under the skin. [facility] metFORMIN (FORTAMET) 1,000 mg 24 hr tablet 10-20 23:01: 48 Yes [id number] 1000mg Take 1,000 mg by mouth daily with breakfast. [facility] metFORMIN (FORTAMET) 1,000 mg 24 hr tablet 10-20 18:01: 48 Yes [id number] 1000mg Take 1,000 mg by mouth daily with breakfast. [facility] bromphenira mine-pseudo ephedrine-D M (BROMFED DM) 2-30-10 mg/5 mL syrup 19 00:00: 00 10-31 04:59 :00 No [id number] 10mL Take 10 mL by mouth 4 (four) times daily as needed for Congestion /Allergies for up to 10 days. [facility] Liraglutide (VICTOZA 3-TASHA) 0.6 mg/0.1 mL (18 mg/3 mL) injection 09-03 01:09: 59 Yes inject under the skin. [facility] carvedilol (COREG) 25 mg tablet 09-03 01:09: 59 Yes [id number] Take by mouth 2 (two) times daily with meals. [facility] esomeprazol e (NEXIUM) 40 mg capsule 09-03 01:09: 59 Yes [id number] 40mg Take 40 mg by mouth daily with breakfast. [facility] simvastatin (ZOCOR) 20 mg tablet 09-03 01:09: 59 Yes [id number] 20mg Take 20 mg by mouth at bedtime. [facility] losartan (COZAAR) 100 mg tablet 09-03 01:09: 59 Yes [id number] 100mg Take 100 mg by mouth daily. [facility] aspirin 81 mg chewable tablet 09-03 01:09: 59 Yes [id number] 81mg Take 81 mg by mouth daily. [facility] mesalamine (LIALDA) 1.2 g EC tablet 09-03 01:09: 59 Yes [id number] 1200mg Take 1,200 mg by mouth daily with breakfast. [facility] FLAGYL ORAL 09-03 01:09: 59 09-02 00:00 :00 No None Entered [facility] fluconazole (DIFLUCAN) 150 mg tablet 09-03 01:08: 11 09-02 00:00 :00 No [id number] 150mg Take 150 mg by mouth once now. [facility] tiZANidine (ZANAFLEX) 2 mg capsule 09-03 01:08: 11 09-02 00:00 :00 No [id number] 2mg Take 2 mg by mouth 3 (three) times daily. [facility] fluconazole 150 mg tablet 09-02 00:00: 00 Yes TAKE 1 TABLET BY MOUTH ONCE NOW FOR 1 DOSE. [facility] XARELTO 20 mg tablet 08-19 00:00: 00 Yes 20mg Take 20 mg by mouth in the morning. [facility] montelukast 10 mg tablet 08-09 00:00: 00 Yes [facility] HYDROcodone -acetaminop hen 10-325 mg tablet 2018-08 00:00: 00 Yes TAKE ONE (1) TABLET(S) BY MOUTH EVERY SIX HOURS NEEDED. [facility] pregabalin 100 mg capsule 2018-08 00:00: 00 Yes TAKE ONE (1) CAPSULE(S) BY MOUTH THREE TIMES A DAY NEEDED. [facility] glimepiride 2 mg tablet 2018-08 00:00: 00 Yes TAKE ONE (1) TABLET(S) BY MOUTH TWICE A DAY. [facility] hydroCHLORO thiazide 12.5 mg tablet 2018-08 00:00: 00 Yes TAKE ONE (1) TABLET(S) BY MOUTH ONCE A DAY. [facility] hydroCHLORO thiazide 25 mg tablet 2018-08 00:00: 00 Yes 25mg Take 25 mg by mouth in the morning. [facility] amiodarone 200 mg tablet 2018-08 00:00: 00 Yes TAKE ONE-HALF (1/2) TABLET(S) BY MOUTH ONCE A DAY. [facility] ERGOCALCIFE ROL, VITAMIN D2, (VITAMIN D ORAL) 04-29 20:40: 37 Yes Take by mouth. [facility] gabapentin (NEURONTIN) 300 mg capsule 10-07 00:00: 09-02 00:00 :00 No [id number] 300mg Take 1 Cap by mouth 3 (three) times daily. [facility] hydralAZINE (APRESOLINE ) 25 mg tablet 09-11 00:00: 00 Yes [id number] [facility] amitriptyli ne (ELAVIL) 25 mg tablet 12-17 00:00: 00 Yes 25mg Take 1 Tab by mouth at bedtime. [facility] metFORMIN (FORTAMET) 1,000 mg 24 hr tablet 08-24 19:55: 05 Yes [id number] 1000mg Take 1,000 mg by mouth daily with breakfast. [facility] Vital Signs Vital Name Observation Time Observation Value Comments S ourcynthia Systolic blood pressure 2022-08-07 16:05:00 109 mm[Hg] [facility] Diastolic blood pressure 2022-08-07 16:05:00 81 mm[Hg] [facility] Heart rate 2022-08-07 16:05:00 66 /min [facility] Respiratory rate 2022-08-07 16:05:00 21 /min [facility] Oxygen saturation in Arterial blood by Pulse oximetry 2022-08-07 16:05:00 99 /min [facility] Body temperature 2022-08-07 15:46:00 36.39 [facility] Body weight 2022-08-01 19:00:00 108.41 kg [facility] BMI 2022-08-01 19:00:00 41.67 kg/m2 [facility] Systolic blood pressure 2022-08-07 14:05:00 114 mm[Hg] [facility] Diastolic blood pressure 2022-08-07 14:05:00 54 mm[Hg] [facility] Heart rate 2022-08-07 14:05:00 72 /min [facility] Body temperature 2022-08-07 14:05:00 36.39 [facility] Respiratory rate 2022-08-07 14:05:00 16 /min [facility] Oxygen saturation in Arterial blood by Pulse oximetry 2022-08-07 14:05:00 100 /min [facility] Body weight 2022-08-01 19:00:00 108.41 kg [facility] BMI 2022-08-01 19:00:00 41.67 kg/m2 [facility] Systolic blood pressure 2022-07-24 17:45:00 122 mm[Hg] [facility] Diastolic blood pressure 2022-07-24 17:45:00 61 mm[Hg] [facility] Heart rate 2022-07-24 17:45:00 55 /min [facility] Respiratory rate 2022-07-24 17:45:00 10 /min [facility] Oxygen saturation in Arterial blood by Pulse oximetry 2022-07-24 17:45:00 99 /min [facility] Body temperature 2022-07-24 17:28:00 36.11 Manda [facility] Body height 2022-07-17 19:00:00 161.3 cm [facility] Body weight 2022-07-17 19:00:00 108.41 kg [facility] BMI 2022-07-17 19:00:00 41.67 kg/m2 [facility] Systolic blood pressure 2022-07-24 15:41:00 131 mm[Hg] [facility] Diastolic blood pressure 2022-07-24 15:41:00 55 mm[Hg] [facility] Heart rate 2022-07-24 15:41:00 62 /min [facility] Body temperature 2022-07-24 15:41:00 36.67 Manda [facility] Respiratory rate 2022-07-24 15:41:00 16 /min [facility] Oxygen saturation in Arterial blood by Pulse oximetry 2022-07-24 15:41:00 100 /min [facility] Body height 2022-07-17 19:00:00 161.3 cm [facility] Body weight 2022-07-17 19:00:00 108.41 kg [facility] BMI 2022-07-17 19:00:00 41.67 kg/m2 [facility] Systolic blood pressure 2021-06-11 17:12:41 118 mm[Hg] [facility] Diastolic blood pressure 2021-06-11 17:12:41 57 mm[Hg] [facility] Heart rate 2021-06-11 17:12:41 70 /min [facility] Body temperature 2021-06-11 17:12:41 37.11 Manda [facility] Respiratory rate 2021-06-11 17:12:41 17 /min [facility] Oxygen saturation in Arterial blood by Pulse oximetry 2021-06-11 17:00:00 99 /min [facility] Body height 2021-06-11 16:22:00 160 cm [facility] Body weight 2021-06-11 16:22:00 120.203 kg [facility] BMI 2021-06-11 16:22:00 46.94 kg/m2 [facility] Systolic blood pressure 2020-10-19 19:18:00 163 mm[Hg] [facility] Diastolic blood pressure 2020-10-19 19:18:00 88 mm[Hg] [facility] Heart rate 2020-10-19 19:09:00 70 /min [facility] Body temperature 2020-10-19 19:09:00 37.11 Manda [facility] Respiratory rate 2020-10-19 19:09:00 20 /min [facility] Body height 2020-10-19 19:09:00 160 cm [facility] Body weight 2020-10-19 19:09:00 120.657 kg [facility] BMI 2020-10-19 19:09:00 47.12 kg/m2 [facility] Oxygen saturation in Arterial blood by Pulse oximetry 2020-10-19 19:09:00 96 /min [facility] Systolic blood pressure 2020-10-06 16:00:00 149 mm[Hg] [facility] Diastolic blood pressure 2020-10-06 16:00:00 82 mm[Hg] [facility] Heart rate 2020-10-06 15:55:00 74 /min [facility] Body temperature 2020-10-06 15:55:00 36.72 Manda [facility] Respiratory rate 2020-10-06 15:55:00 14 /min [facility] Body height 2020-10-06 15:55:00 160 cm [facility] Body weight 2020-10-06 15:55:00 76.114 kg [facility] BMI 2020-10-06 15:55:00 29.72 kg/m2 [facility] Oxygen saturation in Arterial blood by Pulse oximetry 2020-10-06 15:55:00 97 /min [facility] Systolic blood pressure 2020-03-15 03:24:00 172 mm[Hg] [facility] Diastolic blood pressure 2020-03-15 03:24:00 80 mm[Hg] [facility] Heart rate 2020-03-15 03:24:00 71 /min [facility] Body temperature 2020-03-15 03:24:00 37.17 [facility] Respiratory rate 2020-03-15 03:24:00 18 /min [facility] Body height 2020-03-15 03:24:00 160 cm [facility] Body weight 2020-03-15 03:24:00 122.471 kg [facility] BMI 2020-03-15 03:24:00 47.83 kg/m2 [facility] Oxygen saturation in Arterial blood by Pulse oximetry 2020-03-15 03:24:00 96 /min [facility] Systolic blood pressure 2020-03-15 03:24:00 172 mm[Hg] [facility] Diastolic blood pressure 2020-03-15 03:24:00 80 mm[Hg] [facility] Heart rate 2020-03-15 03:24:00 71 /min [facility] Body temperature 2020-03-15 03:24:00 37.17 [facility] Respiratory rate 2020-03-15 03:24:00 18 /min [facility] Body height 2020-03-15 03:24:00 160 cm [facility] Body weight 2020-03-15 03:24:00 122.471 kg [facility] BMI 2020-03-15 03:24:00 47.83 kg/m2 [facility] Oxygen saturation in Arterial blood by Pulse oximetry 2020-03-15 03:24:00 96 /min [facility] Systolic blood pressure 2019-10-21 23:05:00 154 mm[Hg] [facility] [facility] Di[facility] blood pressure 2019-10-21 23:05:00 75 mm[Hg] [facility] Heart rate 2019-10-21 22:59:00 71 /min [facility] Body temperature 2019-10-21 22:59:00 37.94 Manda [facility] Respiratory rate 2019-10-21 22:59:00 18 /min [facility] Body height 2019-10-21 22:59:00 160 cm [facility] Body weight 2019-10-21 22:59:00 121.745 kg [facility] BMI 2019-10-21 22:59:00 47.54 kg/m2 [facility] Oxygen saturation in Arterial blood by Pulse oximetry 2019-10-21 22:59:00 97 /min [facility] Systolic blood pressure 2019-10-21 23:05:00 154 mm[Hg] [facility] Diastolic blood pressure 2019-10-21 23:05:00 75 mm[Hg] [facility] Heart rate 2019-10-21 22:59:00 71 /min Un[facility] Body temperature 2019-10-21 22:59:00 37.94 Manda [facility] Respiratory rate 2019-10-21 22:59:00 18 /min [facility] Body height 2019-10-21 22:59:00 160 cm [facility] Body weight 2019-10-21 22:59:00 121.745 kg [facility] BMI 2019-10-21 22:59:00 47.54 kg/m2 [facility] Oxygen saturation in Arterial blood by Pulse oximetry 2019-10-21 22:59:00 97 /min [facility] Systolic blood pressure 2019-09-03 01:10:00 139 mm[Hg] [facility] Diastolic blood pressure 2019-09-03 01:10:00 71 mm[Hg] [facility] Heart rate 2019-09-03 01:10:00 76 /min [facility] Body temperature 2019-09-03 01:10:00 37.11 Manda [facility] Respiratory rate 2019-09-03 01:10:00 18 /min [facility] Body height 2019-09-03 01:10:00 160 cm [facility] Body weight 2019-09-03 01:10:00 121.655 kg [facility] BMI 2019-09-03 01:10:00 47.51 kg/m2 [facility] Oxygen saturation in Arterial blood by Pulse oximetry 2019-09-03 01:10:00 96 /min [facility] Procedures Procedure Date / Time Performed Performing Clinician Source AUTHORIZATION FOR RELEASE OF PHI 2022-08-30 06:01:00 Doctor Unassigned, [place] [facility] PHACOEMULSIFICATION OF CATARACT WITH INTRAOCULAR LENS IMPLANT 2022-08-07 15:06:00 Jair Guardado [facility] POCT GLUCOSE (AUTOMATED) 2022-08-07 14:19:00 Jair Guardado [facility] POCT GLUCOSE (AUTOMATED) 2022-08-07 14:19:00 Jair Guardado [facility] PATIENT QUESTIONNAIRE 2022-08-07 06:01:00 Doctor Unassigned, [place] [facility] DAY SURGERY - ADC 2022-08-07 06:01:00 Doctor Unassigned, [place] [facility] CONSENT/REFUSAL FOR DIAGNOSI S AND TREATMENT 2022-08-06 14:48:47 Doctor Unassigned, [place] [facility] CONSENT/REFUSAL FOR DIAGNOSI S AND TREATMENT 2022-08-06 14:48:47 Doctor Unassigned, [place] [facility] ASSIGNMENT OF BENEFITS 2022-08-06 14:48:30 Doctor Unassigned, [place] [facility] ASSIGNMENT OF BENEFITS 2022-08-06 14:48:30 Doctor Unassigned, [place] [facility] PHACOEMULSIFICATION OF CATARACT WITH INTRAOCULAR LENS IMPLANT 2022-07-24 16:51:00 Jair Guardado [facility] POCT GLUCOSE (AUTOMATED) 2022-07-24 15:46:00 Jair Guardado [facility] POCT GLUCOSE (AUTOMATED) 2022-07-24 15:46:00 Jair Guardado [facility] PATIENT QUESTIONNAIRE 2022-07-24 06:01:00 Doctor Unassigned, [place] [facility] CONSENT/REFUSAL FOR DIAGNOSI S AND TREATMENT 2022-07-15 18:07:08 Doctor Unassigned, [place] [facility] NOTICE OF PRIVACY PRACTICES 2021-06-11 16:17:14 Doctor Unassigned, [place] [facility] POCT URINALYSIS 2020-10-06 16:08:00 Keila Evans [facility] CONSENT/REFUSAL FOR DIAGNOSI S AND TREATMENT 2020-03-15 03:09:37 Doctor Unassigned, [place] [facility] POCT GRP A STREP (MOLECULAR) 2019-10-22 00:49:00 Tosha Estrada [facility] MISCELLANEOUS SEND OUT TEST 2019-09-03 01:44:00 Arabella Wood [facility] POCT URINALYSIS 2019-09-03 01:09:00 Arabella Wood [facility] NOTICE OF BILLING PRACTICES FOR MEDICARE PATIENTS 2019-09-03 01:02:56 Doctor Unassigned, [place] [facility] PATIENT FINANCIAL POLICY 2019-09-03 01:02:17 Doctor Unassigned, [place] [facility] NO SHOW OR MISSED APPOINTMEN T POLICY ACKNOWLEDGEMENT 2019-09-03 01:01:54 Doctor Unassigned, [place] [facility] NOTICE OF PRIVACY PRACTICES 2019-09-03 01:01:36 Doctor Unassigned, [place] [facility] CONSENT/REFUSAL FOR DIAGNOSI S AND TREATMENT 2019-09-03 01:01:22 Doctor Unassigned, [place] [facility] ASSIGNMENT OF BENEFITS 2019-09-03 01:01:06 Doctor Unassigned, [place] [facility] Encounters Start Date/Time End Date/Time Encounter Type Admission Type Attending [facility] Care Facility Care Department Encounter ID Source 2021-06-01 11:57:10 Emergency [facility] [id number] [facility] 2020-08-18 13:00:00 Inpatient Nelson Serrano [facility] SRINI [id number] [facility] 2023-06-04 00:00:00 2023-06-04 00:00:00 Outpatient GC_[id number] diyala_S PRIV [facility] [id number] [facility] 2022-08-30 00:00:00 2022-08-30 00:00:00 Orders Only Doctor Unassigned, [place] [facility] 1.2.840.114 350.1.13.10 4.2.7.2.686 [id number] [facility] 2022-08-07 07:56:00 2022-08-07 10:20:00 Outpatient R JAIR GUARDADO [facility] OPH [id number] [facility] 2022-08-07 07:56:00 2022-08-07 10:20:[address] [facility] 1.2.840.114 350.1.13.10 4.2.7.2.686 [id number] [facility] 2022-08-07 08:59:00 2022-08-07 09:33:00 Surgery GeoJair [facility] [place] 1.2.840.114 350.1.13.10 4.2.7.2.686 [id number] [facility] 2022-07-24 09:26:00 2022-07-24 12:08:00 Outpatient R JAIR GUARDADO [facility] OPH [id number] [facility] 2022-07-24 09:26:00 2022-07-24 12:08:[address] Encounter Jair Guardado [facility] 1.2.840.114 350.1.13.10 4.2.7.2.686 [id number] [facility] 2022-07-24 10:42:00 2022-07-24 11:16:00 Surgery Jair Guardado [facility] 1.840.114 350.1.13.10 4.2.7.2.686 [id number] [facility] 2022-07-24 00:00:00 2022-07-24 00:00:00 Orders Only Doctor Unassigned, [place] [facility] 1.2840.114 350.1.13.10 4.2.7.2.686 [id number] [facility] 2022-07-15 11:45:00 2022-07-15 12:00:00 Earth Observations Chief Scientist Visit Pob, Adc Lab [facility] 1..840.114 350.1.13.10 4.2.7.2.686 [id number] [facility] 2022-07-15 11:45:00 2022-07-15 11:45:00 Outpatient R JAIR GUARDADO [facility] [id number] [facility] 2022-07-15 00:00:00 2022-07-15 00:00:00 Orders Only Doctor Unassigned, [place] [facility] 1.2840.114 350.1.13.10 4.2.7.2.686 [id number] [facility] 2021-06-11 10:24:00 2021-06-11 11:15:00 Emergency X CHAIM BREAUX [facility] ERT [id number] [facility] 2021-06-11 10:24:00 2021-06-11 11:15:00 Emergency Chaim Breaux S [facility] 1.840.114 350.1.13.10 4.2.7.2.686 [id number] [facility] 2021-06-11 00:00:00 2021-06-11 00:00:00 Orders Only Doctor Unassigned, [place] [facility] 1. 350.1.13.10 4.2.7.2.686 [id number] [facility] 2021-02-06 08:30:00 2021-02-06 08:30:00 Outpatient R VALDEMAR ASHLEY [facility] [id number] [facility] 2020-10-19 14:40:00 2020-10-19 14:40:00 Outpatient KRYSTINA RODRÍGUEZ [facility] [id number] [facility] 2020-10-19 13:58:42 2020-10-19 14:18:42 Urgent Care Provider, Krystina Schrader [facility] 1.114 350.1.13.10 4.2.7.2.686 [id number] [facility] 2020-10-10 00:00:00 2020-10-10 00:00:00 Telephone Provider, Rolf Urgent Guerline [facility] .114 350.1.13.10 4.2.7.2.686 [id number] [facility] 2020-10-06 09:45:56 2020-10-06 10:53:09 Urgent Care Provider, Rolf Urgent Keila Diaz [facility] .114 350.1.13.10 4.2.7.2.686 [id number] [facility] 2020-10-06 10:20:00 2020-10-06 10:20:00 Outpatient KEILA FLORES [facility] [id number] [facility] 2020-10-06 00:00:00 2020-10-06 00:00:00 Letter (Out) Doctor Unassigned, [place] [facility] 1.114 350.1.13.10 4.2.7.2.686 [id number] [facility] 2020-03-14 22:29:00 2020-03-14 23:42:00 Emergency Gloria Wilkins [facility] 1.2.840.114 350.1.13.10 4.2.7.2.686 [id number] [facility] 2020-03-14 22:29:00 2020-03-14 23:42:00 Emergency Gloria Wilkins [facility] 1.2.840.114 350.1.13.10 4.2.7.2.686 [id number] 2019-10-21 17:52:31 2019-10-21 18:49:49 Urgent Care Sean Tosha Unknown, Attending [facility] 1.2.840.114 350.1.13.10 4.2.7.2.686 [id number] [facility] 2019-10-21 17:52:31 2019-10-21 18:49:49 Urgent Care Tosha Estrada [facility] 1.2.840.114 350.1.13.10 4.2.7.2.686 [id number] 2019-10-21 18:00:00 2019-10-21 18:00:00 Outpatient R UNKNOWN, ATTENDING [facility] [id number] [facility] 2019-09-06 00:00:00 2019-09-06 00:00:00 Telephone Arabella Wood [facility] 1.2.840.114 350.1.13.10 4.2.7.2.686 [id number] [facility] 2019-09-02 19:02:06 2019-09-03 13:29:25 Urgent Care Arabella Wood Unknown, Attending [facility] 1.2.840.114 350.1.13.10 4.2.7.2.686 [id number] [facility] 2019-09-02 00:00:00 2019-09-02 00:00:00 Orders Only Doctor Unassigned, [place] [facility] 1.2.840.114 350.1.13.10 4.2.7.2.686 [id number] [facility] Results Test Description Test Time Test Comments Results Result Co mments Source [facility] GLUCOSE (AUTOMATED)2022-08-07 14:26:49* Test Item Value Reference Range Interpretation Comme nts POCT GLU (test code = 5833149149) 172 mg/dL 70-110 H Lab Interpretation (test cod e = 13665-0) Abnormal [facility] GLUCOSE (AUTOMATED)2022-07-24 15:50:30* Test Item Value Reference Range Interpretation Comme nts POCT GLU (test code = 3743579135) 229 mg/dL 70-110 H Lab Interpretation (test cod e = 15619-1) Abnormal [facility] GLUCOSE (AUTOMATED)2022-07-24 15:50:30* Test Item Value Reference Range Interpretation Comme nts POCT GLU (test code = 1059629682) 229 mg/dL 70-110 H Lab Interpretation (test cod e = 28999-5) Abnormal [facility] URINALYSIS W SPECIFIC [id number] 16:09:00* Test Item Value Reference Range Interpretation [...] internal controls Lab Interpretation (test code = 36274-4) [facility] [id number] 06:35:00* Test Item Value Reference Range Interpretation Comme nts GLUCOSE BEDSIDE TESTING (nilay t code = GLUBED) 186 mg/dL 70-110 H COVID 19 INHOUSE [id number] 13:48:00* Test Item Value Reference Range Interpretation Comme nts COVID 19 INHOUSE AG (test code = [id number]) NEGATIVE Negative Per toy stuffer , negative results should be treated aspresumptive [...] consistent with COVID-19. - XR CHEST 1 [id number] 13:38:00 [facility] : 1955 Sex: F Name: ARMAND RUIZ [facility] : 1955 Age/S: 65 / F [id number] Unit #: [id number] Loc: [place] [address] Phys: Nelson Beltran MD Acct: [id number] Dis Date: Status: PRE [facility] [place] [place] PHONE #: [phone] Exam Date: 08/18/2020 1323 FAX #: Reason: SURGERY EXAMS: CPT: [id number] XR CHEST 1 V 18583 Fluoro Time: DAP (Gy m2): Air Kerma (mGy): EXAMINATION: - XR CHEST 1 V HISTORY: Preop COMPARISON: None. LOCATION CODE: C3 FINDINGS: Single frontal view of the chest is submitted for evaluation. The lungs are clear. The cardiac silhouette, mediastinum and pulmonary vasculature are unremarkable. The regional osseous structures are intact IMPRESSION: No acute radiographic abnormality ElectronicallySigned by Roxanna Evans on 08/18/2020 at 133 Reported and signed by: Megan Evans M.D. CC: Bahman Gil DO; Nelson Beltran MD PAGE 1 Signed Report Name: ARMAND RUIZ [place] : 1955 Age/S: 65 / F [id number] Unit #: [id number] Loc: [place] [address] Phys: Nelson Beltran MD Acct: [id number] Dis Date: Status: PRE [facility] [place] PHONE #: [phone] Exam Date: 08/18/2020 1323 FAX #: Reason: SURGERY EXAMS: CPT: [id number] XR CHEST 1 V 47731 Fluoro Time: DAP (Gy m2): Air Kerma (mGy): (Continued) Technologist: Alondra Bertrand, RT(R) Trnscb Date/Time: 08/18/2020 (0521) [id number] Orig Print D/T: S: 08/18/2020 (9847) PAGE 2 Signed ReportCBC W/AUTO [id number] 13:33:00* Test Item Value Reference Range Interpretation [...] = MDIFF) NO DIFF/SCN CRITERIA BASIC METABOLIC [id number] 13:33:00* Test Item Value Reference Range Interpretation [...] = CA) 9.2 MG/DL 8.5-10.1 N PROTHROMBIN [id number] 13:32:00* Test Item Value Reference Range Interpretation Comme nts PT PATIENT (test code = PTP) 12.4 SECONDS 9.3-12.9 N INTERNATIONAL NORMAL RATIO (test code = INR) 1.10 INR Unit 0.8-1.2 N THROMBOPLASTIN TIME [id number] 13:32:00* Test Item Value Reference Range Interpretation Comme nts THROMBOPLASTIN TIME PARTIAL (test code = PTT) 29.9 SECONDS 26-35 N POCT GRP A STREP (MOLECULAR)2019-10-22 00:59:00* Test Item Value Reference Range Interpretation Comme nts POCT GP A STREP (test code = 71480-9) neg Negative - Negative AUDIE (test code = AUDIE) accurate developme nt and interpretation of all internal controls Lab Interpretation (test code = 87122-1) Normal [facility] GRP A STREP (MOLECULAR)2019-10-22 00:59:00* Test Item Value Reference Range Interpretation Comme nts POCT GP A STREP (test code = 98758-5) neg Negative - Negative AUDIE (test code = AUDIE) accurate developme nt and interpretation of all internal controls Lab Interpretation (test code = 11096-2) Normal [facility]. Sendout- Vaginal Pathogen Panel by DNA Probe [id number] 19:58:00* Test Item Value Reference Range Interpretation Comme nts Miscellaneous Test (test code = 7061915518) See scanned report Performing Lab (test code = 5236730790) [facility] URINALYSIS W SPECIFIC [id number] 01:19:00* Test Item Value Reference Range Interpretation [...] internal controls Lab Interpretation (test code = 46613-8) [facility] SPECIFIC [id number] 01:19:00* Test Item Value Reference Range Interpretation [...] internal controls Lab Interpretation (test code = 32392-3) Normal [facility] Notes Date/Time Note Provider Source 2020-08-21 09:29:00 [id number] [id number]+[id number]:2 9:946903-2395 [facility] [address] [place] [address] PATIENT NAME: ARMAND RUIZ ADMIT DATE: 08/21/20ACCOUNT NO: [id number] ROOM NO: AGE: 65 REPORT TYPE: OPERATIVE [...] subacromial decompression includingacromioplasty. SURGEON: Nelson Beltran MD [employer] CONSULTANT: Dr. Roman. ANESTHESIA: General. COMPLICATIONS: None. ESTIMATED [...] MD WT: OP:L.NARAYAN/MUSA/NTSDD: 08/21/2020 09:29:20DT: 08/21/2020 10:04:50Conf#: [id number]/DID#: [id number] Authenticated by Nelson Beltran MD On 10/02/2020 07:31:27 AM PATIENT NAME: RUIZARMAND Sierra at 0731 PATIENT NAME: JOSEPHARMAND fmjxmj2203-26-51Q82:04:00L.[id number] lable for patient [id number]-43S90:32:02 [facility]
[2023-12-08] MEDS ORDERED: LIDOCAINE 1% 20 ML MDV ONE (21:14)
[2023-12-08] MEDS ORDERED: ONDANSETRON 4 MG/2 ML VIAL ONE (21:14)
[2023-12-08] MEDS ORDERED: MORPHINE 4 MG/ML SYR ONE (21:14)
[2023-12-08] MEDS ORDERED: NA CHLORIDE 0.9% 1,000 ML ONE (21:14)
[2023-12-08 21:44] LABS: Absolute Basophils 0.1 K/uL (0-0.5); Absolute Eosinophils 0.2 K/uL (0-0.5); Absolute Lymphocytes (CBC) 3.1 K/uL (0.7-4.9); Absolute Monocytes 1.1 K/uL (0.1-1.3); Absolute Neutrophil 5.7 K/uL (1.8-8.0); Basophils % 0.8 % (0-1.3); Eosinophils % 1.6 % (0-4.4); Hemoglobin 11.5 g/dL (12.0-15.0); Lymphocytes % 30.5 % (15.3-44.8); MCH 22.8 pg (27.0-35.0); MPV 9.3 fL (7.6-11.3); Monocytes % 10.7 % (3.3-12.3); Neutrophils % 56.4 % (41.7-73.7); Platelets 220 thou/uL (152-406); RBC Red Blood Cell Count 5.07 M/uL (3.86-4.86); Red Cell Distribution Width 15.5 % (12.1-15.2)
[2023-12-08 22:07] LABS: Albumin/Globulin Ratio 0.7 (1.1-1.8); Anion Gap 7.3 mEq/L (5.0-15.0); Bilirubin Total 0.3 mg/dL (0.2-1.0); Globulin 4.6 g/dL (2.3-3.5); Potassium 3.3 mEq/L (3.5-5.1); Protein, Total 7.6 g/dL (6.4-8.2)
--- NOTE | 2023-12-08 23:55 | ER ---
Nurse's Notes [facility] Name: Monique Franz Age: 68 yrs Sex: Female : 1955 Arrival Date: 12/08/2023 Time: 20:30 Bed 13 Private MD: Bahman Gil H Diagnosis: Left groin sebaceous cyst,, left lower labia Bartholin gland cyst with infection Presentation: 12/07 21:05 Chief complaint: Patient states: abscess to pelvic area. Coronavirus screen: At this as6 time, the client does not indicate any symptoms associated with coronavirus-19. Ebola Screen: No symptoms or risks identified at this time. Initial Sepsis Screen: Does the patient meet any 2 criteria? No. Patient's initial sepsis screen is negative. Does the patient have a suspected source of infection? No. Patient's initial sepsis screen is negative. Risk Assessment: Do you want to hurt yourself or someone else? Patient reports no desire to harm self or others. Onset of symptoms was December 08, 2023. 21:05 Acuity: VIC 3 as6 21:05 Method Of Arrival: Ambulatory as6 Historical: - Allergies: 21:04 Azithromycin; as6 21:04 PENICILLINS; as6 21:04 Zithromax; as6 - PMHx: 21:04 Diabetes - NIDDM; Diverticulitis; Hyperlipidemia; Hypertension; as6 - PSHx: 21:04 Total abdominal hysterectomy; as6 - Immunization history:: Adult Immunizations up to date. - Infectious Disease History:: Denies. - Social history:: Smoking status: Patient denies any tobacco usage or history of. - Family history:: not pertinent. Screenin:10 [facility] ED Fall Risk Assessment (Adult) History of falling in the last 3 months, jw7 including since admission No falls in past 3 months (0 pts) Confusion or Disorientation No (0 pts) Intoxicated or Sedated No (0 pts) Impaired Gait No (0 pts) Mobility Assist Device Used No (0 pt) Altered Elimination No (0 pt) Score/Fall Risk Level 0 - 2 = Low Risk Oriented to surroundings, Maintained a safe environment, Educated pt \T\ family on fall prevention, incl call for assistance when getting out of bed. Abuse screen: Denies threats or abuse. Denies injuries from another. Nutritional screening: No deficits noted. Tuberculosis screening: No symptoms or risk factors identified. Assessment: 21:10 General: Appears in no apparent distress. uncomfortable, Behavior is calm, cooperative. jw7 21:10 Pain: Complains of pain in pelvis Pain does not radiate. Pain currently is 6 out of 10 jw7 on a pain scale. Quality of pain is described as aching, throbbing, Pain began gradually, Is continuous. Neuro: Level of Consciousness is awake, alert, obeys commands, Oriented to person, place, time, situation, Appropriate for age. Cardiovascular: Heart tones S1 S2 present Capillary refill < 3 seconds Clubbing of nail beds is absent JVD is absent Patient's skin is warm and dry. Respiratory: Airway is patent Trachea midline Respiratory effort is even, unlabored, Respiratory pattern is regular, symmetrical. GI: Abdomen is round non-distended, Bowel sounds present X 4 quads. Abd is soft and non tender X 4 quads. : No deficits noted. No signs and/or symptoms were reported regarding the genitourinary system. EENT: No deficits noted. No signs and/or symptoms were reported regarding the EENT system. Derm: Skin is intact, is healthy with good turgor, Skin is dry, Skin is normal, Skin temperature is warm. Musculoskeletal: Circulation, motion, and sensation intact. Range of motion: intact in all extremities. 22:00 Reassessment: Patient appears in no apparent distress at this time. No changes from jw7 previously documented assessment. Patient and/or family updated on plan of care and expected duration. Pain level reassessed. Patient is alert, oriented x 3, equal unlabored respirations, skin warm/dry/pink. 23:00 Reassessment: Patient appears in no apparent distress at this time. Patient and/or jw7 family updated on plan of care and expected duration. Pain level reassessed. Patient is alert, oriented x 3, equal unlabored respirations, skin warm/dry/pink. Patient states symptoms have improved. 12/08 00:00 Reassessment: Patient appears in no apparent distress at this time. No changes from 7 previously documented assessment. Patient and/or family updated on plan of care and expected duration. Pain level reassessed. Patient is alert, oriented x 3, equal unlabored respirations, skin warm/dry/pink. 00:20 Reassessment: Patient appears in no apparent distress at this time. Patient and/or jw7 family updated on plan of care and expected duration. Pain level reassessed. Patient is alert, oriented x 3, equal unlabored respirations, skin warm/dry/pink. Patient states feeling better. Patient states symptoms have improved. Vital Signs: 12/07 21:05 BP 149 / 83; Pulse 80; Resp 18 S; Temp 99.1(O); Pulse Ox 97% on R/A; Weight 101.15 kg as6 (R); Height 5 ft. 3 in. (R); Pain 6/10; 22:00 BP 155 / 83; Pulse 80; Resp 17 S; Pulse Ox 98% on R/A; jw7 23:30 BP 130 / 57; Pulse 83; Resp 17 S; Pulse Ox 97% on R/A; jw7 12/08 00:20 BP 140 / 66; Pulse 83; Resp 16 S; Pulse Ox 97% on R/A; jw7 12/07 21:05 Body Mass Index 39.50 (101.15 kg, 160.02 cm) as6 12/07 21:05 Pain Scale: Adult as6 Sumit Coma Score: 12/07 23:47 Eye Response: spontaneous(4). Motor Response: obeys commands(6). Verbal Response: sp4 oriented(5). Total: 15. ED Course: 20:34 Patient arrived in ED. mr 20:34 Bahman Gil DO is Private Physician. mr 20:35 Alfonso Anderson MD is Attending Physician. sp4 20:59 Chelsea Good RN is Primary Nurse. jw7 21:05 Arm band placed on. as6 21:06 Triage completed. as6 21:10 Patient has correct armband on for positive identification. Bed in low position. Call jw7 light in reach. Side rails up X 1. Provided Education on: Use of Call Light. 21:26 Missed attempt(s): 20 gauge Bleeding controlled, band aid applied, catheter tip intact. oe 21:30 Inserted saline lock: in left antecubital area, using aseptic technique. Blood oe collected. 21:32 Warm blanket given. oe 23:30 Assist provider with I \T\ D: of an abscess on right Bartholin's gland perineal Set up jw7 I\T\D tray. Performed by Alfonso Anderson MD Wound packed. 4X4s, Dressing with 4X4s, Patient tolerated well. 23:53 Bahman Gil DO is Referral Physician. sp4 12/08 00:20 IV discontinued, intact, bleeding controlled, No redness/swelling at site. Pressure jw7 dressing applied. Administered Medications: 12/07 21:47 Drug: morphine IVP or IV 4 mg IVP once over 4 mins Route: IVP; Infused Over: 4 mins; jw7 Site: left antecubital; 12/08 00:34 Follow up: Response: No adverse reaction; Marked relief of symptoms; Pain is decreased jw7 12/07 21:47 Drug: Ondansetron IVP 4 mg IVP once; over 2 minutes Route: IVP; Site: left antecubital; jw7 12/08 00:35 Follow up: Response: No adverse reaction; Marked relief of symptoms; Nausea is decreasedjw7 12/07 21:47 Drug: NS 0.9% IV 1000 ml IV at 125 ml/hr continuous Route: IV; Rate: 125 ml/hr; Site: [facility] left antecubital; 12/08 00:20 Follow up: Response: No adverse reaction; IV Status: Completed infusion; IV Intake: jw7 300ml 12/07 23:59 Drug: Lidocaine Infiltration (1 %) 20 ml 20 ml Infiltration once; to bedside Volume: 20 jw7 ml; Route: Infiltration; 12/08 00:34 Follow up: Response: No adverse reaction; Marked relief of symptoms; Pain is decreased jw7 12/07 23:59 Drug: Lidocaine Infiltration (1 %) 20 ml 20 ml Infiltration once; to bedside Volume: 20 jw7 ml; Route: Infiltration; 12/08 00:34 Follow up: Response: No adverse reaction; Marked relief of symptoms; Pain is decreased jw7 00:20 Drug: Iselin PO 10 mg-325 mg 1 tabs PO once Route: PO; jw7 00:35 Follow up: Response: No adverse reaction; Medication administered at discharge. jw7 00:20 Drug: Trimethoprim-Sulfamethoxazole PO (160 mg-800 mg (DS) 1 tablet PO once Route: PO; jw7 00:20 Follow up: Response: No adverse reaction; Medication administered at discharge. jw7 00:20 Drug: Ondansetron PO 4 mg PO once Route: PO; jw7 00:20 Follow up: Response: No adverse reaction; Medication administered at discharge. jw7 Medication: 00:20 VIS not applicable for this client. jw7 Intake: 00:20 IV: 300ml; Total: 300ml. jw7 Outcome: 12/07 23:54 Discharge ordered by . sp4 12/08 00:20 Discharged to home ambulatory, jw7 Condition: stable Discharge instructions given to patient, Instructed on discharge instructions, follow up and referral plans. medication usage, Demonstrated understanding of instructions, follow-up care, medications, wound care, Prescriptions given X 3, 00:20 Patient left the ED. jw7 Signatures: Irma Maya, Reg Reg mr [place] Nolan Velázquez, RN RN as6 Chelsea Good RN RN jw7 Alfonso Anderson MD MD sp4 Corrections: (The following items were deleted from the chart) 00:36 00:36 Patient left the ED. jw7 jw7
--- NOTE | 2023-12-08 23:55 | EDPHYS ---
Physician Documentation [facility] Name: Monique Franz Age: 68 yrs Sex: Female : 1955 Arrival Date: 12/08/2023 Time: 20:30 Bed 13 Private MD: Bahman Gil H ED Physician Alfonso Anderson HPI: 12/07 20:35 This 68 yrs old Black Female presents to ER via Unassigned with complaints of Abscess. sp4 23:47 68-year-old female with past medical history diabetes diverticulitis hyperlipidemia sp4 hypertension presents with several days of left labial discomfort associated with left labia left groin infected cysts, . Historical: - Allergies: 21:04 Azithromycin; as6 21:04 PENICILLINS; as6 21:04 Zithromax; as6 - PMHx: 21:04 Diabetes - NIDDM; Diverticulitis; Hyperlipidemia; Hypertension; as6 - PSHx: 21:04 Total abdominal hysterectomy; as6 - Immunization history:: Adult Immunizations up to date. - Infectious Disease History:: Denies. - Social history:: Smoking status: Patient denies any tobacco usage or history of. - Family history:: not pertinent. ROS: 23:47 Constitutional: Negative for fever, chills, and weight loss, positive for left groin sp4 abscess and left labial abscess 23:47 All other systems are negative, Exam: 23:47 Constitutional: This is a well developed, well nourished patient who is awake, alert, sp4 and in no acute distress. Head/Face: Normocephalic, atraumatic. Eyes: Pupils equal round and reactive to light, extra-ocular motions intact. Lids and lashes normal. Conjunctiva and sclera are not injected. Cornea within normal limits. Periorbital areas with no swelling, redness, or edema. ENT: Nares patent. No nasal discharge, no septal abnormalities noted. Tympanic membranes are normal and external auditory canals are clear. Oropharynx with no redness, swelling, or masses, exudates, or evidence of obstruction, uvula midline. Mucous membranes moist. Neck: Trachea midline, no thyromegaly or masses palpated, and no cervical lymphadenopathy. Supple, full range of motion without nuchal rigidity, or vertebral point tenderness. Chest/axilla: Normal chest wall appearance and motion. Nontender with no deformity. No lesions are appreciated. Cardiovascular: Regular rate and rhythm with a normal S1 and S2. No gallops, murmurs, or rubs. Normal PMI, no JVD. No pulse deficits. Respiratory: Lungs have equal breath sounds bilaterally, clear to auscultation and percussion. No rales, rhonchi or wheezes noted. No increased work of breathing, no retractions or nasal flaring. Abdomen/GI: Soft, with normal bowel sounds. No distension or tympany. No guarding or rebound. No evidence of tenderness throughout. Female : Normal external genitalia. Positive left small groin cyst which appears to have fluctuance. There is also left lower labial infected cyst appears to be a Bartholin gland cyst with small abscess Skin: Warm, dry with normal turgor. Normal color with no rashes, no lesions, and no evidence of cellulitis. MS/ Extremity: Pulses equal, no cyanosis. Neurovascular intact. Full, normal range of motion. Neuro: Awake and alert, GCS 15, oriented to person, place, time, and situation. Cranial nerves II-XII grossly intact. Motor strength 5/5 in all extremities. Sensory grossly intact. Psych: Awake, alert, with orientation to person, place and time. Behavior, mood, and affect are within normal limits Vital Signs: 21:05 BP 149 / 83; Pulse 80; Resp 18 S; Temp 99.1(O); Pulse Ox 97% on R/A; Weight 101.15 kg as6 (R); Height 5 ft. 3 in. (R); Pain 6/10; 22:00 BP 155 / 83; Pulse 80; Resp 17 S; Pulse Ox 98% on R/A; jw7 23:30 BP 130 / 57; Pulse 83; Resp 17 S; Pulse Ox 97% on R/A; jw7 12/08 00:20 BP 140 / 66; Pulse 83; Resp 16 S; Pulse Ox 97% on R/A; jw7 12/07 21:05 Body Mass Index 39.50 (101.15 kg, 160.02 cm) as6 12/07 21:05 Pain Scale: Adult as6 Jber Coma Score: 12/07 23:47 Eye Response: spontaneous(4). Motor Response: obeys commands(6). Verbal Response: sp4 oriented(5). Total: 15. Procedures: 23:47 I \T\ D: Incision and drainage was performed for an abscess of the left mons pubis sp4 Prepped with Betadine, Anesthetized with 20 ml's 1% Lidocaine. Incised with #11 blade. Drained small amount bloody fluid. sebaceous material without apparent infection Packed with No packing - cavity too small to pack . Dressing: sterile 4x4 gauze, the patient tolerated the procedure well, No complications . I \T\ D: Incision and drainage was performed for an abscess of the left left labia majora - left lower labia Bartholin cyst infection Prepped with Betadine, Anesthetized with 20 ml's 1% Lidocaine. Incised with #11 blade. Drained small amount purulent fluid. bloody fluid. Packed with Left without packing . Dressing: sterile 4x4 gauze, the patient tolerated the procedure well, No complications . MDM: 20:40 Patient medically screened. sp4 23:47 Differential diagnosis: abscess, allergic reaction, cellulitis, insect bite. Data sp4 reviewed: vital signs, nurses notes, old medical records, lab test result(s). 12/07 20:57 Order name: CBC with Diff; Complete Time: 22:06 [facility] 12/07 20:57 Order name: CMP; Complete Time: 23:53 [facility] 12/07 20:57 Order name: IV Saline Lock; Complete Time: 21:31 sp 12/07 20:57 Order name: Labs collected and sent; Complete Time: 21:31 [facility] 12/07 20:57 Order name: Dressing - Wound; Complete Time: 23:59 [facility] 12/07 20:57 Order name: Gloves, Sterile; Complete Time: 21:57 [facility] 12/07 20:57 Order name: Setup Suture Tray; Complete Time: 21:57 sp4 Administered Medications: 21:47 Drug: morphine IVP or IV 4 mg IVP once over 4 mins Route: IVP; Infused Over: 4 mins; jw7 Site: left antecubital; 12/08 00:34 Follow up: Response: No adverse reaction; Marked relief of symptoms; Pain is decreased [facility] 12/07 21:47 Drug: Ondansetron IVP 4 mg IVP once; over 2 minutes Route: IVP; Site: left antecubital; jw7 12/08 00:35 Follow up: Response: No adverse reaction; Marked relief of symptoms; Nausea is decreasedjw7 12/07 21:47 Drug: NS 0.9% IV 1000 ml IV at 125 ml/hr continuous Route: IV; Rate: 125 ml/hr; Site: jw7 left antecubital; 12/08 00:20 Follow up: Response: No adverse reaction; IV Status: Completed infusion; IV Intake: jw7 300ml 12/07 23:59 Drug: Lidocaine Infiltration (1 %) 20 ml 20 ml Infiltration once; to bedside Volume: 20 jw7 ml; Route: Infiltration; 12/08 00:34 Follow up: Response: No adverse reaction; Marked relief of symptoms; Pain is decreased jw7 12/07 23:59 Drug: Lidocaine Infiltration (1 %) 20 ml 20 ml Infiltration once; to bedside Volume: 20 jw7 ml; Route: Infiltration; 12/08 00:34 Follow up: Response: No adverse reaction; Marked relief of symptoms; Pain is decreased jw7 00:20 Drug: Sullivan PO 10 mg-325 mg 1 tabs PO once Route: PO; jw7 00:35 Follow up: Response: No adverse reaction; Medication administered at discharge. jw7 00:20 Drug: Trimethoprim-Sulfamethoxazole PO (160 mg-800 mg (DS) 1 tablet PO once Route: PO; jw7 00:20 Follow up: Response: No adverse reaction; Medication administered at discharge. jw7 00:20 Drug: Ondansetron PO 4 mg PO once Route: PO; jw7 00:20 Follow up: Response: No adverse reaction; Medication administered at discharge. jw7 Disposition Summary: 12/08/23 23:54 Discharge Ordered Notes: Location: Home sp4 Problem: new sp4 Symptoms: have improved sp4 Condition: Stable sp4 Diagnosis - Left groin sebaceous cyst,, left lower labia Bartholin gland cyst with infection sp4 Followup: sp4 - With: Bahman Gil DO - When: 7 - 10 days - Reason: Recheck today's complaints Discharge Instructions: - Discharge Summary Sheet sp4 - Bartholin's Cyst Incision and Drainage sp4 Prescriptions: - Tramadol 50 mg Oral tablet - take 1 tablet ORAL route every 8 hours as needed; 20 tablet; Refills: 0, sp4 Product Selection Permitted - Bactrim DS 800-160 mg Oral Tablet - take 1 tablet ORAL route every 12 hours for 10 days; 20 tablet; Refills: 0, sp4 Product Selection Permitted - promethazine 25 mg Oral tablet - take 1 tablet ORAL route every 6 hours As needed PRN nausea; 30 tablet; sp4 Refills: 0, Product Selection Permitted Signatures: Dispatcher [employer] EDNolan Padilla RN RN as6 Chelsea Good RN RN jw7 Alfonso Anderson MD MD sp4 Corrections: (The following items were deleted from the chart) 12/07 20:57 20:57 CBC+H.LAB.BRZ ordered. EDMS EDMS 20:57 20:57 COMPREHENSIVE METABOLIC PANEL+C.LAB.BRZ ordered. EDMS EDMS
[2023-12-09] MEDS ORDERED: HYDROCODONE/APAP 10/325 TAB ONE (00:05)
[2023-12-09] MEDS ORDERED: SMZ./TMP. 800/160 MG TABLET ONE (00:06)
[2023-12-09] MEDS ORDERED: ONDANSETRON 4 MG (ODT) TAB ONE (00:06)
[2023-12-09 01:26] VITALS: BP 140/66; TEMP 99.1; O2SAT 97
== END 2023-12-09 00:36 | disposition home or self-care (01) ==
LOC: ER 20:30
PROC: 0U9LXZZ Drainage of Vestibular Gland, External Approach (ICD-10-PCS; principal; 2023-12-09)
DX: N75.0 Cyst of Bartholin's gland (principal); L72.3 Sebaceous cyst; Z88.0 Allergy status to penicillin; Z88.1 Allergy status to other antibiotic agents
CPT/HCPCS: 85025; 36415; 80053; 56420; Q0162; J2001; J2405; J7030; 10060; 96361; 96374; 96375; 99284